=== PATIENT | female | born 1955 | race Caucasian/White ===

== ENCOUNTER → 2016-11-05 | Outpatient (CLI) | payer BC ==
[~2016-11-05] MED LIST: ADVIN50/60 INH; ALBINS/ INH; CHOL1TAB42 PO; DILT1TAB58 PO; FLVHFA44 INH; HYDR-5688 PO; HYDR12.56 PO; LEVO88TA PO; MAGNTAB PO; METO50TA16 PO; MULTTAB58 PO; PROAIR INH; REDCAP2 PO
--- NOTE | 2016-11-05 12:20 | DIAGNOSTIC IMAGING REPORT ---
RIGHT WRIST MRI HISTORY: Right wrist pain. Assess for scaphoid fracture. TECHNIQUE: Multiplanar multisequence MRI of the right wrist was performed without the use of intravenous contrast. COMPARISON STUDY: Right forearm 10/05/2016. FINDINGS: Mild subcutaneous edema dorsal to the distal ulna. The distal ulna demonstrates mild dorsal displacement in relation to the distal radius. This is consistent with a tear of the dorsal radioulnar ligament resulting in the subluxation at the distal radioulnar joint. However, there is no significant soft tissue edema to suggest an acute injury. Therefore, this is age indeterminate but likely old. There is mild patchy marrow edema at the distal radial shaft. This is only partially imaged on this study. However, is no fracture identified. The scapholunate, lunotriquetral ligaments are intact. Question a tiny partial tear at the triangular fibrocartilage best seen on coronal image 9. The flexor and extensor tendons are intact. The median nerve is normal in course, caliber, and signal intensity. IMPRESSION: 1. No acute fracture within the right wrist. 2. Mild patchy marrow edema at the distal radial shaft. This is only partially imaged on this study. This could represent a bone contusion. Recommend follow-up plain film of the forearm to exclude the less likely possibility of a fracture which is not included on this study. 3. The distal ulna demonstrates mild dorsal subluxation within relation to the radius. This consistent with tear of the dorsal radioulnar ligament. There is mild subcutaneous edema along the dorsal aspect of the ulna. However, this is less than expected for an acute injury. Therefore, the distal radioulnar joint subluxation is technically age indeterminate but likely old. 4. Small partial tear at the triangular fibrocartilage. Electronically signed by: Christopher Buckley M.D. 11/05/2016 12:19 PM Dictated Date/Time: 11/05/2016 12:06 PM
== END | disposition home or self-care (01) ==
LOC: C.MRI 10:20
PROVIDERS: ATTEND Orthopaedic Surgery Sports Medicine
DX: M25.531 Pain in right wrist (principal)

== ENCOUNTER → 2017-04-13 | Outpatient (CLI) | payer BC ==
--- NOTE | 2017-04-13 16:08 | MAMMOGRAPHY REPORT ---
BILATERAL DIGITAL SCREENING MAMMOGRAM TOMOSYNTHESIS WITH CAD: 04/13/2017 CLINICAL HISTORY: Asymptomatic screening exam. Personal history of left breast cancer status post tr eatment. TECHNIQUE: Bilateral breast tomosynthesis in addition to standard 2D mammography was performed. 2-D right MLO and left XCCL views were obtained. Current study was also evaluated with a Computer Aided Detection (CAD) system. COMPARISON: Comparison is made to exams dated: 04/09/2016 mammogram, 03/03/2015 mammogram, 02/28/2014 m ammogram, 02/26/2013 mammogram, 02/24/2012 mammogram, and 02/17/2011 mammogram - [facility] nter. BREAST COMPOSITION: There are scattered areas of fibroglandular density in both breasts. FINDINGS: There are stable posttreatment changes in the left breast. Surgical clips remain in place in the superior posterior breast. Asymmetry of the size of the breasts, right greater than left, lik gerson secondary to prior left breast treatment. There are benign-appearing rodlike microcalcifications in the medial right breast. Mild vascular calcification and a few benign rim calcifications. No ne w suspicious mass, architectural distortion or cluster of microcalcifications is seen. IMPRESSION: ACR BI-RADS CATEGORY 2: BENIGN There is no mammographic evidence of malignancy. A 1 year screening mammogram is recommended. The pa tient will receive written notification of the results. Approximately 10% of breast cancers are not detected with mammography. A negative mammographic report should not delay biopsy if a clinically suggestive mass is present. Emma Jarrell M.D. ay/:04/13/2017 13:38:03 Rehab/Pre Vocational Counselor: Janeth BROWN(R)(M)(BD), [facility] letter sent: Normal 1/2 BI-RADS Code: ACR BI-RADS Category 2: Benign
== END | disposition home or self-care (01) ==
LOC: C.MAMM 10:26
PROVIDERS: ATTEND Family Medicine
DX: Z12.31 Encounter for screening mammogram for malignant neoplasm of breast (principal); Z85.3 Personal history of malignant neoplasm of breast

== ENCOUNTER → 2017-09-06 | Outpatient (CLI) | payer BC ==
[~2017-09-06] MED LIST changes: -HYDR-5688 PO
--- NOTE | 2017-09-06 15:49 | DIAGNOSTIC IMAGING REPORT ---
CHEST 2 VIEWS ROUTINE CLINICAL HISTORY: ASTHMA EXACERBATION dyspnea COMPARISON STUDY: 01/09/2016 FINDINGS: Chronic pleural reactive change and fibrosis right base. Small stable calcified granuloma right apex. Lungs otherwise appear clear. Unchanging surgical clips overlying the right hilum. IMPRESSION: Chronic and postoperative change. No acute process. The above report was generated using voice recognition software. It may contain grammatical, syntax or spelling errors. Electronically signed by: Nando William M.D. 09/06/2017 3:47 PM Dictated Date/Time: 09/06/2017 3:46 PM
== END | disposition home or self-care (01) ==
LOC: C.RAD1850 15:36
PROVIDERS: ATTEND Student in an Organized Health Care Education/Training Program
DX: J45.901 Unspecified asthma with (acute) exacerbation (principal)

== ENCOUNTER 2017-09-12 16:10 | Inpatient (IN) | payer BC, OTHER ==
[~2017-09-12] VITALS: Ht 175.3 cm; Wt 103.3 kg
[2017-09-12 16:30] VITALS: BP 166/83; PULSE 78; TEMP 36.6; O2SAT 94; Ht 175.3 cm; Wt 103.3 kg
[2017-09-12] MEDS ORDERED: ACETAMINOPHEN 325 MG TAB PO PRN (17:30)
[2017-09-12] MEDS ORDERED: MAGNESIUM HYDROXIDE SUSP 30 ML UDC PO PRN (17:30)
[2017-09-12] MEDS ORDERED: ALUMINUM/MAGNESIUM/SIMETH (MAALOX MAX) 30 ML UDC PO PRN (17:30)
[2017-09-12] MEDS ORDERED: POLYETHYLENE (MIRALAX) 17 GM PACK PO PRN (17:30)
[2017-09-12] MEDS ORDERED: ZOLPIDEM TARTRATE 5 MG TAB PO PRN (17:30)
[2017-09-12] MEDS ORDERED: ONDANSETRON INJ 2 MG/ML 2 ML VIAL IV PRN (17:30)
--- NOTE | 2017-09-12 17:40 | History and Physical ---
History & Physical Date of Service Sep 12, 2017. History & Physical persistent asthma, direct admit from Dr. Silva office, [id number]
[2017-09-12] MEDS ORDERED: LEVO112T4 PO (17:43)
[2017-09-12] MEDS ORDERED: PANTOprazole SOD 40 MG TAB PO STA (17:43)
[2017-09-12] MEDS ORDERED: HYDR25TA5 (17:45)
[2017-09-12] MEDS ORDERED: BIOT1CAP8 (17:47)
[2017-09-12] MEDS ORDERED: CYCL10TA6 PO (17:48)
[2017-09-12] MEDS ORDERED: LEVO1TAB35 PO (17:48)
[2017-09-12] MEDS ORDERED: PRED20TA2 (17:48)
[2017-09-12] MEDS ORDERED: PRED10TA PO (17:48)
[2017-09-12] MEDS ORDERED: OPTIRAY 320 IV PRN (18:00)
[2017-09-12] MEDS ORDERED: METHYLPREDNISOLONE IV 125 MG in SYRINGE 0 ML IV ONE (18:00)
[2017-09-12 18:11] LABS: BASO % 0.2 %; BASO ABS # 0.02 K/uL (0-0.2); COMPLETE YES; EOS % 0.3 %; HEMATOCRIT 41.8 % (37-47); LYMPH % 20.3 %; LYMPH ABS # 2.23 K/uL (1.2-3.4); MEAN CELL VOLUME 93.3 fL (80-100); MEAN CORPUSCULAR HEMOGLOBIN 31.7 pg (25-34); MONO % 9.1 %; NEUT % 69.1 %; PLATELET COUNT 170 K/uL (130-400); RED BLOOD COUNT 4.48 M/uL (4.2-5.4); WHITE BLOOD COUNT 11.01 K/uL (4.8-10.8)
[2017-09-12 18:21] LABS: PROTHROMBIN TIME (PATIENT) 10.9 SECONDS (9.0-12.0)
[2017-09-12 18:33] LABS: BLOOD UREA NITROGEN 26 mg/dl (7-18); BUN/CREATININE RATIO 25.1 (10-20); C-REACTIVE PROTEIN < 0.29 mg/dl (0-0.29); CALCIUM 9.8 mg/dl (8.5-10.1); CARBON DIOXIDE 28 mmol/L (21-32); CHLORIDE 102 mmol/L (98-107); CREATININE 1.03 mg/dl (0.60-1.20); GLUCOSE 135 mg/dl (70-99); MAGNESIUM 2.1 mg/dl (1.8-2.4); PHOSPHORUS 1.6 mg/dl (2.5-4.9); POTASSIUM 3.3 mmol/L (3.5-5.1); SODIUM 137 mmol/L (136-145)
[2017-09-12] MEDS ORDERED: POTASSIUM PHOS 3 MMOL/1 ML INFUSION IV STA (18:43)
[2017-09-12] MEDS ORDERED: LEVAQUIN 750MG / 150ML D5W IV ONE (18:45)
[2017-09-12] MEDS ORDERED: POTASSIUM CHLORIDE 10 MEQ TABCR PO STA (18:50)
[2017-09-12] MEDS ORDERED: POTASSIUM PHOSPHATE INJ 30 MMOL in SODIUM CHLORIDE 0.9% 500ML 500 ML IV ONE (19:00)
--- NOTE | 2017-09-12 19:20 | DIAGNOSTIC IMAGING REPORT ---
(CHEST FOR PE) ANGIO WITH CLINICAL HISTORY: 62 years-old Female presenting with ^persistent asthma to rule out pe, cough, asthma, clinical concern for pulmonary embolus. TECHNIQUE: Multidetector CT angiography of the chest was performed after administration of intravenous contrast. 3-D volumetric and/or maximum intensity projection (MIP) images were subsequently reconstructed for review. IV contrast: 74 mL of Optiray 320. A dose lowering technique was used consistent with the principles of ALARA (as low as reasonably achievable). COMPARISON: 01/08/2012. CT DOSE (mGy.cm): The estimated cumulative dose is 471.56 mGy.cm. FINDINGS: [employer] Administrator topogram: Surgical clips noted in the left breast. Cholecystectomy clips. Pulmonary vasculature: The study is adequate for assessment of the pulmonary vascular tree. No filling defect within the pulmonary arteries to suggest embolus. Main pulmonary artery is not enlarged though there is slight aneurysmal dilatation of the left pulmonary artery. No flattening of the interventricular septum. No intracardiac intracardiac filling defect. No reflux of contrast into the hepatic veins. Remaining chest: On soft tissue windows, normal thyroid. Postsurgical changes of the left breast. No axillary, supraclavicular, hilar, or mediastinal lymphadenopathy. Atherosclerosis of the aorta. Coronary artery calcification. Normal heart size. No pericardial or pleural effusion. Subpleural lipoma noted in the right hemithorax. Borderline hepatic steatosis. Cholecystectomy clips. Mild biliary ductal dilatation likely reservoir effect in the post cholecystectomy state. On lung windows, minimal dependent changes likely atelectasis. Minimal subpleural nodularity more superiorly may relate to scarring. Anterior cystic change, reticulation, and consolidation in the subpleural distribution of the left apex is unchanged from prior exam. Postsurgical changes of right upper lobectomy. Airways patent though mild bronchial wall thickening suggested in the lower lobes. Debris noted in several subsegmental bronchi bilaterally at the lung bases. On bone windows, normal osseous structures. IMPRESSION: 1. No evidence of pulmonary embolus. 2. Postsurgical changes of right upper lobectomy. 3. Chronic cicatrizing atelectasis and bronchiectasis in the anterior left apex, which may represent postinfectious changes. 4. Mild bronchial wall thickening in the lower lobes with debris in several subsegmental lower lobe bronchi. This could suggest chronic aspiration or mucous plugging. Electronically signed by: Reginaldo Hartley M.D. 09/12/2017 7:18 PM Dictated Date/Time: 09/12/2017 7:09 PM
--- NOTE | 2017-09-12 19:35 | HISTORY & PHYSICAL EXAMINATION ---
DATE OF ADMISSION: 09/12/2017 This is a level 3 inpatient admission, 35 minutes. CHIEF COMPLAINT: Persistent asthma. 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 The patient's systems designer, Dr. Silva called me from the office and reported the patient has persistent cough and wheezing for 3 weeks, has been tried with oral prednisone, 3 courses of different antibiotics which include azithromycin and Levaquin and has not been getting any better. The patient was seen in the office today, she still has significant episodic cough and wheezing. The patient was getting breathing treatment at home 4 times a day, which has no help associated with persistent cough and cough spells. Has some chest pain because of the cough. There was some yellow, junk sputum yesterday. She denied palpitations. She denied lower extremity swelling. She denied nausea, vomiting, abdominal pain, diarrhea or constipation. She denied dysuria, urgency or frequencies. She denied facial droop, slurry speeches or local weakness; but possibly has oral candidiasis. ALLERGIES: TO IBUPROFEN, THEOPHYLLINE AND [place]. PAST MEDICAL HISTORY: Like I mentioned include: 1. Carcinoid tumor with possible right lobectomy of the lung, left breast cancer with lumpectomy radiation and chemo treatment. 2. Right total knee replacement. 3. Left back discectomy. 4. Bunion removal. 5. Cholecystectomy. 6. Partial hysterectomy. 7. Irritable bowel syndrome. 8. Restless leg syndrome. 9. CAD with LA in the past. 10. Hypertension. 11. Seasonal allergy. 12. GERD. 13. Graves' disease. 14. Asthma. SOCIAL HISTORY: She denied tobacco abuse disorder, denied alcohol abuse disorder and denied illicit drug abuse. FAMILY HISTORY: Noncontributory. REVIEW OF SYSTEMS: Please see HPI. Otherwise, 14 point organ system was negative. CURRENT MEDICATIONS: Include: 1. Pulmicort 0.5 mg inhaler. 2. Flovent 220 mcg inhaler b.i.d. 3. ProAir inhaler 90 mcg. 4. Metoprolol 50 mg b.i.d. 5. Red yeast rice 600 mg p.o. daily. 6. Advair 500/50 mg inhale b.i.d. 7. HCTZ 25 mg p.o. daily. 8. Cardizem 120 mg p.o. b.i.d. 9. Flexeril 10 mg p.o. p.r.n. 10. Other medicines include; Synthroid 112 mcg p.o. daily, the current dose of prednisone is 20 mg p.o. daily and Levaquin 750 mg p.o. daily. PHYSICAL EXAMINATION: VITAL SIGNS: Temperature is 36.7, pulse 75, respiratory rate 16, heart rate of 75 and pulse ox was 95% on two liters. GENERAL: The patient is a white female, awake, alert, orientated, conversational and in no acute distress, but has persistent cough on physical examination. HEAD: Normocephalic. EYES: Pupils are equal, round and responsive to light. Conjunctivae; no injection. Sclerae; no icterus. EARS: Normal. NOSE: Normal. NECK: Supple. Thyroid no enlargement. Trachea is midline. LUNGS: Decreased breathing sounds. There was significant diffused wheezing and rales. No crackles. ABDOMEN: Obese, bowel sounds positive, soft and nontender. Bilateral CVA was nontender. GENITOURINARY AND RECTAL: Deferred. EXTREMITIES: Bilateral lower extremity; no swelling. Calf was nontender. There was no clubbing. No cyanosis. NEUROLOGIC EVALUATION: Cranial nerve through II-XII was intact. There were no local deficits. SKIN: Has no rashes. LABORATORY STUDIES: Pending because of the direct admission. ASSESSMENT AND PLAN: 1. Persistent asthma. Need to rule out pulmonary embolism with a chest CT because of history of deep vein thrombosis and has significant history of carcinoid lung cancer and breast cancer history. 2. History of hypertension, gastroesophageal reflux disease, coronary artery disease and history of atrial fibrillation. Like I mentioned above, the patient has persistent asthma and failed outpatient treatment. We will give nebulizer treatment, DuoNeb q. 6 hours scheduled and q. 2 hours as needed, Solu-Medrol IV 125mg one dose now and then q. 8 hours 60 mg scheduled. The patient has 3 courses of antibiotics treatment; I believe possible have enough antibiotics, I would cont levaquin because pt has yellow sputum and elevated Lactase level, may need to stop abx soon if CT of chest dose not support infectious process. In addition, check a chest CT to rule out PE. I will check a Doppler ultrasound to rule out DVT as well. If needed, we may request a systems designer's consultation. The patient has oral candidiasis. We will give Nystatin swish and swallowing. I will check TSH levels, ESR and CRP, check echocardiogram because the patient has a history of A-Fib and has persistent asthma. continue the tele monitor. I will continue home medications for hypertension, history of LA and A-Fib. GI prophylaxis and DVT prophylaxis. full code. MTDD
--- NOTE | 2017-09-12 19:35 | DIAGNOSTIC IMAGING REPORT ---
VENOUS DOPPLER LWR EXT BILA CLINICAL HISTORY: 62 years-old Female presenting with persistent asthma, hx of dvt. TECHNIQUE: Real-time grayscale and color and spectral Doppler ultrasound imaging of the veins of the bilateral lower extremities was performed. Compression and augmentation were also utilized. COMPARISON: 02/11/2012. FINDINGS: Right: Common femoral vein: Patent. Femoral vein: Patent. Greater saphenous vein: Patent. Popliteal vein: Patent. Calf veins: Patent. Left: Common femoral vein: Patent. Femoral vein: Patent. Greater saphenous vein: Patent. Popliteal vein: Patent. Calf veins: Patent. Other: None. IMPRESSION: No evidence of deep venous thrombosis. Electronically signed by: Reginaldo Hartley M.D. 09/12/2017 7:33 PM Dictated Date/Time: 09/12/2017 7:32 PM
[2017-09-12] MEDS: DILTIAZEM HCL 120 MG CAPCR PO SCH (19:43)
[2017-09-12] MEDS: METOPROLOL TARTRATE 25 MG TAB PO SCH (19:44)
[2017-09-12] MEDS: MAGNESIUM CHLORIDE 64MG DELAYED REL TAB PO SCH (19:45)
[2017-09-12] MEDS: NYSTATIN SUSP 500,000 U/5 ML UDC PO SCH (19:46)
[2017-09-12] MEDS: ENOXAPARIN 40 MG/0.4 ML SYR SC SCH (19:47)
[2017-09-12] MEDS: LEVOFLOXACIN / D5W 750 MG in PREMIXED IN D5W 150 ML IV SCH (19:51)
[2017-09-12] MEDS: ALBUT/IPRATROP 3MG/0.5MG NEB 3 ML VIAL INH SCH (20:00)
[2017-09-12 20:05] VITALS: BP 175/79; PULSE 67; TEMP 36.6; O2SAT 100
--- NOTE | 2017-09-12 20:34 | DIAGNOSTIC IMAGING REPORT ---
CHEST 2 VIEWS ROUTINE CLINICAL HISTORY: 62 years-old Female presenting with persistent asthma. TECHNIQUE: PA and lateral views of the chest were obtained. COMPARISON: 09/06/2017. FINDINGS: Numerous external leads project over the mediastinum and upper abdomen degrading image quality. Allowing for this, mediastinal surgical clips and atherosclerosis of the aortic arch noted. Cardiac silhouette normal in size. Mildly low lung volumes with mild elevation of the right hemidiaphragm unchanged. Lungs otherwise clear. Persistent pleural thickening along the right lateral pleural space. No pneumothorax. Degenerative changes of the thoracic spine. Upper abdomen normal. IMPRESSION: 1. Chronic changes. No convincing evidence of acute cardiopulmonary disease. Electronically signed by: Reginaldo Hartley M.D. 09/12/2017 8:32 PM Dictated Date/Time: 09/12/2017 8:30 PM
[2017-09-12 20:48] VITALS: PULSE 71; O2SAT 95
[2017-09-12 23:31] VITALS: BP 146/76; PULSE 69; TEMP 36.8; O2SAT 95
[2017-09-13] VITALS (13 sets, daily range): BP systolic 131–166; BP diastolic 71–89; PULSE 66–89; TEMP 36.4–36.8; O2SAT 93–97
[2017-09-13] MEDS: METHYLPREDNISOLONE IV 60 MG in SYRINGE 0 ML IV SCH ×3 (01:46→18:05)
[2017-09-13] MEDS ORDERED: HYDROCODONE/HOMATROPINE SYRUP 5MG/1.5MG 5ML UDP PO STA (02:08)
[2017-09-13] MEDS: ALBUT/IPRATROP 3MG/0.5MG NEB 3 ML VIAL INH SCH ×5 (02:16→19:34)
[2017-09-13] MEDS: LEVOTHYROXINE 88 MCG TAB PO SCH (05:57)
[2017-09-13 08:07] LABS: BASO % 0.1 %; BASO ABS # 0.01 K/uL (0-0.2); COMPLETE YES; HEMATOCRIT 42.3 % (37-47); IG% 2.3 %; LYMPH ABS # 1.53 K/uL (1.2-3.4); MEAN CELL VOLUME 92.6 fL (80-100); MEAN CORPUSCULAR HEMOGLOBIN 31.3 pg (25-34); MEAN CORPUSCULAR HGB CONC 33.8 g/dl (32-36); MEAN PLATELET VOLUME 9.1 fL (7.4-10.4); MONO % 1.6 %; PLATELET COUNT 170 K/uL (130-400); RED BLOOD COUNT 4.57 M/uL (4.2-5.4); WHITE BLOOD COUNT 8.52 K/uL (4.8-10.8)
[2017-09-13 08:35] LABS: BUN/CREATININE RATIO 18.7 (10-20); CALCIUM 9.6 mg/dl (8.5-10.1); CREATININE 1.1 mg/dl (0.60-1.20); POTASSIUM 3.8 mmol/L (3.5-5.1)
--- NOTE | 2017-09-13 08:36 | Hospitalist Progress Note ---
Hospitalist Progress Note Date of Service Sep 13, 2017. Subjective Pt evaluation today including: conversation w/ patient, physical exam, chart review, lab review, review of studies Pain: None PO Intake: Good Voiding: no voiding problems The patient was seen and examined this morning. Pt reports her cough has been going on for about 2 months at this point. She has been through 3 courses of antibiotics and steriods, all which did not seem to help. She reports not sleeping well overnight, and her cough has been more productive since being here last night. Mucous is lawrence-yellow per her report, and she is trying to expectorate for a sputum culture. She denies fever, chills or sweats overnight. No chest pain. She is short of breath with ambulation after about 50 yards, but reports this has also been going on for a while. Pt is very active at home and hasn't had any issue completing ADLs, lives with her . ROS: 6 point ROS reviewed and otherwise negative. Objective Vital Signs Date Time Temp Pulse Resp B/P (MAP) Pulse Ox O2 Delivery O2 Flow Rate FiO2 09/13/17 07:52 36.7 70 16 145/89 (107) 95 09/13/17 04:00 Room Air 09/13/17 03:45 36.8 70 22 131/71 (91) 94 Room Air 09/13/17 02:16 72 16 93 Room Air 09/13/17 00:01 95 Room Air 09/12/17 23:31 36.8 69 22 146/76 (99) 95 Room Air 09/12/17 20:48 71 16 95 Room Air 09/12/17 20:05 36.6 67 21 175/79 (111) 100 Nebulizer 9.0 09/12/17 20:00 Room Air 09/12/17 16:30 36.6 78 20 166/83 94 Room Air 09/12/17 16:30 94 Room Air Physical Exam General Appearance: WD/WN, no apparent distress, + pertinent finding ( overweight) Eyes: PERRL, EOMI ENT: hearing grossly normal, + pertinent finding (white plaque in posterior pharynx) Neck: supple, no JVD Respiratory/Chest: + pertinent finding (on RA, + expiratory wheeze throughout, no rales or crackles) Cardiovascular: regular rate, rhythm, no murmur, + tachycardia Abdomen: normal bowel sounds, non tender, soft Extremities: non-tender, no pedal edema, no calf tenderness Neurologic/Psychiatric: alert, normal mood/affect, oriented x 3 Skin: normal color, warm/dry Laboratory Results Last 24 Hours Test 09/12/17 17:56 09/12/17 22:55 09/13/17 07:39 White Blood Count 11.01 K/uL 8.52 K/uL Red Blood Count 4.48 M/uL 4.57 M/uL Hemoglobin 14.2 g/dL 14.3 g/dL Hematocrit 41.8 % 42.3 % Mean Corpuscular Volume 93.3 fL 92.6 fL Mean Corpuscular Hemoglobin 31.7 pg 31.3 pg Mean Corpuscular Hemoglobin Concent 34.0 g/dl 33.8 g/dl Platelet Count 170 K/uL 170 K/uL Mean Platelet Volume 9.0 fL 9.1 fL Neutrophils (%) (Auto) 69.1 % 78.0 % Lymphocytes (%) (Auto) 20.3 % 18.0 % Monocytes (%) (Auto) 9.1 % 1.6 % Eosinophils (%) (Auto) 0.3 % 0.0 % Basophils (%) (Auto) 0.2 % 0.1 % Neutrophils # (Auto) 7.62 K/uL 6.64 K/uL Lymphocytes # (Auto) 2.23 K/uL 1.53 K/uL Monocytes # (Auto) 1.00 K/uL 0.14 K/uL Eosinophils # (Auto) 0.03 K/uL 0.00 K/uL Basophils # (Auto) 0.02 K/uL 0.01 K/uL RDW Standard Deviation 46.0 fL 44.9 fL RDW Coefficient of Variation 13.4 % 13.3 % Immature Granulocyte % (Auto) 1.0 % 2.3 % Immature Granulocyte # (Auto) 0.11 K/uL 0.20 K/uL Erythrocyte Sedimentation Rate 18 mm/hr Prothrombin Time 10.9 SECONDS Prothromb Time International Ratio 1.0 Sodium Level 137 mmol/L Potassium Level 3.3 mmol/L Chloride Level 102 mmol/L Carbon Dioxide Level 28 mmol/L Anion Gap 7.0 mmol/L Blood Urea Nitrogen 26 mg/dl Creatinine 1.03 mg/dl Est Creatinine Clear Calc Drug Dose 69.8 ml/min Estimated GFR () 67.0 Estimated GFR (Non- 57.8 BUN/Creatinine Ratio 25.1 Random Glucose 135 mg/dl Lactic Acid Level 2.6 mmol/L 5.6 mmol/L Calcium Level 9.8 mg/dl Phosphorus Level 1.6 mg/dl Magnesium Level 2.1 mg/dl C-Reactive Protein < 0.29 mg/dl Procalcitonin < 0.05 ng/ml Chemistry Specimen Hemolysis Assessment and Plan 62 yo F with PMHx of Persistent asthma. - chest CT neg for PE, possible post infectious changes with cicatrizing atelectasis and brochiectasis in ant L. apex, and mild bronchial wall thickening in lower lobes which could be aspiration or mucous plugging. - Will consult pulm for possible needs for bronch - DuoNeb q. 6 hours scheduled and q. 2 hours as needed - Solu-Medrol IV 125mgx 1 dose and then 60 mg q8h - S/p 3 courses of antibiotics treatment - Continue levaquin for now - Collect sputum culture Lactic acidosis - Elevated at time of admission, now trending downward - did not receive fluids overnight. - Follow blood cultures Hypertension - Cont hctz 12.5 mg daily, metoprolol tartrate 25 mg BID, diltiazem 120 mg BID CAD Atrial Fibrillation - Cont diltiazem 120 mg BID GERD - Cont PPI Hypothyroidism s/p graves disease - Continue synthroid 88mcg daily - TSH = 0.125, likely needs a dose increase on synthroid after acute infectious process resolved - will discuss with attending. Oral candidiasis - Continue nystatin swish and swallow as likely esophageal candidiasis as well. - Pt instructed to rinse after inhaler and nebulizer treatments Hx of breast cancer s/p lumpectomy and chemotherapy and XRT 2002 History of carcinoid tumor with partial right lobectomy of the lung 2001 - Venous doppler negative for DVT - CT chest negative for PE - Stable DVT ppx: lovenox subq daily CODE STATUS: FULL CODE Disposition: From home, lives with , no CM needs anticipated
[2017-09-13 08:47] LABS: PHOSPHORUS 2.8 mg/dl (2.5-4.9); THYROID STIMULATING HORMONE 0.135 uIu/ml (0.300-4.500)
[2017-09-13] MEDS: MAGNESIUM CHLORIDE 64MG DELAYED REL TAB PO SCH ×2 (09:23→20:51)
[2017-09-13] MEDS: METOPROLOL TARTRATE 25 MG TAB PO SCH ×2 (09:23→20:51)
[2017-09-13] MEDS: DILTIAZEM HCL 120 MG CAPCR PO SCH ×2 (09:23→20:52)
[2017-09-13] MEDS: PANTOprazole SOD 40 MG TAB PO SCH (09:23)
[2017-09-13] MEDS: MULTIVITAMIN TAB PO SCH (09:23)
[2017-09-13] MEDS: HYDROCHLOROTHIAZIDE 25 MG TAB PO SCH (09:23)
[2017-09-13] MEDS: NYSTATIN SUSP 500,000 U/5 ML UDC PO SCH ×4 (09:23→20:52)
[2017-09-13] MEDS: CHOLECALCIFEROL 1000 INTER.UNIT TAB PO SCH (09:24)
--- NOTE | 2017-09-13 12:22 | ECHOCARDIOGRAM REPORT ---
*NOTICE TO RECEIVING DEMOCRAT AGENCY This information is strictly Confidential and protected under [place] law. [place] law prohibits you from making any further disclosure of this information unless further disclosure is expressly permitted by the written consent of the person to whom it pertains or is authorized by law. A general authorization for the release of medical or other information is not sufficient for this purpose. Hospital accepts no responsibility if the information is made available to any other person, INCLUDING THE PATIENT. Interpretation Summary * Name: JOSR CHAPIN Study Date: 09/13/2017 06:31 AM BP: 131/71 mmHg * Patient Location: .2T\S\E217\S\1 HR: 70 * : 1955 (M/d/yyyy) Gender: Female Height: 69 in * Age: 62 yrs Ethnicity: CA Weight: 216 lb * Ordering Physician: Reji Warner * Referring Physician: No Doctor, Assigned * Performed By: Kalpana Noriega RDCS * * Reason For Study: Atrial Fibrillation * BSA: 2.1 m2 * Normal biventricular systolic function. * Mild left atrial dilatation. * Trace mitral regurgitation. * No significant valvular abnormalities. Procedure Details * A complete two-dimensional transthoracic echocardiogram was performed (2D, M-mode, Doppler and color flow Doppler). Left Ventricle * The left ventricle is normal in size. * There is normal left ventricular wall thickness. * Ejection Fraction = 55-60%. * Left ventricular systolic function is normal. * A full diastolic examination was done with clinical findings of Class I diastolic dysfunction. * The left ventricular wall motion is normal. Right Ventricle * The right ventricle is normal in size and function. * The right ventricular systolic function is normal as assessed by tricuspid annular plane systolic excursion (TAPSE) (normal >1.5 cm). Atria * The left atrium is mildly dilated. * Right atrial size is normal. * No ASD detected; PFO is not assessed. Mitral Valve * The mitral valve is normal. * There is no mitral valve stenosis. * There is trace mitral regurgitation. Tricuspid Valve * The tricuspid valve is normal. * There is no tricuspid stenosis. * No tricuspid regurgitation. Aortic Valve * The aortic valve opens well. * The aortic valve is trileaflet. * Aortic stenosis is absent. * No aortic regurgitation is present. Pulmonic Valve * The pulmonic valve is not well visualized. * The pulmonary valve is not well seen, but the Doppler examination is normal without significant regurgitation or stenosis. * There is no pulmonic valvular stenosis. * There is no pulmonic valvular regurgitation. Great Vessels * The aortic root is normal size. Pericardium/Pleural * There is no pericardial effusion. Great Vessels * The inferior vena cava is mildly dilated. MMode 2D Measurements and Calculations IVSd 0.99 cm IVSs 1.3 cm LVIDd 4.1 cm LVIDs 2.7 cm LVPWd 1.1 cm LVPWs 1.6 cm IVS/LVPW 0.94 FS 34.1 % EDV(Teich) 76.2 ml ESV(Teich) 27.8 ml EF(Teich) 63.5 % EDV(cubed) 71.3 ml ESV(cubed) 20.4 ml EF(cubed) 71.4 % % IVS thick 34.9 % % LVPW thick 54.1 % LV mass(C)d 139.6 grams LV mass(C)dI 65.4 grams/m\S\2 LV mass(C)s 138.2 grams LV mass(C)sI 64.7 grams/m\S\2 SV(Teich) 48.4 ml SI(Teich) 22.7 ml/m\S\2 SV(cubed) 50.9 ml SI(cubed) 23.8 ml/m\S\2 Ao root diam 3.3 cm Ao root area 8.5 cm\S\2 ACS 2.0 cm LA dimension 4.1 cm LA/Ao 1.2 LVAd ap4 27.8 cm\S\2 LVLd ap4 8.2 cm EDV(MOD-sp4) 84.5 ml EDV(sp4-el) 80.7 ml LVAs ap4 16.9 cm\S\2 LVLs ap4 7.0 cm ESV(MOD-sp4) 38.7 ml ESV(sp4-el) 34.6 ml EF(MOD-sp4) 54.2 % EF(sp4-el) 57.1 % LVAd ap2 33.4 cm\S\2 LVLd ap2 8.2 cm EDV(MOD-sp2) 118.7 ml EDV(sp2-el) 115.5 ml LVAs ap2 20.7 cm\S\2 LVLs ap2 7.0 cm ESV(MOD-sp2) 56.3 ml ESV(sp2-el) 52.2 ml EF(MOD-sp2) 52.5 % EF(sp2-el) 54.8 % LVLd %diff 0.15 % EDV(MOD-bp) 100.0 ml LVLs %diff -1.25 % ESV(MOD-bp) 46.8 ml EF(MOD-bp) 53.2 % SV(MOD-sp4) 45.8 ml SI(MOD-sp4) 21.5 ml/m\S\2 SV(MOD-sp2) 62.3 ml SI(MOD-sp2) 29.2 ml/m\S\2 SV(MOD-bp) 53.2 ml SI(MOD-bp) 24.9 ml/m\S\2 SV(sp4-el) 46.1 ml SI(sp4-el) 21.6 ml/m\S\2 SV(sp2-el) 63.3 ml SI(sp2-el) 29.7 ml/m\S\2 Doppler Measurements and Calculations MV E max ramona 91.8 cm/sec MV A max ramona 95.4 cm/sec MV E/A 0.96 MV dec time 0.20 sec Ao V2 max 131.4 cm/sec Ao max PG 6.9 mmHg Ao max PG (full) 3.3 mmHg LV V1 max PG 3.7 mmHg LV V1 max 95.6 cm/sec PA V2 max 116.2 cm/sec PA max PG 5.4 mmHg
--- NOTE | 2017-09-13 13:21 | PULMONARY CONSULTATION ---
DATE OF CONSULTATION: 09/13/2017 TIME: 12:10 p.m. HISTORY OF PRESENT ILLNESS: The patient was seen in room 217. She is a 62-year-old female with a history of bronchial asthma, dating back to her late 20s. It generally has gotten worse as she has gotten older. She follows up with Dr. Mahamed Silva on a regular basis in the pulmonary and allergy office. She has been having problems for between 1 and 2 months. She states that she had at least 2 courses of antibiotics with only partial benefit. She has had at least 2 courses of steroids. Usually, the prednisone really makes things better for her, but at this time, it did not seem to clear her out. She subsequently saw Dr. Silva, who felt that she should be admitted. She was admitted yesterday. The patient states she has been very tight. This would be most bothersome at night. She has been short of breath with exertion. Usually, she states when she gets over an episode, she is good for a while. She states she exercises and goes to the gym on a regular basis when she feels well. She is generally very active. This morning, she did expectorate a modest quantity of mucus that was yellowish ramna in color. She estimates that it was the size of a quarter. That was the most she had brought up. Last week, she had had some low grade fevers with temperatures as high as 100.6 at home. The fevers have resolved. She has not coughed up any blood. The patient has had allergy testing in the past. She states SHE IS ALLERGIC TO [place] AND [place]. She does get hay fever symptoms mainly in the springtime. This would often be in the form of watery eyes. She has 2 cats at home. She denies that she is allergic or sensitive to cat hair at all, however. PAST SURGICAL HISTORY: 1. 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 2. Left breast lumpectomy. 3. Right total knee replacement. 4. Low back surgery. 5. Bunion surgery. 6. Cholecystectomy. 7. Partial hysterectomy. PAST MEDICAL HISTORY: 1. DVT. 2. Atrial fibrillation. 3. Hemorrhoids. 4. Breast cancer as noted. 5. Irritable bowel syndrome. 6. Hypertension. 7. WI. 8. Coronary artery disease. 9. GERD by history, but with no symptoms recently. 10. Graves' disease. 11. Restless legs. ALLERGIES: IBUPROFEN AND THEOPHYLLINE. SOCIAL HISTORY: Tobacco none. ETOH -- None. FAMILY HISTORY: Noncontributory. RESPIRATORY MEDICATIONS: At home, according to the patient, she takes Advair 500/50 one puff b.i.d., Flovent 220 mcg 2 puffs b.i.d., nebulizer treatments, and a rescue inhaler. This apparently is ProAir. REVIEW OF SYSTEMS: Negative except for the above-mentioned complaints. Ten systems reviewed. PHYSICAL EXAMINATION: GENERAL: The patient is a 62-year-old female who was cooperative, alert and oriented. She was in no distress. VITAL SIGNS: Temperature is 36.4. The heart rate was 83 per minute. The rhythm is regular. Blood pressure 146/83. HEENT: Pupils were reactive. Nares were clear. Mouth exam revealed a small amount of oral candidiasis posteriorly. NECK: Palpation of the neck reveals no lymph nodes or masses. LUNGS: Lung palmer revealed wheezes bilaterally on expiration. These would be considered moderate. There is prolonged expiratory phase of respiration. Her respiratory rate was 18 and not labored. Pulse oximetry done on room air by myself was 94%. ABDOMEN: Soft. Bowel sounds were present. There was no tenderness to palpation, masses or organomegaly. EXTREMITIES: Showed no cyanosis, clubbing or edema. She has a scar on the right knee from prior surgery. DIAGNOSTIC STUDIES: Venous Doppler was negative. Chest x-ray showed no acute disease. CAT scan of the chest showed no evidence of pulmonary embolic disease. She appears to have had a prior right upper lobectomy. In the left apex, there are cystic changes with reticulation and they are unchanged from a prior CAT scan done in 2012. The lower airways showed mild bronchial wall thickening as well as some debris in the subsegments. LABORATORY DATA: White count is 11.01. Hemoglobin 14.2. Platelets 170,000. Her eosinophil count % was only 0.3. Sed rate was 18. Coags are normal. Lactic acid levels were elevated at 2.6, then 5.6, and then 4.0. Electrolytes show sodium 137, potassium 3.8, chloride 103, and bicarbonate 22. BUN is 21 with a creatinine of 1.1. Random glucose was 188. TSH was low at 0.135. ProBNP was 513. Blood cultures are pending. Sputum is also pending. IMPRESSIONS: 1. Asthma with exacerbation. 2. Gastroesophageal reflux disease by history. 3. Oral candidiasis. COMMENTS AND RECOMMENDATIONS: The patient feels better today. She has started to expectorate. I did review the patient's prior records. She has moderately severe airflow obstruction by pulmonary function from February of this year. Her FEV1/FVC ratio was 54%. I do not feel she needs bronchoscopy at the present time. I also spoke with the patient about the possibility of bronchoscopy and she feels that she is able to cough it up. She really does noth want to consider that. She is still moderately tight and I would be reluctant to scope her the way she is currently We are going to obtain peak flows, which hopefully will correlate with her status and we can follow them. I am ordering a vibration vest and flutter valve to assist with clearance of secretions. I do agree with the methylprednisolone and levofloxacin and the nebulizer treatments as ordered. Thank you for asking me to assist in her care. CHANTELL
[2017-09-13] MEDS: LEVOFLOXACIN / D5W 750 MG in PREMIXED IN D5W 150 ML IV SCH (18:05)
[2017-09-13] MEDS: ENOXAPARIN 40 MG/0.4 ML SYR SC SCH (18:05)
[2017-09-14] VITALS (8 sets, daily range): BP systolic 147–155; BP diastolic 70–80; PULSE 66–84; TEMP 36.7–36.8; O2SAT 94–96
[2017-09-14] MEDS: METHYLPREDNISOLONE IV 60 MG in SYRINGE 0 ML IV SCH (01:45)
[2017-09-14] MEDS: LEVOTHYROXINE 88 MCG TAB PO SCH (06:06)
[2017-09-14] MEDS: ALBUT/IPRATROP 3MG/0.5MG NEB 3 ML VIAL INH SCH ×2 (07:15→11:19)
[2017-09-14] MEDS: MULTIVITAMIN TAB PO SCH (08:08)
[2017-09-14] MEDS: CHOLECALCIFEROL 1000 INTER.UNIT TAB PO SCH (08:08)
[2017-09-14] MEDS: PANTOprazole SOD 40 MG TAB PO SCH (08:08)
[2017-09-14] MEDS: METOPROLOL TARTRATE 25 MG TAB PO SCH (08:08)
[2017-09-14] MEDS: HYDROCHLOROTHIAZIDE 25 MG TAB PO SCH (08:09)
[2017-09-14] MEDS: NYSTATIN SUSP 500,000 U/5 ML UDC PO SCH (08:09)
[2017-09-14] MEDS: MAGNESIUM CHLORIDE 64MG DELAYED REL TAB PO SCH (08:09)
[2017-09-14] MEDS: DILTIAZEM HCL 120 MG CAPCR PO SCH (08:09)
--- NOTE | 2017-09-14 09:01 | PULMONARY PROGRESS NOTE ---
DATE: 09/14/2017 TIME: 08:45 a.m. SUBJECTIVE: The patient is feeling much better. She slept better last night. She was not disturbed with dyspnea and cough nearly as much as she had been. This morning, she feels quite comfortable. Her peak flows are improving. Yesterday, she was doing 150 and this morning, she is doing 200. OBJECTIVE: GENERAL: The patient is comfortable at rest. VITAL SIGNS: Temperature is 36.8. Heart rate is 84 per minute. The rhythm is regular. Blood pressure 155/80. EARS, NOSE, AND THROAT: Unremarkable. LUNGS: Lung palmer revealed diminished breath sounds. No active wheezing was heard. Respiratory rate is 20 breaths per minute. Pulse oximetry on room air was 96%. Peak flow at the time of this done by myself was 200. ABDOMEN: Soft and nontender. EXTREMITIES: Showed no cyanosis, clubbing or edema. IMPRESSIONS: 1. Asthma with exacerbation. 2. Gastroesophageal reflux disease. 3. Oral candidiasis. COMMENTS AND RECOMMENDATIONS: The patient is clinically much improved even though her peak flows are still low. She does not know what her normal peak flow is when she is feeling the best she can be. The steroids can be significantly cut back. If she continues to do well despite that cutback, I suspect she will be ready for discharge by tomorrow morning and perhaps even later today if she is doing extremely well. She obviously will need to go home with a fpc prednisone taper. She should follow up with Dr. Silva in a week or so after discharge. When she goes home, she should continue with the Advair 500/50 one puff b.i.d. and the fluticasone 2 puffs b.i.d. as she had been doing previously along with prednisone. The antibiotic course can be finished out for at least 5 days.
[2017-09-14] MEDS ORDERED: SYN88 PO (10:17)
[2017-09-14] MEDS ORDERED: PRED10TA PO (10:17)
[2017-09-14] MEDS ORDERED: PRED20TA2 PO (10:17)
[2017-09-14] MEDS ORDERED: NYSS5 PO (10:17)
[2017-09-14] MEDS ORDERED: LEVO75TA5 PO (10:27)
--- NOTE | 2017-09-14 10:35 | Discharge Instructions ---
Discharge Instructions Date of Service Sep 14, 2017. Admission Reason for Admission: Persistant Asthma Discharge Discharge Diagnosis / Problem: Acute flare of persistent asthma Discharge Goals Goal(s): Decrease discomfort, Improve function, Increase independence, Improve disease control Activity Recommendations Activity Limitations: resume your previous activity Lifting Limitations: no more than 25 pounds, gradually increase as tolerated Exercise/Sports Limitations: rest today, gradually increase as tolerated May Resume Sexual Activity: when tolerated Shower/Bathe: no limitations Driving or Machine Use: no limitations . Instructions / Follow-Up Instructions / Follow-Up You were admitted to [facility] with worsening wheeze and cough and diagnosed with acute flare of persistent asthma. During your stay here you were treated with antibiotics (Levaquin) which you had taken as an outpatient prior to admission, therefore recieved a total of 9 days of this. You were treated with other supportive care including flutter, incentive spirometry and a vibration vest. You symptoms improved and you were stable for discharge. Regarding TSH: THS= 0.135. Your dosage of levothyroxine was reduced from 88 to 75 mcg daily during this admission. Your level should be rechecked in 4-6 weeks. Medications: Take prednisone taper as directed below Start with 20 mg tablets: 60 mg ( 3 tabs) daily x 3 days, then 40 mg (2 tabs ) daily x 3 days, then 20 mg (1 tab) daily x 3 days Then finish taper with 10 mg tablets: Take 1 tablet daily x 3 days. This will complete a 12 day course. Continue taking your medications as above. Use the incentive spirometer, and flutter valve along with mucinex to help alleviate symptoms Appointments: Follow up with your Primary Care Provider, Dr. Silva, within 1-2 week. Current Hospital Diet Patient's current hospital diet: Low Sodium Diet (2gm Na) Discharge Diet Recommended Diet: Low Sodium Diet (2gm Na) Pending Studies Studies pending at discharge: yes List of pending studies: Sputum Culture Medical Emergencies . Who to Call and When: Medical Emergencies: If at any time you feel your situation is an emergency, please call 911 immediately. . Non-Emergent Contact Non-Emergency issues call your: Primary Care Provider Call Non-Emergent contact if: you have a fever, temperature is above 100.5 other concerns with your health. Call 911 or go directly to the Emergency Department if you experience any of the following: Chest pain, chest tightness, shortness of breath, abdominal pain , lightheadedness, dizziness, gastrointestinal bleeding, or have any other concerns regarding your health. . Past History Medical & Surgical History: (1) Persistent asthma . "Provider Documentation" section prepared by Yolis Méndez. . VTE Core Measure Inpt VTE Proph given/why not?: Enoxaparin (Lovenox)SQ
--- NOTE | 2017-09-14 12:59 | Discharge Summary ---
Discharge Summary Date of Service Sep 14, 2017. 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 (CHEST FOR PE) ANGIO WITH 09/12/17 IMPRESSION: 1. No evidence of pulmonary embolus. 2. Postsurgical changes of right upper lobectomy. 3. Chronic cicatrizing atelectasis and bronchiectasis in the anterior left apex, which may represent postinfectious changes. 4. Mild bronchial wall thickening in the lower lobes with debris in several subsegmental lower lobe bronchi. This could suggest chronic aspiration or mucous plugging. CHEST 2 VIEWS ROUTINE 09/12/17 FINDINGS: Numerous external leads project over the mediastinum and upper abdomen degrading image quality. Allowing for this, mediastinal surgical clips and atherosclerosis of the aortic arch noted. Cardiac silhouette normal in size. Mildly low lung volumes with mild elevation of the right hemidiaphragm unchanged. Lungs otherwise clear. Persistent pleural thickening along the right lateral pleural space. No pneumothorax. Degenerative changes of the thoracic spine. Upper abdomen normal. IMPRESSION: 1. Chronic changes. No convincing evidence of acute cardiopulmonary disease. Consultations: Pulmonology Medication Reconciliation New Medications: Levothyroxine Sodium (Levothyroxine Sodium) 75 Mcg Tab 1 TAB PO DAILY for 30 Days, #30 TAB 1 Refill Nystatin (Nystatin) 5 Ml Susp 10 ML PO QID for 7 Days, #28 DOSE Changed Medications: Prednisone (Prednisone) 10 Mg Tab 10 MG PO UD for 3 Days, #3 TAB (Medication details modified) Take 1 tab daily x 3 days after finishing 20 mg tablets. Prednisone (Prednisone Tab) 20 Mg Tab 60 MG PO UD for 12 Days, #18 TAB (Medication details modified) Take 60 mg x 3 days, 40 mg x 2 days, 20 mg x 2 days, and then take 10 mg tablets x 3 days. Continued Medications: Albuterol Sulf (Proventil 0.083% 2.5MG/3ML) 2.5 Mg/3 Ml Nebu 2.5 MG INH QID PRN for SOB/Wheezing, EA Biotin (Biotin) 1 Mg Cap Cholecalciferol (Vitamin D) 5,000 Unit Tab 5000 UNITS PO DAILY Cyclobenzaprine Hcl (Flexeril) 10 Mg Tab 10 MG PO TID, #21 TAB Diltiazem Hcl Coated Beads (Cardizem La) 120 Mg Tab 120 MG PO BID Fluticasone Prop/Salmeterol (Advair Diskus 500/50 60 Dose) 1 Ea Aerp 1 PUFF INH BID, INHALER Fluticasone Propionate (Flovent Hfa) 120 Puffs/5280 Mcg Aero 2 PUFFS INH BID for 30 Days, #1 INHALER 2 Refills Hydrochlorothiazide (Hydrochlorothiazide) 25 Mg Tab Levothyroxine Sodium (Levothyroxine Sodium) 112 Mcg Tab 1 TAB PO DAILY for 30 Days, #30 TAB 5 Refills Magnesium Chloride (Slow-Mag) 64 Mg Tab 64 MG PO BID Metoprolol Tartrate (Lopressor) (Lopressor) 50 Mg Tab 25 MG PO BID, 0 Refills Multiple Vitamin (Multivitamin) 1 Tab Tab 1 TAB PO DAILY Red Yeast Rice Extract (Red Yeast Rice) 600 Mg Cap 1200 MG PO BID [Proair] () 2 PUFFS INH Q4 PRN for SOB/Wheezing Discontinued Medications: Levofloxacin (Levaquin) 750 Mg Tab 750 MG PO, TAB Discharge Exam The patient was seen and examined this morning. Pt reports doing extremely well , she reports her breathing is greatly improved and that she has a minimal cough. She reports minimal mucous production and notes that she has been able to ambulate without any difficulty since being here. She does not feel acutely HUFFMAN or while at rest. Pt slept well overnight and is tolerating an oral diet without difficulty. She denies any fever, chills or sweats, no chest pain or tightness. ROS: 6 point ROS reviewed and otherwise negative. Physical Exam: General Appearance: WD/WN, no apparent distress Eyes: PERRL, EOMI ENT: hearing grossly normal, pharynx normal, + pertinent finding (white plaques in posterior pharynx) Neck: supple, no JVD Respiratory/Chest: chest non-tender, lungs clear, no respiratory distress, no accessory muscle use, + pertinent finding (on RA) Cardiovascular: regular rate, rhythm, no murmur, normal peripheral pulses Abdomen / GI: normal bowel sounds, non tender, soft Extremities: no calf tenderness, no pedal edema Neurologic/Psychiatric: alert, normal mood/affect, oriented x 3 Skin: normal color, warm/dry Hospital Course HISTORY OF PRESENT ILLNESS: The patient is a 62-year-old white female, with a significant past medical history of lower extremity DVT, A-Fib, external hemorrhoids not on Coumadin, asthma, history of carcinoid tumor with partial right lobectomy of the lung, left breast cancer with lumpectomy after radiation and chemo treatment, irritable bowel syndrome, hypertension, GERD and Graves' disease who comes to the hospital from the first aid director's office. The patient's first aid director, Dr. Silva called me from the office and reported the patient has persistent cough and wheezing for 3 weeks, has been tried with oral prednisone, 3 courses of different antibiotics which include azithromycin and Levaquin and has not been getting any better. The patient was seen in the office today, she still has significant episodic cough and wheezing. The patient was getting breathing treatment at home 4 times a day, which has no help associated with persistent cough and cough spells. Has some chest pain because of the cough. There was some yellow, junk sputum yesterday. She denied palpitations. She denied lower extremity swelling. She denied nausea, vomiting, abdominal pain, diarrhea or constipation. She denied dysuria, urgency or frequencies. She denied facial droop, slurry speeches or local weakness; but possibly has oral candidiasis. PHYSICAL EXAMINATION: VITAL SIGNS: Temperature is 36.7, pulse 75, respiratory rate 16, heart rate of 75 and pulse ox was 95% on two liters. GENERAL: The patient is a white female, awake, alert, orientated, conversational and in no acute distress, but has persistent cough on physical examination. HEAD: Normocephalic. EYES: Pupils are equal, round and responsive to light. Conjunctivae; no injection. Sclerae; no icterus. EARS: Normal. NOSE: Normal. NECK: Supple. Thyroid no enlargement. Trachea is midline. LUNGS: Decreased breathing sounds. There was significant diffused wheezing and rales. No crackles. ABDOMEN: Obese, bowel sounds positive, soft and nontender. Bilateral CVA was nontender. GENITOURINARY AND RECTAL: Deferred. EXTREMITIES: Bilateral lower extremity; no swelling. Calf was nontender. There was no clubbing. No cyanosis. NEUROLOGIC EVALUATION: Cranial nerve through II-XII was intact. There were no local deficits. SKIN: Has no rashes. Hospital Course: 62 yo F with PMHx of Persistent asthma. - chest CT neg for PE, possible post infectious changes with cicatrizing atelectasis and brochiectasis in ant L. apex, and mild bronchial wall thickening in lower lobes which could be aspiration or mucous plugging. - Pulm on board - did not feel bronchoscopy was needed. Pt was placed on vibration vest while in the hospital, flutter and incentive spirometry. - DuoNeb q. 6 hours scheduled and q. 2 hours as needed - Solu-Medrol IV 125mgx 1 dose and then 60 mg q8h was reduced. Pt was placed on prednisone taper at time of discharge, 60 mg x 3 days and then reducing by 20 mg every 3 days. After 20 mg daily x 3 days switch to 10 mg daily until seen by pulmonology. - S/p 3 courses of antibiotics treatment - had 9 consecutive days of levaquin now. No need for further antibiotic treatment. - Collect sputum culture - in process - will have PCP follow up after discharge. Lactic acidosis - resolved - Elevated at time of admission and trended downward - did not receive fluids - only po intake. - Blood cultures were negative preliminary. Hypertension - Cont hctz 12.5 mg daily, metoprolol tartrate 25 mg BID, diltiazem 120 mg BID CAD Atrial Fibrillation - Cont diltiazem 120 mg BID GERD - Cont PPI Hypothyroidism s/p graves disease - TSH = 0.125. Synthroid reduced to 75 mcg from 88mcg daily at time of discharge. Called Lakisha Chicas [place]-C at [facility] [place] thyroid and monitors to let her know and left a message. - Will need TSH recheck in 4-6 weeks. 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 Total Time Spent: Greater than 30 minutes This includes examination of the patient, discharge planning, medication reconciliation, and communication with other providers. Discharge Instructions Please refer to the electronic Patient Visit Report (Discharge Instructions) for additional information. Follow-Up Follow up with your Primary Care Provider, Dr. Silva, within 1-2 week. Additional Copies To Mahamed Silva M.D.
[2017-09-14] MEDS ORDERED: METHYLPREDNISOLONE IV 40 MG in SYRINGE 0 ML IV SCH (21:00)
== END 2017-09-14 13:17 | disposition home or self-care (01) | DRG 202 ==
LOC: C.2T 16:22
PROVIDERS: ADMIT Hospitalist; ATTEND Internal Medicine
DX: J45.901 Unspecified asthma with (acute) exacerbation (principal); E87.2 Acidosis; B37.0 Candidal stomatitis; I48.91 Unspecified atrial fibrillation; I25.10 Atherosclerotic heart disease of native coronary artery without angina pectoris; I25.2 Old myocardial infarction; I11.9 Hypertensive heart disease without heart failure; E03.8 Other specified hypothyroidism; K21.9 Gastro-esophageal reflux disease without esophagitis; E66.3 Overweight; Z79.899 Other long term (current) drug therapy; Z79.52 Long term (current) use of systemic steroids; Z85.3 Personal history of malignant neoplasm of breast; Z85.110 Personal history of malignant carcinoid tumor of bronchus and lung; Z92.21 Personal history of antineoplastic chemotherapy; Z92.3 Personal history of irradiation; Z86.718 Personal history of other venous thrombosis and embolism; Z68.33 Body mass index [BMI] 33.0-33.9, adult

== ENCOUNTER 2018-01-09 11:14 | Inpatient (IN) | payer OTHER ==
[~2018-01-09] VITALS: Ht 175.3 cm; Wt 94.7 kg
[~2018-01-09 11:14] MED LIST changes: +BIOT1CAP8; +CYCL10TA6 PO; -HYDR12.56 PO; +HYDR25TA5; +LEVO112T4 PO; +LEVO75TA5 PO; -LEVO88TA PO; +NYSS5 PO; +PRED10TA PO; +PRED20TA2 PO
[2018-01-09 11:56] LABS: BASO % 0.3 %; BASO ABS # 0.03 K/uL (0-0.2); EOS % 2.3 %; EOS ABS # 0.26 K/uL (0-0.5); HEMATOCRIT 44.7 % (37-47); HEMOGLOBIN 15.5 g/dL (12.0-16.0); IG# 0.03 K/uL (0.00-0.02); LYMPH ABS # 2.41 K/uL (1.2-3.4); MEAN CELL VOLUME 90.1 fL (80-100); MEAN CORPUSCULAR HEMOGLOBIN 31.3 pg (25-34); MEAN CORPUSCULAR HGB CONC 34.7 g/dl (32-36); MONO % 7.9 %; MONO ABS # 0.91 K/uL (0.11-0.59); NEUT % 68.2 %; NEUT ABS # 7.84 K/uL (1.4-6.5); PLATELET COUNT 181 K/uL (130-400); RED CELL DISTRIBUTION WIDTH CV 13.1 % (11.5-14.5); RED CELL DISTRIBUTION WIDTH SD 42.6 fL (36.4-46.3); WHITE BLOOD COUNT 11.48 K/uL (4.8-10.8)
--- NOTE | 2018-01-09 12:01 | DIAGNOSTIC IMAGING REPORT ---
CHEST ONE VIEW PORTABLE CLINICAL HISTORY: Shortness of breath. COMPARISON STUDY: Chest radiograph and chest CT September 12, 2017. FINDINGS: There is no pneumothorax or pleural effusion. There is no evidence for pulmonary edema. There is mild asymmetric left lung interstitial thickening. No lobar consolidation is present. Cardiomediastinal silhouette is unremarkable. IMPRESSION: Mild asymmetric left lung interstitial thickening which is likely chronic. A mild infectious process could appear similar. No consolidation identified. Electronically signed by: Devyn Narayan M.D. 01/09/2018 12:00 PM Dictated Date/Time: 01/09/2018 11:59 AM
[2018-01-09 12:06] LABS: PTT PATIENT 24.5 SECONDS (21.0-31.0)
[2018-01-09 12:15] LABS: ALBUMIN 3.8 gm/dl (3.4-5.0); CALCIUM 10.3 mg/dl (8.5-10.1); CREATININE 0.92 mg/dl (0.60-1.20); POTASSIUM 3.8 mmol/L (3.5-5.1)
[2018-01-09] MEDS ORDERED: ALBUT/IPRATROP 3MG/0.5MG NEB 3 ML VIAL INH STA (12:19)
[2018-01-09] MEDS ORDERED: OPTIRAY 320 IV PRN (12:30)
[2018-01-09] MEDS ORDERED: SLWMEC PO (12:34)
[2018-01-09] MEDS ORDERED: SYN100 PO (12:34)
[2018-01-09] MEDS ORDERED: ALBU18002 INH (12:34)
[2018-01-09] MEDS ORDERED: MELA1TAB49 PO (12:34)
--- NOTE | 2018-01-09 13:40 | DIAGNOSTIC IMAGING REPORT ---
CT ANGIOGRAM OF THE CHEST CLINICAL HISTORY: Dyspnea. Tachycardia. COMPARISON STUDY: Chest CT dated 09/12/2017 and 01/08/2012. TECHNIQUE: Following the IV administration of 99 cc of Optiray 320, CT angiogram of the chest was performed from the upper abdomen to the thoracic inlet utilizing the pulmonary embolus protocol. Images are reviewed in the axial, sagittal, and coronal planes. 3-D MIPS images are created and assessed. IV contrast was administered without complication. A dose lowering technique was utilized adhering to the principles of ALARA. CT DOSE: 519.29 mGy.cm FINDINGS: Thyroid: Imaged portions of the thyroid gland are normal in size and attenuation. Thoracic aorta: There is mild atherosclerotic calcification of the thoracic aorta, which is normal in caliber and demonstrates standard 3-vessel arch anatomy. No dissection is seen. Pulmonary vasculature: The pulmonary trunk is normal in caliber. There are extensive pulmonary emboli. Thrombus is seen within the distal right main pulmonary artery extending into the right and lower branches. This extends into segmental and subsegmental branches in the right upper and right lung. Pulmonary emboli are also seen within segmental and subsegmental branches of the left upper and left lower lobe pulmonary arteries. Heart: The heart is mildly enlarged and without pericardial effusion. There are scattered coronary artery calcifications. Lungs and pleural spaces: Evaluation of lung parenchyma is degraded by motion artifact. There are postoperative changes and volume loss from right sided lobar resection. Left apical scarring is unchanged dating back to 2011 and may be related. Scattered calcified granulomas are observed. There is no airspace consolidation or pleural effusion. Foci of subpleural scarring in the right lower lobe unchanged. There are scattered noncalcified pulmonary nodules. A 6 mm left lower lobe nodule is seen on image #125, and a 4 mm left lower lobe nodule is seen on image #109. Defibrillator pleural-based nodule in the right upper lung is seen on image #225. These are unchanged from 09/12/2017 but have significantly increased in size trauma 2011. Mediastinum: There is no mediastinal lymphadenopathy. Rose: Clear. Axillae: There is no axillary lymphadenopathy. Upper abdomen: There is a small hiatal hernia. Cholecystectomy clips are noted. Partially visualized upper abdominal viscera is otherwise within normal limits. Skeletal structures: The skeletal structures are osteopenic. Degenerative change is noted in the thoracic spine. No lytic or blastic bony lesions are seen. Soft tissues: Postoperative change is suggested in the left breast. Surgical clips are noted. IMPRESSION: 1. Extensive bilateral pulmonary emboli as above. 2. There is no airspace consolidation or pleural effusion. 3. Mild cardiomegaly. 4. There are postoperative changes from right-sided pulmonary lobar resection. 5. There are noncalcified pulmonary nodules measuring up to 6 mm. These have not significantly changed from 09/12/2017 but have increased in size dating back to 2011. Follow-up is advised. See below. 6. Additional findings as above. Please refer to below summary of Fleischner criteria recommendations for follow-up of incidental CT nodules (Gordon Garcia, Guidelines for management of small pulmonary nodules detected on CT scans: A statement from the Fleischner Society, Radiology 237: [phone].) SOLID NODULES Solitary nodule size: <6 mm * low risk patients: no follow-up needed * high risk patients: optional CT at 12 months Solitary nodule size: 6-8 mm * low risk patients: follow-up at 6-12 months, then consider further follow-up at 18-24 months * high risk patients: initial follow-up CT at 6-12 months and then at 18-24 months if no change Solitary nodule size: >8 mm * either low or high risk patients - consider follow-up CT at 3 months, and/or CT-PET, and/or biopsy Multiple nodules size: <6 mm * low risk patients: no routine follow-up * high risk patients: optional CT at 12 months Multiple nodules size: 6-8 mm * low risk patients: follow-up at 3-6 months, then consider further follow-up at 18-24 months * high risk patients: follow-up at 3-6 months, then at 18-24 months if no change Multiple nodules size: >8 mm * low risk patients: follow-up at 3-6 months, then consider further follow-up at 18-24 months * high risk patients: follow-up at 3-6 months, then at 18-24 months if no change Note: newly detected indeterminate nodule in persons 35 years of age or older. * low risk patients: minimal or absent history of smoking and/or other known risk factors * high risk patients: history of smoking or of other known risk factors (e.g. first degree relative with lung cancer, or exposure to asbestos, radon, uranium) * if a nodule up to 8 mm is partly solid or is ground glass further follow-up is required after 24 months to exclude possible slow growing adenocarcinoma ([place]) SUBSOLID NODULES Solitary pure ground-glass nodule * nodule size <6 mm - no CT follow-up required * nodule size >=6 mm - follow-up CT at 6-12 months, then every 2 years until 5 years Solitary part-solid nodule * nodule size <6 mm - no CT follow-up required * nodule size >=6 mm - follow-up CT at 3-6 months. If unchanged, and solid component remains <6 mm, then annual follow-up for 5 years Multiple subsolid nodules * nodule size <6 mm - follow-up CT at 3-6 months, consider further follow-up at 2 and 4 years if stable * nodule size >=6 mm - follow-up CT at 3-6 months, subsequent management based on the most suspicious nodule(s) Electronically signed by: Luca Mathews M.D. 01/09/2018 1:39 PM Dictated Date/Time: 01/09/2018 1:27 PM
[2018-01-09] MEDS ORDERED: HEPARIN SOD 5000 UNIT/0.5 ML CARP ONE (14:41)
[2018-01-09] MEDS ORDERED: HEPARIN 25000 UNIT/500 ML D5W ONE (14:41)
[2018-01-09] MEDS ORDERED: ACETAMINOPHEN 325 MG TAB PO PRN (15:30)
[2018-01-09] MEDS ORDERED: ZOLPIDEM TARTRATE 5 MG TAB PO PRN (15:30)
[2018-01-09] MEDS ORDERED: ONDANSETRON INJ 2 MG/ML 2 ML VIAL IV PRN (15:30)
--- NOTE | 2018-01-09 16:43 | EMERGENCY ROOM VISIT NOTE ---
ED Visit Note First contact with patient: 12:08 I have personally evaluated this patient examined her and reviewed the pertinent labs and data. I have discussed the case with Mahamed Cameron, the physician registered sales assistant and agree with the plan. Please refer to the PA note. This patient comes in after having significant shortness of breath primarily dyspnea on exertion. She did recently have a car travel. She does have a history of PE in the past. She also history of breast cancer. Her CT shows extensive bilateral PEs. When I initially examined her, she had just came back from the bathroom and appeared very winded and was hypoxic in the 80s. After resting, she came up into the 90s and appears much more comfortable we did place her on oxygen. We have ordered an IV heparin bolus and protocol. She has no contraindication. she has had no recent surgery or GI bleed. she has a remote history of having hemorrhoids. She has had no trauma. I do think she needs to be admitted for further treatment and evaluation. At this point, she has nothing that would suggest she would benefit from thrombolytics. She will be admitted.
--- NOTE | 2018-01-09 16:49 | History and Physical ---
History & Physical Date & Time of Service: Jan 09, 2018 at 15:45 Chief Complaint: Labored Breathing, High Pulse Rate Primary Care Physician: Shakir Estevez M.D. History of Present Illness Source: patient, spouse Mrs. Jannie Dickey is a 62 year old woman who presents to [facility] with complaints of shortness of breath and dyspnea on exertion. 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 Patient was in her usual state of health until yesterday when she developed shortness of breath of sudden onset. Earlier that day, she drove to [place] and return home the same day ([address]; total duration 6 hours). Upon her return, she became short of breath with minimal ambulation. Symptoms resolved at rest and was able to sleep during the night. By morning, symptoms returned and were progressively worsening. Patient checked her oxygen saturation with her portable pulse oximetry and she states that she was tachycardic with a pulse of 130 and O2 sat of 89%. She then used 3 inhalers: albuterol Flovent and Advair but medication provided no relief of her symptoms. Patient called her PCP who instructed her to come to the Emergency Department. At rest, O2 saturation were between 85 - 91 % on room air and 79% with minimal ambulation. Presently, she is hemodynamically stable and requiring supplemental oxygen via nasal canula at 2 liters and is reaching oxygen saturation of 93-95%. Besides SOB and dyspnea, she does not endorse any other symptoms. Denies fever, chills, headaches, chest pain, nausea, vomiting, diaphoresis. Rest of ROS is negative. CT Angiography of the Chest was performed in the Emergency Department which confirms extensive bilateral pulmonary embolism and was subsequently started on therapeutic anticoagulation with heparin gtt. Of note, last colonoscopy was performed 5 years ago which revealed presence of internal hemorrhoids. Most recent mammogram was done last year and was normal, as per patient. Past Medical/Surgical History Medical Problems: (1) Hypoxia (2) Persistent asthma (3) Pulmonary embolism (4) Right radial head fracture Past Medical Hx: Asthma, Bronchitis, Pneumonia x1, paroxysmal Atrial fibrillation, Hypertension, Breast Cancer, Carcinoid tumor of the lung, Nephrolithiasis x1, Deep Vein Thrombosis (LLE; Dx 2011) Social History Smoking Status: Never Smoker Smokeless Tobacco Use: No Alcohol Use: none Drug Use: none Marital Status: Housing status: lives with significant other Immunizations History of Influenza Vaccine: Yes Influenza Vaccine Date: Aug 20, 2012 History of Tetanus Vaccine?: Unknown History of Pneumococcal: Yes Pneumococcal Date: Dec 19, 2011 History of Hepatitis B Vaccine: Unknown Allergies Coded Allergies: [place] (Verified Allergy, Severe, THROAT TIGHTNESS, 01/09/18) Codeine (Unverified Allergy, Unknown, gi upset, 01/09/18) Ibuprofen (Verified Adverse Reaction, Mild, ULCERS, 01/09/18) Nedocromil (Verified Adverse Reaction, Mild, COUGH, 01/09/18) Theophylline (Verified Adverse Reaction, Mild, NERVOUSNESS, 01/09/18) Home Medications Scheduled Cholecalciferol (Vitamin D), 5,000 UNITS PO DAILY Cyclobenzaprine Hcl (Flexeril), 10 MG PO TID Diltiazem Hcl Coated Beads (Cardizem La), 120 MG PO BID Fluticasone Prop/Salmeterol (Advair Diskus 500/50 60 Dose), 1 PUFF INH BID Fluticasone Propionate (Flovent Hfa), 2 PUFFS INH BID Levothyroxine Sodium (Synthroid), 100 MCG PO DAILY Magnesium Chloride (Slow-Mag Tab), 64 MG PO BID Melatonin (Melatonin), 3 MG PO HS Metoprolol Tartrate (Lopressor) (Lopressor), 25 MG PO BID Multiple Vitamin (Multivitamin), 1 TAB PO DAILY Red Yeast Rice Extract (Red Yeast Rice), 1,200 MG PO BID Scheduled PRN Albuterol Sulf (Proventil 0.083% 2.5MG/3ML), 2.5 MG INH QID PRN for SOB/Wheezing Albuterol Sulfate (Proair Respiclick), 2 PUFF INH Q4H PRN for SOB/Wheezing Miscellaneous Medications Biotin (Biotin) Hydrochlorothiazide (Hydrochlorothiazide) Review of Systems Constitutional: No fever, No chills, No sweats, No weight loss, No weakness, No fatigue, No problem reported Eyes: No worsening of vision, No eye pain, No redness, No discharge, No diplopia, No problem reported ENT: No hearing loss, No unusual epistaxis, No nasal symptoms, No sore throat, No tinnitus, No dental problems, No trouble swallowing, No problem reported Respiratory: + shortness of breath, + dyspnea on exertion, + dyspnea at rest Cardiovascular: + palpitations, No chest pain, No orthopnea, No PND, No edema, No claudication, No problem reported Abdomen: No pain, No nausea, No vomiting, No diarrhea, No constipation, No GI bleeding, No problem reported Musculoskeletal: No joint pain, No muscle pain, No swelling, No calf pain, No problem reported Genitourinary - Female: No dysuria, No urinary frequency, No urinary urgency, No urinary incontinence, No urinary retention, No hematuria, No dysmenorrhea, No menorrhagia, No metrorrhagia, No rash, No vaginal bleeding, No vaginal discharge, No vaginal itching, No vulvodynia, No , No problem reported Neurologic: No memory loss, No paralysis, No weakness, No numbness/tingling, No vertigo, No balance problems, No problem reported Psychiatric: No depression symptoms, No anhedonism, No anxiety, No insomnia, No substance abuse, No problem reported Endocrine: No fatigue, No excessive thirst, No excessive urination, No problem reported Hematologic / Lymphatic: No abnormal bleeding/bruising, No clotting problems, No swollen lymph nodes, No night sweats, No problem reported Integumentary: No rash, No itch, No new/changing skin lesions, No color change , No bleeding, No problem reported Allergic / Immunologic: No environmental allergies, No seasonal allergies, No pet sensitivities, No food allergies, No hives, No frequent infections, No poor healing, No prolonged convalescence, No problem reported Physical Exam Vital Signs Date Time Temp Pulse Resp B/P (MAP) Pulse Ox O2 Delivery O2 Flow Rate FiO2 01/09/18 14:29 98 20 143/85 95 Nasal Cannula 2.0 01/09/18 13:09 93 20 85 Room Air 01/09/18 12:16 93 01/09/18 11:22 36.7 95 18 166/104 91 Room Air General Appearance: + mild distress Head: normocephalic, atraumatic Eyes: PERRL, EOMI, sclerae normal ENT: normal ENT inspection Neck: supple, no adenopathy, no JVD, trachea midline Respiratory/Chest: chest non-tender, + wheezing (on supplemental oxygen: 2 L NC ) Cardiovascular: regular rate, rhythm, no edema, no gallop, no JVD, no murmur, normal peripheral pulses Abdomen/GI: normal bowel sounds, non tender, soft, no organomegaly, no pulsatile mass Back: normal inspection, no CVA tenderness Extremities/Musculoskelatal: normal inspection, no calf tenderness, no pedal edema, normal range of motion, non-tender Neurologic/Psych: property assistant II-XII nml as tested, no motor/sensory deficits, alert, normal mood/affect, oriented x 3 Skin: normal color, warm/dry Lymphatic: no adenopathy Diagnostics Laboratory Results Results Past 24 Hours Test 01/09/18 11:45 01/09/18 11:54 Range/Units White Blood Count 11.48 4.8-10.8 K/uL Red Blood Count 4.96 4.2-5.4 M/uL Hemoglobin 15.5 12.0-16.0 g/dL Hematocrit 44.7 37-47 % Mean Corpuscular Volume 90.1 80-100 fL Mean Corpuscular Hemoglobin 31.3 25-34 pg Mean Corpuscular Hemoglobin Concent 34.7 32-36 g/dl Platelet Count 181 130-400 K/uL Mean Platelet Volume 9.0 7.4-10.4 fL Neutrophils (%) (Auto) 68.2 % Lymphocytes (%) (Auto) 21.0 % Monocytes (%) (Auto) 7.9 % Eosinophils (%) (Auto) 2.3 % Basophils (%) (Auto) 0.3 % Neutrophils # (Auto) 7.84 1.4-6.5 K/uL Lymphocytes # (Auto) 2.41 1.2-3.4 K/uL Monocytes # (Auto) 0.91 0.11-0.59 K/uL Eosinophils # (Auto) 0.26 0-0.5 K/uL Basophils # (Auto) 0.03 0-0.2 K/uL RDW Standard Deviation 42.6 36.4-46.3 fL RDW Coefficient of Variation 13.1 11.5-14.5 % Immature Granulocyte % (Auto) 0.3 % Immature Granulocyte # (Auto) 0.03 0.00-0.02 K/uL Prothrombin Time 10.4 9.0-12.0 SECONDS Prothromb Time International Ratio 1.0 0.9-1.1 Activated Partial Thromboplast Time 24.5 21.0-31.0 SECONDS Partial Thromboplastin Ratio 0.9 Sodium Level 136 136-145 mmol/L Potassium Level 3.8 3.5-5.1 mmol/L Chloride Level 101 98-107 mmol/L Carbon Dioxide Level 31 21-32 mmol/L Anion Gap 5.0 3-11 mmol/L Blood Urea Nitrogen 17 7-18 mg/dl Creatinine 0.92 0.60-1.20 mg/dl Est Creatinine Clear Calc Drug Dose 77.4 ml/min Estimated GFR () 76.8 Estimated GFR (Non- 66.3 BUN/Creatinine Ratio 18.6 10-20 Random Glucose 115 70-99 mg/dl Calcium Level 10.3 8.5-10.1 mg/dl Total Bilirubin 0.4 0.2-1 mg/dl Aspartate Amino Transf (AST/SGOT) 19 15-37 U/L Alanine Aminotransferase (ALT/SGPT) 24 12-78 U/L Alkaline Phosphatase 84 45-117 U/L Total Protein 9.0 6.4-8.2 gm/dl Albumin 3.8 3.4-5.0 gm/dl Globulin 5.1 2.5-4.0 gm/dl Albumin/Globulin Ratio 0.7 0.9-2 Bedside Troponin I < 0.030 0-0.045 ng/ml Diagnostic Radiology Chest CT Angiogram : extensive pulmonary embolism EKG Normal sinus rhythm; rate 94 bpm; no SD prolongation, narrow QRS, no ST changes Normal EKG Impression Assessment and Plan R.A.B 62/F admitted for extensive bilateral pulmonary embolism confirmed by Chest CT Angiography. Currently, she is requiring supplemental oxygen at 2 liters via nasal canula. Pt has started therapeutic anticoagulation. Heparin gtt protocol has been initiated. 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 As per patient, she has not had any cancer recurrences and has been breast cancer free for 16 years. Admit: Telemetry VS q4H w/ continuous pulse ox Diet: Regular Activity: OOB with assistance 1) Bilateral Pulmonary Embolism - supplemental oxygen: 2 L NC - heparin gtt protocol - Consult Hem/Onc service; will appreciate recommendations 2) Asthma - DuoNebs q4H x24 hours - resume Advair Diskus 500/50 inhaled BID - resume Flovent 2 puffs inhaled BID 3) Hypothyroidism - stable; no active issues - resume levothyroxine 100 mcg PO qAM 4) Hypertension - normotensive - resume metoprolol tartrate 25 mg PO BID - resume diltiazem 120 mg PO BID Code Status: FULL Precautions: Fall Resuscitation Status Full Code VTE Prophylaxis Will order VTE Prophylaxis: Yes
[2018-01-09] MEDS ORDERED: ALBUTEROL 0.083% NEBU SOLN 3 ML VIAL INH SCH (17:00)
[2018-01-09 19:46] VITALS: BP 140/79; PULSE 85; TEMP 36.7; O2SAT 96
[2018-01-09] MEDS: ALBUT/IPRATROP 3MG/0.5MG NEB 3 ML VIAL INH SCH (20:00)
[2018-01-09 20:09] VITALS: O2SAT 96
[2018-01-09 20:36] VITALS: BP 140/79; PULSE 85; TEMP 36.7; O2SAT 96; Ht 175.3 cm; Wt 94.7 kg
[2018-01-09 20:44] LABS: PTT PATIENT 32.8 SECONDS (21.0-31.0)
[2018-01-09] MEDS ORDERED: CYCLOBENZAPRINE HCL 10 MG TAB PO SCH (21:00)
[2018-01-09] MEDS ORDERED: FLUTICASONE PROP HFA INH 44 MCG INHALER INH SCH (21:00)
--- NOTE | 2018-01-09 21:19 | EMERGENCY ROOM VISIT NOTE ---
ED Visit Note First contact with patient: 12:08 Chief Complaint: Shortness of breath. History of Present Illness: Ms. Dickey is a 62-year-old white female who is brought into the ED via wheelchair complaining of shortness of breath and tachycardia. Historically patient reports she has a history of asthma, bronchitis, pneumonia , left lower extremity DVT, atrial fibrillation and breast cancer. Patient reports she has been feeling well over the last few days. Yesterday she reports she returned to family member home and drove back and forth the [place]. She reports when she got out of the car she walked into her bedroom and felt extremely short of breath and felt like her heart was racing. She reports she checks her pulse oximetry at home and it was 82%. After a period of rest she was feeling much better but noted through the evening when she was walking around her house she would get mildly short of breath and feel like her heart was racing. She was able to sleep through the night without difficulty. When she awoke this morning his symptoms returned and she became concerned. Patient was in the bed a short while before I got to see her in the emergency department and she is currently reporting that she feels like she is having labored breathing and is having a mild tightness in the anterior sternal area of the chest. She rates this discomfort 3/10. Her pain is nonradiating. She did not identify any aggravating or alleviating factors related to her discomfort. She does report before she came into the hospital today she used all of her inhalers including albuterol and also did an albuterol belies her treatment without relief of her discomfort. She also reported that she noted after getting out of the car yesterday there was some mild swelling of the left lower extremity. She denies fevers, chills, sweats, skin eruptions, skin color changes, headache , dizziness, lightheadedness, upper respiratory tract symptoms, cough, wheezing , recent surgery, abdominal pain, nausea, vomiting, back/flank pain, extremity weakness/numbness/tingling. Review of Systems: As noted above in history of present illness. All body systems were reviewed and found to be negative as noted above. Past Medical History: As noted above, hypertension, kidney stones, status post vasectomy, cholecystectomy, hysterectomy and bunionectomy. Current Medications: Medications Dose Route/Sig Max Daily Dose Days Date Category Melatonin 3 Mg Tab 3 Mg PO HS 01/09/18 Reported Proair Respiclick (Albuterol Sulfate) 108 Mcg/Act Aer 2 Puff INH Q4H PRN 01/09/18 Reported Synthroid (Levothyroxine Sodium) 100 Mcg Tab 100 Mcg PO DAILY 01/09/18 Reported Slow-Mag Tab (Magnesium Chloride) 64 Mg Tabcr 64 Mg PO BID 01/09/18 Reported Flexeril (Cyclobenzaprine Hcl) 10 Mg Tab 10 Mg PO TID 09/12/17 Reported Biotin 1 Mg Cap 09/12/17 Reported Hydrochlorothiazide 25 Mg Tab 09/12/17 Reported Vitamin D (Cholecalciferol) 5,000 Unit Tab 5,000 Units PO DAILY 10/13/16 Reported Red Yeast Rice (Red Yeast Rice Extract) 600 Mg Cap 1,200 Mg PO BID 10/13/16 Reported Flovent Hfa (Fluticasone Propionate) 120 Puffs/5280 Mcg Aero 2 Puffs INH BID 30 10/13/16 Reported Proventil 0.083% 2.5MG/3ML (Albuterol Sulf) 2.5 Mg/3 Ml Nebu 2.5 Mg INH QID PRN 10/13/16 Reported Advair Diskus 500/50 60 Dose (Fluticasone Prop/Salmeterol) 1 Ea Aerp 1 Puff INH BID 10/13/16 Reported Cardizem La (Diltiazem Hcl Coated Beads) 120 Mg Tab 120 Mg PO BID 01/26/12 Reported Multivitamin (Multiple Vitamin) 1 Tab Tab 1 Tab PO DAILY 12/24/11 Reported Lopressor (Metoprolol Tartrate) 50 Mg Tab 25 Mg PO BID 04/01/10 Reported Allergies to Medications: Acetaminophen, codeine, ibuprofen, theophylline, nedocromil. Social History: Patient is not employed; she lives with her and feels safe in her home environment; she denies tobacco and alcohol use. Physical Examination: Vital Signs: Date Time Temp Pulse Resp B/P (MAP) Pulse Ox O2 Delivery O2 Flow Rate FiO2 01/09/18 15:31 93 18 149/92 97 Nasal Cannula 2.0 01/09/18 14:29 98 20 143/85 95 Nasal Cannula 2.0 01/09/18 13:09 93 20 85 Room Air 01/09/18 12:16 93 01/09/18 11:22 36.7 95 18 166/104 91 Room Air GENERAL: 62-year-old female in mild respiratory distress due to pain, mildly ill -appearing, afebrile and hemodynamically stable. NEUROLOGICAL: Awake, alert and oriented to person, place and time. Answering questions appropriately and following commands. Normal gait. Good hand eye coordination. SKIN: Warm, dry and pale. No soft tissue eruptions or trauma noted; 2 of 3 surgical lesions were observed on the patient's right upper and lower extremities from recent skin tissue biopsies. HEENT: Atraumatic and normocephalic. PERRLA. EOMI without nystagmus. Sclera white and conjunctiva pink. No drainage from naris. Oral cavity moist and pink. Airway is patent. Pharynx is nonerythematous or edematous. Speech normal and clear. No lymphadenopathy. Trachea midline. No jugular venous distention. No carotid bruits. BACK: No tenderness over the bony spine. No CVA tenderness. THORAX: Lungs sounds are clear but decreased in all palmer. Equal bilaterally with symmetrical chest wall. No wheezing, rales or rhonchi. No crepitus, tenderness, subcutaneous air or deformities noted. Mild increase in respiratory rate at times to 24-28 breaths per minute. HEART: Regular rate and rhythm. No gallops, rubs or murmurs are appreciated. ABDOMEN: Flat, soft and nontender. Positive bowel sounds in all quadrants. No guarding, rigidity or organomegaly. EXTREMITIES: Moves all extremities well on command and with purpose. All distal neurovascular statuses are intact and equal bilaterally. No calf tenderness or cords. No dependent edema. ED Course: Patient is assessed as noted above. Patient's medication list was reviewed. Laboratory Testing: Test 01/09/18 11:45 01/09/18 11:54 Range/Units White Blood Count 11.48 4.8-10.8 K/uL Red Blood Count 4.96 4.2-5.4 M/uL Hemoglobin 15.5 12.0-16.0 g/dL Hematocrit 44.7 37-47 % Mean Corpuscular Volume 90.1 80-100 fL Mean Corpuscular Hemoglobin 31.3 25-34 pg Mean Corpuscular Hemoglobin Concent 34.7 32-36 g/dl Platelet Count 181 130-400 K/uL Mean Platelet Volume 9.0 7.4-10.4 fL Neutrophils (%) (Auto) 68.2 % Lymphocytes (%) (Auto) 21.0 % Monocytes (%) (Auto) 7.9 % Eosinophils (%) (Auto) 2.3 % Basophils (%) (Auto) 0.3 % Neutrophils # (Auto) 7.84 1.4-6.5 K/uL Lymphocytes # (Auto) 2.41 1.2-3.4 K/uL Monocytes # (Auto) 0.91 0.11-0.59 K/uL Eosinophils # (Auto) 0.26 0-0.5 K/uL Basophils # (Auto) 0.03 0-0.2 K/uL RDW Standard Deviation 42.6 36.4-46.3 fL RDW Coefficient of Variation 13.1 11.5-14.5 % Immature Granulocyte % (Auto) 0.3 % Immature Granulocyte # (Auto) 0.03 0.00-0.02 K/uL Prothrombin Time 10.4 9.0-12.0 SECONDS Prothromb Time International Ratio 1.0 0.9-1.1 Activated Partial Thromboplast Time 24.5 21.0-31.0 SECONDS Partial Thromboplastin Ratio 0.9 Sodium Level 136 136-145 mmol/L Potassium Level 3.8 3.5-5.1 mmol/L Chloride Level 101 98-107 mmol/L Carbon Dioxide Level 31 21-32 mmol/L Anion Gap 5.0 3-11 mmol/L Blood Urea Nitrogen 17 7-18 mg/dl Creatinine 0.92 0.60-1.20 mg/dl Est Creatinine Clear Calc Drug Dose 77.4 ml/min Estimated GFR () 76.8 Estimated GFR (Non- 66.3 BUN/Creatinine Ratio 18.6 10-20 Random Glucose 115 70-99 mg/dl Calcium Level 10.3 8.5-10.1 mg/dl Total Bilirubin 0.4 0.2-1 mg/dl Aspartate Amino Transf (AST/SGOT) 19 15-37 U/L Alanine Aminotransferase (ALT/SGPT) 24 12-78 U/L Alkaline Phosphatase 84 45-117 U/L Total Protein 9.0 6.4-8.2 gm/dl Albumin 3.8 3.4-5.0 gm/dl Globulin 5.1 2.5-4.0 gm/dl Albumin/Globulin Ratio 0.7 0.9-2 Bedside Troponin I < 0.030 0-0.045 ng/ml EKG: Was read by myself and shows normal sinus rhythm with a ventricular rate of 94 bpm. Normal axis, intervals and complexes. No acute ST changes indicating ischemia, injury or infarction. This was compared to a previous from August 2017 and no acute changes were noted. Chest X-Rays: Were read by myself and the radiologist showing mild asymmetric left lung interstitial thickening. No pneumothorax or consolidation. Normal heart silhouette and bony anatomy. Chest CTA: Was reviewed by myself and read by the radiologist and shows extensive bilateral pulmonary emboli, mild cardiomegaly, postoperative changes from a right sided pulmonary lobar resection and calcified pulmonary nodules. Patient was placed on nasal cannula oxygen. Patient received an albuterol/Atrovent nebulizer breathing treatment; after the treatment was completed her lungs were re-evaluated and she had a mild improvement in her respiratory rate and she had improved air movement in all lung palmer. Because of her pulmonary emboli she was received a heparin bolus and was started on a heparin drip. Patient's case was reviewed with Dr. Rowland; he independently assessed the patient we agreed on diagnostic approach, treatment, disposition and plan. Patient's case was consulted with case management and Ms. Esequiel PA-C, hospitalist; for medical observation/admission. Patient was educated about today's findings. Clinical Impression: Multiple bilateral pulmonary emboli. Hypoxemia. Decision-Making: Initially my differential diagnosis I considered pulmonary edema, pulmonary emboli, acute coronary syndrome, pneumonia, asthma exacerbation and other causes. Disposition and Plan: Patient be brought into the hospitalist for medical observation/admission; please see their notes and orders for final disposition and plan. I have personally spent greater than 30 minutes of critical care time in the direct management of this patient. This includes bedside care, interpretation of diagnostic studies, and testing, discussion with consultants, patient, and family members, and other required patient management activities. This 30 minutes is in excess of all separately billable procedures.
[2018-01-09] MEDS ORDERED: HEPARIN IV BOLUS 6,000 UNIT in SYRINGE 0 ML IV ONE (21:30)
[2018-01-09] MEDS: MAGNESIUM CHLORIDE 64MG DELAYED REL TAB PO SCH (22:24)
[2018-01-09] MEDS: METOPROLOL TARTRATE 25 MG TAB PO SCH (22:24)
[2018-01-09] MEDS: DILTIAZEM SR 60 MG CAP PO SCH (22:25)
[2018-01-09] MEDS: HEPARIN 25,000 UNIT/500ML D5W 500 ML IV SCH (22:28)
[2018-01-09] MEDS ORDERED: CYCLOBENZAPRINE HCL 10 MG TAB PO PRN (23:45)
[2018-01-10] VITALS (17 sets, daily range): BP systolic 133–149; BP diastolic 73–82; PULSE 67–96; TEMP 36.4–37.1; O2SAT 95–99
[2018-01-10] MEDS: ALBUT/IPRATROP 3MG/0.5MG NEB 3 ML VIAL INH SCH ×6 (03:29→23:36)
[2018-01-10 04:45] LABS: BASO % 0.3 %; BASO ABS # 0.03 K/uL (0-0.2); EOS % 3.6 %; EOS ABS # 0.34 K/uL (0-0.5); HEMATOCRIT 41.3 % (37-47); HEMOGLOBIN 13.9 g/dL (12.0-16.0); IG# 0.02 K/uL (0.00-0.02); LYMPH % 38.2 %; LYMPH ABS # 3.64 K/uL (1.2-3.4); MEAN CORPUSCULAR HEMOGLOBIN 30.3 pg (25-34); MEAN CORPUSCULAR HGB CONC 33.7 g/dl (32-36); MEAN PLATELET VOLUME 9.1 fL (7.4-10.4); MONO % 10.2 %; MONO ABS # 0.97 K/uL (0.11-0.59); NEUT % 47.5 %; NEUT ABS # 4.54 K/uL (1.4-6.5); PLATELET COUNT 186 K/uL (130-400); RED CELL DISTRIBUTION WIDTH CV 13.2 % (11.5-14.5); RED CELL DISTRIBUTION WIDTH SD 43.1 fL (36.4-46.3); WHITE BLOOD COUNT 9.54 K/uL (4.8-10.8)
[2018-01-10 05:03] LABS: PTT PATIENT 51.3 SECONDS (21.0-31.0)
[2018-01-10 05:06] LABS: CALCIUM 9.7 mg/dl (8.5-10.1); CREATININE 0.85 mg/dl (0.60-1.20); POTASSIUM 3.5 mmol/L (3.5-5.1)
[2018-01-10] MEDS: LEVOTHYROXINE 88 MCG TAB PO SCH (06:11)
[2018-01-10] MEDS ORDERED: LEVOTHYROXINE 100 MCG TAB PO SCH (06:30)
--- NOTE | 2018-01-10 07:01 | DIAGNOSTIC IMAGING REPORT ---
BILATERAL LOWER EXTREMITY VENOUS DOPPLER CLINICAL HISTORY: acute PEs, assess for DVTs COMPARISON STUDY: Bilateral lower extremity venous Doppler September 12, 2017. TECHNIQUE: Sonography of the deep venous system of the bilateral lower extremities was performed. Compression and augmentation were evaluated. FINDINGS: No deep venous thrombus is noted within the right lower extremity. There is deep venous thrombus within the left popliteal vein. No additional sites of deep venous thrombus are noted. IMPRESSION: Deep venous thrombus within the left popliteal vein. Electronically signed by: Devyn Narayan M.D. 01/10/2018 6:59 AM Dictated Date/Time: 01/10/2018 6:58 AM
[2018-01-10] MEDS: CHOLECALCIFEROL 1000 INTER.UNIT TAB PO SCH (08:47)
[2018-01-10] MEDS: DILTIAZEM SR 60 MG CAP PO SCH ×2 (08:48→20:59)
[2018-01-10] MEDS: MAGNESIUM CHLORIDE 64MG DELAYED REL TAB PO SCH ×2 (08:48→20:59)
[2018-01-10] MEDS: MULTIVITAMIN TAB PO SCH (08:48)
[2018-01-10] MEDS: METOPROLOL TARTRATE 25 MG TAB PO SCH ×2 (08:49→20:57)
[2018-01-10] MEDS: HYDROCHLOROTHIAZIDE 25 MG TAB PO SCH (08:49)
[2018-01-10] MEDS: FLUTICASONE/SALMETEROL (ADVAIR) 500/50 INH 14 PUFF INH SCH ×2 (09:00→20:56)
--- NOTE | 2018-01-10 10:47 | Oncology Consultation ---
Oncology/Heme Consultation Date of Consultation: Jan 10, 2018. Attending Physician: Nic Butcher M.D. Reason for Consultation: pulmonary embolus History of breast carcinoma History of lung carcinoid History of Present Illness Ms. Dickey is a 62-year-old female that was admitted after becoming acutely short of breath. She was found to have fairly extensive pulmonary emboli. We are asked to see her because of this. Also she has a history of breast carcinoma. She reviews with me that the breast left breast was involved. Status post lumpectomy. The diagnosis dates back approximately 16 years. She states that 5 lymph nodes were involved. She received after the lumpectomy chemotherapy as well as radiation. She also began anti-hormonal therapy but was unable to tolerate that. She also reviews with me that she has a history of a resected lung lesion that actually predates the diagnosis of breast cancer. That lung lesion resection occurred at and was a carcinoid. As reviewed in the history and physical she has been making frequent trips to [place]. It was shortly after that car ride back and forth that she became short of breath. She has a history of a DVT in 2011 or about that time treated with Coumadin. She also has a history of atrial fibrillation controlled with Cardizem. An hereditary thrombophilic workup at that time was unremarkable however I am not able to find a factor V mutation. She denies significant weight loss or bone pain or change in bowel habits. She states that her atrial fibrillation is been under well control. I was able to get the pathology results of the left breast lumpectomy that was done in August 2002. 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 The tumor was positive for estrogen and progesterone receptors and negative for HER-2/ james. 5 out of 15 lymph nodes in the left axilla were involved with some of them showing extracapsular extension. With the CT scan of her chest done with this admission. Pulmonary nodules are noted in both lungs. These were present on a prior CT done parenthetically in 2011. The overall number seems unchanged. The nodules that are present perhaps are a little more prominent now. There is no significant mediastinal adenopathy. Past Medical/Surgical History Pulmonary embolism History of breast carcinoma History of resected lung carcinoid Distant history of DVT Family History Primarily positive for cardiac issues. Cancer and blood clots do not seem to be prominent in the first-degree relatives Social History Negative for significant smoking or alcohol usage. Smoking Status: Never Smoker Smokeless Tobacco Use: No Alcohol Use: none Drug Use: none Marital Status: Allergies Coded Allergies: [place] (Verified Allergy, Severe, THROAT TIGHTNESS, 01/09/18) Codeine (Unverified Allergy, Unknown, gi upset, 01/09/18) Ibuprofen (Verified Adverse Reaction, Mild, ULCERS, 01/09/18) Nedocromil (Verified Adverse Reaction, Mild, COUGH, 01/09/18) Theophylline (Verified Adverse Reaction, Mild, NERVOUSNESS, 01/09/18) Home Medications Scheduled Cholecalciferol (Vitamin D), 5,000 UNITS PO DAILY Cyclobenzaprine Hcl (Flexeril), 10 MG PO TID Diltiazem Hcl Coated Beads (Cardizem La), 120 MG PO BID Fluticasone Prop/Salmeterol (Advair Diskus 500/50 60 Dose), 1 PUFF INH BID Fluticasone Propionate (Flovent Hfa), 2 PUFFS INH BID Levothyroxine Sodium (Synthroid), 100 MCG PO DAILY Magnesium Chloride (Slow-Mag Tab), 64 MG PO BID Melatonin (Melatonin), 3 MG PO HS Metoprolol Tartrate (Lopressor) (Lopressor), 25 MG PO BID Multiple Vitamin (Multivitamin), 1 TAB PO DAILY Red Yeast Rice Extract (Red Yeast Rice), 1,200 MG PO BID Scheduled PRN Albuterol Sulf (Proventil 0.083% 2.5MG/3ML), 2.5 MG INH QID PRN for SOB/Wheezing Albuterol Sulfate (Proair Respiclick), 2 PUFF INH Q4H PRN for SOB/Wheezing Miscellaneous Medications Biotin (Biotin) Hydrochlorothiazide (Hydrochlorothiazide) Current Inpatient Medications Current Inpatient Medications Medications (Trade) Dose Ordered Sig/Tres Route Start Time Stop Time Status Last Admin Dose Admin Ioversol (Optiray 320) 125 ml UD PRN IV 01/09/18 12:30 01/13/18 12:29 Acetaminophen (Tylenol Tab) 650 mg Q4H PRN PO 01/09/18 15:30 02/08/18 15:29 Zolpidem Tartrate (Ambien Tab) 5 mg HSZ PRN PO 01/09/18 15:30 02/08/18 15:29 Ondansetron HCl (Zofran Inj) 4 mg Q6H PRN IV 01/09/18 15:30 02/08/18 15:29 Salmeterol Xinafoate/ Fluticasone (Advair Diskus 500/50 Inh) 1 puff BID INH 01/10/18 09:00 02/09/18 08:59 Hydrochlorothiazide (Hydrochlorothiazide Tab) 25 mg DAILY PO 01/10/18 09:00 02/09/18 08:59 01/10/18 08:49 25 MG Magnesium Chloride (Slow-Mag Tab) 64 mg BID PO 01/09/18 21:00 02/08/18 20:59 01/10/18 08:48 64 MG Metoprolol Tartrate (Lopressor Tab) 25 mg BID PO 01/09/18 21:00 02/08/18 20:59 01/10/18 08:49 25 MG Multivitamins (Multivitamin Tab) 1 tab DAILY PO 01/10/18 09:00 02/09/18 08:59 01/10/18 08:48 1 TAB Albuterol/ Ipratropium (Duoneb) 3 ml Q4R INH 01/09/18 20:00 02/08/18 19:59 01/10/18 07:04 3 ML Cholecalciferol (Vitamin D Tab) 5,000 inter.unit QAM PO 01/10/18 09:00 02/09/18 08:59 01/10/18 08:47 5,000 INTER.UNIT Diltiazem HCl (Cardizem Sr) 120 mg BID PO 01/09/18 21:00 02/08/18 20:59 01/10/18 08:48 120 MG Heparin Sodium/ Dextrose 500 ml @ 25 mls/hr Q20H IV 01/09/18 21:30 02/08/18 21:29 01/09/18 22:28 25 MLS/HR Cyclobenzaprine HCl (Flexeril Tab) 10 mg TID PRN PO 01/09/18 23:45 02/08/18 20:59 Levothyroxine Sodium (Synthroid Tab) 88 mcg DAILYBB PO 01/10/18 06:30 02/09/18 06:59 01/10/18 06:11 88 MCG Review of Systems Constitutional: Negative for weight loss, night sweats, or fever Eyes: Negative for event change of vision ENT: Negative for epistaxis, nasal discharge, sore throat, or deafness Cardiovascular: Negative for chest pain, palpitations, dizziness, diaphoresis Respiratory: Negative for hemoptysis, or purulent cough Gastrointestinal: Negative for diarrhea, hematemesis, melena, nausea, vomiting , or dyspepsia Integumentary (skin): Negative for rash or jaundice discoloration Genitourinary: Negative for urinary frequency, hematuria, or dysuria Neurological: Negative for weakness, seizure activity, headache, or dizziness Lymphatic/Hematologic: Negative for petechiae, bleeding or new adenopathy Musculoskeletal: Negative for new joint or back pain Allergic/Immunologic: Negative for unusual rash or pruritis. Physical Exam Date Time Temp Pulse Resp B/P (MAP) Pulse Ox O2 Delivery O2 Flow Rate FiO2 01/10/18 07:25 36.5 71 16 149/75 (99) 95 Room Air 01/10/18 07:07 74 16 96 Nasal Cannula 2.0 01/10/18 04:00 36.4 67 14 143/77 (99) 97 Nasal Cannula 2.0 01/10/18 04:00 96 Nasal Cannula 2.0 01/10/18 04:00 95 Nasal Cannula 2.0 01/10/18 03:31 68 14 99 Nasal Cannula 3.0 01/10/18 00:00 96 Nasal Cannula 2.0 01/10/18 00:00 36.7 74 16 133/76 (95) 95 Nasal Cannula 2.0 01/09/18 20:36 36.7 85 20 140/79 96 Nasal Cannula 2.0 01/09/18 20:09 96 Nasal Cannula 2.0 01/09/18 19:46 36.7 85 20 140/79 (99) 96 Nasal Cannula 2.0 01/09/18 16:52 89 18 120/82 96 Nasal Cannula 2.0 01/09/18 16:19 89 01/09/18 15:31 93 18 149/92 97 Nasal Cannula 2.0 01/09/18 14:29 98 20 143/85 95 Nasal Cannula 2.0 01/09/18 13:09 93 20 85 Room Air 01/09/18 12:16 93 01/09/18 11:22 36.7 95 18 166/104 91 Room Air Constitutional: vitals are stable. Eyes: Eyes are CESAR EOMI without conjuctival erythema or icterus. ENT: External examination was negative for masses. Neck: Negative for masses or palpable thyromegaly Respiratory: Lung sounds were generally clear bilaterally Cardiovascular: Heart was RRR without significant murmur, gallops aoe rubs Gastrointestinal: No palpable hepatic or splenomegaly. The abdomen was soft with normal bowel sounds. Lymphatic system: there was no palpable peripheral lymphadenopathy Musculoskeletal System: The musculoskeletal system seemed concordant with age. Skin: The skin was negative for jaundice. Neurologic exam: The exam was negative for any focal findings. Deep tendon reflexes were equal and symmetrical. Psychiatric exam: Was essentially negative with normal mood and effect. Breast exam: Done with patient permission was negative for palpable masses or corollary supraclavicular or axillary palpable adenopathy. Extremities: Negative for edema or significant tenderness. Laboratory Results Last 24 Hours Test 01/09/18 11:45 01/09/18 11:54 01/09/18 20:26 01/10/18 04:30 White Blood Count 11.48 K/uL 9.54 K/uL Red Blood Count 4.96 M/uL 4.59 M/uL Hemoglobin 15.5 g/dL 13.9 g/dL Hematocrit 44.7 % 41.3 % Mean Corpuscular Volume 90.1 fL 90.0 fL Mean Corpuscular Hemoglobin 31.3 pg 30.3 pg Mean Corpuscular Hemoglobin Concent 34.7 g/dl 33.7 g/dl Platelet Count 181 K/uL 186 K/uL Mean Platelet Volume 9.0 fL 9.1 fL Neutrophils (%) (Auto) 68.2 % 47.5 % Lymphocytes (%) (Auto) 21.0 % 38.2 % Monocytes (%) (Auto) 7.9 % 10.2 % Eosinophils (%) (Auto) 2.3 % 3.6 % Basophils (%) (Auto) 0.3 % 0.3 % Neutrophils # (Auto) 7.84 K/uL 4.54 K/uL Lymphocytes # (Auto) 2.41 K/uL 3.64 K/uL Monocytes # (Auto) 0.91 K/uL 0.97 K/uL Eosinophils # (Auto) 0.26 K/uL 0.34 K/uL Basophils # (Auto) 0.03 K/uL 0.03 K/uL RDW Standard Deviation 42.6 fL 43.1 fL RDW Coefficient of Variation 13.1 % 13.2 % Immature Granulocyte % (Auto) 0.3 % 0.2 % Immature Granulocyte # (Auto) 0.03 K/uL 0.02 K/uL Prothrombin Time 10.4 SECONDS Prothromb Time International Ratio 1.0 Activated Partial Thromboplast Time 24.5 SECONDS 32.8 SECONDS 51.3 SECONDS Partial Thromboplastin Ratio 0.9 1.3 2.0 Sodium Level 136 mmol/L 137 mmol/L Potassium Level 3.8 mmol/L 3.5 mmol/L Chloride Level 101 mmol/L 100 mmol/L Carbon Dioxide Level 31 mmol/L 27 mmol/L Anion Gap 5.0 mmol/L 10.0 mmol/L Blood Urea Nitrogen 17 mg/dl 16 mg/dl Creatinine 0.92 mg/dl 0.85 mg/dl Est Creatinine Clear Calc Drug Dose 77.4 ml/min 83.5 ml/min Estimated GFR () 76.8 84.5 Estimated GFR (Non- 66.3 72.9 BUN/Creatinine Ratio 18.6 18.7 Random Glucose 115 mg/dl 113 mg/dl Calcium Level 10.3 mg/dl 9.7 mg/dl Total Bilirubin 0.4 mg/dl Aspartate Amino Transf (AST/SGOT) 19 U/L Alanine Aminotransferase (ALT/SGPT) 24 U/L Alkaline Phosphatase 84 U/L Total Protein 9.0 gm/dl Albumin 3.8 gm/dl Globulin 5.1 gm/dl Albumin/Globulin Ratio 0.7 Bedside Troponin I < 0.030 ng/ml Assessment & Plan Ms. Dickey is a delightful 62-year-old female that has a history of DVT that dates back I believe the 2011. She now presents with shortness of breath and a pulmonary embolus that is quite diffuse and somewhat large. A DVT has been found in the left popliteal vein. The most likely characterization of this thromboembolic episode would be a provoked situation due to the car rides. I am concerned about the size of the clot. She currently is on heparin with the thought of transitioning eventually to Coumadin. The anticoagulation clinic should be consulted for follow-up as an outpatient. I suspect it would be warranted to have this patient's problem reviewed by vascular surgery for the consideration of placing a IVC filter because of the clot burden seen on the CTA of the chest. She does have a few pulmonary nodules that have ever so slightly changed in size over the past 5 or 6 years. There are bilateral. She does have a history of several lymph node positive breast cancer. If in fact these pulmonary nodules represent neoplasm that I suspect it is probably more likely carcinoid rather than breast cancer simply just due to the pace of the nodule growth. These would need to be followed. Certainly there is no need to plan a biopsies at this juncture. She has been informed that these nodules do exist and will need to be watched. With that then I have reviewed the possible need to place an IVC filter with the hospitalist (Dr. Butcher). We will asked Ms. Dickey to visit us in follow- up in the cancer clinic to occur in a couple of months. Again the coagulation clinic should also follow Ms. Dickey longitudinally. I will be orderig a factor five [id number] that I don't see recorded in the EHR. Thank you for this consultation
--- NOTE | 2018-01-10 11:33 | Surgery Consultation ---
Consultation Date of Service Jan 10, 2018. (Julisa Hansen, KANNAN) Chief Complaint dvt, pe (Julisa Hansen PA-C) History of Present Illness The patient is a 62 year old female with hx of breast ca in remission for 15 yrs , R upper lobectomy for carcinoid tumor, COPD, DVT in 2011, a fib in 2011 as well not on anticoagulation, admitted for large extensive PE and DVT after arriving at [facility] ED d/t SOB and HUFFMAN. Pt states her SOB at rest is improved while on 2 L oxygen, but states that ambulation to BR caused severe hypoxia with sat of 80% and tachycardia to 160 BPM. Pt denies chest pain, but admits fatigue, malaise. Denies QUINN, fever, chills, abd pain, N/V, rest pain, claudication, other complaints. States her AC was stopped d/t bleeding hemorrhoids. (Julisa Hansen, KANNAN) Vitals Vital Signs Past 12 Hours Date Time Temp Pulse Resp B/P (MAP) Pulse Ox O2 Delivery O2 Flow Rate FiO2 01/10/18 07:25 36.5 71 16 149/75 (99) 95 Room Air 01/10/18 07:07 74 16 96 Nasal Cannula 2.0 01/10/18 04:00 36.4 67 14 143/77 (99) 97 Nasal Cannula 2.0 01/10/18 04:00 96 Nasal Cannula 2.0 01/10/18 04:00 95 Nasal Cannula 2.0 01/10/18 03:31 68 14 99 Nasal Cannula 3.0 01/10/18 00:00 96 Nasal Cannula 2.0 01/10/18 00:00 36.7 74 16 133/76 (95) 95 Nasal Cannula 2.0 (Julisa Hansen, KANNAN) Allergies Coded Allergies: [place] (Verified Allergy, Severe, THROAT TIGHTNESS, 01/09/18) Codeine (Unverified Allergy, Unknown, gi upset, 01/09/18) Ibuprofen (Verified Adverse Reaction, Mild, ULCERS, 01/09/18) Nedocromil (Verified Adverse Reaction, Mild, COUGH, 01/09/18) Theophylline (Verified Adverse Reaction, Mild, NERVOUSNESS, 01/09/18) Home Medications Scheduled Cholecalciferol (Vitamin D), 5,000 UNITS PO DAILY Cyclobenzaprine Hcl (Flexeril), 10 MG PO TID Diltiazem Hcl Coated Beads (Cardizem La), 120 MG PO BID Fluticasone Prop/Salmeterol (Advair Diskus 500/50 60 Dose), 1 PUFF INH BID Fluticasone Propionate (Flovent Hfa), 2 PUFFS INH BID Levothyroxine Sodium (Synthroid), 100 MCG PO DAILY Magnesium Chloride (Slow-Mag Tab), 64 MG PO BID Melatonin (Melatonin), 3 MG PO HS Metoprolol Tartrate (Lopressor) (Lopressor), 25 MG PO BID Multiple Vitamin (Multivitamin), 1 TAB PO DAILY Red Yeast Rice Extract (Red Yeast Rice), 1,200 MG PO BID Scheduled PRN Albuterol Sulf (Proventil 0.083% 2.5MG/3ML), 2.5 MG INH QID PRN for SOB/Wheezing Albuterol Sulfate (Proair Respiclick), 2 PUFF INH Q4H PRN for SOB/Wheezing Miscellaneous Medications Biotin (Biotin) Hydrochlorothiazide (Hydrochlorothiazide) Problem List Medical Problems: (1) Hypoxia (2) Persistent asthma (3) Pulmonary embolism (Julisa Hansen, MILI-C) Surgical / Medical History Hx Cardiac Surgery: No Hx Abdominal Surgery: Yes (GALLBLADDER) Hx Cancer Surgery: Yes (Right upper lobectomy ) Hx Thoracic Surgery: Yes (LEFT LUMPECTOMY) Hx Orthopedic: Yes (RIGHT KNEE REPLACEMENT, B/L BUNION, BULGING DISC) Hx Urinary Tract Surgery: No Past Medical/Surgical History: Cancer, COPD, Hypertension, Thyroid Disease (Julisa Hansen, PA-C) Family History + CAD, neg for DVT (Julisa Hansen, PASmithC) Social History Smoking Status: Never Smoker Hx Tobacco Use In Past Year?: No Hx Alcohol Use - Type & Amnt: No Hx Substance Use -Type & Amnt: No (Julisa Hansen, MILI-C) Review of Systems Constitutional: + malaise, No chills, No fever Skin: No change in color Eyes: No visual changes ENMT: No sore throat Respiratory: + HUFFMAN, + short of breath, No cough, No hemoptysis, No orthopnea Cardiovascular: No chest pain, No palpitations, No syncope Gastrointestinal: No abdominal pain, No nausea, No vomiting Genitourinary - Female: No dysuria, No hematuria Neurologic: No dizziness, No headache, No lethargy, No numbness, No tingling ( Julisa Hansen, FRANKLINC) Physical Exam Constitutional: General Apperance: well-nourished, well-developed Level of Distress: NAD, chronically ill (mildly) Ambulation: ambulating normally Psychiatric: Mental Status: active & alert, normal mood, normal affect Orientation: oriented except where noted, to time, to place, to person Memory: recent memory normal, remote memory normal Head: normocephalic, atraumatic Eyes: EOM: EOMI ENMT: normal ENT inspection, hearing grossly normal Neck: supple, trachea midline Lungs: Respiratory effort: no dyspnea Auscultation: no rales/crackles, no rhonchi Cardiovascular: Apical Impulse: not displaced Heart Auscultation: RRR, no rubs, no gallops Peripheral Pulses: Pulses: full and equal, in all extremities except if noted Bruits: none appreciated Carotid Pulse: normal on the left, normal on the right Brachial Pulses: normal on the left, normal on the right Radial Pulse: normal on the left, normal on the right Femoral Pulse: normal on the left, normal on the right Posterior Tibialis Pulse: decreased on the left, decreased on the right Dorsalis Pedis Pulse: decreased on the left, decreased on the right Abdomen: Bowel Sounds: normal Inspection & Palpation: soft, non-distended, no tenderness, guarding & rebound Musculoskeletal: normal strength (5/5 throughout), normal tone Extremities: Upper Right: no cyanosis, no edema, no varicosities Upper Left: no cyanosis, no edema, no varicosities Lower Right: no cyanosis, no varicosities, no palpable cord, edema Lower Left: no cyanosis, no varicosities, no palpable cord, edema Neurologic: Cranial Nerves: grossly intact Sensation: grossly intact (Julisa Hansen, FRANKLINC) Assessment and Plan ASSESSMENT and PLAN: DVT, extensive PE Pt discussed with Dr Solorio, recommends IVC filter insertion to protect from further PE. Pt agreeable. Will see in office in 3 months to discuss possible removal. (Julisa Hansen, PA-C) Patient was seen, examined, and chart reviewed. Agree with exam and treatment plan of the Vascular PA. Patient for filter insertion today. I have discussed the risks options and benefits of the procedure with the patient. The patient understands the risks options and benefits and agrees to the procedure. (Mariano Solorio M.D.)
[2018-01-10] MEDS ORDERED: CEFAZOLIN 2000MG IV PUSH 15 ML IV SCH (12:00)
[2018-01-10] MEDS ORDERED: CEFAZOLIN IV 1,000 MG in DEXTROSE 5% 50ML 50 ML IV ONE (12:00)
[2018-01-10] MEDS ORDERED: FENTANYL CITRATE INJ 50 MCG/1 ML 2 ML VIAL ONE (12:24)
[2018-01-10] MEDS ORDERED: MIDAZOLAM HCL 1 MG/ML 2ML VIAL ONE (12:24)
[2018-01-10] MEDS: HEPARIN 25,000 UNIT/500ML D5W 500 ML IV SCH (12:45)
--- NOTE | 2018-01-10 13:01 | Pre Sedation Assessment ---
Pre Sedation Assessment General Date of Sedation: Jan 10, 2018. Vital Signs Past 12 Hours Date Time Temp Pulse Resp B/P (MAP) Pulse Ox O2 Delivery O2 Flow Rate FiO2 01/10/18 12:30 36.6 77 18 142/82 (102) 98 Nasal Cannula 2.0 01/10/18 08:00 95 Room Air 2.0 01/10/18 07:25 36.5 71 16 149/75 (99) 95 Room Air 01/10/18 07:07 74 16 96 Nasal Cannula 2.0 01/10/18 04:00 36.4 67 14 143/77 (99) 97 Nasal Cannula 2.0 01/10/18 04:00 96 Nasal Cannula 2.0 01/10/18 04:00 95 Nasal Cannula 2.0 01/10/18 03:31 68 14 99 Nasal Cannula 3.0 Review Cardiovascular: regular rate, rhythm Lungs: lungs clear Pre-Sedation Airway Assessment Smoking Status: Never Smoker Hx of Sleep Apnea: Yes Short Thick Neck: No Thyro-mental Distance: < or =3 Finger Breadths Oral Cavity: WNL Mallampati Classification: Class II ASA Classification: Class III NPO Status Date of Last Intake of Fluids: Jan 10, 2018 Time of Last Intake of Fluids: 0800 Date of Last Intake of Solids: Jan 10, 2018 Time of Last Intake of Solids: 0800 Procedure Planning Contraindications for Sedation: None Current Medications Reviewed: Yes Notes The planned sedation has been discussed with the patient. Informed Consent was obtained. I have identified the patient, determined the appropriateness of sedation and have assessed the patient immediately prior to the procedure. All medicine(s) and interventions are by my order.
[2018-01-10] MEDS ORDERED: LIDOCAINE HCL 1% 20 ML VIAL INJ ONE (13:34)
[2018-01-10] MEDS ORDERED: HydrALAZINE HCL 20 MG/ML VIAL ONE (13:48)
--- NOTE | 2018-01-10 13:48 | [facility] Post Operative Brief Note ---
Immediate Operative Summary Operative Date Jan 10, 2018. Pre-Operative Diagnosis DVT, massive PE, COPD Post-Operative Diagnosis DVT, massive PE, COPD Procedure(s) Performed Insertion of inferior vena cava filter, femoral approach Surgeon Solorio Hand Sewer Shoes Surgeon(s) Jevon Pfeiffer MD Estimated Blood Loss 2cc Findings Consistent with Post-Op Diagnosis Specimens None Drains None Anesthesia Type Local Complication(s) none Disposition Accompanied Pt To Recover: no Disposition:
[2018-01-10] MEDS ORDERED: HydrALAZINE HCL 20 MG/ML VIAL IV. ONE ×2 (13:49→13:56)
--- NOTE | 2018-01-10 13:51 | [facility] Operative Report ---
Operative Report Operative Date Jan 10, 2018. Pre-Operative Diagnosis chronic obstructive pulmonary disease, deep vein thrombosis, extensive pulmonary emboli Post-Operative Diagnosis chronic obstructive pulmonary disease, deep vein thrombosis, extensive pulmonary emboli Procedure(s) Performed Insertion Of Vena Cava Filter, Right Femoral Approach, Ultrasound Localization Of Right Femoral Vein, Fluoroscopy For Positioning Surgeon Dr. Solorio Healthcare Corporate Account Director Surgeon(s) Kisha Pfeiffer MD Estimated Blood Loss 2 ml Findings patent IVC, IVC filter placed in infrarenal IVC Specimens none Drains None Anesthesia Type Local Complication(s) none Disposition Indications 62 y/o female with extensive PE, Popliteal DVT, cancer, s/p previous lobectomy, currently requiring oxygen for hypoxemia, who would not tolerate further clot burden to lungs. She was recommended to have IVC filter placed. The risks and benefits were explained and she agreed to above procedure. Description of Procedure The patient was brought to the angio suite and placed in the supine position. The right groin was prepped and draped in the usual fashion. The right femoral vein was located with ultrasound. It was patent, compressed easily, and had no filling defects. The vein was then punctured under ultrasound visualization. A guidewire was then passed centrally into the inferior vena cava under fluoroscopic guidance. The puncture site was then dilated and the filter sheath inserted. It was passed to the infra renal vena cava. A venacavagram was done which showed no cava clot and an acceptable size. The renal veins were identified. The filter was then passed through the sheath and deployed in the infra renal vena cava in an upright position. Satisfied with the positioning of the filter, the sheath was removed. Pressure was applied to the puncture site. Adequate hemostasis was obtained and a sterile dressing was applied. The patient left the angio suite in good condition and tolerated the procedure well. I, Dr. Solorio was present and scrubbed for the entire procedure. I attest to the content of the Intraoperative Record and any orders documented therein. Any exceptions are noted below.
--- NOTE | 2018-01-10 21:56 | Progress Note ---
Subjective Date of Service: Jan 10, 2018. Medications Current Inpatient Medications Medications (Trade) Dose Ordered Sig/Tres Route Start Time Stop Time Status Last Admin Dose Admin Ioversol (Optiray 320) 125 ml UD PRN IV 01/09/18 12:30 01/13/18 12:29 Acetaminophen (Tylenol Tab) 650 mg Q4H PRN PO 01/09/18 15:30 02/08/18 15:29 01/10/18 15:35 650 MG Zolpidem Tartrate (Ambien Tab) 5 mg HSZ PRN PO 01/09/18 15:30 02/08/18 15:29 Ondansetron HCl (Zofran Inj) 4 mg Q6H PRN IV 01/09/18 15:30 02/08/18 15:29 Salmeterol Xinafoate/ Fluticasone (Advair Diskus 500/50 Inh) 1 puff BID INH 01/10/18 09:00 02/09/18 08:59 01/10/18 20:56 1 PUFF Hydrochlorothiazide (Hydrochlorothiazide Tab) 25 mg DAILY PO 01/10/18 09:00 02/09/18 08:59 01/10/18 08:49 25 MG Magnesium Chloride (Slow-Mag Tab) 64 mg BID PO 01/09/18 21:00 02/08/18 20:59 01/10/18 20:59 64 MG Metoprolol Tartrate (Lopressor Tab) 25 mg BID PO 01/09/18 21:00 02/08/18 20:59 01/10/18 20:57 25 MG Multivitamins (Multivitamin Tab) 1 tab DAILY PO 01/10/18 09:00 02/09/18 08:59 01/10/18 08:48 1 TAB Albuterol/ Ipratropium (Duoneb) 3 ml Q4R INH 01/09/18 20:00 02/08/18 19:59 01/10/18 19:29 3 ML Cholecalciferol (Vitamin D Tab) 5,000 inter.unit QAM PO 01/10/18 09:00 02/09/18 08:59 01/10/18 08:47 5,000 INTER.UNIT Diltiazem HCl (Cardizem Sr) 120 mg BID PO 01/09/18 21:00 02/08/18 20:59 01/10/18 20:59 120 MG Heparin Sodium/ Dextrose 500 ml @ 25 mls/hr Q20H IV 01/09/18 21:30 02/08/18 21:29 01/10/18 12:45 25 MLS/HR Cyclobenzaprine HCl (Flexeril Tab) 10 mg TID PRN PO 01/09/18 23:45 02/08/18 20:59 Levothyroxine Sodium (Synthroid Tab) 88 mcg DAILYBB PO 01/10/18 06:30 02/09/18 06:59 01/10/18 06:11 88 MCG Objective Vital Signs Date Time Temp Pulse Resp B/P (MAP) Pulse Ox O2 Delivery O2 Flow Rate FiO2 01/10/18 20:30 36.9 92 18 144/81 (102) 96 Nasal Cannula 2.0 01/10/18 20:09 96 Nasal Cannula 2.0 01/10/18 19:29 83 16 98 Nasal Cannula 2.0 01/10/18 16:29 36.8 88 20 136/75 (95) 99 Nasal Cannula 2.0 01/10/18 16:03 96 Nasal Cannula 2.0 01/10/18 16:03 95 Nasal Cannula 2.0 01/10/18 15:22 95 16 98 Nasal Cannula 2.0 01/10/18 14:20 37.1 89 20 146/73 (97) 97 Nasal Cannula 2.0 01/10/18 14:15 95 Room Air 2.0 01/10/18 14:00 88 17 169/72 99 Nasal Cannula 4 01/10/18 13:55 79 18 99 Mask 6 01/10/18 13:50 79 18 99 Mask 6 01/10/18 13:45 79 18 233/88 99 Mask 6 01/10/18 13:44 84 18 99 Mask 6 01/10/18 13:40 84 18 99 Mask 6 01/10/18 13:35 84 18 99 Mask 6 01/10/18 13:30 84 18 99 Mask 6 01/10/18 13:25 84 18 237/99 99 Mask 6 01/10/18 12:30 36.6 77 18 142/82 (102) 98 Nasal Cannula 2.0 01/10/18 08:00 95 Room Air 2.0 01/10/18 07:25 36.5 71 16 149/75 (99) 95 Room Air 3/27/18 07:07 74 16 96 Nasal Cannula 2.0 01/10/18 04:00 36.4 67 14 143/77 (99) 97 Nasal Cannula 2.0 01/10/18 04:00 96 Nasal Cannula 2.0 01/10/18 04:00 95 Nasal Cannula 2.0 01/10/18 03:31 68 14 99 Nasal Cannula 3.0 01/10/18 00:00 96 Nasal Cannula 2.0 01/10/18 00:00 36.7 74 16 133/76 (95) 95 Nasal Cannula 2.0 Laboratory Results Last 24 Hours Test 01/10/18 04:30 01/10/18 11:22 White Blood Count 9.54 K/uL Red Blood Count 4.59 M/uL Hemoglobin 13.9 g/dL Hematocrit 41.3 % Mean Corpuscular Volume 90.0 fL Mean Corpuscular Hemoglobin 30.3 pg Mean Corpuscular Hemoglobin Concent 33.7 g/dl Platelet Count 186 K/uL Mean Platelet Volume 9.1 fL Neutrophils (%) (Auto) 47.5 % Lymphocytes (%) (Auto) 38.2 % Monocytes (%) (Auto) 10.2 % Eosinophils (%) (Auto) 3.6 % Basophils (%) (Auto) 0.3 % Neutrophils # (Auto) 4.54 K/uL Lymphocytes # (Auto) 3.64 K/uL Monocytes # (Auto) 0.97 K/uL Eosinophils # (Auto) 0.34 K/uL Basophils # (Auto) 0.03 K/uL RDW Standard Deviation 43.1 fL RDW Coefficient of Variation 13.2 % Immature Granulocyte % (Auto) 0.2 % Immature Granulocyte # (Auto) 0.02 K/uL Activated Partial Thromboplast Time 51.3 SECONDS Partial Thromboplastin Ratio 2.0 Sodium Level 137 mmol/L Potassium Level 3.5 mmol/L Chloride Level 100 mmol/L Carbon Dioxide Level 27 mmol/L Anion Gap 10.0 mmol/L Blood Urea Nitrogen 16 mg/dl Creatinine 0.85 mg/dl Est Creatinine Clear Calc Drug Dose 83.5 ml/min Estimated GFR () 84.5 Estimated GFR (Non- 72.9 BUN/Creatinine Ratio 18.7 Random Glucose 113 mg/dl Calcium Level 9.7 mg/dl Assessment and Plan R.A.B 62/F admitted for extensive bilateral pulmonary embolism confirmed by Chest CT Angiography. Currently, she is requiring supplemental oxygen at 2 liters via nasal canula. Pt has started therapeutic anticoagulation. Heparin gtt protocol has been initiated. 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 As per patient, she has not had any cancer recurrences and has been breast cancer free for 16 years. Admit: Telemetry VS q4H w/ continuous pulse ox Diet: Regular Activity: OOB with assistance 1) Bilateral Pulmonary Embolism - supplemental oxygen: 2 L NC - heparin gtt protocol - Consult Hem/Onc service; will appreciate recommendations 2) Asthma - DuoNebs q4H x24 hours - resume Advair Diskus 500/50 inhaled BID - resume Flovent 2 puffs inhaled BID 3) Hypothyroidism - stable; no active issues - resume levothyroxine 100 mcg PO qAM 4) Hypertension - normotensive - resume metoprolol tartrate 25 mg PO BID - resume diltiazem 120 mg PO BID Code Status: FULL Precautions: Fall
[2018-01-11] VITALS (9 sets, daily range): BP systolic 129–136; BP diastolic 72–77; PULSE 73–98; TEMP 36.5–37.2; O2SAT 94–98
[2018-01-11] MEDS: ALBUT/IPRATROP 3MG/0.5MG NEB 3 ML VIAL INH SCH ×4 (03:22→15:12)
[2018-01-11] MEDS: LEVOTHYROXINE 88 MCG TAB PO SCH (06:22)
[2018-01-11] MEDS: FLUTICASONE/SALMETEROL (ADVAIR) 500/50 INH 14 PUFF INH SCH (07:54)
[2018-01-11] MEDS: HYDROCHLOROTHIAZIDE 25 MG TAB PO SCH (07:55)
[2018-01-11] MEDS: CHOLECALCIFEROL 1000 INTER.UNIT TAB PO SCH (07:55)
[2018-01-11] MEDS: MULTIVITAMIN TAB PO SCH (07:55)
[2018-01-11] MEDS: METOPROLOL TARTRATE 25 MG TAB PO SCH (07:55)
[2018-01-11] MEDS: MAGNESIUM CHLORIDE 64MG DELAYED REL TAB PO SCH (07:55)
[2018-01-11] MEDS: DILTIAZEM SR 60 MG CAP PO SCH (07:55)
[2018-01-11 08:04] LABS: PTT PATIENT 35.3 SECONDS (21.0-31.0)
[2018-01-11] MEDS ORDERED: ~HEPARIN DRIP~STOP ORDER ONE (09:15)
[2018-01-11 09:46] LABS: CALCIUM 9.5 mg/dl (8.5-10.1); CREATININE 0.93 mg/dl (0.60-1.20); POTASSIUM 3.5 mmol/L (3.5-5.1)
[2018-01-11] MEDS ORDERED: ENOXAPARIN 150 MG/1ML SYR SQ SCH (10:00)
[2018-01-11] MEDS ORDERED: LOVENOX TEACHING KIT ONE (10:00)
--- NOTE | 2018-01-11 11:54 | Hematology/Oncology Prog Note ---
Hematology/Onc Progress Note Date of Service Jan 11, 2018. Diagnoses Pulmonary embolus and DVT History of breast carcinoma status post lumpectomy radiation adjuvant chemotherapy and a trial of anti-hormonal therapy Pulmonary nodules History resected lung carcinoid Medications Medications Administered Medications (Trade) Dose Ordered Sig/Tres Route Start Time Stop Time Status Last Admin Dose Admin Albuterol/ Ipratropium (Duoneb) 3 ml NOW STAT INH 01/09/18 12:19 01/09/18 12:21 DC 01/09/18 12:49 3 ML Heparin Sodium/ Dextrose (Heparin 25,000 Unit/500ml D5W) 25,000 unit STK-MED ONCE .ROUTE 01/09/18 14:41 01/09/18 14:42 DC 01/09/18 14:49 25,000 UNIT Heparin Sodium (Porcine) (Heparin Sq 5000 Unit/0.5ml) 5,000 unit STK-MED ONCE .ROUTE 01/09/18 14:41 01/09/18 14:42 DC 01/09/18 14:47 4,000 UNIT Acetaminophen (Tylenol Tab) 650 mg Q4H PRN PO 01/09/18 15:30 02/08/18 15:29 01/10/18 15:35 650 MG Salmeterol Xinafoate/ Fluticasone (Advair Diskus 500/50 Inh) 1 puff BID INH 01/10/18 09:00 02/09/18 08:59 01/11/18 07:54 1 PUFF Hydrochlorothiazide (Hydrochlorothiazide Tab) 25 mg DAILY PO 01/10/18 09:00 02/09/18 08:59 01/11/18 07:55 25 MG Magnesium Chloride (Slow-Mag Tab) 64 mg BID PO 01/09/18 21:00 02/08/18 20:59 01/11/18 07:55 64 MG Metoprolol Tartrate (Lopressor Tab) 25 mg BID PO 01/09/18 21:00 02/08/18 20:59 01/11/18 07:55 25 MG Multivitamins (Multivitamin Tab) 1 tab DAILY PO 01/10/18 09:00 02/09/18 08:59 01/11/18 07:55 1 TAB Albuterol/ Ipratropium (Duoneb) 3 ml Q4R INH 01/09/18 20:00 02/08/18 19:59 3/28/18 11:08 3 ML Cholecalciferol (Vitamin D Tab) 5,000 inter.unit QAM PO 01/10/18 09:00 02/09/18 08:59 01/11/18 07:55 5,000 INTER.UNIT Diltiazem HCl (Cardizem Sr) 120 mg BID PO 01/09/18 21:00 02/08/18 20:59 01/11/18 07:55 120 MG Heparin Sodium (Porcine) 6000 unit/Syringe 6 ml @ 10 mls/min NOW ONCE IV 01/09/18 21:30 01/09/18 21:31 DC 01/09/18 22:29 10 MLS/MIN Heparin Sodium/ Dextrose 500 ml @ 25 mls/hr Q20H IV 01/09/18 21:30 01/11/18 08:49 DC 01/10/18 12:45 25 MLS/HR Levothyroxine Sodium (Synthroid Tab) 88 mcg DAILYBB PO 01/10/18 06:30 02/09/18 06:59 01/11/18 06:22 88 MCG Cefazolin Sodium 15 ml @ 3.75 mls/ min PREOP@1200 IV 01/10/18 12:00 01/10/18 16:00 DC 01/10/18 13:18 3.75 MLS/MIN Lidocaine HCl (Xylocaine 1% Inj (Local)) 10 ml ONE ONCE INJ 01/10/18 13:34 01/10/18 13:42 DC 01/10/18 13:34 10 ML Hydralazine HCl (HydrALAZINE INJ) 5 mg ONE ONCE IV. 01/10/18 13:49 01/10/18 13:50 DC 01/10/18 13:49 5 MG Hydralazine HCl (HydrALAZINE INJ) 5 mg ONE ONCE IV. 01/10/18 13:56 01/10/18 14:00 DC 01/10/18 13:56 5 MG Enoxaparin Sodium (Lovenox Inj) 150 mg DAILY SQ 01/11/18 10:00 02/10/18 09:59 01/11/18 10:49 150 MG Miscellaneous (Lovenox Teaching Kit) 1 ea TODAY@1000 ONCE N/A 01/11/18 10:00 01/11/18 10:01 DC 01/11/18 10:48 1 EA Miscellaneous (Stop Order) 1 ea TODAY@0915 ONCE N/A 01/11/18 09:15 01/11/18 09:16 DC 01/11/18 10:10 1 EA Subjective She seems to be doing well. An IVC filter was placed yesterday. She really offers no new complaints. Currently undergoing anticoagulation. Review of Systems: Constitutional: Negative for night sweats, or fever Eyes: Negative for event change of vision ENT: Negative for epistaxis, nasal discharge, sore throat, or deafness Cardiovascular: Negative for chest pain, palpitations, dizziness, diaphoresis Respiratory: Negative for new shortness of breath,hemoptysis, or purulent cough Gastrointestinal: Negative for diarrhea, hematemesis, melena, nausea, vomiting , or dyspepsia Integumentary (skin): Negative for rash or jaundice discoloration Genitourinary: Negative for urinary frequency, hematuria, or dysuria Neurological: Negative for weakness, seizure activity, headache, or dizziness Lymphatic/Hematologic: Negative for petechiae, bleeding or new adenopathy Musculoskeletal: Negative for new joint or back pain Allergic/Immunologic: Negative for unusual rash or pruritis. Vital Signs Vital Signs Past 12 Hours Date Time Temp Pulse Resp B/P (MAP) Pulse Ox O2 Delivery O2 Flow Rate FiO2 01/11/18 11:28 37.2 75 18 131/77 (95) 94 Room Air 01/11/18 11:08 73 16 98 Nasal Cannula 2.0 01/11/18 08:20 Nasal Cannula 1.0 01/11/18 07:07 36.5 73 18 129/72 (91) 95 Nasal Cannula 1.0 01/11/18 06:50 79 16 96 Nasal Cannula 2.0 01/11/18 04:16 36.7 79 16 136/77 (96) 95 Room Air 01/11/18 03:22 82 16 97 Nasal Cannula 2.0 01/11/18 00:05 96 Nasal Cannula 2.0 01/11/18 00:05 96 Nasal Cannula 2.0 Physical Exam Constitutional: vitals are stable. Eyes: Eyes are CESAR EOMI without conjuctival erythema or icterus. ENT: External examination was negative for masses. Neck: Negative for masses or palpable thyromegaly Respiratory: Lung sounds were generally clear bilaterally Cardiovascular: Heart was RRR without significant murmur, gallops aoe rubs Gastrointestinal: No palpable hepatic or splenomegaly. The abdomen was soft with normal bowel sounds. Lymphatic system: there was no palpable peripheral lymphadenopathy Musculoskeletal System: The musculoskeletal system seemed concordant with age. Skin: The skin was negative for jaundice. Neurologic exam: The exam was negative for any focal findings. Deep tendon reflexes were equal and symmetrical. Psychiatric exam: Was essentially negative with normal mood and effect. Breast exam: Not done today Extremities: negative for edema Laboratory Last 24 Hours Test 01/11/18 07:20 Activated Partial Thromboplast Time 35.3 SECONDS Partial Thromboplastin Ratio 1.4 Sodium Level 135 mmol/L Potassium Level 3.5 mmol/L Chloride Level 100 mmol/L Carbon Dioxide Level 26 mmol/L Anion Gap 8.0 mmol/L Blood Urea Nitrogen 15 mg/dl Creatinine 0.93 mg/dl Est Creatinine Clear Calc Drug Dose 75.9 ml/min Estimated GFR () 75.8 Estimated GFR (Non- 65.4 BUN/Creatinine Ratio 15.7 Random Glucose 117 mg/dl Calcium Level 9.5 mg/dl Assessment & Plan She seems to be doing well. Currently on anticoagulation with lovenox (but can be on coumadin with INR 2.0-3.0 instead of lovenox). The umbrella or IVC filter will be a temporary placement. We will sign off for now. She will have a follow-up in our clinic in the next 1-2 months. Would recommend that the coagulation clinic be contacted to follow-up her anticoagulation with Coumadin (or lovenox) going forward. Please do not hesitate to reconsult if necessary.
[2018-01-11] MEDS ORDERED: LVNIS150 SQ (14:35)
--- NOTE | 2018-01-11 14:37 | Discharge Instructions ---
Discharge Instructions Date of Service Jan 11, 2018. Admission Reason for Admission: Hypoxia, Pulmonary Embolism Discharge Discharge Diagnosis / Problem: Pulmonary embolism Discharge Goals Goal(s): Decrease discomfort, Improve function Activity Recommendations Activity Limitations: resume your previous activity . Instructions / Follow-Up Instructions / Follow-Up F/U with Hem/onc in 1-2 months F/U with PCP in 1-2 weeks continue taking lovenox once day for at least 3 months Current Hospital Diet Patient's current hospital diet: Regular Diet Discharge Diet Recommended Diet: Regular Diet Procedures Procedures Performed: Insertion of inferior vena cava filter, femoral approach Pending Studies Studies pending at discharge: no Medical Emergencies . Who to Call and When: Medical Emergencies: If at any time you feel your situation is an emergency, please call 911 immediately. . Non-Emergent Contact Non-Emergency issues call your: Primary Care Provider Call Non-Emergent contact if: you have any medication questions . . "Provider Documentation" section prepared by Nic Butcher. .
--- NOTE | 2018-01-12 10:50 | Discharge Summary ---
Discharge Summary Date of Service Jan 12, 2018. Discharge Summary Admission Date: Jan 09, 2018 at 15:45 Discharge Date: Jan 11, 2018 Immunizations: Have You Had Influenza Vaccine: Yes Influenza Vaccine Date: Aug 20, 2012 History of Tetanus Vaccine?: Unknown History of Pneumococcal: Yes Pneumococcal Date: Dec 19, 2011 History of Hepatitis B Vaccine: Unknown Hospital Course [place] 62/F admitted for extensive bilateral pulmonary embolism confirmed by Chest CT Angiography. Currently, she is requiring supplemental oxygen at 2 liters via nasal canula. Pt has started therapeutic anticoagulation. Heparin gtt protocol has been initiated. 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 As per patient, she has not had any cancer recurrences and has been breast cancer free for 16 years. Admit: Telemetry VS q4H w/ continuous pulse ox Diet: Regular Activity: OOB with assistance 1) Bilateral Pulmonary Embolism - supplemental oxygen: 2 L NC - heparin gtt protocol - Consult Hem/Onc service; will appreciate recommendations 2) Asthma - DuoNebs q4H x24 hours - resume Advair Diskus 500/50 inhaled BID - resume Flovent 2 puffs inhaled BID 3) Hypothyroidism - stable; no active issues - resume levothyroxine 100 mcg PO qAM 4) Hypertension - normotensive - resume metoprolol tartrate 25 mg PO BID - resume diltiazem 120 mg PO BID Code Status: FULL Precautions: Fall This includes examination of the patient, discharge planning, medication reconciliation, and communication with other providers. Discharge Instructions Please refer to the electronic Patient Visit Report (Discharge Instructions) for additional information.
== END 2018-01-11 18:00 | disposition home or self-care (01) | DRG 252 ==
LOC: C.EDB 11:16 → C.MED 15:45 → ENRESERV 17:01
PROVIDERS: ADMIT Internal Medicine; ATTEND Internal Medicine Sports Medicine
PROC: 06H03DZ Insertion of Intraluminal Device into Inferior Vena Cava, Percutaneous Approach (ICD-10-PCS; principal; 2018-01-10 09:30)
DX: I82.432 Acute embolism and thrombosis of left popliteal vein (principal); I26.99 Other pulmonary embolism without acute cor pulmonale; J45.909 Unspecified asthma, uncomplicated; E03.9 Hypothyroidism, unspecified; I10 Essential (primary) hypertension; I48.0 Paroxysmal atrial fibrillation; R91.8 Other nonspecific abnormal finding of lung field; Z86.718 Personal history of other venous thrombosis and embolism; Z85.3 Personal history of malignant neoplasm of breast; Z92.21 Personal history of antineoplastic chemotherapy; Z92.3 Personal history of irradiation; Z85.110 Personal history of malignant carcinoid tumor of bronchus and lung; Z90.2 Acquired absence of lung [part of]; Z79.51 Long term (current) use of inhaled steroids; Z79.899 Other long term (current) drug therapy; Z88.5 Allergy status to narcotic agent; Z88.6 Allergy status to analgesic agent; Z88.8 Allergy status to other drugs, medicaments and biological substances; Z82.49 Family history of ischemic heart disease and other diseases of the circulatory system

== ENCOUNTER → 2018-02-03 | Outpatient (CLI) | payer OTHER ==
[~2018-02-03] MED LIST changes: +ALBU18002 INH; -LEVO112T4 PO; -LEVO75TA5 PO; +LVNIS150 SQ; -MAGNTAB PO; +MELA1TAB49 PO; -NYSS5 PO; -PRED10TA PO; -PRED20TA2 PO; -PROAIR INH; +SLWMEC PO; +SYN100 PO
--- NOTE | 2018-02-03 11:00 | DIAGNOSTIC IMAGING REPORT ---
CHEST 2 VIEWS ROUTINE CLINICAL HISTORY: R05 Cough history of [id number] COMPARISON STUDY: 01/09/2018 FINDINGS: The chest has an emphysematous configuration. Surgical clips are visualized within the right mediastinal region. There are surgical clips project over the left breast. There is no lobar consolidation. There is mild pleural thickening at the right lung base, findings similar to the prior CT scan dated 01/09/2018. IMPRESSION: Emphysema. No acute findings. Electronically signed by: Abiodun Zeng M.D. 02/03/2018 10:59 AM Dictated Date/Time: 02/03/2018 10:57 AM
== END | disposition home or self-care (01) ==
LOC: C.LAB1850 10:46
PROVIDERS: ATTEND Physician Assistant Medical
DX: R05 Cough (principal); J86.9 Pyothorax without fistula

== ENCOUNTER → 2018-02-21 | Outpatient (CLI) | payer OTHER ==
[~2018-02-21] MED LIST changes: +OXGN
--- NOTE | 2018-02-21 12:23 | DIAGNOSTIC IMAGING REPORT ---
RIGHT LOWER EXTREMITY VENOUS DOPPLER HISTORY: RLE PAIN AND SWELLING, HX OF DVT COMPARISON STUDY: None. FINDINGS: There is normal compressibility, flow, and augmentation within the right lower extremity deep venous system. IMPRESSION: No DVT within the right lower extremity Electronically signed by: Christopher Buckley M.D. 02/21/2018 12:22 PM Dictated Date/Time: 02/21/2018 12:21 PM
== END | disposition home or self-care (01) ==
LOC: C.ULTR 11:43
PROVIDERS: ATTEND Physician Assistant Medical
DX: M79.89 Other specified soft tissue disorders (principal)

== ENCOUNTER 2018-03-04 15:49 | Emergency (ER) | payer OTHER ==
[~2018-03-04] VITALS: Ht 172.7 cm; Wt 102.7 kg
[~2018-03-04 15:49] MED LIST changes: -BIOT1CAP8; +BIOT1CAP8 PO; -HYDR25TA5; +HYDR25TA5 PO
[2018-03-04 15:51] VITALS: TEMP 36.8
[2018-03-04] MEDS ORDERED: METHYLPREDNISOLONE 125 MG VIAL IV STA (16:04)
[2018-03-04] MEDS ORDERED: ALBUTEROL 0.083% NEBU SOLN 3 ML VIAL INH STA (16:04)
--- NOTE | 2018-03-04 16:20 | DIAGNOSTIC IMAGING REPORT ---
CHEST ONE VIEW PORTABLE CLINICAL HISTORY: Respiratory distress COMPARISON STUDY: 02/03/2018 FINDINGS: The cardiac images so contours remain stable. Underlying pulmonary emphysema is suspected. There is stable left apical fibronodular scarring. There is minor right basilar scarring. There is a subcentimeter left lung pulmonary nodules. These were described in the prior December 2017 CT scan. Surgical clips project over the left breast and right hilar region.[ IMPRESSION: 1. Postsurgical changes of a right lobectomy 2. Noncalcified subcentimeter pulmonary nodules 3. Left apical and right basilar scarring 4. No evidence of acute parenchymal consolidation Electronically signed by: Abiodun Zeng M.D. 03/04/2018 4:19 PM Dictated Date/Time: 03/04/2018 4:16 PM
[2018-03-04 16:29] VITALS: O2SAT 98; Ht 172.7 cm; Wt 102.7 kg
[2018-03-04 16:37] LABS: BASO % 0.4 %; BASO ABS # 0.03 K/uL (0-0.2); EOS % 4.1 %; EOS ABS # 0.31 K/uL (0-0.5); HEMATOCRIT 40.7 % (37-47); IG# 0.03 K/uL (0.00-0.02); LYMPH % 31.4 %; LYMPH ABS # 2.35 K/uL (1.2-3.4); MEAN CELL VOLUME 90.2 fL (80-100); MEAN CORPUSCULAR HGB CONC 34.4 g/dl (32-36); MEAN PLATELET VOLUME 8.8 fL (7.4-10.4); MONO % 8.3 %; MONO ABS # 0.62 K/uL (0.11-0.59); NEUT % 55.4 %; NEUT ABS # 4.14 K/uL (1.4-6.5); PLATELET COUNT 260 K/uL (130-400); RED CELL DISTRIBUTION WIDTH CV 13.6 % (11.5-14.5); RED CELL DISTRIBUTION WIDTH SD 45.1 fL (36.4-46.3); WHITE BLOOD COUNT 7.48 K/uL (4.8-10.8)
[2018-03-04] MEDS ORDERED: CMD75 PO (16:53)
[2018-03-04] MEDS ORDERED: CMD5 PO (16:55)
[2018-03-04 16:59] LABS: ALBUMIN 3.6 gm/dl (3.4-5.0); ALKALINE PHOSPHATASE 72 U/L (45-117); ALT/SGPT 37 U/L (12-78); AST/SGOT 33 U/L (15-37); BLOOD UREA NITROGEN 13 mg/dl (7-18); CALCIUM 9.2 mg/dl (8.5-10.1); CARBON DIOXIDE 31 mmol/L (21-32); CREATININE 1.05 mg/dl (0.60-1.20); GLUCOSE 139 mg/dl (70-99); POTASSIUM 3.7 mmol/L (3.5-5.1); SODIUM 141 mmol/L (136-145); TOTAL PROTEIN 7.7 gm/dl (6.4-8.2)
[2018-03-04 17:03] LABS: INR 2.7 (0.9-1.1); PTT PATIENT 37.7 SECONDS (21.0-31.0)
[2018-03-04] MEDS ORDERED: OPTIRAY 320 IV PRN (17:30)
--- NOTE | 2018-03-04 18:06 | DIAGNOSTIC IMAGING REPORT ---
CT ANGIOGRAM OF THE CHEST CLINICAL HISTORY: Shortness of breath. Back pain. History of pulmonary embolism. History of breast carcinoma. COMPARISON STUDY: 01/09/2018 TECHNIQUE: Following the IV administration of 116 mL of Optiray-320, CT angiogram of the thorax was performed from the thoracic inlet to the lung bases utilizing the pulmonary embolus protocol. Images are reviewed in the axial, sagittal, and coronal planes. IV contrast was administered without complication. MIP imaging was performed. A dose lowering technique was utilized adhering to the principles of ALARA. CT DOSE: 502.30 mGycm FINDINGS: No pathologically enlarged axillary mediastinal or hilar lymph nodes were visualized. There was no evidence of thoracic aortic dilatation. There is been near complete resolution of the previously identified pulmonary artery filling defects. There are no findings to indicate acute pulmonary embolism. No pleural effusions are visualized. There is respiratory motion artifact. There is chronic left apical consolidation with bronchiectasis. There is prominent right-sided extrapleural fat. There is a stable 6 mm left lower lobe pulmonary nodule. There is a stable 3 mm left lower lobe pulmonary nodule. Additional smaller nodules remain stable. There are postsurgical changes of a right upper lobectomy. IMPRESSION: 1. No evidence of acute pulmonary embolism 2. Postsurgical changes of a right upper lobectomy 3. Stable subcentimeter pulmonary nodules 4. Stable left apical consolidation with air bronchograms 5. No evidence of acute parenchymal consolidation Electronically signed by: Abiodun Zeng M.D. 03/04/2018 6:05 PM Dictated Date/Time: 03/04/2018 6:00 PM
[2018-03-04] MEDS ORDERED: PRED50TA PO (18:42)
[2018-03-04 18:50] VITALS: BP 145/76; PULSE 89; O2SAT 98
--- NOTE | 2018-03-04 21:46 | EMERGENCY ROOM VISIT NOTE ---
History Report prepared by Amanda: Earlene Fischer Under the Supervision of: Dr. Fabian Ornelas D.O. First contact with patient: 15:56 Chief Complaint: REFERRED BY DOCTOR Stated Complaint: SOB;PAIN IN RIGHT SIDE BACK;DOC REFERRED History of Present Illness The patient is a 62 year old female who presents to the Emergency Room with complaints of persistent shortness of breath that started this morning. She wears 2L NC for a history of PE's and DVT. She has tried using 4 nebulizer treatments at home with no relief. She follows with Dr. Silva for a history of asthma. The patient denies any increased swelling in her legs. She has experienced some pain in the right side of her back. She is on daily blood thinners. She notes the shortness of breath has been present since 7 AM. No real exacerbating or remitting factors. She believes that this is consistent with her asthma but does feel worse and her nebulizers were not helping. She was seen by outside physician who referred her into the ER. Pt denies headache , change in vision, fevers, chest pain, nausea, vomiting, diarrhea, pain with urination, and melena. She has an extensive history of PEs and is currently on blood thinners at this time. She recently to stop Lovenox as her INR is now therapeutic after a month. Source of History: patient Onset: earlier this morning Position: chest Timing: other (persistent) Modifying Factors (Relieving): oxygen, other (nebulizer treatments) Associated Symptoms: + back pain (right sided back pain), No fevers, No headache, No chest pain, No nausea, No vomiting, No melena, No diarrhea, No urinary symptoms Review of Systems See HPI for pertinent positives & negatives. A total of 10 systems reviewed and were otherwise negative. Past Medical & Surgical Medical Problems: (1) Hypoxia (2) Persistent asthma (3) Pulmonary embolism Social History Smoking Status: Never Smoker Alcohol Use: none Drug Use: none Marital Status: Housing Status: lives with family Occupation Status: retired Current/Historical Medications Scheduled Biotin (Biotin), 1 CAP PO DAILY Cholecalciferol (Vitamin D), 5,000 UNITS PO DAILY Cyclobenzaprine Hcl (Flexeril), 10 MG PO TID Diltiazem Hcl Coated Beads (Cardizem La), 120 MG PO BID Fluticasone Prop/Salmeterol (Advair Diskus 500/50 60 Dose), 1 PUFF INH BID Fluticasone Propionate (Flovent Hfa), 2 PUFFS INH BID Home O2 Therapy (Oxygen), 2 LITERS NA PRN Hydrochlorothiazide (Hydrochlorothiazide), 25 MG PO DAILY Levothyroxine Sodium (Synthroid), 100 MCG PO DAILY Magnesium Chloride (Slow-Mag Tab), 64 MG PO BID Melatonin (Melatonin), 3 MG PO HS Metoprolol Tartrate (Lopressor) (Lopressor), 25 MG PO BID Multiple Vitamin (Multivitamin), 1 TAB PO DAILY Prednisone (Prednisone), 50 MG PO DAILY Red Yeast Rice Extract (Red Yeast Rice), 1,200 MG PO BID Warfarin Sod (Coumadin), 7.5 MG PO 5XWK Warfarin Sod (Coumadin), 5 MG PO 2XWK Scheduled PRN Albuterol Sulf (Proventil 0.083% 2.5MG/3ML), 2.5 MG INH QID PRN for SOB/Wheezing Albuterol Sulfate (Proair Respiclick), 2 PUFF INH Q4H PRN for SOB/Wheezing Allergies Coded Allergies: [place] (Verified Allergy, Severe, THROAT TIGHTNESS, 01/09/18) Codeine (Unverified Allergy, Unknown, gi upset, 01/09/18) Ibuprofen (Verified Adverse Reaction, Mild, ULCERS, 01/09/18) Nedocromil (Verified Adverse Reaction, Mild, COUGH, 01/09/18) Theophylline (Verified Adverse Reaction, Mild, NERVOUSNESS, 01/09/18) Physical Exam Vital Signs Date Time Temp Pulse Resp B/P (MAP) Pulse Ox O2 Delivery O2 Flow Rate FiO2 03/04/18 18:50 89 16 145/76 98 03/04/18 18:15 86 17 142/67 99 Nasal Cannula 2.0 03/04/18 17:16 83 03/04/18 16:29 98 Nasal Cannula 2.0 03/04/18 16:29 98 Nasal Cannula 2.0 03/04/18 15:51 36.8 95 26 179/75 96 Nasal Cannula 2.0 Physical Exam GENERAL: Sitting up in bed, alert, disheveled and chronically ill-appearing, well nourished, on 2 L NC, no distress, non-toxic EYE EXAM: normal conjunctiva. OROPHARYNX: no exudate, no erythema, lips, buccal mucosa, and tongue normal and mucous membranes are moist NECK: supple, no nuchal rigidity, no adenopathy, non-tender LUNGS: Wheezing bilaterally. Normal chest wall mechanics HEART: no murmurs, S1 normal and S2 normal ABDOMEN: abdomen soft, non-tender, normo-active bowel sounds, no masses, no rebound or guarding. BACK: Back is symmetrical on inspection and there is no deformity, no midline tenderness, no CVA tenderness. SKIN: no rashes and no bruising UPPER EXTREMITIES: upper extremities are grossly normal. Calves are equal bilaterally. LOWER EXTREMITIES: No pitting edema. NEURO EXAM: Normal sensorium, cranial nerves II-XII grossly intact, normal speech, no gross weakness of arms, no gross weakness of legs. Gross sensation intact. Medical Decision & Procedures ER Provider Diagnostic Interpretation: Radiology results as stated below per my review and the radiologist's interpretation: CHEST ONE VIEW PORTABLE CLINICAL HISTORY: Respiratory distress COMPARISON STUDY: 02/03/2018 FINDINGS: The cardiac images so contours remain stable. Underlying pulmonary emphysema is suspected. There is stable left apical fibronodular scarring. There is minor right basilar scarring. There is a subcentimeter left lung pulmonary nodules. These were described in the prior December 2017 CT scan. Surgical clips project over the left breast and right hilar region. IMPRESSION: 1. Postsurgical changes of a right lobectomy 2. Noncalcified subcentimeter pulmonary nodules 3. Left apical and right basilar scarring 4. No evidence of acute parenchymal consolidation Electronically signed by: Abiodun Zeng M.D. 03/04/2018 4:[address] ANGIOGRAM OF THE CHEST CLINICAL HISTORY: Shortness of breath. Back pain. History of pulmonary embolism. History of breast carcinoma. COMPARISON STUDY: 01/09/2018 TECHNIQUE: Following the IV administration of 116 mL of Optiray-320, CT angiogram of the thorax was performed from the thoracic inlet to the lung bases utilizing the pulmonary embolus protocol. Images are reviewed in the axial, sagittal, and coronal planes. IV contrast was administered without complication. MIP imaging was performed. A dose lowering technique was utilized adhering to the principles of ALARA. CT DOSE: 502.30 mGycm FINDINGS: No pathologically enlarged axillary mediastinal or hilar lymph nodes were visualized. There was no evidence of thoracic aortic dilatation. There is been near complete resolution of the previously identified pulmonary artery filling defects. There are no findings to indicate acute pulmonary embolism. No pleural effusions are visualized. There is respiratory motion artifact. There is chronic left apical consolidation with bronchiectasis. There is prominent right-sided extrapleural fat. There is a stable 6 mm left lower lobe pulmonary nodule. There is a stable 3 mm left lower lobe pulmonary nodule. Additional smaller nodules remain stable. There are postsurgical changes of a right upper lobectomy. IMPRESSION: 1. No evidence of acute pulmonary embolism 2. Postsurgical changes of a right upper lobectomy 3. Stable subcentimeter pulmonary nodules 4. Stable left apical consolidation with air bronchograms 5. No evidence of acute parenchymal consolidation Electronically signed by: Abiodun Zeng M.D. 03/04/2018 6:05 PM Laboratory Results 03/04/18 16:15 Red Blood Count 4.51, Mean Corpuscular Volume 90.2, Mean Corpuscular Hemoglobin 31.0, Mean Corpuscular Hemoglobin Concent 34.4, Mean Platelet Volume 8.8, Neutrophils (%) (Auto) 55.4, Lymphocytes (%) (Auto) 31.4, Monocytes (%) (Auto) 8.3, Eosinophils (%) (Auto) 4.1, Basophils (%) (Auto) 0.4, Neutrophils # (Auto) 4.14, Lymphocytes # (Auto) 2.35, Monocytes # (Auto) 0.62, Eosinophils # (Auto) 0.31, Basophils # (Auto) 0.03 03/04/18 16:15 Test 03/04/18 16:15 03/04/18 17:10 White Blood Count 7.48 K/uL (4.8-10.8) Red Blood Count 4.51 M/uL (4.2-5.4) Hemoglobin 14.0 g/dL (12.0-16.0) Hematocrit 40.7 % (37-47) Mean Corpuscular Volume 90.2 fL (80-100) Mean Corpuscular Hemoglobin 31.0 pg (25-34) Mean Corpuscular Hemoglobin Concent 34.4 g/dl (32-36) Platelet Count 260 K/uL (130-400) Mean Platelet Volume 8.8 fL (7.4-10.4) Neutrophils (%) (Auto) 55.4 % Lymphocytes (%) (Auto) 31.4 % Monocytes (%) (Auto) 8.3 % Eosinophils (%) (Auto) 4.1 % Basophils (%) (Auto) 0.4 % Neutrophils # (Auto) 4.14 K/uL (1.4-6.5) Lymphocytes # (Auto) 2.35 K/uL (1.2-3.4) Monocytes # (Auto) 0.62 K/uL (0.11-0.59) Eosinophils # (Auto) 0.31 K/uL (0-0.5) Basophils # (Auto) 0.03 K/uL (0-0.2) RDW Standard Deviation 45.1 fL (36.4-46.3) RDW Coefficient of Variation 13.6 % (11.5-14.5) Immature Granulocyte % (Auto) 0.4 % Immature Granulocyte # (Auto) 0.03 K/uL (0.00-0.02) Prothrombin Time 28.0 SECONDS (9.0-12.0) Prothromb Time International Ratio 2.7 (0.9-1.1) Activated Partial Thromboplast Time 37.7 SECONDS (21.0-31.0) Partial Thromboplastin Ratio 1.5 Anion Gap 6.0 mmol/L (3-11) Est Creatinine Clear Calc Drug Dose 68.7 ml/min Estimated GFR () 65.5 Estimated GFR (Non- 56.5 BUN/Creatinine Ratio 12.2 (10-20) Calcium Level 9.2 mg/dl (8.5-10.1) Total Bilirubin 0.4 mg/dl (0.2-1) Aspartate Amino Transf (AST/SGOT) 33 U/L (15-37) Alanine Aminotransferase (ALT/SGPT) 37 U/L (12-78) Alkaline Phosphatase 72 U/L (45-117) Troponin I < 0.015 ng/ml (0-0.045) Pro-B-Type Natriuretic Peptide 69 pg/ml (0-900) Total Protein 7.7 gm/dl (6.4-8.2) Albumin 3.6 gm/dl (3.4-5.0) Globulin 4.1 gm/dl (2.5-4.0) Albumin/Globulin Ratio 0.9 (0.9-2) Urine Color YELLOW Urine Appearance CLOUDY (CLEAR) Urine pH 7.5 (4.5-7.5) Urine Specific [place] 1.024 (1.000-1.030) Urine Protein NEG (NEG) Urine Glucose (UA) NEG (NEG) Urine Ketones NEG (NEG) Urine Occult Blood TRACE (NEG) Urine Nitrite NEG (NEG) Urine Bilirubin NEG (NEG) Urine Urobilinogen NEG (NEG) Urine Leukocyte Esterase LARGE (NEG) Urine WBC (Auto) >30 /hpf (0-5) Urine RBC (Auto) 0-4 /hpf (0-4) Urine Hyaline Casts (Auto) 5-10 /lpf (0-5) Urine Epithelial Cells (Auto) >30 /lpf (0-5) Urine Bacteria (Auto) 2+ (NEG) Laboratory results per my review. Medications Administered Medications (Trade) Dose Ordered Sig/Tres Route Start Time Stop Time Status Last Admin Dose Admin Albuterol Sulfate (Ventolin 0.083% 2.5MG/3ML Neb) 5 mg NOW STAT INH 03/04/18 16:04 03/04/18 16:06 DC 03/04/18 16:23 5 MG Methylprednisolone Sodium Succinate (Solu-Medrol IV) 125 mg NOW STAT IV 03/04/18 16:04 03/04/18 16:06 DC 03/04/18 16:21 125 MG ECG Per My Interpretation Indication: SOB/dyspnea Rate (beats per minute): 82 Rhythm: sinus rhythm Findings: Q waves (Inferior), other (LAD, no PVC) Comparison ECG Date: When compared to EKG from December 2017, septal Q waves are new in AVF ED Course ED COURSE: Vital signs were reviewed and showed the patient is hypertensive The patients medical record was reviewed The above diagnostic studies were performed and reviewed. ED treatments and interventions as stated above. 1558: The patient was evaluated in room C10. A complete history and physical examination was performed. 1604: Solu-Medrol 125 mg IV, Albuterol Sulfate 5 mg INH. 1704: I reevaluated the patient. She is feeling slightly better. 1840: Upon reevaluation, the patient is resting comfortably. I offered her a stay in the hospital, but she declined stating she would like to go home. I discussed my findings with the patient and she understands and agrees with the treatment plan. Based on the patients age, coexisting illnesses, exam and lab findings the decision to treat as an outpatient was made. The patient remained stable while under my care. The patient appeared well at the time of discharge. Medical Decision Differential diagnoses includes but is not limited to pneumonia, bronchitis, COPD/Asthma exacerbation, pneumothorax, pulmonary embolism, congestive heart failure, acute coronary syndrome. Patient is a 62-year-old female with a past medical history of asthma who was recently admitted and discharged for PEs within the month. She was placed on Coumadin and Lovenox. Coumadin has been therapeutic. She is prescribed 2 L nasal cannula persistently since discharge. She intermittently wears this. She does have some mild pain at the base of her right scapula. CBC along with BMP, LFTs, bilirubin and troponin were unremarkable. INR was therapeutic at 2.7. UA was contaminated with multiple epithelial cells. No urinary complaints. Will not treat at this time. Patient was given IV steroids, and nebulizers. She had near complete resolution of her wheezing and felt significantly better. CT PE shows no infection and no new clots. She does have an IVC filter. She was updated at bedside. Offered observation but she declined. She was discharged follow-up with PCP as an outpatient. Discussed with Pt concerning signs and symptoms to watch out for. Pt was instructed to follow up with their PCP and discussed with the patient their option to return to the ED at anytime for persistent or worsening symptoms. The appropriate anticipatory guidance and out-patient management, including indications for return to the emergency department, were explained at length to the patient and understood. Medication Reconcilliation Current Medication List: was personally reviewed by me Blood Pressure Screening Patient's blood pressure: Elevated blood pressure Blood pressure disposition: Referred to PCP Impression Primary Impression: Shortness of breath Additional Impression: Asthma exacerbation Scribe Attestation The scribe's documentation has been prepared under my direction and personally reviewed by me in its entirety. I confirm that the note above accurately reflects all work, treatment, procedures, and medical decision making performed by me. Departure Information Dispostion Home / Self-Care Prescriptions Prednisone (PREDNISONE) 50 Mg Tab 50 MG PO DAILY for 4 Days, TAB Prov: Fabian Ornelas DO 03/04/18 Referrals Shakir Estevez M.D. (PCP) Patient Instructions Asthma - [facility], [facility] Additional Instructions Please follow up with your primary care doctor with in the next 24 hours. Any worsening of your symptoms, please return to the ED immediately. This includes any fevers greater than 100.4, worsening pain, chest pain, shortness breath, persistent nausea, vomiting, unable to eat or drink, or any other concerning signs or symptoms from your standpoint. Please take the steroids as prescribed. Please take your inhalers as prescribed. Problem Qualifiers Additional Impression: Asthma exacerbation Asthma severity: mild Asthma persistence: intermittent Qualified Codes: J45.21 - Mild intermittent asthma with (acute) exacerbation
== END 2018-03-04 18:59 | disposition home or self-care (01) ==
LOC: C.EDB 15:50 → C.EDC 18:59
DX: R06.02 Shortness of breath (principal); J45.21 Mild intermittent asthma with (acute) exacerbation; Z86.711 Personal history of pulmonary embolism; Z79.01 Long term (current) use of anticoagulants; Z79.899 Other long term (current) drug therapy; Z91.048 Other nonmedicinal substance allergy status; Z88.5 Allergy status to narcotic agent; Z88.8 Allergy status to other drugs, medicaments and biological substances

== ENCOUNTER 2018-05-11 12:18 | Day surgery (SDC) | payer OTHER ==
[~2018-05-11] VITALS: Ht 175.3 cm; Wt 96.2 kg
--- NOTE | 2018-05-11 10:07 | History and Physical ---
History & Physical Date of Service May 11, 2018. History & Physical Chief Complaint dvt, pe, post filter insertion History of Present Illness The patient is a 62 year old female with hx of breast ca in remission for 15 yrs , R upper lobectomy for carcinoid tumor, COPD, DVT in 2011, a fib in 2011 as well not on anticoagulation, admitted for large extensive PE and DVT after arriving at [facility] ED d/t SOB and HUFFMAN 2 months prior to this. She had a filter placed at that time. Denies QUINN, fever, chills, abd pain, N/V, rest pain, claudication, other complaints. States her AC was stopped d/t bleeding hemorrhoids. Allergies Coded Allergies: [place] (Verified Allergy, Severe, THROAT TIGHTNESS, 01/09/18) Codeine (Unverified Allergy, Unknown, gi upset, 01/09/18) Ibuprofen (Verified Adverse Reaction, Mild, ULCERS, 01/09/18) Nedocromil (Verified Adverse Reaction, Mild, COUGH, 01/09/18) Theophylline (Verified Adverse Reaction, Mild, NERVOUSNESS, 01/09/18) Home Medications Scheduled Cholecalciferol (Vitamin D), 5,000 UNITS PO DAILY Cyclobenzaprine Hcl (Flexeril), 10 MG PO TID Diltiazem Hcl Coated Beads (Cardizem La), 120 MG PO BID Fluticasone Prop/Salmeterol (Advair Diskus 500/50 60 Dose), 1 PUFF INH BID Fluticasone Propionate (Flovent Hfa), 2 PUFFS INH BID Levothyroxine Sodium (Synthroid), 100 MCG PO DAILY Magnesium Chloride (Slow-Mag Tab), 64 MG PO BID Melatonin (Melatonin), 3 MG PO HS Metoprolol Tartrate (Lopressor) (Lopressor), 25 MG PO BID Multiple Vitamin (Multivitamin), 1 TAB PO DAILY Red Yeast Rice Extract (Red Yeast Rice), 1,200 MG PO BID Scheduled PRN Albuterol Sulf (Proventil 0.083% 2.5MG/3ML), 2.5 MG INH QID PRN for SOB/Wheezing Albuterol Sulfate (Proair Respiclick), 2 PUFF INH Q4H PRN for SOB/Wheezing Miscellaneous Medications Biotin (Biotin) Hydrochlorothiazide (Hydrochlorothiazide) Problem List Medical Problems: (1) Hypoxia (2) Persistent asthma (3) Pulmonary embolism Surgical / Medical History Hx Cardiac Surgery: No Hx Abdominal Surgery: Yes (GALLBLADDER) Hx Cancer Surgery: Yes (Right upper lobectomy ) Hx Thoracic Surgery: Yes (LEFT LUMPECTOMY) Hx Orthopedic: Yes (RIGHT KNEE REPLACEMENT, B/L BUNION, BULGING DISC) Hx Urinary Tract Surgery: No Past Medical/Surgical History: Cancer, COPD, Hypertension, Thyroid Disease Family History + CAD, neg for DVT Social History Smoking Status: Never Smoker Hx Tobacco Use In Past Year?: No Hx Alcohol Use - Type & Amnt: No Hx Substance Use -Type & Amnt: No Review of Systems Constitutional: + malaise, No chills, No fever Skin: No change in color Eyes: No visual changes ENMT: No sore throat Respiratory: + HUFFMAN, + short of breath, No cough, No hemoptysis, No orthopnea Cardiovascular: No chest pain, No palpitations, No syncope Gastrointestinal: No abdominal pain, No nausea, No vomiting Genitourinary - Female: No dysuria, No hematuria Neurologic: No dizziness, No headache, No lethargy, No numbness, No tingling Physical Exam Constitutional: General Apperance: well-nourished, well-developed Level of Distress: NAD, chronically ill (mildly) Ambulation: ambulating normally Psychiatric: Mental Status: active & alert, normal mood, normal affect Orientation: oriented except where noted, to time, to place, to person Memory: recent memory normal, remote memory normal Head: normocephalic, atraumatic Eyes: EOM: EOMI ENMT: normal ENT inspection, hearing grossly normal Neck: supple, trachea midline Lungs: Respiratory effort: no dyspnea Auscultation: no rales/crackles, no rhonchi Cardiovascular: Apical Impulse: not displaced Heart Auscultation: RRR, no rubs, no gallops Peripheral Pulses: Pulses: full and equal, in all extremities except if noted Bruits: none appreciated Carotid Pulse: normal on the left, normal on the right Brachial Pulses: normal on the left, normal on the right Radial Pulse: normal on the left, normal on the right Femoral Pulse: normal on the left, normal on the right Posterior Tibialis Pulse: decreased on the left, decreased on the right Dorsalis Pedis Pulse: decreased on the left, decreased on the right Abdomen: Bowel Sounds: normal Inspection & Palpation: soft, non-distended, no tenderness, guarding & rebound Musculoskeletal: normal strength (5/5 throughout), normal tone Extremities: Upper Right: no cyanosis, no edema, no varicosities Upper Left: no cyanosis, no edema, no varicosities Lower Right: no cyanosis, no varicosities, no palpable cord, edema Lower Left: no cyanosis, no varicosities, no palpable cord, edema Neurologic: Cranial Nerves: grossly intact Sensation: grossly intact Assessment and Plan DVT, extensive PE Post filter insertion Plan: Patient is admitted for filter removal. I have discussed the risks options and benefits of the procedure with the patient. The patient understands the risks options and benefits and agrees to the procedure.
[~2018-05-11 12:18] MED LIST changes: +CEFAZOLIN 1000MG IV PUSH 7.5 ML IV SCH; +CMD5 PO; -LVNIS150 SQ; +PATIENT'S HEIGHT AND/OR WEIGHT NEEDED SCH; +PRED20TA2 PO; +SODIUM CHLORIDE 0.9% 1000ML 1,000 ML IV SCH
[2018-05-11 12:45] VITALS: BP 168/70; PULSE 68; TEMP 37; O2SAT 95; Ht 175.3 cm; Wt 96.2 kg
--- NOTE | 2018-05-11 13:13 | Pre Sedation Assessment ---
Pre Sedation Assessment General Date of Sedation: May 11, 2018. Vital Signs Past 12 Hours Date Time Temp Pulse Resp B/P (MAP) Pulse Ox O2 Delivery O2 Flow Rate FiO2 05/11/18 12:45 37 68 18 168/70 (102) 95 Room Air Pre-Sedation Airway Assessment Smoking Status: Never Smoker Hx of Sleep Apnea: No Oral Cavity: WNL NPO Status Date of Last Intake of Fluids: May 10, 2018 Time of Last Intake of Fluids: 1999 Date of Last Intake of Solids: May 10, 2018 Time of Last Intake of Solids: 1999 Procedure Planning Contraindications for Sedation: None Current Medications Reviewed: Yes Notes The planned sedation has been discussed with the patient. Informed Consent was obtained. I have identified the patient, determined the appropriateness of sedation and have assessed the patient immediately prior to the procedure. All medicine(s) and interventions are by my order.
--- NOTE | 2018-05-11 13:13 | History & Physical Bridge Note ---
H&P Re-Evaluation Bridge Note: I have examined the patient, reviewed the History & Physical and in the interval since the performance of the History & Physical I have noted the following changes of clinical significance: No changes noted
[2018-05-11] MEDS ORDERED: NURSING VERBAL MED ORDER ONE (13:15)
[2018-05-11] MEDS ORDERED: SODIUM CHLORIDE 0.9% 1000ML 1,000 ML IV SCH (13:30)
[2018-05-11 13:40] LABS: INR 2.1 (0.9-1.1)
[2018-05-11] MEDS ORDERED: CEFAZOLIN SOD 2000MG/15 ML IV PUSH ONE (15:34)
[2018-05-11] MEDS ORDERED: FENTANYL CITRATE INJ 50 MCG/1 ML 2 ML VIAL ONE ×2 (15:37→18:00)
[2018-05-11] MEDS ORDERED: MIDAZOLAM HCL 1 MG/ML 2ML VIAL ONE ×3 (15:38→18:00)
[2018-05-11] MEDS ORDERED: IODIXANOL (VISIPAQUE) 270 MG/ML 50ML IV ONE (18:28)
[2018-05-11] MEDS ORDERED: LIDOCAINE HCL 1% 20 ML VIAL INJ ONE (18:28)
[2018-05-11] MEDS ORDERED: FENTANYL CITRATE INJ 50 MCG/1 ML 2 ML VIAL IV ONE (18:28)
[2018-05-11] MEDS ORDERED: MIDAZOLAM HCL 1 MG/ML 2ML VIAL IV ONE (18:28)
--- NOTE | 2018-05-11 18:33 | [facility] Post Operative Brief Note ---
Immediate Operative Summary Operative Date May 11, 2018. Pre-Operative Diagnosis Post Inferior Vena Cava Filter Post-Operative Diagnosis Post Inferior Vena Cava Filter Procedure(s) Performed Attempted Inferior Vena Cava Filter Removal, Right Jugular Vein Approach Ultrasound Localizaiton of Right Jugular Vein Fluoroscopy for Positioning Moderate Sedation 6938-0490 Surgeon Lyndsey Mold Preparer Surgeon(s) Judith Verdugo Estimated Blood Loss 20 Findings Consistent with Post-Op Diagnosis Specimens a; Vena Cava Filter Drains None Anesthesia Type IV Sedat Cons RN Only Complication(s) none Disposition Accompanied Pt To Recover: no Disposition:
--- NOTE | 2018-05-11 18:41 | Post Sedation Assessment ---
Post Sedation Assessment General Date of Sedation May 11, 2018. Vital Signs: Vital Signs Past 12 Hours Date Time Temp Pulse Resp B/P (MAP) Pulse Ox O2 Delivery O2 Flow Rate FiO2 05/11/18 18:20 81 18 97 Mask 4 05/11/18 18:15 87 18 97 Mask 4 05/11/18 18:10 85 18 97 Mask 4 05/11/18 18:05 88 20 96 Mask 4 05/11/18 18:00 97 20 98 Mask 4 05/11/18 17:55 85 16 98 Mask 4 05/11/18 17:50 70 18 98 Mask 4 05/11/18 17:45 58 16 99 Mask 4 05/11/18 17:40 89 18 98 Mask 4 05/11/18 17:35 88 18 98 Mask 4 05/11/18 17:30 82 16 98 Mask 4 05/11/18 17:25 87 16 98 Mask 4 05/11/18 17:20 88 16 98 Mask 4 05/11/18 17:15 86 18 99 Mask 4 05/11/18 17:10 94 18 98 Mask 4 05/11/18 17:05 91 18 98 Mask 4 05/11/18 17:00 96 18 98 Mask 4 05/11/18 16:55 87 18 98 Mask 4 05/11/18 16:50 103 20 98 Mask 4 05/11/18 16:45 92 18 199/94 95 Mask 4 05/11/18 16:45 05/11/18 12:45 37 68 18 168/70 (102) 95 Room Air Post Procedure Recovery Score Activity: (2) Moves 4 extremities * Respiration: (2) Deep breath/cough Circulation: (2) +/-20% PreAnes Value Consciousness: (2) Fully Awake Oxygen Saturation: (2) > 92% On Room Air Post Anesthesia Score: 10 Discharge Sedation Level of Care: Fast Track Phase II Post Sedation Plan On clinical assessment, the patient appears to have tolerated the sedation without complications. Patient is recovering as anticipated. Patient will continue to be monitored by nursing and may be discharged when sedation discharge criteria are met per below protocol. Upon Completions of procedure and additional 5 minutes continue every 5 minute vital signs and the P.A.R. score; then discharge to a Phase I or Fast Track to Phase II per the following guidelines: * Discharge Patient to appropriate Phase II area if PAR is 8 or greater or return to pre- procedure baseline. The post - procedure orders will be as directed. * If PAR score is less than 8 or not return to pre-procedure baseline then patient will follow Phase I monitoring till PAR is reached for Phase II. The Phase I may be done in procedure room or may call to secure a Phase I area. * If naloxone or flumazenil are used for reversal, hold in Phase I for an additional 60 -120 minutes before discharge to Phase II. Please call the Sedation Physician to re-evaluate and complete post-note for discharge to Phase II area. Do NOT discharge from procedure sedation or Phase 1 until post- sedation evaluation note is complete by procedure /sedation MD Sedation Discharge Instructions to be given to the patient at discharge to home.
--- NOTE | 2018-05-11 18:42 | Discharge Instructions ---
Discharge Instructions Date of Service May 11, 2018. Visit Reason for Visit: Post Ivc Filter Placement Discharge Discharge Diagnosis / Problem: Post IVC filter Discharge Goals Goal(s): Therapeutic intervention Activity Recommendations Activity Limitations: per Instructions/Follow-up section Anesthesia . Post Anesthesia Instructions: If you have had General Anesthesia or IV Sedation: * Do not drive today. * Resume driving when surgeon permits. * Do not make important decisions or sign legal documents today. * Call surgeon for: 1. Temperature elevations greater than 101 degrees F. 2. Uncontrollable pain. 3. Excessive bleeding. 4. Persistent nausea and vomiting. 5. Medication intolerance (nausea, vomiting or rash). * For nausea and vomiting use only clear liquids such as: tea, soda, bouillon until nausea subsides, then gradually increase diet as tolerated. * If you have any concerns or questions, call your surgeon's office. If physician is unavailable and it is an emergency, call 911 or go to the nearest emergency room. . Instructions / Follow-Up Instructions / Follow-Up Call [phone] to schedule a follow up appointment if one not already scheduled. SPECIAL CARE INSTRUCTIONS: Medications: * Continue to take your medications as directed. If you have been given a prescription for Plavix, please fill it immediately and take as directed. Incision Care: * Your puncture site may have some bruising and minor swelling for about one week. * You will have a small dressing covering your puncture site. You may remove the dressing after 24 hours and shower. You may let the warm soapy water run over it, but be sure to dry the puncture site well and keep it dry. * DO NOT IMMERSE THE INCISION IN A TUB/POOL/etc. UNTIL HEALED. * Puncture sites should be kept covered with a band-aid until it begins to heal. Restrictions: * Depending on whether you leg or arm was punctured to access the arteries, you will be required to lay flat, hold your arm still, or both, for about 4 hours after the procedure to prevent bleeding. * Limit your activity for the first 48 hours. You may walk and go up and down steps. Avoid excessive bending or movement at the puncture site. Possible Complications: * Excessive Swelling - after blood flow is improved you may notice increased swelling in the lower legs. This is a normal response. This usually depends on the amount of blockages in the leg, how long they have been there prior to your procedure and how much blood flow was restored. Elevating your legs will help to improve this. Please notify our office ([phone] ) if the swelling does not go away after lying in bed overnight. * Infection/Drainage/Bleeding - Drainage or bleeding from the puncture site should be minimal. If you have excessive bleeding or drainage, call our office ([phone]) right away. * Pain - You may experience some mild pain or soreness at your puncture site. If your pain does not improve, please contact our office ([phone]). Call your doctor and seek emergent treatment if you develop: * Temperature above 101 degrees * Any fever or chills * Any redness or purulent drainage from the puncture site * Any new dusky/blue colored toes or feet with coolness or sharp or aching pain. SKIN IRRITATION: * You may experience some redness and/or swelling in the area where radiation was administered. If any skin irritation occurs, please contact your family physician. FOLLOW UP VISIT: Keep any scheduled doctor appointments. Diet Recommendations Recommended Home Diet: resume previous diet Procedures Procedures Performed: Inferior Vena Cava Filter Removal, Right Jugular Vein Approach Ultrasound Localizaiton of Right Jugular Vein Fluoroscopy for Positioning Moderate Sedation [id number] Pending Studies Studies pending at discharge: no Medical Emergencies . Who to Call and When: Medical Emergencies: If at any time you feel your situation is an emergency, please call 911 immediately. . Non-Emergent Contact Non-Emergency issues call your: Surgeon . . "Provider Documentation" section prepared by Mariano Solorio. .
[2018-05-11] MEDS ORDERED: OXYCODONE/ACETAMINOPHEN 5-325 TAB PO PRN (18:45)
[2018-05-11] MEDS ORDERED: ONDANSETRON INJ 2 MG/ML 2 ML VIAL IV PRN (18:45)
[2018-05-11 18:50] VITALS: BP 196/79; PULSE 93; TEMP 36.9; O2SAT 93
[2018-05-11 19:05] VITALS: BP 155/67; PULSE 112; O2SAT 92
[2018-05-11 19:36] VITALS: BP 148/64; PULSE 112; TEMP 36.9; O2SAT 95
[2018-05-11 19:45] VITALS: BP 152/69; PULSE 89; TEMP 36.8; O2SAT 93
[2018-05-17] MEDS ORDERED: LEVO88TA3 PO (09:54)
[2018-05-17] MEDS ORDERED: SIME1CAP28 PO (09:54)
--- NOTE | 2018-06-13 14:36 | [facility] Operative Report ---
Operative Report Operative Date May 11, 2018. Pre-Operative Diagnosis Post Inferior Vena Cava Filter Post-Operative Diagnosis Post Inferior Vena Cava Filter Procedure(s) Performed Attempted Inferior Vena Cava Filter Removal, Right Jugular Vein Approach Ultrasound Localizaiton of Right Jugular Vein Fluoroscopy for Positioning Moderate Sedation [id number] Surgeon Lyndsey Aluminum Boat Inspector Surgeon(s) Veronica Fagan, Fellow Estimated Blood Loss 20 Findings filter not removable. Adherent to wall. Specimens none Drains None Anesthesia Type IV Sedat Cons RN Only Complication(s) none Disposition no Indications Patient with filter placement in the past. Now here for removal of her filter. I have discussed the risks options and benefits of the procedure with the patient. The patient understands the risks options and benefits and agrees to the procedure. Description of Procedure The patient was brought to the angio suite and placed in the supine position. The right side of the neck was prepped and draped in the usual fashion. The right internal jugular vein was located with ultrasound. It was patent, compressed easily, and had no filling defects. The vein was then punctured under ultrasound visualization. A guidewire was then passed centrally into the inferior vena cava under fluoroscopic guidance. The puncture site was then dilated and the filter removal sheath inserted. It was passed to the infra renal vena cava above the filter. A venacavagram was done which showed no cava clot in the cava or filter. The filter removal snare was then passed through the sheath and an attempt was made to snare the hook of the filter. We could not snare the filter. It apparently was adherent to the wall. We then tried multiple catheters to try to push the snare away from the wall. This was also unsuccessful. We than used a wire to make a cradle beneath the upper part of the snare. We still could not get the filter into the retrieval sheath. We therefore abandoned the procedure. We did do a venogram before removing the sheath which showed no extravasation of contrast. The sheath was the removed. Pressure was applied to the puncture site. Adequate hemostasis was obtained and a sterile dressing was applied. The patient left the angio suite in good condition and tolerated the procedure well. I attest to the content of the Intraoperative Record and any orders documented therein. Any exceptions are noted below.
== END 2018-05-11 19:47 | disposition home or self-care (01) ==
LOC: C.ACU 12:18
PROVIDERS: ATTEND Surgery Vascular Surgery
DX: Z86.718 Personal history of other venous thrombosis and embolism (principal); Z86.711 Personal history of pulmonary embolism; I10 Essential (primary) hypertension; E07.9 Disorder of thyroid, unspecified; J44.9 Chronic obstructive pulmonary disease, unspecified; Z79.01 Long term (current) use of anticoagulants; Z85.3 Personal history of malignant neoplasm of breast; Z88.5 Allergy status to narcotic agent; Z88.6 Allergy status to analgesic agent; Z96.651 Presence of right artificial knee joint; Z90.49 Acquired absence of other specified parts of digestive tract

== ENCOUNTER 2019-05-09 07:56 | Inpatient (IN) ==
--- NOTE | 2019-04-20 12:26 | Anesthesiology Consultation ---
Date of Service April 20, 2019 Assessment & Plan (1) Encounter for pre-operative examination: - No previous anesthesia records re: intubations. Chart Review Chart Review: Acceptable Risk for Surgery and Patient seen in Pre Admission Testing Consults Requested medical (Dr. Estevez (05/03)) Patient was seen by PCPs office on 05/03 for preoperative medical evaluation. Per note from that visit, "Jannie has been medical optimized for proposed surgery of left TKA that is scheduled on 05/09/[address] Singletary with [facility], which will be performed at [facility]. Walker revised cardiac risk index is estimated to be ~0.4-0.5% of cardiac complications." Teaching & Discussion Pre-Anesthesia Teaching/Discussion Notes: Instructed NPO after midnight before surgery, except medications with 15 cc of water. Medication instructions provided according to the PAT guidelines. History Surgery Operation Date: 05/09/19 10:50 Proposed Procedures p Left Total Knee Arthroplasty - Alfred Singletary MD Height/Weight Height: 5 ft 9 in Weight: 88.1 kg Allergies Allergy/AdvReac Type Severity Reaction Status Date / Time fenofibrate Allergy HEART Verified 04/16/19 10:52 RACING [id number]-Uwg-Psn Reductase Allergy FACE NUMB Verified 04/16/19 10:52 Inhibitor codeine AdvReac Mild gi upset Verified 04/16/19 10:45 ibuprofen AdvReac Mild ULCERS Verified 04/16/19 10:45 nedocromil AdvReac Mild COUGH Verified 04/16/19 10:45 theophylline AdvReac Mild NERVOUSNESS Verified 04/16/19 10:45 [place] Allergy Severe THROAT Uncoded 04/16/19 10:45 TIGHTNESS Medications Home Medications Medication Instructions Recorded Confirmed Last Taken Cardizem LA 120 mg PO Q12 06/27/18 04/18/19 02/02/19 08:00 Flovent HFA 2 puff INHALATION Q12H 06/27/18 04/18/19 02/02/19 08:00 ProAir RespiClick 2 puff INHALATION Q4H PRN 06/27/18 04/18/19 02/02/19 08:00 albuterol sulfate 2.5 mg INHALATION QID PRN 06/27/18 04/18/19 Unknown cholecalciferol (vitamin D3) 5,000 unit PO QAM 06/27/18 04/18/1902/01/19 08:00 [Vitamin D3] cyclobenzaprine 10 mg PO TID PRN 06/27/18 04/18/19 Unknown fluticasone propion-salmeterol 1 inh INHALATION Q12H 06/27/18 04/18/19 02/02/19 08:00 [Advair Diskus] hydrochlorothiazide 12.5 mg PO QAM 06/27/18 04/18/19 02/02/19 08:00 magnesium chloride 64 mg PO Q12 06/27/18 04/18/19 02/01/19 08:00 metoprolol tartrate 25 mg PO Q12H 06/27/18 04/18/19 02/02/19 08:00 multivitamin 1 tab PO QAM 06/27/18 04/18/19 02/01/19 08:00 diphenhydramine 25 mg tablet 25 mg PO HS PRN tab 06/28/18 04/18/19 Unknown levothyroxine 100 mcg capsule 100 mcg PO QAM 11/27/18 04/18/19 02/02/19 07:00 acetaminophen ER 650 mg 1,300 mg PO HS PRN tab 02/15/19 04/18/19 Unknown tablet,extended release biotin 5,000 mcg PO BID 04/16/19 04/18/19 Unknown omeprazole magnesium [Prilosec OTC] 20 mg PO DAILY PRN 04/16/19 04/18/19 Unknown warfarin 5 mg tablet See Rx Instructions PO DAILY 90 04/18/19 04/18/19 Unknown Days #75 tab Past Medical History Medical History Asthma Atrial fibrillation Chronic obstructive pulmonary disease inhalers daily/prn Degenerative disc disease GERD (gastroesophageal reflux disease) Hearing deficit History of colon polyps History of kidney stones Hx of breast cancer 2001 LEFT BREAST - HAD RADIATION AND CHEMO Hx of cancer of lung RUL Lobectomy Hx of deep venous thrombosis Left leg Hx pulmonary embolism Extensive Hyperlipidemia Hypertension Hypothyroidism IBS (irritable bowel syndrome) Limb alert care status LEFT ARM RESTRICTION On anticoagulant therapy warfarin daily Osteoarthritis Exercise / Class Metabolic Activity II 4-5 Yardwork/Stairs/Walk up hill (Currently limited due to knee pain. Able to climb stairs. Denies CP or SOB. ) Past Surgical History Surgical History History of arthroscopy of right knee History of bunionectomy of left great toe History of bunionectomy of right great toe History of cardiac cath ?--no stents History of cholecystectomy History of colonoscopy History of dilatation and curettage History of esophagogastroduodenoscopy (EGD) History of hysterectomy History of inferior vena caval filter placement History of left breast biopsy malignant History of lobectomy of lung RIGHT UPPER History of lumpectomy of left breast REMOVAL 15 LYMPH NODES History of total right knee replacement (TKR) History of vascular access device removed History of wisdom tooth extraction Hx of lumbar discectomy Nausea and vomiting after administration of anesthetic agent Past Anesthesia History No Hx of Anesthesia Complications and No Family Hx of Anesthesia Complications History of PONV No Hx of Motion Sickness and History of PONV Social History Smoking Status: Never smoker Do You Dip or Chew Tobacco: No Hx Alcohol Use: No Hx Substance Use: No substance use type: does not use Review of Systems Patient denies chest pain, shortness of breath, dyspnea on exertion, cough, palpitations. +Joint Pain (left knee, back) +Acid Reflux (intermittent - controlled with taking prilosec when it does happen) +Wheezing (COPD/Asthma - more with cold/humidity) +palpitations (only when in a. fib) Physical Exam Vital Signs BP: 146/79 P: 76 R: 18 T: 98.1 SPO2: 97% on RA ENMT Thyromental Distance: > or= 3.5 Finger Breadths (3.5) Mallampati Class: II Neck normal visual inspection and trachea midline; neck extension not limited Respiratory normal respiratory effort Auscultation: lungs clear to auscultation bilaterally Cardiovascular Rate/Rhythm: regular rate and regular rhythm Heart Sounds: no murmur Neurologic moves all extremities Psychiatric Orientation: alert and oriented x 3 Testing Laboratory Results 04/20/19 13:23 04/20/19 13:23 PT 18.4 Seconds (9.0-12.0) H 04/20/19 13:23 INR 1.9 (0.9-1.1) H 04/20/19 13:23 APTT 30.4 Seconds (21.0-31.0) 04/20/19 13:23 Hemoglobin A1c 5.9 % (4.5-5.6) H 04/20/19 13:23 Urine Color Dark Yellow 04/20/19 13:23 Urine Appearance Cloudy (Clear) A 04/20/19 13:23 Urine pH 6.5 (4.5-7.5) 04/20/19 13:23 Ur Specific [place] 1.019 (1.000-1.030) 04/20/19 13:23 Urine Protein Negative (Negative) 04/20/19 13:23 Urine Glucose (UA) Negative (Negative) 04/20/19 13:23 Urine Ketones Negative (Negative) 04/20/19 13:23 Urine Nitrite Negative (Negative) 04/20/19 13:23 Ur Leukocyte Esterase 3+ (Negative) H 04/20/19 13:23 Urine WBC (Auto) >30 /hpf (0-5) H 04/20/19 13:23 Urine RBC (Auto) 5-10 /hpf (0-4) H 04/20/19 13:23 U Hyaline Cast (Auto) 1-5 /lpf (0-5) 04/20/19 13:23 U Epithel Cells (Auto) >30 /lpf (0-5) H 04/20/19 13:23 Urine Bacteria (Auto) 1+ (Negative) H 04/20/19 13:23 Blood Type A Positive 04/20/19 13:23 Antibody Screen NEGATIVE 04/20/19 13:23 04/20/19 13:23 Urine Culture - Final Urine,Clean Catch More than three types of organisms present, all high counts mixed probable skin jerome - No further identifications or sensitivities to follow. Electrocardiogram Date: 04/20/19 Findings: + NSR @ (75) When compared with ECG of 03/04/18, criteria for inferior infarct are no longer present Chest X-Ray Date: 11/20/18 Findings: + NAD FINDINGS: PA and lateral chest radiographs are compared to study dated 03/04/2018 and correlated with chest CT dated 07/28/2018. The cardiomediastinal silhouette is unremarkable, noting atherosclerotic calcification of the thoracic aorta. Surgical clips project over the right hilum. There is volume loss in the right lung consistent with a history of right-sided pulmonary resection. Chronic interstitial thickening and nodularity are similar to previous. Pulmonary nodules were much better characterized on the 07/28/[address] There is no airspace consolidation typical for pneumonia or pleural effusion. There is no pneumothorax. The skeletal structures are osteopenic. Degenerative change is noted throughout the thoracic spine. The bony thorax appears intact. Surgical clips and the tip of an IVC filter are partially imaged in the upper abdomen. IMPRESSION: 1. No acute cardiopulmonary abnormality. 2. Postoperative changes from right-sided pulmonary resection and chronic parenchymal change are similar to previous. Echocardiogram Date: 09/13/17 EF: 55-60% Normal biventricular systolic function Mild left atrial dilatation Trace mitral regurgitation No significant valvular abnormalities
--- NOTE | 2019-04-20 12:38 | PAT Medication Instructions ---
Medication Instructions Date of Service April 20, 2019 Home Medications Medication Instructions Recorded warfarin 5 mg tablet See Rx Instructions PO DAILY 90 04/18/19 Days #75 tab Cardizem LA 120 mg PO Q12 Flovent HFA 2 puff INHALATION Q12H ProAir RespiClick 2 puff INHALATION Q4H NEEDED albuterol sulfate 2.5 mg INHALATION QID NEEDED cholecalciferol (vitamin D3) [Vitamin D3] 5,000 unit PO QAM cyclobenzaprine 10 mg PO TID NEEDED fluticasone propion-salmeterol [Advair Diskus] 1 inh INHALATION Q12H hydrochlorothiazide 12.5 mg PO QAM magnesium chloride 64 mg PO Q12 metoprolol tartrate 25 mg PO Q12H multivitamin 1 tab PO QAM diphenhydramine 25 mg tablet 25 mg PO HS NEEDED levothyroxine 100 mcg capsule 100 mcg PO QAM acetaminophen ER 650 mg tablet,extended release 1,300 mg PO HS NEEDED warfarin 5 mg tablet See Rx Instructions PO UD biotin 5,000 mcg PO BID omeprazole magnesium [Prilosec OTC] 20 mg PO DAILY NEEDED ASK your prescriber and surgeon warfarin 5 mg tablet See Rx Instructions PO UD DO NOT take the morning of surgery cholecalciferol (vitamin D3) [Vitamin D3] 5,000 unit PO QAM cyclobenzaprine 10 mg PO TID NEEDED hydrochlorothiazide 12.5 mg PO QAM magnesium chloride 64 mg PO Q12 multivitamin 1 tab PO QAM biotin 5,000 mcg PO BID Take morning of surgery With a small sip of water, OTHERWISE NOTHING TO EAT OR DRINK AFTER MIDNIGHT: Cardizem LA 120 mg PO Q12 metoprolol tartrate 25 mg PO Q12H Flovent HFA 2 puff INHALATION Q12H fluticasone propion-salmeterol [Advair Diskus] 1 inh INHALATION Q12H levothyroxine 100 mcg capsule 100 mcg PO QAM omeprazole magnesium [Prilosec OTC] 20 mg PO DAILY NEEDED (if needed) ProAir RespiClick 2 puff INHALATION Q4H NEEDED (if needed; bring to hospital) albuterol sulfate 2.5 mg INHALATION QID NEEDED (if needed) Take evening before surgery Cardizem LA 120 mg PO Q12 metoprolol tartrate 25 mg PO Q12H Flovent HFA 2 puff INHALATION Q12H fluticasone propion-salmeterol [Advair Diskus] 1 inh INHALATION Q12H magnesium chloride 64 mg PO Q12 biotin 5,000 mcg PO BID ProAir RespiClick 2 puff INHALATION Q4H NEEDED (if needed) albuterol sulfate 2.5 mg INHALATION QID NEEDED (if needed) diphenhydramine 25 mg tablet 25 mg PO HS NEEDED (if needed) acetaminophen ER 650 mg tablet,extended release 1,300 mg PO HS NEEDED (if needed) Other Notes If you have any questions please call us at [phone] or [phone] or [phone] or [phone]
[2019-04-20 16:08] LABS: Basophils # (auto) 0.02 K/uL (0-0.2); Basophils % (auto) 0.2 %; Eosinophils # (auto) 0.19 K/uL (0-0.5); Eosinophils % (auto) 2.1 %; Hematocrit (blood only) 42.2 % (37-47); Hemoglobin 14.2 g/dL (12.0-16.0); Immature Granulocytes # (auto) 0.02 K/uL (0.00-0.02); Immature Granulocytes % (auto) 0.2 %; Lymphocytes # (auto) 2.28 K/uL (1.2-3.4); Lymphocytes % (auto) 25.3 %; Mean Corpuscular Hgb Conc 33.6 g/dL (32-36); Mean Corpuscular Volume 92.3 fL (80-100); Mean Platelet Volume 9.8 fL (7.4-10.4); Monocytes # (auto) 0.79 K/uL (0.11-0.59); Monocytes % (auto) 8.8 %; Neutrophils % (auto) 63.4 %; Platelet Count 222 K/uL (130-400); RDW Coefficient of Variation 12.5 % (11.5-14.5); Red Blood Count 4.57 M/uL (4.2-5.4)
[2019-04-20 16:15] LABS: Albumin Level 3.8 gm/dl (3.4-5.0); BUN Creatinine Ratio 14.4 (10-20); Calcium 9.9 mg/dl (8.5-10.1); Creatinine Clr Calc Pharmacy 68.6 ml/min; Est GFR (African American) 70.7; Potassium 3.7 mmol/L (3.5-5.1)
[2019-04-20 16:20] LABS: INR 1.9 (0.9-1.1); Partial Thromboplastin Ratio 1.1; Partial Thromboplastin Time 30.4 Seconds (21.0-31.0); Prothrombin Time 18.4 Seconds (9.0-12.0)
[2019-04-20 16:23] LABS: Appearance Urine Cloudy (Clear); Bacteria Urine Automated 1+ (Negative); Bilirubin Urine Negative (Negative); Blood Urine Trace (Negative); Color Urine Dark Yellow; Epithelial Cell Urine Auto >30 /lpf (0-5); Glucose Urine UA Negative (Negative); Ketones Urine Negative (Negative); Leukocyte Esterase Urine 3+ (Negative); Nitrite Urine Negative (Negative); Protein Urine Negative (Negative); Specific Gravity Urine 1.019 (1.000-1.030); Urobilinogen Urine Negative (Negative); WBC Urine Automated >30 /hpf (0-5); pH Urine 6.5 (4.5-7.5)
[2019-04-21 06:27] LABS: Estimated Average Glucose 123 mg/dl; Hemoglobin A1C 5.9 % (4.5-5.6)
--- NOTE | 2019-05-08 19:03 | History and Physical Report ---
DATE OF ADMISSION: 05/09/2019 CHIEF COMPLAINT: Chronic left knee pain. HISTORY OF PRESENT ILLNESS: This is a 63-year-old female patient of Dr. Singletary'jesus complaining of chronic left knee pain, longstanding, now progressively getting worse. The patient has failed conservative treatment including intra-articular injections, use of a brace and the use of a cane. The patient has increased pain with weightbearing activities and her pain does interfere with her activities of daily living. The patient has been diagnosed with end-stage osteoarthritis per clinical and radiographic exams and wishes to proceed with a left total knee arthroplasty. PAST MEDICAL HISTORY: Hypertension, hypercholesterolemia, asthma, history of blood clots, hypothyroidism, osteoarthritis, sciatica, acid reflux, obesity, breast cancer, right lung tumor. SOCIAL HISTORY: Nonsmoker, nondrinker. PAST SURGICAL HISTORY: Will be provided on admission. FAMILY HISTORY: Noncontributory. REVIEW OF SYSTEMS: Chronic left knee pain and instability. Otherwise, denies any shortness of breath, chest pain, nausea, vomiting or any other joint complaints. MEDICATIONS: 1. ProAir 90 mcg actuation 2 puffs every 4-6 hours as needed. 2. Advair Diskus 500 mcg 1 puff 2 times daily in the morning. 3. Hydrochlorothiazide 25 0.5 tablets daily. 4. Levothyroxine 100 mcg daily. 5. Cyclobenzaprine 10 mg daily. 6. Diltiazem 120 mg twice daily. 7. Flovent HFA 110 grams actuation 2 puffs daily as needed. 8. Metoprolol 25 mg twice daily. 9. Tylenol as needed. 10. Biotin 1 mg daily. 11. Vitamin D3 5000 units daily. 12. Diclofenac 1% topical gel as needed. 13. Benadryl as needed. 14. Magnesium 64 mg daily. 15. Warfarin 5 mg every day except for Tuesday, which is 2.5 mg. 16. Phazyme 250 mg twice daily. ALLERGIES: ARIMIDEX, VYTORIN, TILADE, THEOPHYLLINE, IBUPROFEN, SIMVASTATIN. PHYSICAL EXAMINATION: GENERAL: Well-developed, well-nourished 63-year-old female in no acute distress. She is alert and oriented x3 and pleasant. HEENT: Normocephalic, atraumatic. Extraocular motions are intact. Pupils are equal and reactive to light. HEART: Regular rate and rhythm, no murmurs appreciated. LUNGS: Clear. ABDOMEN: Soft, nontender, bowel sounds present. EXTREMITIES: Left knee shows a range of motion of negative 10 to 95 degrees. She has a varus deformity with medial joint line tenderness. She has crepitation with passive range of motion. Positive effusion. NEUROLOGIC: Neurovascularly, she is intact in her left lower extremity. DIAGNOSES: Left knee end-stage osteoarthritis, hypertension, hypercholesterolemia, asthma, history of blood clot, hypothyroidism, osteoarthritis, acid reflux, obesity, history of breast cancer, history of a tumor in her right lung. PLAN: The patient was advised of her diagnosis. Indications, risks, benefits, postop course have all been reviewed. The patient wished to proceed with a left total knee arthroplasty. Necessary consent forms, preoperative testing and clearances will be obtained.
[~2019-05-09 07:56] MED LIST changes: +ACETAMINOPHEN 500 MG TAB PO SCH; -ADVIN50/60 INH; -ALBINS/ INH; -ALBU18002 INH; -BIOT1CAP8 PO; +BUPIVACAINE 0.25% 30 ML VIAL ONE; +BUPIVACAINE 0.5 % 5 MG/1 ML PF 10ML VIAL ONE; -CEFAZOLIN 1000MG IV PUSH 7.5 ML IV SCH; +CEFAZOLIN 2000MG 2,000 MG/15 ML SYR IV SCH; -CHOL1TAB42 PO; -CMD5 PO; -CYCL10TA6 PO; -DILT1TAB58 PO; +FAMOTIDINE 20 MG TAB PO SCH; -FLVHFA44 INH; +GABAPENTIN 600 MG DOSE PO SCH; -HYDR25TA5 PO; +LR 500ML BOLUS, THEN 15ML/HR IV SCH; -MELA1TAB49 PO; -METO50TA16 PO; +METOCLOPRAMIDE HCL 10 MG TABLET PO SCH; -MULTTAB58 PO; -OXGN; -PATIENT'S HEIGHT AND/OR WEIGHT NEEDED SCH; -PRED20TA2 PO; -REDCAP2 PO; +ROPIVACAINE 0.5% HCL/PF 150 MG, BUPIVACAINE 0.5% MPF 30 ML, EPINEPHrine 30MG/30ML (OR U... INSTIL SCH; +SCOPOLAMINE 1.5 MG TDSY TD SCH; -SLWMEC PO; -SODIUM CHLORIDE 0.9% 1000ML 1,000 ML IV SCH; -SYN100 PO; +dexAMETHasone 4 MG TAB PO SCH
[2019-05-09] MEDS ORDERED: MIDAZOLAM HCL 1 MG/ML 2ML VIAL ONE (08:28)
[2019-05-09] MEDS ORDERED: fentaNYL citrate 100 MCG/2 ML VIAL ONE (08:29)
[2019-05-09 08:40] LABS: Partial Thromboplastin Ratio 0.8; Partial Thromboplastin Time 21.9 Seconds (21.0-31.0); Prothrombin Time 10.7 Seconds (9.0-12.0)
--- NOTE | 2019-05-09 08:44 | History & Physical Bridge Note ---
Date of Service May 09, 2019 History & Physical Bridge Note I have examined the patient, reviewed the History & Physical and in the interval since the performance of the History & Physical I have noted the following changes of clinical significance: no changes noted
[2019-05-09] MEDS ORDERED: BACITRACIN INJ 50,000 UNIT VIAL ONE (09:15)
[2019-05-09] MEDS ORDERED: ORTHO JOINT ANESTHETIC ONE (09:15)
[2019-05-09] MEDS ORDERED: ATROPINE SULFATE 0.1 MG/ML 10ML SYR IV PRN (09:38)
[2019-05-09] MEDS ORDERED: ePHEDrine sulfate 50 MG/ML AMP IV PRN (09:38)
[2019-05-09] MEDS ORDERED: fentaNYL citrate 100 MCG/2 ML VIAL IV PRN (09:38)
[2019-05-09] MEDS ORDERED: ONDANSETRON INJ 2 MG/ML 2 ML VIAL IV PRN ×2 (09:38→13:22)
[2019-05-09] MEDS ORDERED: PROPOFOL IV EMULSION 10 MG/ML 20 ML VIAL IV ONE ×2 (10:55→11:49)
[2019-05-09] MEDS ORDERED: ONDANSETRON INJ 2 MG/ML 2 ML VIAL ONE (10:55)
[2019-05-09] MEDS ORDERED: LIDOCAINE HCL 2% 2 ML VIAL/AMP(20MG/ML) INFIL ONE (10:55)
--- NOTE | 2019-05-09 12:02 | Post Operative Brief Note ---
Immediate Post Op Note v1 Date of Surgery May 09, 2019 Pre & Post Diagnosis Operation Date: 05/09/19 10:20 Pre-Op Diagnosis: Left knee end-stage osteoarthritis Post-Op Diagnosis: Left knee end-stage osteoarthritis, osteoporosis Procedure Operation Date: 05/09/19 10:20 Actual Procedures p Left Total Knee Arthroplasty(Left) - Alfred Singletary MD Surgeon Alfred Singletary MD Striping Machine Operator Nando GARCES Estimated Blood Loss 10 Findings Consistent with Post-Op Diagnosis Specimens Bone cuts Drains Hemovac Drain (dual) Anesthesia Type MAC Spinal Regional Complications none Disposition Accompanied Patient To Recovery: No Disposition: Recovery Room Overlapping Procedure I was present for: the critical portions of procedure.
--- NOTE | 2019-05-09 12:48 | XRay Report ---
TWO VIEWS LEFT KNEE CLINICAL HISTORY: Postoperative examination. FINDINGS: AP and crosstable lateral portable views of the left knee are obtained. A left knee arthrop lasty is in near anatomic alignment. There has been undersurface remodeling of the patella. No acute fracture is seen. There are expected postoperative changes around the knee including skin clips, a hayes rgical drain, soft tissue edema, and subcutaneous gas. IMPRESSION: Expected postoperative changes status post left knee arthroplasty. No acute fracture is s een. Electronically signed by: Luca Mathews M.D. 05/09/2019 12:47 PM
--- NOTE | 2019-05-09 12:53 | Anesthesiology Progress Note ---
Date of Service May 09, 2019 Anesthesia Post Procedure Vital Signs Vital Signs: Temp Pulse Pulse Pulse Resp BP BP 05/09/19 12:45 69 15 137/61 05/09/19 12:40 68 17 154/61 H 05/09/19 12:35 75 17 145/61 H 05/09/19 12:30 70 12 142/62 H 05/09/19 12:29 75 14 132/70 05/09/19 12:28 37.5 C 73 12 132/70 05/09/19 08:43 37.1 C 66 20 165/71 H Pulse Ox 05/09/19 12:45 97 05/09/19 12:40 97 05/09/19 12:35 98 05/09/19 12:30 99 05/09/19 12:29 99 05/09/19 12:28 99 05/09/19 08:43 98 Pain Intensity Left Knee: Pain Intensity: 0 Transfer of Care Handoff Completed per policy Notes Mental Status: alert / awake / arousable and participated in evaluation Nausea / Vomiting: adequately controlled Pain: adequately controlled Airway Patency, RR, SpO2: stable & adequate BP & HR: stable & adequate Hydration State: stable & adequate Neuraxial Anesthesia: was administered and sensory block is resolving Anesthetic Complications: no major complications apparent and Pt Satisfied with anesthetic care
[2019-05-09] MEDS ORDERED: NALOXONE HCL 0.4 MG/1 ML VIAL/CARP IV PRN (13:22)
[2019-05-09] MEDS ORDERED: BISACODYL 10 MG SUPP PR PRN (13:22)
[2019-05-09] MEDS ORDERED: ALBUTEROL 0.083% NEBU SOLN 3 ML VIAL INH PRN (13:22)
[2019-05-09] MEDS ORDERED: PANTOprazole 40 MG TAB PO PRN (13:22)
[2019-05-09] MEDS ORDERED: NON-FORMULARY MEDICATION (Diphenhydramine Hcl [Benadryl Allergy] 25 MG) PO PRN (13:22)
[2019-05-09] MEDS ORDERED: ALBUTEROL HFA 8 GM INHALER INH PRN (13:22)
[2019-05-09] MEDS ORDERED: HYDROmorphone INJ 0.5 MG/0.5 ML SYR IV PRN (13:22)
[2019-05-09] MEDS ORDERED: CYCLOBENZAPRINE HCL 10 MG TAB PO PRN (13:22)
[2019-05-09] MEDS ORDERED: MAGNESIUM HYDROXIDE SUSP 30 ML UDC PO PRN (13:22)
[2019-05-09] MEDS: SODIUM CHLORIDE 0.9% 1000ML 1,000 ML IV SCH ×2 (13:57→23:46)
--- NOTE | 2019-05-09 15:50 | Hospitalist Consultation ---
Date of Consultation May 09, 2019 Assessment & Plan (1) Osteoarthritis of left knee: S/p left TKA with Dr. Singletary on 05/09. - Post-operative care per primary team (2) Pulmonary embolism: Multiple DVTs/PEs most recently in 12/2017. Needs life-long anticoagulation. [facility]s with [facility]. Has a bridge plan worked out with Dr. Fontana. - Will give warfarin 7.5 mg PO today and tomorrow. Return to 5 mg on Tuesday. - Lovenox 40mg SC tomorrow (3) Chronic obstructive pulmonary disease: No current exacerbation or shortness of breath. - Continue home inhalers. (4) Atrial fibrillation: Paroxysmal. EKG on 04/20 was in normal sinus. Presently in regular rhythm. - Continue anticoagulation as above - Continue diltiazem for rate control (5) Hypertension: BP presently normal. - Continue home meds (6) Hypothyroidism: Last TSH was 0.135 in 2016. No signs/symptoms of hypo-/hyperthyroidism. - Continue home Synthroid History of Present Illness Attending Physician: Alfred Singletary MD History of Present Illness Ms. Dickey is a 63-year-old female with a possible history of COPD, hypothyroidism, and repeated blood clots who presents for left knee TKA with Dr. Jacques on 05/09/2019. Patient was her normal state of health with intractable left knee pain prior to her surgery. She denies any shortness of breath. She has been on a bridge for her anticoagulation, and has not been taking her warfarin. Overall she has been in good state of health. She has minimal pain at present in the left knee. She does have a drain in place which the nurse emptied recently. Allergies Allergy/AdvReac Type Severity Reaction Status Date / Time fenofibrate Allergy HEART Verified 05/09/19 08:34 RACING Ttsbaqm-Dzj-Lou Reductase Allergy FACE NUMB Verified 05/09/19 08:34 Inhibitor codeine AdvReac Mild gi upset Verified 05/09/19 08:34 ibuprofen AdvReac Mild ULCERS Verified 05/09/19 08:34 nedocromil AdvReac Mild COUGH Verified 05/09/19 08:34 theophylline AdvReac Mild NERVOUSNESS Verified 05/09/19 08:34 [place] Allergy Severe THROAT Uncoded 05/09/19 08:34 TIGHTNESS Home Medications Home Medications Medication Instructions Recorded Confirmed Type Cardizem LA 120 mg PO Q12 06/27/18 05/09/19 History Flovent HFA 2 puff INHALATION Q12H 06/27/18 05/09/19 History ProAir RespiClick 2 puff INHALATION Q4H PRN 06/27/18 05/09/19 History albuterol sulfate 2.5 mg INHALATION QID PRN 06/27/18 05/09/19 History cholecalciferol (vitamin D3) 5,000 unit PO QAM 06/27/18 05/09/19 History [Vitamin D3] cyclobenzaprine 10 mg PO TID PRN 06/27/18 05/09/19 History fluticasone propion-salmeterol 1 inh INHALATION Q12H 06/27/18 05/09/19 History [Advair Diskus] hydrochlorothiazide 12.5 mg PO QAM 06/27/18 05/09/19 History magnesium chloride 64 mg PO Q12 06/27/18 05/09/19 History metoprolol tartrate 25 mg PO Q12H 06/27/18 05/09/19 History multivitamin 1 tab PO QAM 06/27/18 05/09/19 History diphenhydramine 25 mg tablet 25 mg PO HS PRN tab 06/28/18 05/09/19 History levothyroxine 100 mcg capsule 100 mcg PO QAM 11/27/18 05/09/19 History acetaminophen ER 650 mg 1,300 mg PO HS PRN tab 02/15/19 05/09/19 History tablet,extended release biotin 5,000 mcg PO BID 04/16/19 05/09/19 History omeprazole magnesium [Prilosec OTC] 20 mg PO DAILY PRN 04/16/19 05/09/19 History warfarin 5 mg tablet See Rx Instructions PO DAILY 90 04/18/19 05/09/19 Rx Days #75 tab Patient History Medical History GERD (gastroesophageal reflux disease) History of kidney stones Hx of breast cancer 2001 LEFT BREAST - HAD RADIATION AND CHEMO Hx of cancer of lung RUL Lobectomy Hx of deep venous thrombosis Left leg Hx pulmonary embolism Extensive Limb alert care status LEFT ARM RESTRICTION Asthma Atrial fibrillation Chronic obstructive pulmonary disease inhalers daily/prn Degenerative disc disease Hearing deficit History of colon polyps Hypertension Hypothyroidism IBS (irritable bowel syndrome) On anticoagulant therapy warfarin daily Osteoarthritis Surgical History History of inferior vena caval filter placement History of lobectomy of lung RIGHT UPPER History of lumpectomy of left breast REMOVAL 15 LYMPH NODES Nausea and vomiting after administration of anesthetic agent History of arthroscopy of right knee History of bunionectomy of left great toe History of bunionectomy of right great toe History of cardiac cath ?--no stents History of cholecystectomy History of colonoscopy History of dilatation and curettage History of esophagogastroduodenoscopy (EGD) History of hysterectomy History of left breast biopsy malignant History of total right knee replacement (TKR) History of vascular access device removed History of wisdom tooth extraction Hx of lumbar discectomy Family History Sister Family history of diabetes mellitus Mother Family history of diabetes mellitus Other No family history of adverse response to anesthesia Social History Preferred Language: Russian Communication Ability: Effective Beliefs That Will Affect Care: None Current Living Situation: Family Current Living Situation Comment: Lives with and daughter Feels Safe at Home: Yes Safety Concerns: Feels Safe At This Time Smoking Status: Never smoker Do You Dip or Chew Tobacco: No Second Hand Exposure: No Hx Alcohol Use: No Hx Substance Use: No Review of Systems Review of Systems: All systems reviewed & are unremarkable except as noted in HPI & below Physical Exam Constitutional: WD/WN, vitals as above Eyes: EOM intact bilaterally; no conjunctival abnormality ENMT: external ear and nose normal, oropharynx normal Neck: trachea midline, no thyromegaly normal visual inspection Respiratory: normal respiratory effort, lungs clear to auscultation no respiratory distress Cardiovascular: RRR, no murmur, no edema Gastrointestinal (Abdomen): Inspection/Auscultation: abdomen normal to inspection; abdomen not distended Musculoskeletal: no cyanosis or clubbing, extremities motor strength 5/5 Left knee with surgical drain in place and a bandage. Skin: no rashes, warm and dry Neurologic: moves all extremities and awake Psychiatric: Orientation: alert, oriented to person and cooperative Results & Data Vital Signs (Past 12 Hours) Vital Signs Temp Pulse Pulse Pulse Resp BP BP 05/09/19 15:25 36.4 C L 68 18 139/81 05/09/19 14:01 36.5 C 72 18 154/82 H 05/09/19 13:42 36.5 C 68 20 145/77 H 05/09/19 13:10 36.5 C 75 14 146/75 H 05/09/19 13:00 36.4 C L 63 14 05/09/19 12:55 64 16 136/56 L 05/09/19 12:50 63 15 138/59 L 05/09/19 12:45 69 15 137/61 05/09/19 12:40 68 17 154/61 H 05/09/19 12:35 75 17 145/61 H 05/09/19 12:30 70 12 142/62 H 05/09/19 12:29 75 14 132/70 05/09/19 12:28 37.5 C 73 12 132/70 05/09/19 08:43 37.1 C 66 20 165/71 H Pulse Ox 05/09/19 15:25 98 05/09/19 14:01 96 05/09/19 13:42 96 05/09/19 13:10 97 05/09/19 13:00 97 05/09/19 12:55 97 05/09/19 12:50 97 05/09/19 12:45 97 05/09/19 12:40 97 05/09/19 12:35 98 05/09/19 12:30 99 05/09/19 12:29 99 05/09/19 12:28 99 05/09/19 08:43 98 PG Care Time/CCT Total # of Minutes Spent Total Time Spent with Patient: Total time spent is greater than 50% in coordination of care (as documented) at patient's floor/unit and/or counseling patient:
[2019-05-09] MEDS ORDERED: CHECK SCOPOLAMINE PATCH PLACEMENT SCH (16:00)
[2019-05-09] MEDS: ACETAMINOPHEN 500 MG TAB PO SCH (17:01)
[2019-05-09] MEDS: CEFAZOLIN 2000MG 2,000 MG/15 ML SYR IV SCH (17:04)
[2019-05-09] MEDS: WARFARIN SOD 7.5 MG TAB PO SCH (18:08)
--- NOTE | 2019-05-09 20:14 | Operative Report ---
Post Operative Report Pre & Post Diagnosis Operation Date: 05/09/19 10:20 Pre-Op Diagnosis: Left knee end-stage osteoarthritis Post-Op Diagnosis: Left knee end-stage osteoarthritis Procedure Operation Date: 05/09/19 10:20 Actual Procedures p Left Total Knee Arthroplasty(Left) - Alfred Singletary MD Surgeon Alfred Singletary MD [employer]ek [employer] Manager Nando GARCES Estimated Blood Loss 10 Findings Consistent with Post-Op Diagnosis Specimens Bone cuts Drains 2 Hemovac Anesthesia Type MAC Spinal Regional Complications none Disposition Accompanied Patient To Recovery: No Disposition: Recovery Room Indications 63 female with chronic left knee pain failed conservative management. Radiographs demonstrate tricompartmental DJD [id number] medial compartment varus knee arthritis worse in patellofemoral medial compartment. Description of Procedure Patient taken to the operating room the size under spinal regional block MAC anesthesia. Patient was placed supine on the operating table. A pneumatic tourniquet was placed about the left upper thigh. The left lower extremity was prepped and draped in sterile fashion. Knee exam demonstrated 0 through 125 degrees range of motion varus knee patellofemoral crepitation no instability. The leg was elevated exsanguinated with an Esmarch bandage and pneumatic tourniquet was raised to 350 millimeters of mercury. Skin incised sharply in longitudinal fashion. Subcutaneous flaps elevated. Incision was made through the medial retinaculum extending up in the mid third of the quadriceps tendon and down to the medial tibial tubercle. Intra-articular findings demonstrated tricompartmental osteoarthritis [id number] medial compartment [id number] patellofemoral joint tricompartmental osteophytes. The Escapia triathlon total knee arthroplasty system was used. To expose the knee the infrapatellar fat pad was resected. The meniscal remnants and cruciate ligaments were resected. The anterior fat pad over the femur in the area of the anterior flange of the femoral component was resected. Lateral synovial bands release. The femur was exposed. An intramedullary drill hole was made into the canal. A guide loni was placed. Distal femoral cutting guide was adjusted to resect a 5 degree valgus cut with 8 millimeters distal femur resected. The knee was extended and a subperiosteal peel lateral release was performed around the patella. Patella width was measured and width was reproduced using a freehand cut technique and a 36 symmetrical patella component. The 3 drill holes were made and the excess lateral facet was beveled off to prevent any impingement. Attention was taken back to the femur which was exposed with retractors and the femoral sizing guide was pinned in position. The drill holes were placed in 3 of external rotation to match epicondylar axis. Femur sized for a 4 component. The 4-in-1 cutting block was placed and then the anterior posterior and chamfer cuts are made. The tibia was then subluxed. The external tibial cutting guide was just to make a perpendicular cut to the long axis of the tibia below the most deficient bone loss side. A lamina travel consultant was used and the flexion extension gaps were balanced. All posterior osteophytes removed. All meniscal remnants were resected. The tibia exposed and the trial tibial component size 4 was externally rotated in line with the tibial tubercle and pinned in position. The punch for stem was used. The notch cutting device was centered appropriately and the femoral notch cut was made. The femoral trial was inserted. Trial tibial inserts were placed and size 11 gave balanced ligaments through flexion and extension. Patella tracking was assessed. The patella tracked centrally. The trial components were then removed and the orthomix anesthetic cocktail was injected per protocol. The knee was then copiously irrigated with pulsatile lavage antibiotic solution. Final components were then cemented with Simplex cement. Final components were triathlon [place] posterior stabilized left size 4 femur, 4 x 11 mm X3 polyethylene tibial bearing insert and a size 4 universal tibial baseplate. It was noted that the patient had very significant osteoporosis with marked softening of the bone both tibia and femur. While the cement cured the Betadine soak was used per protocol. After cement cured further pulsatile lavage irrigation performed and 2 Hemovac drains were brought out laterally. The quadriceps tendon and medial retinaculum were closed with figure of 8 #1 Vicryl sutures. The knee was taken through full range of motion and the repair was secure. The subcutaneous tissues were closed with 2-0 Vicryl sutures. Skin was closed with kofi. Sterile dressings were applied. Patient procedure well. Nando GARCES was my physician veterinary assistant technician who assisted in patient positioning prepping and draping,leg positioning ,soft tissue retraction and instrument management and participated in the closing and will participate in postoperative care of the patient. The patient tolerated the procedure well. I attest to the content of the Intraoperative Record and any orders documented therein. Any exceptions are noted below.
[2019-05-09] MEDS: FLUTICASONE/SALMETEROL (ADVAIR) 500/50 INH 14 PUFF INH SCH (20:42)
[2019-05-09] MEDS: METOPROLOL TARTRATE 25 MG TAB PO SCH (20:43)
[2019-05-09] MEDS: FLUTICASONE HFA 110MCG INHALER INH SCH (20:43)
[2019-05-09] MEDS: MAGNESIUM CHLORIDE 64MG DELAYED REL TAB PO SCH (20:43)
[2019-05-09] MEDS: SENNA 8.6 MG TAB PO SCH (20:43)
[2019-05-09] MEDS: DOCUSATE SODIUM 100 MG CAP PO SCH (20:43)
[2019-05-09] MEDS ORDERED: NON-FORMULARY MEDICATION (Biotin 5,000 MCG) PO SCH (21:00)
[2019-05-09] MEDS: OXYCODONE HCL IR 5 MG TAB (IMMEDIATE RELEASE) PO PRN (23:58)
[2019-05-10] MEDS: CEFAZOLIN 2000MG 2,000 MG/15 ML SYR IV SCH (01:56)
[2019-05-10] MEDS: OXYCODONE HCL IR 5 MG TAB (IMMEDIATE RELEASE) PO PRN ×3 (04:01→19:42)
[2019-05-10 05:43] LABS: Hematocrit (blood only) 33.5 % (37-47); Hemoglobin 11.1 g/dL (12.0-16.0); Mean Corpuscular Hgb Conc 33.1 g/dL (32-36); Mean Corpuscular Volume 93.8 fL (80-100); Mean Platelet Volume 9.4 fL (7.4-10.4); Platelet Count 150 K/uL (130-400); RDW Coefficient of Variation 12.6 % (11.5-14.5); RDW Standard Deviation 42.6 fL (36.4-46.3); Red Blood Count 3.57 M/uL (4.2-5.4); White Blood Count 12.55 K/uL (4.8-10.8)
[2019-05-10] MEDS: LEVOTHYROXINE SODIUM 100 MCG TABLET PO SCH (05:56)
[2019-05-10 05:57] LABS: INR 1.1 (0.9-1.1); Prothrombin Time 11.1 Seconds (9.0-12.0)
[2019-05-10] MEDS: ACETAMINOPHEN 500 MG TAB PO SCH ×3 (05:57→21:49)
[2019-05-10 06:13] LABS: BUN Creatinine Ratio 17.2 (10-20); Calcium 8.3 mg/dl (8.5-10.1); Creatinine Clr Calc Pharmacy 70.8 ml/min; Est GFR (African American) 73.4; Est GFR (Non-African American) 63.3; Potassium 4.1 mmol/L (3.5-5.1)
[2019-05-10] MEDS: MAGNESIUM CHLORIDE 64MG DELAYED REL TAB PO SCH ×2 (08:00→20:23)
[2019-05-10] MEDS: CHOLECALCIFEROL 1,000 UNITS TAB PO SCH (08:00)
[2019-05-10] MEDS: METOPROLOL TARTRATE 25 MG TAB PO SCH ×2 (08:00→20:23)
[2019-05-10] MEDS: DOCUSATE SODIUM 100 MG CAP PO SCH ×2 (08:00→20:23)
[2019-05-10] MEDS: hydroCHLOROthiazide 25 MG TAB PO SCH (08:00)
[2019-05-10] MEDS: FLUTICASONE HFA 110MCG INHALER INH SCH ×2 (08:00→20:23)
[2019-05-10] MEDS: MULTIVITAMIN TAB PO SCH (08:00)
[2019-05-10] MEDS: FLUTICASONE/SALMETEROL (ADVAIR) 500/50 INH 14 PUFF INH SCH ×2 (08:01→20:22)
[2019-05-10] MEDS: ENOXAPARIN INJ 40 MG/0.4 ML SYR SQ SCH (08:01)
--- NOTE | 2019-05-10 08:14 | Orthopedic Progress Note ---
Date of Service May 10, 2019 Assessment & Plan (1) Osteoarthritis of left knee: Postop day 1 status post left total knee arthroplasty. PT/OT protocols. Weightbearing as tolerated. DVT prophylaxis with enoxaparin, SCDs, and MALOU hose. Pain management as written. DC planning-patient is planning for outpatient PT upon discharge. Subjective Patient is postop day 1 status post left total knee arthroplasty. She is currently sitting up at the bedside and has just returned from the bathroom. She has no complaints at this time. Pain is controlled. She denies any shortness of breath chest, pain, or lightheadedness. She does state that s he does use her inhaler because she was having some slight wheezing but nothing greater than usual. Physical Exam Physical Exam: Dressings are clean, dry, and intact. Calves are soft nontender. Toes are mobile. Neurovascular is intact. Hemovac drainage is 125 mL's from the previous shift. Results & Data Vital Signs (Past 12 Hours) Vital Signs Temp Pulse Resp BP Pulse Ox 05/10/19 06:47 36.5 C 65 18 120/71 95 05/10/19 03:30 36.5 C 71 16 122/67 97 05/09/19 22:40 36.5 C 77 16 127/66 95 05/09/19 20:38 76 124/73 Laboratory Results Laboratory Results WBC 12.55 K/uL (4.8-10.8) H 05/10/19 05:19 RBC 3.57 M/uL (4.2-5.4) L 05/10/19 05:19 Hgb 11.1 g/dL (12.0-16.0) L 05/10/19 05:19 Hct 33.5 % (37-47) L 05/10/19 05:19 MCV 93.8 fL (80-100) 05/10/19 05:19 MCH 31.1 pg (25-34) 05/10/19 05:19 MCHC 33.1 g/dL (32-36) 05/10/19 05:19 RDW Std Deviation 42.6 fL (36.4-46.3) 05/10/19 05:19 RDW Coeff of Ken 12.6 % (11.5-14.5) 05/10/19 05:19 Plt Count 150 K/uL (130-400) 05/10/19 05:19 MPV 9.4 fL (7.4-10.4) 05/10/19 05:19 Immature Gran % (Auto) 0.2 % 04/20/19 13:23 Neut % (Auto) 63.4 % 04/20/19 13:23 Lymph % (Auto) 25.3 % 04/20/19 13:23 [place] % (Auto) 8.8 % 04/20/19 13:23 Eos % (Auto) 2.1 % 04/20/19 13:23 Baso % (Auto) 0.2 % 04/20/19 13:23 Immature Gran # (Auto) 0.02 K/uL (0.00-0.02) 04/20/19 13:23 Neut # (Auto) 5.70 K/uL (1.4-6.5) 04/20/19 13:23 Lymph # (Auto) 2.28 K/uL (1.2-3.4) 04/20/19 13:23 [place] # (Auto) 0.79 K/uL (0.11-0.59) H 04/20/19 13:23 Eos # (Auto) 0.19 K/uL (0-0.5) 04/20/19 13:23 Baso # (Auto) 0.02 K/uL (0-0.2) 04/20/19 13:23 PT 11.1 Seconds (9.0-12.0) 05/10/19 05:19 INR 1.1 (0.9-1.1) 05/10/19 05:19 APTT 21.9 Seconds (21.0-31.0) 05/09/19 08:14 PTT Ratio 0.8 05/09/19 08:14 Sodium 139 mmol/L (136-145) 05/10/19 05:19 Potassium 4.1 mmol/L (3.5-5.1) 05/10/19 05:19 Chloride 106 mmol/L (98-107) 05/10/19 05:19 Carbon Dioxide 26 mmol/L (21-32) 05/10/19 05:19 Anion Gap 7.0 (3-11) 05/10/19 05:19 BUN 16 mg/dl (7-18) 05/10/19 05:19 Creatinine 0.95 mg/dl (0.6-1.2) 05/10/19 05:19 Est Cr Clr Drug Dosing 70.8 ml/min 05/10/19 05:19 Est GFR ( Amer) 73.4 05/10/19 05:19 Est GFR (Non-Af Amer) 63.3 05/10/19 05:19 BUN/Creatinine Ratio 17.2 (10-20) 05/10/19 05:19 Glucose 167 mg/dl (70-99) H 05/10/19 05:19 Estimat Average Glucose 123 mg/dl 04/20/19 13:23 Hemoglobin A1c 5.9 % (4.5-5.6) H 04/20/19 13:23 Calcium 8.3 mg/dl (8.5-10.1) L 05/10/19 05:19 Albumin 3.8 gm/dl (3.4-5.0) 04/20/19 13:23 Urine Color Dark Yellow 04/20/19 13:23 Urine Appearance Cloudy (Clear) A 04/20/19 13:23 Urine pH 6.5 (4.5-7.5) 04/20/19 13:23 Ur Specific [place] 1.019 (1.000-1.030) 04/20/19 13:23 Urine Protein Negative (Negative) 04/20/19 13:23 Urine Glucose (UA) Negative (Negative) 04/20/19 13:23 Urine Ketones Negative (Negative) 04/20/19 13:23 Urine Blood Trace (Negative) H 04/20/19 13:23 Urine Nitrite Negative (Negative) 04/20/19 13:23 Urine Bilirubin Negative (Negative) 04/20/19 13:23 Urine Urobilinogen Negative (Negative) 04/20/19 13:23 Ur Leukocyte Esterase 3+ (Negative) H 04/20/19 13:23 Urine WBC (Auto) >30 /hpf (0-5) H 04/20/19 13:23 Urine RBC (Auto) 5-10 /hpf (0-4) H 04/20/19 13:23 U Hyaline Cast (Auto) 1-5 /lpf (0-5) 04/20/19 13:23 U Epithel Cells (Auto) >30 /lpf (0-5) H 07/05/19 13:23 Urine Bacteria (Auto) 1+ (Negative) H 04/20/19 13:23 Urine Yeast Not Reportable 04/20/19 13:23 Blood Type A Positive 04/20/19 13:23 Antibody Screen NEGATIVE 04/20/19 13:23
[2019-05-10] MEDS ORDERED: MULTIVITAMIN TAB PO SCH (09:00)
--- NOTE | 2019-05-10 14:48 | Hospitalist Progress Note ---
Date of Service May 10, 2019 Assessment & Plan (1) Osteoarthritis of left knee: S/p left TKA with Dr. Singletary on 05/09. - Post-operative care per primary team - Doing well. Will likely discharge tomorrow. (2) Pulmonary embolism: Multiple DVTs/PEs most recently in 12/2017. Needs life-long anticoagulation. Follows with the [facility]. Has a bridge plan worked out with Dr. Fontana. - Got warfarin 7.5 mg PO yesterday and again today. Return to 5 mg on Tuesday. - Lovenox 40mg SC tomorrow & Tuesday - She is aware of the plan. (3) Chronic obstructive pulmonary disease: No current exacerbation or shortness of breath. - Continue home inhalers. (4) Atrial fibrillation: Paroxysmal. EKG on 04/20 was in normal sinus. Presently in regular rhythm. - Continue anticoagulation as above - Continue diltiazem for rate control (5) Hypertension: BP presently normal. - Continue home meds (6) Hypothyroidism: Last TSH was 0.135 in 2016. No signs/symptoms of hypo-/hyperthyroidism. - Continue home Synthroid Given medical stability, Hospital Medicine team will sign off. Please re-consult with any questions or concerns. Thank you for letting us assist in the care of this patient! Subjective No concerns today. She has been up and walking. Did >1700 steps today with PT. Minimal pain which is controlled by meds. Review of Systems Review of Systems: All systems reviewed & are unremarkable except as noted in HPI & below Physical Exam Constitutional: WD/WN, vitals as above Eyes: EOM intact bilaterally; no conjunctival abnormality ENMT: external ear and nose normal, oropharynx normal Neck: trachea midline, no thyromegaly normal visual inspection Respiratory: normal respiratory effort, lungs clear to auscultation no respiratory distress Cardiovascular: RRR, no murmur, no edema Gastrointestinal (Abdomen): Inspection/Auscultation: abdomen normal to inspection; abdomen not distended Musculoskeletal: no cyanosis or clubbing, extremities motor strength 5/5 Surgical drain in left knee Skin: no rashes, warm and dry Neurologic: moves all extremities and awake Psychiatric: Orientation: alert, oriented to person and cooperative Results & Data Vital Signs (Past 12 Hours) Vital Signs Temp Pulse Resp BP Pulse Ox 05/10/19 11:06 36.6 C 66 18 107/68 98 05/10/19 06:47 36.5 C 65 18 120/71 95 05/10/19 03:30 36.5 C 71 16 122/67 97 PG Care Time/CCT Total # of Minutes Spent Total Time Spent with Patient: Total time spent is greater than 50% in coordination of care (as documented) at patient's floor/unit and/or counseling patient:
[2019-05-10] MEDS: WARFARIN SOD 7.5 MG TAB PO SCH (15:15)
[2019-05-10] MEDS: SENNA 8.6 MG TAB PO SCH (20:23)
[2019-05-11] MEDS: OXYCODONE HCL IR 5 MG TAB (IMMEDIATE RELEASE) PO PRN ×2 (01:13→08:11)
[2019-05-11] MEDS: ACETAMINOPHEN 500 MG TAB PO SCH (06:07)
[2019-05-11] MEDS: LEVOTHYROXINE SODIUM 100 MCG TABLET PO SCH (06:07)
[2019-05-11 06:08] LABS: Hematocrit (blood only) 30.7 % (37-47); Hemoglobin 10.1 g/dL (12.0-16.0); Mean Corpuscular Hgb Conc 32.9 g/dL (32-36); Mean Platelet Volume 9.4 fL (7.4-10.4); Platelet Count 163 K/uL (130-400); RDW Coefficient of Variation 13.1 % (11.5-14.5); RDW Standard Deviation 44.2 fL (36.4-46.3); White Blood Count 13.94 K/uL (4.8-10.8)
[2019-05-11 06:16] LABS: INR 1.7 (0.9-1.1); Prothrombin Time 16.5 Seconds (9.0-12.0)
[2019-05-11 06:50] LABS: BUN Creatinine Ratio 19.7 (10-20); Calcium 8.6 mg/dl (8.5-10.1); Creatinine Clr Calc Pharmacy 67.9 ml/min; Est GFR (African American) 69.8; Est GFR (Non-African American) 60.2
--- NOTE | 2019-05-11 07:35 | Orthopedic Progress Note ---
Date of Service May 11, 2019 Assessment & Plan (1) Osteoarthritis of left knee: Postop day 2 status post left total knee arthroplasty. PT/OT protocols. Weightbearing as tolerated. DVT prophylaxis with enoxaparin, coumadin, SCDs, and MALOU hose. Pain management as written. DC planning-patient is planning for outpatient PT and discharge today. Patient is aware of her lovenox and coumadin schedule per her doctor and has adequate supply at home. Subjective Patient is postop day 2 status post left total knee arthroplasty. She is currently sitting up at the bedside eating breakfast. She has no complaints at this time. Pain is controlled. She denies any shortness of breath chest, pain, or lightheadedness. She does state that she does use her inhaler because she was having some slight wheezing but nothing greater than usual. Physical Exam Physical Exam: Left knee silverlon dressing c/d/i, no erythema, no drainage, toes and ankle mobile, no calf tenderness, A&Ox3. Results & Data Vital Signs (Past 12 Hours) Vital Signs Temp Pulse Resp BP Pulse Ox 05/11/19 06:36 36.7 C 60 16 128/77 96 05/10/19 23:06 36.5 C 69 15 125/66 96 05/10/19 20:21 70 117/67
[2019-05-11] MEDS: FLUTICASONE HFA 110MCG INHALER INH SCH (08:09)
[2019-05-11] MEDS: FLUTICASONE/SALMETEROL (ADVAIR) 500/50 INH 14 PUFF INH SCH (08:09)
[2019-05-11] MEDS: CHOLECALCIFEROL 1,000 UNITS TAB PO SCH (08:10)
[2019-05-11] MEDS: hydroCHLOROthiazide 25 MG TAB PO SCH (08:10)
[2019-05-11] MEDS: MULTIVITAMIN TAB PO SCH (08:10)
[2019-05-11] MEDS: MAGNESIUM CHLORIDE 64MG DELAYED REL TAB PO SCH (08:10)
[2019-05-11] MEDS: DOCUSATE SODIUM 100 MG CAP PO SCH (08:10)
[2019-05-11] MEDS: ENOXAPARIN INJ 40 MG/0.4 ML SYR SQ SCH (08:11)
[2019-05-11] MEDS: METOPROLOL TARTRATE 25 MG TAB PO SCH (08:11)
[2019-05-11] MEDS ORDERED: WARFARIN SOD 5 MG TAB PO SCH (16:00)
[2019-05-14] MEDS ORDERED: WARFARIN SOD 2.5 MG TAB PO SCH (16:00)
--- NOTE | 2019-05-23 20:08 | Discharge Summary ---
HISTORY OF PRESENT ILLNESS: This is a 63-year-old female patient of Dr. Singletary's complaining of chronic left knee pain, longstanding now progressively getting worse. The patient failed conservative treatment and elected to proceed with a left total knee arthroplasty. PAST MEDICAL HISTORY: Hypertension, hypercholesterolemia, asthma, history of blood clots, hypothyroidism, osteoarthritis, sciatica, acid reflux, obesity, breast cancer and right lung tumor. POSTOPERATIVE COURSE: The patient underwent a left total knee arthroplasty on 05/09/2019. She was followed closely with medical consultation, DVT prophylaxis in the form of Coumadin and Lovenox, physical therapy and pain control. The patient did very well postoperatively and was discharged on postoperative day #2. PHYSICAL EXAMINATION: On discharge, the patient's left knee Silverlon dressing was clean, dry and intact. There was no redness or drainage. She had no calf tenderness. Negative Homans sign. Her toes and ankle were mobile. Neurologically and neurovascularly she is intact in her left lower extremity. DIAGNOSES: Status post left total knee arthroplasty, hypertension, hypercholesterolemia, asthma, history of blood clots, hypothyroidism, osteoarthritis, sciatica, acid reflux, obesity, breast cancer and right lung tumor. PLAN: The patient was discharged home with outpatient physical therapy. She will continue her Coumadin and Lovenox per her [facility] Clinic or primary care physician. We have also added a MALOU stocking and SCDs. We have ordered those for DVT prophylaxis. She will continue her preadmission medications with the addition of pain medications. She will follow up with Dr. Singletary as an outpatient.
== END 2019-05-11 10:10 | disposition home or self-care (01) | DRG 470 ==
LOC: ASU 07:56 → 3E 12:35

== ENCOUNTER 2019-10-01 23:59 | Inpatient (IN) ==
[2019-10-02] MEDS ORDERED: ALBUT/IPRATROP 3MG/0.5MG NEB 3 ML VIAL NEB ONE (00:15)
[2019-10-02] MEDS ORDERED: methylPREDNISolone 125 MG/2 ML VIAL IV STA (00:15)
[2019-10-02] MEDS ORDERED: SODIUM CHLORIDE 0.9% 1000ML 1,000 ML IV SCH (00:15)
[2019-10-02 01:17] LABS: Basophils # (auto) 0.01 K/uL (0-0.2); Basophils % (auto) 0.1 %; Eosinophils # (auto) 0.25 K/uL (0-0.5); Eosinophils % (auto) 2.4 %; Hematocrit (blood only) 38.6 % (37-47); Hemoglobin 12.2 g/dL (12.0-16.0); Immature Granulocytes # (auto) 0.05 K/uL (0.00-0.02); Immature Granulocytes % (auto) 0.5 %; Lymphocytes # (auto) 1.74 K/uL (1.2-3.4); Lymphocytes % (auto) 16.4 %; Mean Corpuscular Hgb Conc 31.6 g/dL (32-36); Mean Corpuscular Volume 88.7 fL (80-100); Monocytes # (auto) 1.52 K/uL (0.11-0.59); Monocytes % (auto) 14.4 %; Neutrophils # (auto) 7.01 K/uL (1.4-6.5); Neutrophils % (auto) 66.2 %; Platelet Count 186 K/uL (130-400); RDW Coefficient of Variation 15.2 % (11.5-14.5); RDW Standard Deviation 49.4 fL (36.4-46.3); Red Blood Count 4.35 M/uL (4.2-5.4); White Blood Count 10.58 K/uL (4.8-10.8)
[2019-10-02 01:19] LABS: Base Excess ABG 5.1 mEq/L (-9-1.8); HCO3 ABG 28 mmol/L (19-24); PCO2 ABG 37 mmHg (35-46); PO2 ABG 70 mm/Hg (80-95)
[2019-10-02 01:25] LABS: INR 1.6 (0.9-1.1); Partial Thromboplastin Time 27.8 Seconds (21.0-31.0)
[2019-10-02 01:28] LABS: Allen Test POS (Pos)
[2019-10-02 01:28] LABS: Alanine Aminotransferase 22 U/L (12-78); Albumin Level 2.8 gm/dl (3.4-5.0); Aspartate Aminotransferase 16 U/L (15-37); BUN Creatinine Ratio 17.5 (10-20); Blood Urea Nitrogen 15 mg/dl (7-18); Calcium 8.9 mg/dl (8.5-10.1); Carbon Dioxide 33 mmol/L (21-32); Chloride 103 mmol/L (98-107); Creatinine Clr Calc Pharmacy 82.3 ml/min; Est GFR (African American) 83.3; Est GFR (Non-African American) 71.9; Glucose 107 mg/dl (70-99); Lipase 240 U/L (73-393); Magnesium 1.6 mg/dl (1.8-2.4); Potassium 3.8 mmol/L (3.5-5.1); Sodium 140 mmol/L (136-145)
[2019-10-02 01:39] LABS: Albumin Globulin Ratio 0.7 (0.9-2); Alkaline Phosphatase 70 U/L (45-117); Bilirubin,Total 0.4 mg/dl (0.2-1); Globulin 3.8 gm/dl (2.5-4.0); Thyroid Stimulating Hormone 0.015 uIu/ml (0.300-4.500); Total Protein 6.6 gm/dl (6.4-8.2); Troponin I < 0.015 ng/ml (0-0.045)
[2019-10-02 01:51] LABS: T4 Free Thyroxine 1.38 ng/dl (0.8-1.6)
[2019-10-02] MEDS ORDERED: OPTIRAY 320 125ml IV PRN (02:09)
--- NOTE | 2019-10-02 02:26 | Emergency Department Note ---
History of Present Illness General Chief complaint: Respiratory Problems Stated complaint: HAVING TROUBLE BREATHING-SICK History of Present Illness This is a 64-year-old female presenting to the emergency department for evaluation of shortness of breath worsening over the past day. The patient has an extensive past medical history including asthma, pulmonary emboli, atrial fibrillation, and lobectomy. 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 She has been on Levaquin and prednisone, and has been fairly steady while on treatment. She states that over the past several hours her symptoms have worsened. She is having some dyspnea with walking but no distinct chest pain. She does not report fevers or chills. No recent travel history. She rates her overall discomfort a 7/10. Home Medications Home Medications Medication Instructions Recorded Confirmed Type ProAir RespiClick 2 puff INHALATION Q4H PRN 06/27/18 10/02/19 History albuterol sulfate 2.5 mg INHALATION QID PRN 06/27/18 10/02/19 History cholecalciferol (vitamin D3) 5,000 unit PO QAM 06/27/18 10/02/19 History [Vitamin D3] hydrochlorothiazide 12.5 mg PO QAM 06/27/18 10/02/19 History magnesium chloride 64 mg PO Q12 06/27/18 10/02/19 History metoprolol tartrate 25 mg PO Q12H 06/27/18 10/02/19 History multivitamin 1 tab PO QAM 06/27/18 10/02/19 History diphenhydramine HCl 25 mg tablet 25 mg PO HS PRN tab 06/28/18 10/02/19 History levothyroxine 100 mcg capsule 100 mcg PO QAM 11/27/18 10/02/19 History Prilosec OTC 20 mg PO DAILY PRN 04/16/19 10/02/19 History biotin 5,000 mcg PO BID 04/16/19 10/02/19 History calcium carbonate-vitamin D3 600 1 tab PO BID tab 07/19/19 10/02/19 History mg (1,500 mg)-800 unit tablet fluticasone 500 mcg-salmeterol 50 1 inh INHALATION Q12H #3 inhaler 08/06/19 10/02/19 Rx mcg/dose blistr powdr for inhalation fluticasone propionate 110 2 puff INHALATION Q12H #36 gm 08/08/19 10/02/19 Rx mcg/actuation HFA aerosol inhaler amoxicillin 500 mg capsule 2,000 mg PO UD PRN cap 08/30/19 10/02/19 History prednisone 10 mg tablet 10 mg PO .COMPLEX #50 tab 09/17/19 10/02/19 Rx diltiazem HCl 180 mg capsule,24 180 mg PO BID #180 cap 09/27/19 10/02/19 Rx hr,extended release levofloxacin 500 mg tablet 500 mg PO DAILY #10 tab 09/28/19 10/02/19 Rx tramadol 50 mg tablet 50 mg PO Q8H PRN #30 tab 09/28/19 10/02/19 Rx warfarin 5 mg tablet See Rx Instructions PO UD tab 09/28/19 10/02/19 History Allergies Allergy/AdvReac Type Severity Reaction Status Date / Time fenofibrate Allergy HEART Verified 10/02/19 01:41 RACING Pyxlvsm-Wgw-Tle Reductase Allergy FACE NUMB Verified 10/02/19 01:41 Inhibitor codeine AdvReac Mild gi upset Verified 10/02/19 01:41 ibuprofen AdvReac Mild ULCERS Verified 10/02/19 01:41 nedocromil AdvReac Mild COUGH Verified 10/02/19 01:41 theophylline AdvReac Mild NERVOUSNESS Verified 10/02/19 01:41 [place] Allergy Severe THROAT Uncoded 10/02/19 01:41 TIGHTNESS Past Med/Surg History Medical History Degenerative disc disease (Resolved) Dyslipidemia Graves disease (Resolved) History of colon polyps (Resolved) History of DVT of lower extremity (Resolved) History of kidney stones (Resolved) Hx of breast cancer (Resolved) 2001 LEFT BREAST - HAD RADIATION AND CHEMO Hx of cancer of lung (Resolved) RUL Lobectomy Hx of deep venous thrombosis (Resolved) Left leg Hx pulmonary embolism (Resolved) Extensive Nausea and vomiting after administration of anesthetic agent (Resolved) Paroxysmal atrial fibrillation Right radial head fracture (Resolved) Surgical History History of arthroscopy of right knee (Resolved) History of bunionectomy of left great toe (Resolved) History of bunionectomy of right great toe (Resolved) History of cardiac cath (Resolved) ?--no stents History of cholecystectomy (Resolved) History of colonoscopy (Resolved) History of dilatation and curettage (Resolved) History of esophagogastroduodenoscopy (EGD) (Resolved) History of hysterectomy (Resolved) History of inferior vena caval filter placement (Resolved) History of left breast biopsy (Resolved) malignant History of lobectomy of lung (Resolved) RIGHT UPPER History of lumpectomy of left breast (Resolved) REMOVAL 15 LYMPH NODES History of total right knee replacement (TKR) (Resolved) History of vascular access device (Resolved) removed History of wisdom tooth extraction (Resolved) Hx of lumbar discectomy (Resolved) Social History Preferred Language: Lithuanian Communication Ability: Effective Power System Operator Required: No Beliefs That Will Affect Care: None marital status: Current Living Situation: Family Current Living Situation Comment: Lives with and daughter Feels Safe at Home: Yes Smoking Status: Never smoker Second Hand Exposure: No ; Hx Alcohol Use: No Hx Substance Use: No Review of Systems A total of 10 systems reviewed and were otherwise negative Physical Exam Vital Signs Vital Signs - 24 hr 10/02/19 00:04 10/02/19 00:27 10/02/19 00:30 Temperature 36.7 C Temperature Source Oral Pulse Rate 103 H Pulse Rate [Right Finger] Pulse Rhythm Regular Pulse Strength Normal Respiratory Rate 32 H Respiratory Effort / Characteristics Spontaneous Labored Respiratory Depth Respiratory Pattern Tachypnea Blood Pressure 159/75 H Blood Pressure [Right Arm] Blood Pressure Mean 103 Blood Pressure Mean [Right Arm] Blood Pressure Position Sitting Blood Pressure Position [Right Arm] Pulse Oximetry 99 99 Pulse Oximetry [Recovery] 91 Oxygen Delivery Method Room Air Room Air Nebulizer Oxygen Flow Rate Sepsis Recent Fever Within 48 Hours No Sepsis Action Taken by Nursing No Action Required 10/02/19 00:44 10/02/19 00:48 10/02/19 01:28 Temperature Temperature Source Pulse Rate Pulse Rate [Right Finger] 87 126 H Pulse Rhythm Pulse Strength Respiratory Rate 95 H 24 Respiratory Effort / Characteristics Spontaneous Labored Short of Breath Spontaneous Labored Non-Labored Spontaneous Respiratory Depth Shallow Normal Respiratory Pattern Regular Regular Blood Pressure Blood Pressure [Right Arm] 142/82 H Blood Pressure Mean Blood Pressure Mean [Right Arm] 102 Blood Pressure Position Blood Pressure Position [Right Arm] Lying Pulse Oximetry 97 Pulse Oximetry [Recovery] Oxygen Delivery Method Room Air Room Air Oxygen Flow Rate Sepsis Recent Fever Within 48 Hours Sepsis Action Taken by Nursing 10/02/19 02:15 10/02/19 02:30 10/02/19 03:00 Temperature Temperature Source Pulse Rate Pulse Rate [Right Finger] 133 H Pulse Rhythm Pulse Strength Respiratory Rate 22 Respiratory Effort / Characteristics Non-Labored Spontaneous Respiratory Depth Normal Respiratory Pattern Regular Blood Pressure Blood Pressure [Right Arm] 122/71 Blood Pressure Mean Blood Pressure Mean [Right Arm] 88 Blood Pressure Position Blood Pressure Position [Right Arm] Lying Pulse Oximetry 96 96 Pulse Oximetry [Recovery] 88 L Oxygen Delivery Method Nasal Cannula Room Air Nasal Cannula Oxygen Flow Rate 2 2 Sepsis Recent Fever Within 48 Hours Sepsis Action Taken by Nursing VITALS: Vitals are noted on the nurse's note and reviewed by myself. Vital signs with tachycardia and tachypnea. GENERAL: Well-developed, well-nourished, white female who appears ill on examination. She is speaking in short sentences. HEAD: Normocephalic atraumatic. EYES: Pupils equal round and reactive to light and accommodation. Conjunctivae without injection, sclerae without icterus. Extraocular movements intact. NECK: Supple without nuchal rigidity. No lymphadenopathy. No thyromegaly. Cervical spine is nontender. HEART: Regular rate and rhythm without murmurs gallops or rubs. LUNGS: Diffuse wheezing throughout ABDOMEN: Positive normal bowel sounds x 4. Soft, nontender, without masses or organomegaly. MUSCULOSKELETAL: No muscle atrophy, erythema, or edema noted. Full range of motion in all extremities. NEURO: Patient was alert and oriented to person place and time. CN II through XII grossly intact. SKIN: The skin was without rashes, erythema, edema, or bruising. Capillary refill less than 2 seconds. Course Administered Medications Vancomycin HCl 2,000 mg/ (Sodium Chloride) 540 mls @ 200 mls/hr IV NOW ONE Stop: 10/02/19 05:26 Last Admin: 10/02/19 03:42 Dose: 200 mls/hr Documented by: [id number] Ioversol (Optiray 320 125ml) 125 ml IV ONCE PRN PRN Reason: Interaction Checking Stop: 10/06/19 02:08 Last Admin: 10/02/19 02:10 Dose: 104 ml Documented by: [id number] Discontinued Medications Albuterol (Duoneb) 12 ml NEB ONE ONE Stop: 10/02/19 00:16 Last Admin: 10/02/19 00:32 Dose: 12 ml Documented by: [id number] Sodium Chloride (Nss 1000ml) 1,000 mls @ 125 mls/hr IV .Q8H MARY Stop: 11/01/19 00:14 Last Infusion: 10/02/19 04:42 Dose: 0 mls/hr Documented by: [id number] Admin: 10/02/19 00:53 Dose: 125 mls/hr Documented by: [id number] Piperacillin Sod/Tazobactam Sod (Zosyn) 4.5 gm in 120 mls @ 240 mls/hr IV NOW ONE Stop: 10/02/19 03:14 Last Infusion: 10/02/19 03:24 Dose: 0 mls/hr Documented by: [id number] Admin: 10/02/19 02:50 Dose: 240 mls/hr Documented by: [id number] Methylprednisolone (Solumedrol) 125 mg IV NOW STA Stop: 10/02/19 00:16 Last Admin: 10/02/19 00:53 Dose: 125 mg Documented by: [id number] Miscellaneous Information (Consult) 1 ea N/A UD PRN PRN Reason: Consult Stop: 11/01/19 02:44 Last Admin: 10/02/19 02:51 Dose: 1 ea Documented by: [id number] Miscellaneous Information (Consult) 1 ea N/A UD PRN PRN Reason: Consult Stop: 11/01/19 02:44 Last Admin: 10/02/19 02:50 Dose: 1 ea Documented by: [id number] Medical Decision Making Differential Diagnosis Differential diagnosis includes, but is not limited to: Myocardial infarction, dysrhythmia, pericarditis, pneumothorax, aortic aneurysm/dissection, DVT/PE, anxiety, GERD, PUD, electrolyte imbalance, thyroid disorder, pneumonia, bronchitis, pancreatitis, and others Laboratory Data Result diagrams: 10/02/19 00:29 10/02/19 00:29 Lab Results 10/02/19 10/02/19 10/02/19 Range/Units 00:29 00:29 00:29 WBC 10.58 (4.8-10.8) K/uL RBC 4.35 (4.2-5.4) M/uL Hgb 12.2 (12.0-16.0) g/dL Hct 38.6 (37-47) % MCV 88.7 (80-100) fL MCH 28.0 (25-34) pg MCHC 31.6 L (32-36) g/dL RDW Std Deviation 49.4 H (36.4-46.3) fL RDW Coeff of Ken 15.2 H (11.5-14.5) % Plt Count 186 (130-400) K/uL MPV 9.0 (7.4-10.4) fL Immature Gran % (Auto) 0.5 % Neut % (Auto) 66.2 % Lymph % (Auto) 16.4 % [place] % (Auto) 14.4 % Eos % (Auto) 2.4 % Baso % (Auto) 0.1 % Immature Gran # (Auto) 0.05 H (0.00-0.02) K/uL Neut # (Auto) 7.01 H (1.4-6.5) K/uL Lymph # (Auto) 1.74 (1.2-3.4) K/uL [place] # (Auto) 1.52 H (0.11-0.59) K/uL Eos # (Auto) 0.25 (0-0.5) K/uL Baso # (Auto) 0.01 (0-0.2) K/uL PT 16.0 H (9.0-12.0) Seconds INR 1.6 H (0.9-1.1) APTT 27.8 (21.0-31.0) Seconds PTT Ratio 1.0 ABG pH (7.35-7.45) ABG pCO2 (35-46) mmHg ABG pO2 (80-95) mm/Hg ABG HCO3 (19-24) mmol/L ABG O2 Saturation (90-95) % ABG Base Excess (-9-1.8) mEq/L Obed Test (Pos) Barometric Pressure mm/Hg Oxygen Given Sodium 140 (136-145) mmol/L Potassium 3.8 (3.5-5.1) mmol/L Chloride 103 (98-107) mmol/L Carbon Dioxide 33 H (21-32) mmol/L Anion Gap 5.0 (3-11) BUN 15 (7-18) mg/dl Creatinine 0.85 (0.6-1.2) mg/dl Est Cr Clr Drug Dosing 82.3 ml/min Est GFR ( Amer) 83.3 Est GFR (Non-Af Amer) 71.9 BUN/Creatinine Ratio 17.5 (10-20) Glucose 107 H (70-99) mg/dl Lactate (0.4-2.0) mmol/L Calcium 8.9 (8.5-10.1) mg/dl Magnesium 1.6 L (1.8-2.4) mg/dl Total Bilirubin 0.4 (0.2-1) mg/dl AST 16 (15-37) U/L ALT 22 (12-78) U/L Alkaline Phosphatase 70 (45-117) U/L Troponin I < 0.015 (0-0.045) ng/ml Total Protein 6.6 (6.4-8.2) gm/dl Albumin 2.8 L (3.4-5.0) gm/dl Globulin 3.8 (2.5-4.0) gm/dl Albumin/Globulin Ratio 0.7 L (0.9-2) Lipase 240 (73-393) U/L TSH 0.015 L (0.300-4.500) uIu/ml Free T4 1.38 (0.8-1.6) ng/dl Urine Color Urine Appearance (Clear) Urine pH (4.5-7.5) Ur Specific [place] (1.000-1.030) Urine Protein (Negative) Urine Glucose (UA) (Negative) Urine Ketones (Negative) Urine Blood (Negative) Urine Nitrite (Negative) Urine Bilirubin (Negative) Urine Urobilinogen (Negative) Ur Leukocyte Esterase (Negative) Urine WBC (Auto) (0-5) /hpf Urine RBC (Auto) (0-4) /hpf U Hyaline Cast (Auto) (0-5) /lpf U Epithel Cells (Auto) (0-5) /lpf Urine Bacteria (Auto) (Negative) Influenza Type A Ag (Neg) Influenza Type B Ag (Neg) 10/02/19 10/02/19 10/02/19 Range/Units 00:46 00:53 00:56 WBC (4.8-10.8) K/uL RBC (4.2-5.4) M/uL Hgb (12.0-16.0) g/dL Hct (37-47) % MCV (80-100) fL MCH (25-34) pg MCHC (32-36) g/dL RDW Std Deviation (36.4-46.3) fL RDW Coeff of Ken (11.5-14.5) % Plt Count (130-400) K/uL MPV (7.4-10.4) fL Immature Gran % (Auto) % Neut % (Auto) % Lymph % (Auto) % [place] % (Auto) % Eos % (Auto) % Baso % (Auto) % Immature Gran # (Auto) (0.00-0.02) K/uL Neut # (Auto) (1.4-6.5) K/uL Lymph # (Auto) (1.2-3.4) K/uL [place] # (Auto) (0.11-0.59) K/uL Eos # (Auto) (0-0.5) K/uL Baso # (Auto) (0-0.2) K/uL PT (9.0-12.0) Seconds INR (0.9-1.1) APTT (21.0-31.0) Seconds PTT Ratio ABG pH 7.50 H (7.35-7.45) ABG pCO2 37 (35-46) mmHg ABG pO2 70 L (80-95) mm/Hg ABG HCO3 28 H (19-24) mmol/L ABG O2 Saturation 95.0 (90-95) % ABG Base Excess 5.1 H (-9-1.8) mEq/L Obed Test POS (Pos) Barometric Pressure 731.9 mm/Hg Oxygen Given 2 L Sodium (136-145) mmol/L Potassium (3.5-5.1) mmol/L Chloride (98-107) mmol/L Carbon Dioxide (21-32) mmol/L Anion Gap (3-11) BUN (7-18) mg/dl Creatinine (0.6-1.2) mg/dl Est Cr Clr Drug Dosing ml/min Est GFR ( Amer) Est GFR (Non-Af Amer) BUN/Creatinine Ratio (10-20) Glucose (70-99) mg/dl Lactate 1.8 (0.4-2.0) mmol/L Calcium (8.5-10.1) mg/dl Magnesium (1.8-2.4) mg/dl Total Bilirubin (0.2-1) mg/dl AST (15-37) U/L ALT (12-78) U/L Alkaline Phosphatase (45-117) U/L Troponin I (0-0.045) ng/ml Total Protein (6.4-8.2) gm/dl Albumin (3.4-5.0) gm/dl Globulin (2.5-4.0) gm/dl Albumin/Globulin Ratio (0.9-2) Lipase (73-393) U/L TSH (0.300-4.500) uIu/ml Free T4 (0.8-1.6) ng/dl Urine Color Urine Appearance (Clear) Urine pH (4.5-7.5) Ur Specific [place] (1.000-1.030) Urine Protein (Negative) Urine Glucose (UA) (Negative) Urine Ketones (Negative) Urine Blood (Negative) Urine Nitrite (Negative) Urine Bilirubin (Negative) Urine Urobilinogen (Negative) Ur Leukocyte Esterase (Negative) Urine WBC (Auto) (0-5) /hpf Urine RBC (Auto) (0-4) /hpf U Hyaline Cast (Auto) (0-5) /lpf U Epithel Cells (Auto) (0-5) /lpf Urine Bacteria (Auto) (Negative) Influenza Type A Ag Neg for Influ A (Neg) Influenza Type B Ag Neg for Influ B (Neg) 10/02/19 Range/Units 02:25 WBC (4.8-10.8) K/uL RBC (4.2-5.4) M/uL Hgb (12.0-16.0) g/dL Hct (37-47) % MCV (80-100) fL MCH (25-34) pg MCHC (32-36) g/dL RDW Std Deviation (36.4-46.3) fL RDW Coeff of Ken (11.5-14.5) % Plt Count (130-400) K/uL MPV (7.4-10.4) fL Immature Gran % (Auto) % Neut % (Auto) % Lymph % (Auto) % [place] % (Auto) % Eos % (Auto) % Baso % (Auto) % Immature Gran # (Auto) (0.00-0.02) K/uL Neut # (Auto) (1.4-6.5) K/uL Lymph # (Auto) (1.2-3.4) K/uL [place] # (Auto) (0.11-0.59) K/uL Eos # (Auto) (0-0.5) K/uL Baso # (Auto) (0-0.2) K/uL PT (9.0-12.0) Seconds INR (0.9-1.1) APTT (21.0-31.0) Seconds PTT Ratio ABG pH (7.35-7.45) ABG pCO2 (35-46) mmHg ABG pO2 (80-95) mm/Hg ABG HCO3 (19-24) mmol/L ABG O2 Saturation (90-95) % ABG Base Excess (-9-1.8) mEq/L Obed Test (Pos) Barometric Pressure mm/Hg Oxygen Given Sodium (136-145) mmol/L Potassium (3.5-5.1) mmol/L Chloride (98-107) mmol/L Carbon Dioxide (21-32) mmol/L Anion Gap (3-11) BUN (7-18) mg/dl Creatinine (0.6-1.2) mg/dl Est Cr Clr Drug Dosing ml/min Est GFR ( Amer) Est GFR (Non-Af Amer) BUN/Creatinine Ratio (10-20) Glucose (70-99) mg/dl Lactate (0.4-2.0) mmol/L Calcium (8.5-10.1) mg/dl Magnesium (1.8-2.4) mg/dl Total Bilirubin (0.2-1) mg/dl AST (15-37) U/L ALT (12-78) U/L Alkaline Phosphatase (45-117) U/L Troponin I (0-0.045) ng/ml Total Protein (6.4-8.2) gm/dl Albumin (3.4-5.0) gm/dl Globulin (2.5-4.0) gm/dl Albumin/Globulin Ratio (0.9-2) Lipase (73-393) U/L TSH (0.300-4.500) uIu/ml Free T4 (0.8-1.6) ng/dl Urine Color Yellow Urine Appearance Clear (Clear) Urine pH 6.5 (4.5-7.5) Ur Specific [place] 1.041 H (1.000-1.030) Urine Protein Negative (Negative) Urine Glucose (UA) Negative (Negative) Urine Ketones Negative (Negative) Urine Blood Negative (Negative) Urine Nitrite Negative (Negative) Urine Bilirubin Negative (Negative) Urine Urobilinogen Negative (Negative) Ur Leukocyte Esterase 1+ H (Negative) Urine WBC (Auto) 1-5 (0-5) /hpf Urine RBC (Auto) 0-4 (0-4) /hpf U Hyaline Cast (Auto) 1-5 (0-5) /lpf U Epithel Cells (Auto) >30 H (0-5) /lpf Urine Bacteria (Auto) Negative (Negative) Influenza Type A Ag (Neg) Influenza Type B Ag (Neg) Imaging Data Radiologist's Impression: Preliminary Findings Only See Final Report For Complete Findings CTA CHEST: Comparison: July 28, 2018. Normal caliber thoracic aorta with atherosclerotic disease in pulsation artifact. Coronary artery calcifications. No pericardial effusion. Partial right-sided pneumonectomy. Bilateral patchy nodular infiltrates, for example in the superior segment of the left lower lobe on image 82 of series 6, new since prior exam, may represent small airways infectious or inflammatory process. Mediastinal and hilar adenopathy, new since prior exam. Recommend s hort-term followup. Additional scattered nodules are little changed since prior exam, for example in the left lower lobe on image 50 of series 6. No central PE. More peripheral branches are not adequately evaluated due to significant respiratory motion. Asymmetrical skin thickening in the left breast, correlate with physical exam. Small hiatal hernia. ECG Data Additional Comments: EKG#1 @ 02-OCT-2019 00:25:53 Normal sinus rhythm @86bpm No acute ST elevation Normal ECG When compared with ECG of 20-APR-2019 13:20, No significant change was found EKG#2 @ 02-OCT-2019 01:32:50 Atrial fibrillation with rapid ventricular response @114bpm Nonspecific ST and T wave abnormality Abnormal ECG When compared with ECG of 02-OCT-2019 00:25, (unconfirmed) Atrial fibrillation has replaced Sinus rhythm Nonspecific T wave abnormality, worse in Inferior leads Nonspecific T wave abnormality now evident in Lateral leads MDM Narrative Physical exam and history were performed. Nursing notes, EMR, and Medication List were personally reviewed. Patient appears to have shortness of breath symptoms worsening over the past day. The patient does appear ill and exhausted from her illness. She is speaking in short sentences and is audibly wheezing. The patient is currently on prednisone and Levaquin, and seems to be worsening despite this treatment. IV access was established and labs were obtained. ABG was gathered. The patient was given a 1 hour DuoNeb as well as IV Solu-Medrol. Chest x-ray was performed. Initial EKG is as above and was normal sinus rhythm. She was placed on the awake overnight monitor. She was gently hydrated with normal saline. Blood cultures were gathered. The patient's blood work is as above and was reviewed. He does not have a significantly elevated white blood cell count or gross anemia. INR is low at 1.6. Her ABG shows a pH of 7.5 with an HCO3 of 28. Electrolytes are nondiagnostic. Glucose is 107. Lactic acid is negative with cultures pending. Transaminases are normal. Troponin x1 is negative. TSH does show as low at 0.015 with a normal T4. Urine is without obvious infection. Flu swab is negative. Chest x-ray performed today does seem slightly worse than chest x-ray performed at this facility 4 days ago. I discussed the case with my attending physician, Dr. Goyal, who remained involved in care and decision-making. We did elect to perform a CT scan of the chest. CT scan of the chest appears to show bilateral patchy nodular infiltrates, which may represent an infectious or inflammatory process. Based on her presentation my concern is for an infectious process. The patient was given vancomycin and Zosyn. Of note, the patient had intermittent episodes of atrial fibrillation and atrial fibrillation with rapid ventricular response. We did capture the A. fib with RVR on EKG. She does have a history of A. fib, but does not recall having the rapid ventricular response component. At times the patient would desaturate on room air to 88%. Overall the patient does not appear well for discharge home. The case was discussed with the on-call hospitalist who agreed to evaluate the patient here in the department. Please see their dictation for further patient course, plan, and disposition. The chart was completed utilizing [employer] Voice Recognition Software. Grammatical errors, random word insertions, pronoun errors, and incomplete sentences are an occasional consequence of this system due to software limitations, ambient noise, and hardware issues. Any formal questions or concerns about the content, text, or information contained within the body of this dictation should be directly addressed to the provider for clarification. . Impression & Plan Shortness of breath, Hypoxia, Atrial fibrillation with rapid ventricular response, Abnormal CT of the chest Discharge Plan Visit Data Chief Complaint: Respiratory Problems Stated Complaint: HAVING TROUBLE BREATHING-SICK ED Provider: Cheryle Goyal ED Midlevel Provider: Etienne Lozano Discharge Problem: Shortness of breath, Hypoxia, Atrial fibrillation with rapid ventricular response, Abnormal CT of the chest Discharge Instructions Interventions: ED Discharge Assessment Last Done: 10/02/19 04:18
[2019-10-02 02:38] LABS: Appearance Urine Clear (Clear); Bacteria Urine Automated Negative (Negative); Bilirubin Urine Negative (Negative); Blood Urine Negative (Negative); Color Urine Yellow; Epithelial Cell Urine Auto >30 /lpf (0-5); Glucose Urine UA Negative (Negative); Ketones Urine Negative (Negative); Leukocyte Esterase Urine 1+ (Negative); Nitrite Urine Negative (Negative); Protein Urine Negative (Negative); RBC Urine Automated 0-4 /hpf (0-4); Specific Gravity Urine 1.041 (1.000-1.030); Urobilinogen Urine Negative (Negative); pH Urine 6.5 (4.5-7.5)
[2019-10-02] MEDS ORDERED: PIPERACILLIN/TAZOBACTAM 4.5 GM/120 ML BAG IV ONE (02:45)
[2019-10-02] MEDS ORDERED: VANCOMYCIN HCL 2,000 MG in SODIUM CHLORIDE 0.9% 500 ML IV ONE (02:45)
[2019-10-02] MEDS ORDERED: VANCOMYCIN CONSULT ACTIVE PRN (02:45)
[2019-10-02] MEDS ORDERED: PIPERACILL/TAZOBAC CONSULT ACTIVE PRN (02:45)
--- NOTE | 2019-10-02 04:17 | History & Physical Report ---
Date of Service October 02, 2019 Assessment & Plan (1) Asthma: Patient with severe persistent asthma presenting in what appears to be acute exacerbation. Presently with no acute respiratory distress. She is resting comfortably and speaking in complete sentences. She becomes visibly dyspneic with movement however. Findings on CT are slightly suspicious for infectious etiology. Admit to medical floor telemetry monitoring -Check procalcitonin and BNP x1 DuoNebs every 4 hours scheduled Albuterol every 2 hours as needed Solu-Medrol 40 mg IV twice daily -Continue Advair 500/50 twice daily Mucinex 1200 mg p.o. twice daily Tessalon 100 mg p.o. 3 times daily Antibiotic coverage for presumed community-acquired pneumonia with azithromycin and ceftriaxone Follow cultures Follow-up imaging to ensure resolution of findings on CTespecially with patient's history of prior malignancy Present on Admission?: Yes (2) Hypertension: Blood pressure stable at present. 122/71 Continue hydrochlorothiazide 12.5 mg p.o. every morning Continue to monitor blood pressure Present on Admission?: Yes (3) Chronic gastroesophageal reflux disease: Chronic. Stable. Continue Prilosec OTC 20 mg p.o. daily Present on Admission?: Yes (4) History of DVT of lower extremity: Patient with prior history of DVT and PE. Presently on Coumadin anticoagulation. INR subtherapeutic at 1.6. Administer additional dose of Coumadin 5 mg x 1 now Continue home dose Monitor INR every morning Present on Admission?: Yes (5) Paroxysmal atrial fibrillation: Patient tachycardic at present, regular. Monitor in place. She follows with Dr. Perry -Continue metoprolol 25 mg p.o. twice daily Continue diltiazem 180 mg p.o. twice daily (dose recently increased from 120 mg p.o. twice daily) Metoprolol 5 mg IV every 4 hours as needed for heart rate greater than 120 Continue Coumadin for anticoagulation with additional dosing as above Telemetry monitoring Present on Admission?: Yes (6) Hypothyroidism: Patient with history of Graves'. TSH is low at 0.015, free T4 within normal range at 1.38 Continue Synthroid 100 mcg p.o. every morning F/E/Npatient given IV fluids in the ER. Hep-Lock. Monitor electrolytes and replete as needed. Will administer magnesium sulfate x2 g, heart healthy diet as tolerated Prophylaxispatient on Coumadin anticoagulation for history of paroxysmal A. fib, PE, DVT. We will continue. 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 Patient complaining of over 1 month of persistent shortness of breath, fatigue, cough, wheeze. She was seen by ROSY Salguero on on 08/31/2019 and was diagnosed with acute bronchitis. She was given a prescription for Augmentin x10-day course and a prednisone taper which she completed as directed. She states that her symptoms slightly improved while taking that regimen however, after she completed the regimen her symptoms rapidly returned. She was seen again by Dr. Silva on 09/17/2019 with similar complaints. She was diagnosed with acute bronchitis with bronchospasm at that time and was prescribed doxycycline 100 mg p.o. twice daily x10 days as well as a second prednisone taper. She completed those medications as prescribed with minimal improvement in symptoms. She was seen again by Dr. Silva on 09/28/2019. She had a chest x-ray improved at that time and was started on Levaquin 500 mg daily for 10 days. She reports persistent symptoms to include cough, mostly dry, however slightly productive for yellow sputum over the last few days, shortness of breath, wheeze, occasional tightness in her chest as well as chills and increased palpitations. She has been taking her albuterol inhaler, Flovent, Advair as prescribed. She has been also using her nebulizer machine 2-3 times daily. Yesterday and today she took double neb treatments with no improvement in symptoms. She reports severe respiratory distress today therefore came to the ER with her . Additional complaints include poor sleep, sweats, itching ER course: Albuterol x12 mL neb, Solu-Medrol x125 mg, Zosyn x4.5 g, vancomycin x2 g, normal saline x1 L Allergies Allergy/AdvReac Type Severity Reaction Status Date / Time fenofibrate Allergy HEART Verified 10/02/19 01:41 RACING Lsmkrrp-Rai-Uiv Reductase Allergy FACE NUMB Verified 10/02/19 01:41 Inhibitor codeine AdvReac Mild gi upset Verified 10/02/19 01:41 ibuprofen AdvReac Mild ULCERS Verified 10/02/19 01:41 nedocromil AdvReac Mild COUGH Verified 10/02/19 01:41 theophylline AdvReac Mild NERVOUSNESS Verified 10/02/19 01:41 [place] Allergy Severe THROAT Uncoded 10/02/19 01:41 TIGHTNESS Home Medications Home Medications Medication Instructions Recorded Confirmed Type ProAir RespiClick 2 puff INHALATION Q4H PRN 06/27/18 10/02/19 History albuterol sulfate 2.5 mg INHALATION QID PRN 06/27/18 10/02/19 History cholecalciferol (vitamin D3) 5,000 unit PO QAM 06/27/18 10/02/19 History [Vitamin D3] hydrochlorothiazide 12.5 mg PO QAM 06/27/18 10/02/19 History magnesium chloride 64 mg PO Q12 06/27/18 10/02/19 History metoprolol tartrate 25 mg PO Q12H 06/27/18 10/02/19 History multivitamin 1 tab PO QAM 06/27/18 10/02/19 History diphenhydramine HCl 25 mg tablet 25 mg PO HS PRN tab 06/28/18 10/02/19 History levothyroxine 100 mcg capsule 100 mcg PO QAM 11/27/18 10/02/19 History Prilosec OTC 20 mg PO DAILY PRN 04/16/19 10/02/19 History biotin 5,000 mcg PO BID 04/16/19 10/02/19 History calcium carbonate-vitamin D3 600 1 tab PO BID tab 07/19/19 10/02/19 History mg (1,500 mg)-800 unit tablet fluticasone 500 mcg-salmeterol 50 1 inh INHALATION Q12H #3 inhaler 08/06/19 10/02/19 Rx mcg/dose blistr powdr for inhalation fluticasone propionate 110 2 puff INHALATION Q12H #36 gm 08/08/19 10/02/19 Rx mcg/actuation HFA aerosol inhaler amoxicillin 500 mg capsule 2,000 mg PO UD PRN cap 08/30/19 10/02/19 History prednisone 10 mg tablet 10 mg PO .COMPLEX #50 tab 09/17/19 10/02/19 Rx diltiazem HCl 180 mg capsule,24 180 mg PO BID #180 cap 09/27/19 10/02/19 Rx hr,extended release levofloxacin 500 mg tablet 500 mg PO DAILY #10 tab 09/28/19 10/02/19 Rx tramadol 50 mg tablet 50 mg PO Q8H PRN #30 tab 09/28/19 10/02/19 Rx warfarin 5 mg tablet See Rx Instructions PO UD tab 09/28/19 10/02/19 History Past Med/Surg History Medical History Degenerative disc disease (Resolved) Dyslipidemia Graves disease (Resolved) History of colon polyps (Resolved) History of DVT of lower extremity (Resolved) History of kidney stones (Resolved) Hx of breast cancer (Resolved) 2001 LEFT BREAST - HAD RADIATION AND CHEMO Hx of cancer of lung (Resolved) RUL Lobectomy Hx of deep venous thrombosis (Resolved) Left leg Hx pulmonary embolism (Resolved) Extensive Nausea and vomiting after administration of anesthetic agent (Resolved) Paroxysmal atrial fibrillation Right radial head fracture (Resolved) Surgical History History of arthroscopy of right knee (Resolved) History of bunionectomy of left great toe (Resolved) History of bunionectomy of right great toe (Resolved) History of cardiac cath (Resolved) ?--no stents History of cholecystectomy (Resolved) History of colonoscopy (Resolved) History of dilatation and curettage (Resolved) History of esophagogastroduodenoscopy (EGD) (Resolved) History of hysterectomy (Resolved) History of inferior vena caval filter placement (Resolved) History of left breast biopsy (Resolved) malignant History of lobectomy of lung (Resolved) RIGHT UPPER History of lumpectomy of left breast (Resolved) REMOVAL 15 LYMPH NODES History of total right knee replacement (TKR) (Resolved) History of vascular access device (Resolved) removed History of wisdom tooth extraction (Resolved) Hx of lumbar discectomy (Resolved) Social History Preferred Language: Kiswahili Communication Ability: Effective Autism Tutor Required: No Beliefs That Will Affect Care: None marital status: Current Living Situation: Family Current Living Situation Comment: Lives with and daughter Feels Safe at Home: Yes Smoking Status: Never smoker Second Hand Exposure: No ; Hx Alcohol Use: No Hx Substance Use: No Review of Systems Review of Systems: All systems reviewed & are unremarkable except as noted in HPI & below Physical Exam Physical Exam: General: patient sitting comfortably in bed, NAD, non-toxic in appearance, AA&O x 4 Skin: warm, dry, intact, no rashes or lesions HEENT: NC/AT, PERRL, EOMI, anicteric sclera, conjunctiva without injection, external ear normal to inspection and nontender, nares patent, moist mucus memb ranes, dentition intact, no oropharyngeal lesions, neck supple, trachea midline, no LAD, no thyromegaly, no JVD Heart: +S1/S2, regular, tachycardic, no m/r/g, monitor in place on left chest wall Lungs: Diminished breath sounds in bilateral lung palmer, crackles most notably in the right base, prolonged expiratory phase with diffuse end expiratory wheezing wheezing in bilateral lung palmer, no rhonchi Abd: +BS, soft, NT/ND, no masses/organomegaly/ascites Ext: warm, 2+ pulses in UE/LE bilaterally, no clubbing/cyanosis, 1+ pedal edema Neuro: nonfocal, patient AA&O x 4, speech intact, no facial droop, moving all extremities on command with equal strength 5/5 Results & Data Vital Signs (Past 12 Hours) Vital Signs Temp Pulse Pulse Resp BP BP Pulse Ox 10/02/19 03:00 133 H 22 122/71 96 10/02/19 02:30 10/02/19 02:15 96 10/02/19 01:28 126 H 24 142/82 H 97 10/02/19 00:44 87 95 H 10/02/19 00:30 99 10/02/19 00:27 10/02/19 00:04 36.7 C 103 H 32 H 159/75 H 99 Pulse Ox 10/02/19 03:00 10/02/19 02:30 88 L 10/02/19 02:15 10/02/19 01:28 10/02/19 00:44 10/02/19 00:30 10/02/19 00:27 91 10/02/19 00:04 Laboratory Results Lab Results 10/02/19 10/02/19 10/02/19 Range/Units 00:29 00:29 00:29 WBC 10.58 (4.8-10.8) K/uL RBC 4.35 (4.2-5.4) M/uL Hgb 12.2 (12.0-16.0) g/dL Hct 38.6 (37-47) % MCV 88.7 (80-100) fL MCH 28.0 (25-34) pg MCHC 31.6 L (32-36) g/dL RDW Std Deviation 49.4 H (36.4-46.3) fL RDW Coeff of Ken 15.2 H (11.5-14.5) % Plt Count 186 (130-400) K/uL MPV 9.0 (7.4-10.4) fL Immature Gran % (Auto) 0.5 % Neut % (Auto) 66.2 % Lymph % (Auto) 16.4 % Casey % (Auto) 14.4 % Eos % (Auto) 2.4 % Baso % (Auto) 0.1 % Immature Gran # (Auto) 0.05 H (0.00-0.02) K/uL Neut # (Auto) 7.01 H (1.4-6.5) K/uL Lymph # (Auto) 1.74 (1.2-3.4) K/uL Casey # (Auto) 1.52 H (0.11-0.59) K/uL Eos # (Auto) 0.25 (0-0.5) K/uL Baso # (Auto) 0.01 (0-0.2) K/uL PT 16.0 H (9.0-12.0) Seconds INR 1.6 H (0.9-1.1) APTT 27.8 (21.0-31.0) Seconds PTT Ratio 1.0 ABG pH (7.35-7.45) ABG pCO2 (35-46) mmHg ABG pO2 (80-95) mm/Hg ABG HCO3 (19-24) mmol/L ABG O2 Saturation (90-95) % ABG Base Excess (-9-1.8) mEq/L Obed Test (Pos) Barometric Pressure mm/Hg Oxygen Given Sodium 140 (136-145) mmol/L Potassium 3.8 (3.5-5.1) mmol/L Chloride 103 (98-107) mmol/L Carbon Dioxide 33 H (21-32) mmol/L Anion Gap 5.0 (3-11) BUN 15 (7-18) mg/dl Creatinine 0.85 (0.6-1.2) mg/dl Est Cr Clr Drug Dosing 82.3 ml/min Est GFR ( Amer) 83.3 Est GFR (Non-Af Amer) 71.9 BUN/Creatinine Ratio 17.5 (10-20) Glucose 107 H (70-99) mg/dl Lactate (0.4-2.0) mmol/L Calcium 8.9 (8.5-10.1) mg/dl Magnesium 1.6 L (1.8-2.4) mg/dl Total Bilirubin 0.4 (0.2-1) mg/dl AST 16 (15-37) U/L ALT 22 (12-78) U/L Alkaline Phosphatase 70 (45-117) U/L Troponin I < 0.015 (0-0.045) ng/ml Total Protein 6.6 (6.4-8.2) gm/dl Albumin 2.8 L (3.4-5.0) gm/dl Globulin 3.8 (2.5-4.0) gm/dl Albumin/Globulin Ratio 0.7 L (0.9-2) Lipase 240 (73-393) U/L TSH 0.015 L (0.300-4.500) uIu/ml Free T4 1.38 (0.8-1.6) ng/dl Urine Color Urine Appearance (Clear) Urine pH (4.5-7.5) Ur Specific Colton (1.000-1.030) Urine Protein (Negative) Urine Glucose (UA) (Negative) Urine Ketones (Negative) Urine Blood (Negative) Urine Nitrite (Negative) Urine Bilirubin (Negative) Urine Urobilinogen (Negative) Ur Leukocyte Esterase (Negative) Urine WBC (Auto) (0-5) /hpf Urine RBC (Auto) (0-4) /hpf U Hyaline Cast (Auto) (0-5) /lpf U Epithel Cells (Auto) (0-5) /lpf Urine Bacteria (Auto) (Negative) Influenza Type A Ag (Neg) Influenza Type B Ag (Neg) 10/02/19 10/02/19 10/02/19 Range/Units 00:46 00:53 00:56 WBC (4.8-10.8) K/uL RBC (4.2-5.4) M/uL Hgb (12.0-16.0) g/dL Hct (37-47) % MCV (80-100) fL MCH (25-34) pg MCHC (32-36) g/dL RDW Std Deviation (36.4-46.3) fL RDW Coeff of Ken (11.5-14.5) % Plt Count (130-400) K/uL MPV (7.4-10.4) fL Immature Gran % (Auto) % Neut % (Auto) % Lymph % (Auto) % Casey % (Auto) % Eos % (Auto) % Baso % (Auto) % Immature Gran # (Auto) (0.00-0.02) K/uL Neut # (Auto) (1.4-6.5) K/uL Lymph # (Auto) (1.2-3.4) K/uL Casey # (Auto) (0.11-0.59) K/uL Eos # (Auto) (0-0.5) K/uL Baso # (Auto) (0-0.2) K/uL PT (9.0-12.0) Seconds INR (0.9-1.1) APTT (21.0-31.0) Seconds PTT Ratio ABG pH 7.50 H (7.35-7.45) ABG pCO2 37 (35-46) mmHg ABG pO2 70 L (80-95) mm/Hg ABG HCO3 28 H (19-24) mmol/L ABG O2 Saturation 95.0 (90-95) % ABG Base Excess 5.1 H (-9-1.8) mEq/L Obed Test POS (Pos) Barometric Pressure 731.9 mm/Hg Oxygen Given 2 L Sodium (136-145) mmol/L Potassium (3.5-5.1) mmol/L Chloride (98-107) mmol/L Carbon Dioxide (21-32) mmol/L Anion Gap (3-11) BUN (7-18) mg/dl Creatinine (0.6-1.2) mg/dl Est Cr Clr Drug Dosing ml/min Est GFR ( Amer) Est GFR (Non-Af Amer) BUN/Creatinine Ratio (10-20) Glucose (70-99) mg/dl Lactate 1.8 (0.4-2.0) mmol/L Calcium (8.5-10.1) mg/dl Magnesium (1.8-2.4) mg/dl Total Bilirubin (0.2-1) mg/dl AST (15-37) U/L ALT (12-78) U/L Alkaline Phosphatase (45-117) U/L Troponin I (0-0.045) ng/ml Total Protein (6.4-8.2) gm/dl Albumin (3.4-5.0) gm/dl Globulin (2.5-4.0) gm/dl Albumin/Globulin Ratio (0.9-2) Lipase (73-393) U/L TSH (0.300-4.500) uIu/ml Free T4 (0.8-1.6) ng/dl Urine Color Urine Appearance (Clear) Urine pH (4.5-7.5) Ur Specific Colton (1.000-1.030) Urine Protein (Negative) Urine Glucose (UA) (Negative) Urine Ketones (Negative) Urine Blood (Negative) Urine Nitrite (Negative) Urine Bilirubin (Negative) Urine Urobilinogen (Negative) Ur Leukocyte Esterase (Negative) Urine WBC (Auto) (0-5) /hpf Urine RBC (Auto) (0-4) /hpf U Hyaline Cast (Auto) (0-5) /lpf U Epithel Cells (Auto) (0-5) /lpf Urine Bacteria (Auto) (Negative) Influenza Type A Ag Neg for Influ A (Neg) Influenza Type B Ag Neg for Influ B (Neg) 10/02/19 Range/Units 02:25 WBC (4.8-10.8) K/uL RBC (4.2-5.4) M/uL Hgb (12.0-16.0) g/dL Hct (37-47) % MCV (80-100) fL MCH (25-34) pg MCHC (32-36) g/dL RDW Std Deviation (36.4-46.3) fL RDW Coeff of Ken (11.5-14.5) % Plt Count (130-400) K/uL MPV (7.4-10.4) fL Immature Gran % (Auto) % Neut % (Auto) % Lymph % (Auto) % Casey % (Auto) % Eos % (Auto) % Baso % (Auto) % Immature Gran # (Auto) (0.00-0.02) K/uL Neut # (Auto) (1.4-6.5) K/uL Lymph # (Auto) (1.2-3.4) K/uL Casey # (Auto) (0.11-0.59) K/uL Eos # (Auto) (0-0.5) K/uL Baso # (Auto) (0-0.2) K/uL PT (9.0-12.0) Seconds INR (0.9-1.1) APTT (21.0-31.0) Seconds PTT Ratio ABG pH (7.35-7.45) ABG pCO2 (35-46) mmHg ABG pO2 (80-95) mm/Hg ABG HCO3 (19-24) mmol/L ABG O2 Saturation (90-95) % ABG Base Excess (-9-1.8) mEq/L Obed Test (Pos) Barometric Pressure mm/Hg Oxygen Given Sodium (136-145) mmol/L Potassium (3.5-5.1) mmol/L Chloride (98-107) mmol/L Carbon Dioxide (21-32) mmol/L Anion Gap (3-11) BUN (7-18) mg/dl Creatinine (0.6-1.2) mg/dl Est Cr Clr Drug Dosing ml/min Est GFR ( Amer) Est GFR (Non-Af Amer) BUN/Creatinine Ratio (10-20) Glucose (70-99) mg/dl Lactate (0.4-2.0) mmol/L Calcium (8.5-10.1) mg/dl Magnesium (1.8-2.4) mg/dl Total Bilirubin (0.2-1) mg/dl AST (15-37) U/L ALT (12-78) U/L Alkaline Phosphatase (45-117) U/L Troponin I (0-0.045) ng/ml Total Protein (6.4-8.2) gm/dl Albumin (3.4-5.0) gm/dl Globulin (2.5-4.0) gm/dl Albumin/Globulin Ratio (0.9-2) Lipase (73-393) U/L TSH (0.300-4.500) uIu/ml Free T4 (0.8-1.6) ng/dl Urine Color Yellow Urine Appearance Clear (Clear) Urine pH 6.5 (4.5-7.5) Ur Specific Colton 1.041 H (1.000-1.030) Urine Protein Negative (Negative) Urine Glucose (UA) Negative (Negative) Urine Ketones Negative (Negative) Urine Blood Negative (Negative) Urine Nitrite Negative (Negative) Urine Bilirubin Negative (Negative) Urine Urobilinogen Negative (Negative) Ur Leukocyte Esterase 1+ H (Negative) Urine WBC (Auto) 1-5 (0-5) /hpf Urine RBC (Auto) 0-4 (0-4) /hpf U Hyaline Cast (Auto) 1-5 (0-5) /lpf U Epithel Cells (Auto) >30 H (0-5) /lpf Urine Bacteria (Auto) Negative (Negative) Influenza Type A Ag (Neg) Influenza Type B Ag (Neg) Diagnostic Findings CTA chest: Per stat readcomparison study 07/28/2018normal caliber thoracic aorta with atherosclerotic disease and pulsation artifact. Coronary artery calcifications. No pericardial effusion. Partial right-sided pneumonectomy. Bilateral patchy nodular infiltrates, for example in the superior segment of the left lobe on image 82 of series 6, new since prior exam, may represent small airways infectious or inflammatory process. Mediastinal and hilar adenopathy, new since prior exam. Recommend short-term follow-up. Additional scattered nodules are little changed since prior exam, for example in the left lower lobe on image 50 of series 6. No central PE. More peripheral branches are not adequately evaluated due to significant respiratory motion. Asymmetrical skin thickening in the left breast correlate with physical exam. Small hiatal hernia Code Status & VTE Plan Code Status Full code per discussion with patient VTE Prophylaxis Plan VTE Prophylaxis will be ordered: Yes PG Care Time/CCT Total # of Minutes Spent Total Time Spent with Patient: Total time spent is greater than 50% in coordination of care (as documented) at patient's floor/unit and/or counseling patient: (1) Asthma Asthma severity: severe Asthma persistence: persistent Asthma complication type: with acute exacerbation Qualified Code(s): J45.51 - Severe persistent asthma with (acute) exacerbation (2) Hypertension Hypertension type: essential hypertension Qualified Code(s): I10 - Essential (primary) hypertension (3) Hypothyroidism Hypothyroidism type: acquired Qualified Code(s): E03.9 - Hypothyroidism, unspecified
[2019-10-02] MEDS ORDERED: DOCUSATE SODIUM 100 MG CAP PO PRN (04:38)
[2019-10-02] MEDS ORDERED: ACETAMINOPHEN 325 MG TAB PO PRN (04:38)
[2019-10-02] MEDS ORDERED: ALBUTEROL 0.5% NEB SOLN 2.5 MG/0.5 ML VIAL NEB PRN (04:38)
[2019-10-02] MEDS ORDERED: ONDANSETRON INJ 2 MG/ML 2 ML VIAL IV PRN (04:38)
[2019-10-02] MEDS ORDERED: AZITHROMYCIN 500 MG in DEXTROSE 5% 250 ML IV ONE (05:00)
[2019-10-02] MEDS ORDERED: WARFARIN SOD 5 MG TAB PO ONE (05:15)
[2019-10-02] MEDS: MAGNESIUM SULFATE / D5W 1 GM/100 ML BAG IV SCH ×2 (05:29→06:23)
--- NOTE | 2019-10-02 06:55 | CT Scan Report ---
CT angio chest PE protocol CT DOSE: 1248.98 mGy.cm HISTORY: 64 years-old Female with SOB. Past hx PE. Hx lobectomy+Cancer. Acute shortness of breath. Postoperative changes of prior right upper lobectomy TECHNIQUE: Multiple CTA images of the chest were obtained after the intravenous administration of 104 ml Optiray 320. Coronal and sagittal MIPS were obtained from the axial data set and were submitted for review. All measurements were obtained according to NASCET criteria. A dose lowering technique w as utilized adhering to the principles of ALARA. COMPARISON: CT chest 07/28/2018, CTA chest 03/04/2018 FINDINGS: CTA: Mild cardiomegaly. No pericardial effusion. Coronary arterial calcifications are noted. No thoracic a ortic aneurysm or dissection. Moderate mixed plaque of the thoracic aortic arch and proximal great ve ssels. 5.6 cm segment of the left subclavian artery distal to the origin of the left vertebral artery is nonopacified and suggests high-grade stenosis with flow seen distally to this segment thickening distal aspect of the left subclavian artery. This appears unchanged dating back to 03/04/2018 exam. Th e pulmonary artery is opacified to the level of the lobar segments. The segmental and subsegmental br anches are not well opacified secondary to contrast bolus timing and therefore not well evaluated. No central filling defects identified to suggest pulmonary thromboembolic disease. Respiratory motion a rtifact also limits evaluation of the segmental and subsegmental branches. CT CHEST: Unremarkable thyroid. 8 mm right tracheoesophageal recess lymph node on image 240 series 7 previously measured 7 mm. Enlarged right hilar lymph nodes measuring up to 1.2 cm appear new from prior study. Prominent subcarinal and left hilar lymph nodes are also present. No pneumothorax or pleural effusion . Postoperative changes from prior right upper lobectomy. Subpleural reticulation is redemonstrated s uggestive of fibrotic scarring. Mild bibasilar bronchial wall thickening with mucous plugging. Consol idation with air bronchograms and mild traction bronchiectasis is again noted involving the anterior left lung apex which is unchanged and suggestive of scarring. There are patchy consolidative and grou ndglass opacities noted within all lobes bilaterally, most pronounced in the lung bases and superior segment of the left lower lobe. 6 mm solid nodule of the basal left lower lobe, image 124 series 7 is unchanged. 4 mm solid nodule of the right lower lobe on image 180 series 7 is new from prior. Central airways are patent. Decreased AP dimension of the trachea may reflect tracheomalacia or phase of respiration. Tiny hiatal hernia. C holecystectomy. No acute process of the imaged upper abdomen. Skin thickening of the left breast. George gical clips of the left axilla with stranding of the superior left breast suggests post therapeutic c hanges. Degenerative changes of the shoulders and spine. No suspicious lytic or blastic foci. IMPRESSION: 1. Limited evaluation of the pulmonary arterial tree secondary to contrast bolus timing. No central p ulmonary emboli identified. 2. Mild cardiomegaly without evidence of acute aortic pathology. 3. Long segment high-grade stenosis of the left subclavian artery as above is unchanged. 4. Patchy multilobar groundglass and consolidative opacities are suggestive of a multifocal infectiou s or inflammatory pneumonitis. Follow-up imaging to document resolution recommended. 5. Mild associated bronchial wall thickening of the lung bases with mucous plugging. 6. Unchanged 6 mm solid nodule of the basal left lower lobe. 7. Mild likely reactive mediastinal and hilar adenopathy is new from comparison. 8. Postoperative changes from prior right upper lobectomy. 9. Additional findings as above. Please refer to below summary of Fleischner criteria recommendations for follow-up of incidental CT n odules (Gordon Garcia, Guidelines for management of small pulmonary nodules detected on CT scans: A sta tement from the Fleischner Society, Radiology 237: [phone].) SOLID NODULES Solitary nodule size: <6 mm * Low risk patients: no follow-up needed * high risk patients: optional CT at 12 months Solitary nodule size: 6-8 mm * Low risk patients: follow-up at 6-12 months, then consider further follow-up at 18-24 months * high risk patients: initial follow-up CT at 6-12 months and then at 18-24 months if no change Solitary nodule size: >8 mm * either low or high risk patients - consider follow-up CT at 3 months, and/or CT-PET, and/or biopsy Multiple nodules size: <6 mm * Low risk patients: no routine follow-up * high risk patients: optional CT at 12 months Multiple nodules size: 6-8 mm * Low risk patients: follow-up at 3-6 months, then consider further follow-up at 18-24 months * high risk patients: follow-up at 3-6 months, then at 18-24 months if no change Multiple nodules size: >8 mm * Low risk patients: follow-up at 3-6 months, then consider further follow-up at 18-24 months * high risk patients: follow-up at 3-6 months, then at 18-24 months if no change Note: newly detected indeterminate nodule in persons 35 years of age or older. * Low risk patients: minimal or absent history of smoking and/or other known risk factors * high risk patients: history of smoking or of other known risk factors (e.g. first degree relative with lung cancer, or exposure to asbestos, radon, uranium) * if a nodule up to 8 mm is partly solid or is ground glass further follow-up is required after 24 m onths to exclude possible slow growing adenocarcinoma ([place]T) SUBSOLID NODULES Solitary pure ground-glass nodule * nodule size <6 mm - no CT follow-up required * nodule size >=6 mm - follow-up CT at 6-12 months, then every 2 years until 5 years Solitary part-solid nodule * nodule size <6 mm - no CT follow-up required * nodule size >=6 mm - follow-up CT at 3-6 months. If unchanged, and solid component remains <6 mm, then annual follow-up for 5 years Multiple subsolid nodules * nodule size <6 mm - follow-up CT at 3-6 months, consider further follow-up at 2 and 4 years if sta ble * nodule size >=6 mm - follow-up CT at 3-6 months, subsequent management based on the most suspiciou s nodule(s) The above report was generated using voice recognition software. It may contain grammatical, syntax o r spelling errors. Electronically signed by: Octaviano Valiente M.D. 10/02/2019 6:54 AM
--- NOTE | 2019-10-02 07:11 | XRay Report ---
TWO VIEW CHEST CLINICAL HISTORY: Dyspnea. FINDINGS: PA and lateral chest radiographs are compared to study dated 09/28/2019 and correlated with chest CT dated 07/28/2018. Electronic device projects over the mediastinum. The cardiomediastinal si lhouette is unremarkable. There is chronic elevation of the right hemidiaphragm. Scarring/atelectasis is seen at both lung bases. Chronic interstitial thickening is similar to previous. No lobar consoli dation or pleural effusion is identified. There is no pneumothorax. The skeletal structures are osteo penic. The bony thorax appears intact. Surgical clips are noted in the left chest wall and upper abdo men. IMPRESSION: Chronic parenchymal changes as above with no acute cardiopulmonary abnormality. Electronically signed by: Luca Mathews M.D. 10/02/2019 7:10 AM
[2019-10-02 07:21] LABS: INR 1.5 (0.9-1.1); Prothrombin Time 15.1 Seconds (9.0-12.0)
[2019-10-02] MEDS: ALBUT/IPRATROP 3MG/0.5MG NEB 3 ML VIAL NEB SCH ×5 (07:30→23:06)
[2019-10-02] MEDS: FLUTICASONE/SALMETEROL (ADVAIR) 500/50 INH 14 PUFF INH SCH ×2 (08:24→20:24)
[2019-10-02] MEDS: guaiFENesin 600 MG TABCR PO SCH ×2 (08:25→20:23)
[2019-10-02] MEDS: hydroCHLOROthiazide 25 MG TAB PO SCH (08:25)
[2019-10-02] MEDS: methylPREDNISolone 40 MG in SYRINGE 0 ML IV SCH ×2 (08:25→20:25)
[2019-10-02] MEDS: MULTIVITAMIN TAB PO SCH (08:25)
[2019-10-02] MEDS: METOPROLOL TARTRATE 25 MG TAB PO SCH ×2 (08:25→20:24)
[2019-10-02] MEDS: BENZONATATE 100 MG CAPSULE PO SCH ×3 (08:25→20:22)
[2019-10-02] MEDS: dilTIAZem ER 180 MG CAPCR PO SCH ×2 (08:25→20:23)
[2019-10-02] MEDS: MAGNESIUM CHLORIDE 64MG DELAYED REL TAB PO SCH ×2 (08:25→20:24)
[2019-10-02] MEDS: LEVOTHYROXINE SODIUM 100 MCG TABLET PO SCH (08:26)
[2019-10-02] MEDS: cefTRIAXone SODIUM 2,000 MG in DEXTROSE 5% 50 ML IV SCH (08:26)
[2019-10-02] MEDS: CALCIUM 600MG + VIT D 400 IU TAB PO SCH ×2 (08:26→20:23)
[2019-10-02] MEDS ORDERED: NON-FORMULARY MEDICATION (Biotin 5,000 MCG) PO SCH (09:00)
--- NOTE | 2019-10-02 14:13 | Fluoroscopy Report ---
FL video swallow HISTORY: r/o aspiration TECHNIQUE: Video fluoroscopic evaluation of swallowing was performed in the AP and lateral projection s by the speech pathology staff. The patient is fed nectar-thick and thin liquid barium, a barium coa félix wafer, and barium pudding. FLUOROSCOPY TIME: 1.6 minutes.. COMPARISON STUDY: None. FINDINGS: There is normal hyoid excursion and epiglottic deflection. No significant penetration or as piration identified. Swallowing function is within normal limits. IMPRESSION: 1. No aspiration identified. 2. Please see the speech pathologist report for detailed findings and recommendations. ACT 112: Negative or not required by law. Electronically signed by: Christopher Buckley M.D. 10/02/2019 2:12 PM
[2019-10-02] MEDS: WARFARIN SOD 2.5 MG TAB PO SCH (15:31)
[2019-10-02] MEDS: METOPROLOL TARTRATE 1 MG/ML VIAL IV PRN ×2 (15:47→20:05)
--- NOTE | 2019-10-02 18:35 | Hospitalist Progress Note ---
Date of Service October 02, 2019 Assessment & Plan (1) Shortness of breath: Jannie is a 64-year-old female with a past medical history of asthma, hyperlipidemia, A. fib, osteoarthritis, hypertension, hypothyroidism, and right upper lobectomy for carcinoid who presents to the hospital with 1 month of shortness of breath which has failed 3 courses of outpatient treatment and which is acutely worse for 1 day prior to admission. Acute hypoxic respiratory failure 2/2 multifocal pneumonia w/ asthma exacerbation Had initial improvement approximately 1 month ago with 10 days of Augmentin treatment, and again worsened. Did not improve with doxycycline 10-day course with prednisone taper followed by Levaquin 10-day course. CT chest shows multifocal consolidations and groundglass opacities concerning for bilateral multifocal pneumonia. Pulmonary nodules appreciated, will require outpatient follow-up. Patient denies a history of aspiration pneumonia, alcohol use, and passing out. Her CT is concerning for recurrent aspiration pneumonia [employer] consulted for videofluoroscopy Clinically improving on Rocephin plus azithromycin. CT chest does not appear consistent with anaerobic pneumonia, will defer conversion to Unasyn for additional anaerobic coverage at this time Increased oxygen requirement currently on 2 L nasal cannula Asthma exacerbation management as below -Continue Mucinex for symptomatic treatment Asthma exacerbation in the setting of pneumonia Continue duo nebs every 4 hours Continue albuterol every 4 hours as needed Methylprednisolone 40 mg twice daily Advair 500/50 daily Paroxysmal A. fib Continue metoprolol 25 mg twice daily Continue diltiazem 180 mg twice daily Continue Coumadin. Patient likely to have labile INRs given antibiotic use. Received 5 mg additional dose in ED. Continue Coumadin 2.5 mg daily, adjust per INR. INR daily Hypertension Continue hydrochlorothiazide 12.5 mg every morning GERD Continue omeprazole 20 mg daily Hypothyroidism Continue Synthroid 100 mcg daily Free T4 normal on admission FEN: Regular diet DVT prophylaxis: Coumadin as above CODE STATUS: Full code (2) Atrial fibrillation with rapid ventricular response: (3) Abnormal CT of the chest: (4) Cough: (5) Dyslipidemia: (6) Paroxysmal atrial fibrillation: (7) History of DVT of lower extremity: (8) Paroxysmal SVT (supraventricular tachycardia): (9) Osteoarthritis: (10) Irritable bowel: (11) Hearing disorder: (12) Hypertension: (13) Hypothyroidism: (14) Osteoarthritis of left knee: (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 Orellana and agree with the findings and care plan. Annalee Dickey is seen at the bedside today. She is laying in bed, reports some shortness of breath improved from prior. She feels her shortness of breath peaked in intensity early last night, and has been improving and is currently better than it was prior to admission. She is not currently back at her normal breathing baseline. She endorses wheezing with deep inspiration and expiration. She endorses chills and nausea without fever last night, none this morning. S he denies nausea, vomiting, diarrhea, constipation. She endorses a brief episode of palpitations this morning, and had an A. fib burst on telemetry. She had one episode of yellow sputum production, about a half dollar in size. She denies any difficulty swallowing, choking, passing out, alcohol use, or aspiration events in the past. Review of Systems Review of Systems: Constitutional: Denies fever, endorses chills/nausea last night with some sweats but none this morning. Eyes: Denies change ENT: Denies ear pain, sore throat, sinus pain Cardiovascular: Denies chest pain, chest pressure. Endorses palpitations. Respiratory: Endorses shortness of breath, improved from prior. Endorses wheezing. Gastrointestinal: Denies abdominal pain, vomiting, constipation, diarrhea Genitourinary: Denies dysuria Musculoskeletal: Denies weakness, muscle aches/pain, joint aches/pain Integumentary:Denies rash, lesions, bruising Neurological: Denies headache, numbness, tingling, focal weakness Physical Exam Physical Exam: General: A&Ox3. NAD. Cooperative. HEENT: Atraumatic, normocephalic. Pupils equal and reactive to light and accommodation. Pulm: Moderate air movement, inspiratory and expiratory wheezes present. Symmetrical chest rise. No respiratory distress. Cardiac: RRR, -mrg,, burst of A. fib with irregularly irregular rhythm on telemetry earlier this morning. Abdominal: Nontender, nondistended, soft. BS present. Extremities: Moving all extremities equally. PT and radial pulses intact and symmetrical bilaterally. Results & Data Vital Signs (Past 12 Hours) Vital Signs Temp Pulse Pulse Resp BP BP Pulse Ox 10/02/19 17:38 94 H 10/02/19 15:47 130 H 147/71 H 10/02/19 15:10 36.7 C 108 H 18 148/67 H 92 10/02/19 14:46 93 H 22 95 10/02/19 11:28 36.7 C 92 H 18 145/75 H 92 10/02/19 11:11 87 18 93 10/02/19 07:42 36.4 C L 94 H 20 149/78 H 95 10/02/19 07:33 94 H 18 94 Resident Activity Tracking Resident Involvement: Resident Care Provided Care Provided: Adult Hospital Medicine (1) Hypothyroidism Hypothyroidism type: acquired Qualified Code(s): E03.9 - Hypothyroidism, unspecified (2) Hypertension Hypertension type: essential hypertension Qualified Code(s): I10 - Essential (primary) hypertension
[2019-10-02] MEDS ORDERED: DEXTROMETHORPHAN POLYMR COMPLX 30 MG/5 ML UDP PO PRN (20:21)
[2019-10-03] MEDS: METOPROLOL TARTRATE 1 MG/ML VIAL IV PRN ×2 (01:10→23:36)
[2019-10-03] MEDS: ALBUT/IPRATROP 3MG/0.5MG NEB 3 ML VIAL NEB SCH ×6 (03:01→23:00)
[2019-10-03] MEDS: cefTRIAXone SODIUM 2,000 MG in DEXTROSE 5% 50 ML IV SCH (05:20)
[2019-10-03] MEDS: LEVOTHYROXINE SODIUM 100 MCG TABLET PO SCH (05:59)
[2019-10-03] MEDS: AZITHROMYCIN 250 MG in DEXTROSE 5% 250 ML IV SCH (05:59)
[2019-10-03 06:00] LABS: Basophils # (auto) 0.01 K/uL (0-0.2); Basophils % (auto) 0.1 %; Hematocrit (blood only) 35.8 % (37-47); Hemoglobin 11.4 g/dL (12.0-16.0); Immature Granulocytes # (auto) 0.06 K/uL (0.00-0.02); Immature Granulocytes % (auto) 0.7 %; Lymphocytes # (auto) 0.59 K/uL (1.2-3.4); Lymphocytes % (auto) 6.8 %; Mean Corpuscular Hemoglobin 28.2 pg (25-34); Mean Corpuscular Hgb Conc 31.8 g/dL (32-36); Mean Corpuscular Volume 88.6 fL (80-100); Monocytes # (auto) 0.51 K/uL (0.11-0.59); Monocytes % (auto) 5.9 %; Neutrophils # (auto) 7.54 K/uL (1.4-6.5); Neutrophils % (auto) 86.5 %; Platelet Count 178 K/uL (130-400); RDW Coefficient of Variation 15.6 % (11.5-14.5); RDW Standard Deviation 50.1 fL (36.4-46.3); Red Blood Count 4.04 M/uL (4.2-5.4); White Blood Count 8.71 K/uL (4.8-10.8)
[2019-10-03 06:26] LABS: Prothrombin Time 19.7 Seconds (9.0-12.0)
[2019-10-03] MEDS: PANTOprazole 40 MG TAB PO PRN (06:26)
[2019-10-03 06:36] LABS: BUN Creatinine Ratio 19.5 (10-20); Calcium 9.7 mg/dl (8.5-10.1); Creatinine Clr Calc Pharmacy 68.2 ml/min; Est GFR (African American) 68.5; Est GFR (Non-African American) 59.1; Potassium 3.4 mmol/L (3.5-5.1)
[2019-10-03] MEDS: FLUTICASONE/SALMETEROL (ADVAIR) 500/50 INH 14 PUFF INH SCH ×2 (07:31→20:53)
[2019-10-03] MEDS: guaiFENesin 600 MG TABCR PO SCH ×2 (07:32→20:55)
[2019-10-03] MEDS: METOPROLOL TARTRATE 25 MG TAB PO SCH ×2 (07:32→20:55)
[2019-10-03] MEDS: BENZONATATE 100 MG CAPSULE PO SCH ×3 (07:32→20:54)
[2019-10-03] MEDS: MAGNESIUM CHLORIDE 64MG DELAYED REL TAB PO SCH ×2 (07:32→20:56)
[2019-10-03] MEDS: dilTIAZem ER 180 MG CAPCR PO SCH ×2 (07:32→20:55)
[2019-10-03] MEDS: MULTIVITAMIN TAB PO SCH (07:32)
[2019-10-03] MEDS: TRAMADOL HCL 50 MG TABLET PO PRN (07:32)
[2019-10-03] MEDS: CALCIUM 600MG + VIT D 400 IU TAB PO SCH ×2 (07:33→20:55)
[2019-10-03] MEDS: hydroCHLOROthiazide 25 MG TAB PO SCH (07:33)
[2019-10-03] MEDS: methylPREDNISolone 40 MG in SYRINGE 0 ML IV SCH ×2 (08:28→20:54)
[2019-10-03] MEDS: POTASSIUM CHLORIDE 20 MEQ TABCR PO SCH ×3 (08:28→20:56)
--- NOTE | 2019-10-03 14:16 | Hospitalist Progress Note ---
Date of Service October 03, 2019 Assessment & Plan (1) Shortness of breath: Jannie is a 64-year-old female with a past medical history of asthma, hyperlipidemia, A. fib, osteoarthritis, hypertension, hypothyroidism, and right upper lobectomy for carcinoid who presents to the hospital with 1 month of shortness of breath which has failed 3 courses of outpatient treatment and which is acutely worse for 1 day prior to admission. Acute hypoxic respiratory failure 2/2 multifocal pneumonia w/ asthma exacerbation Had initial improvement approximately 1 month ago with 10 days of Augmentin treatment, and again worsened. Did not improve with doxycycline 10-day course with prednisone taper followed by Levaquin 10-day course. CT chest shows multifocal consolidations and groundglass opacities concerning for bilateral multifocal pneumonia. Pulmonary nodules appreciated, will require outpatient follow-up. Patient denies a history of aspiration pneumonia, alcohol use, and passing out. Her CT is concerning for recurrent aspiration pneumonia Videofluoroscopy normal, no signs of poor swallow mechanics or aspiration Her groundglass opacities and consolidations may be residual from prior pneumonia, current episode may be asthma exacerbation with poor baseline. We will continue asthma treatment as below and complete 7-day course of antibiotics empirically. Increased oxygen requirement currently on 2 L nasal cannula. Wean to SPO2 greater than 88-90% Continues to require hospitalization for new oxygen requirement -Continue Mucinex for symptomatic treatment Asthma exacerbation in the setting of pneumonia Continue duo nebs every 4 hours Continue albuterol every 4 hours as needed Methylprednisolone 40 mg twice daily. Anticipate conversion to a prednisone 5- day burst at slow taper tomorrow. Advair 500/50 daily Paroxysmal A. fib Continue metoprolol 25 mg twice daily Continue diltiazem 180 mg twice daily Continue Coumadin. Patient likely to have labile INRs given antibiotic use. Received 5 mg additional dose in ED. Continue Coumadin 2.5 mg daily, adjust per INR. INR daily, therapeutic today Hypertension Continue hydrochlorothiazide 12.5 mg every morning GERD Continue omeprazole 20 mg daily Hypothyroidism Continue Synthroid 100 mcg daily Free T4 normal on admission FEN: Regular diet DVT prophylaxis: Coumadin as above CODE STATUS: Full code Supervising Physician Co-Signing Physician Notes Resident Physician Supervision Note: I independently interviewed and examined the patient and verified the tjeada history and physical, reviewed labs and image studies, discussed the case with the resident Dr. Orellana and agree with the findings and care plan. Subjective Jannie is seen at the bedside this morning. She reports she still feels slightly short of breath, but greatly improved from yesterday. She says she is able ambulate to and from the bathroom, had some increased shortness of breath afterwards which lasted for about 10 minutes but has been without chest pain, chest pressure, or palpitations. No sweats. She had mild upper back/lower neck pain which resolved with tramadol this morning. Overall she feels better than yesterday, but continues to endorse wheezing at rest increased fatigue, and a new oxygen requirement. She had a brief run of A. fib overnight which resolved. Review of Systems Review of Systems: Constitutional: Denies fever, chills, sweats Eyes: Denies change ENT: Denies ear pain, sore throat, sinus pain Cardiovascular: Denies chest pain, chest pressure. Denies palpitations Respiratory: Endorses shortness of breath, improved from prior. Endorses wheezing. Gastrointestinal: Denies abdominal pain, vomiting, constipation, diarrhea Genitourinary: Denies dysuria Musculoskeletal: Denies weakness. Neck pain as noted in HPI. Integumentary:Denies rash, lesions, bruising Neurological: Denies headache, numbness, tingling, focal weakness Physical Exam Physical Exam: General: A&Ox3. NAD. Cooperative. HEENT: Atraumatic, normocephalic. Pupils equal and reactive to light and accommodation. Pulm: Moderate air movement, inspiratory and expiratory wheezes present. Symmetrical chest rise. No respiratory distress. On 2 L nasal cannula oxygen. Cardiac: RRR, -mrg Abdominal: Nontender, nondistended, soft. BS present. Extremities: Moving all extremities equally. PT and radial pulses intact and symmetrical bilaterally. Results & Data Vital Signs (Past 12 Hours) Vital Signs Temp Pulse Resp BP Pulse Ox 10/03/19 11:39 36.4 C L 91 H 18 145/69 H 95 10/03/19 11:25 18 95 10/03/19 07:07 36.8 C 88 18 158/78 H 95 10/03/19 07:05 87 18 95 10/03/19 04:00 36.7 C 98 H 20 128/61 94 10/03/19 03:45 36.9 C 112 H 20 149/67 H 96 10/03/19 03:01 92 H 16 98 Resident Activity Tracking Resident Involvement: Resident Care Provided Care Provided: Adult Hospital Medicine
[2019-10-03 14:22] LABS: Estimated Average Glucose 148 mg/dl; Hemoglobin A1C 6.8 % (4.5-5.6)
[2019-10-03] MEDS: WARFARIN SOD 2.5 MG TAB PO SCH (15:59)
[2019-10-04] MEDS ORDERED: METOPROLOL TARTRATE 1 MG/ML VIAL IV PRN (00:09)
[2019-10-04] MEDS ORDERED: METOPROLOL TARTRATE 1 MG/ML VIAL IV STA (00:12)
[2019-10-04] MEDS: LEVALBUTEROL HCL 0.63 MG/3 ML NEB NEB SCH ×4 (01:19→19:23)
[2019-10-04] MEDS: AZITHROMYCIN 250 MG in DEXTROSE 5% 250 ML IV SCH (05:23)
[2019-10-04] MEDS: LEVOTHYROXINE SODIUM 100 MCG TABLET PO SCH (05:29)
[2019-10-04] MEDS: cefTRIAXone SODIUM 2,000 MG in DEXTROSE 5% 50 ML IV SCH (05:54)
[2019-10-04] MEDS: TRAMADOL HCL 50 MG TABLET PO PRN ×2 (06:50→15:19)
[2019-10-04 07:23] LABS: Basophils # (auto) 0.01 K/uL (0-0.2); Basophils % (auto) 0.1 %; Hematocrit (blood only) 35.6 % (37-47); Hemoglobin 11.3 g/dL (12.0-16.0); Immature Granulocytes # (auto) 0.13 K/uL (0.00-0.02); Lymphocytes # (auto) 0.82 K/uL (1.2-3.4); Lymphocytes % (auto) 6.5 %; Mean Corpuscular Hemoglobin 28.5 pg (25-34); Mean Corpuscular Hgb Conc 31.7 g/dL (32-36); Mean Corpuscular Volume 89.9 fL (80-100); Mean Platelet Volume 8.9 fL (7.4-10.4); Monocytes # (auto) 0.65 K/uL (0.11-0.59); Monocytes % (auto) 5.1 %; Neutrophils # (auto) 11.02 K/uL (1.4-6.5); Neutrophils % (auto) 87.3 %; Platelet Count 177 K/uL (130-400); RDW Coefficient of Variation 15.8 % (11.5-14.5); RDW Standard Deviation 52.4 fL (36.4-46.3); Red Blood Count 3.96 M/uL (4.2-5.4); White Blood Count 12.63 K/uL (4.8-10.8)
[2019-10-04] MEDS: dilTIAZem ER 180 MG CAPCR PO SCH ×2 (07:34→20:37)
[2019-10-04] MEDS: hydroCHLOROthiazide 25 MG TAB PO SCH (07:34)
[2019-10-04] MEDS: methylPREDNISolone 40 MG in SYRINGE 0 ML IV SCH ×2 (07:34→20:36)
[2019-10-04] MEDS: MAGNESIUM CHLORIDE 64MG DELAYED REL TAB PO SCH ×2 (07:34→20:37)
[2019-10-04] MEDS: FLUTICASONE/SALMETEROL (ADVAIR) 500/50 INH 14 PUFF INH SCH ×2 (07:34→20:37)
[2019-10-04] MEDS: guaiFENesin 600 MG TABCR PO SCH ×2 (07:34→20:37)
[2019-10-04 07:35] LABS: INR 2.9 (0.9-1.1); Prothrombin Time 27.8 Seconds (9.0-12.0)
[2019-10-04] MEDS: BENZONATATE 100 MG CAPSULE PO SCH ×3 (07:35→20:37)
[2019-10-04] MEDS: CALCIUM 600MG + VIT D 400 IU TAB PO SCH ×2 (07:36→20:37)
[2019-10-04] MEDS: METOPROLOL TARTRATE 25 MG TAB PO SCH ×2 (07:36→20:37)
[2019-10-04] MEDS: MULTIVITAMIN TAB PO SCH (07:36)
[2019-10-04 08:10] LABS: Calcium 9.8 mg/dl (8.5-10.1); Creatinine Clr Calc Pharmacy 61.7 ml/min; Est GFR (African American) 60.4; Est GFR (Non-African American) 52.1
[2019-10-04 08:25] LABS: Beta-Hydroxybutyrate 1.31 mg/dl (0.2-2.81)
[2019-10-04] MEDS ORDERED: CARBOHYDRATES FOR HYPOGLYCEMIA PO PRN (08:37)
[2019-10-04] MEDS ORDERED: GLUCOSE 40% GEL 15 GM TUBE PO PRN (08:37)
[2019-10-04] MEDS ORDERED: GLUCAGON FOR INJ 1 MG VIAL SQ PRN (08:37)
[2019-10-04] MEDS ORDERED: GLUCOSE 10 TABS/TUBE PO PRN (08:37)
[2019-10-04] MEDS ORDERED: DEXTROSE 50% 50 ML SYRINGE IV PRN (08:37)
[2019-10-04] MEDS: INSULIN HUMAN NPH SC SCH ×2 (09:27→21:35)
--- NOTE | 2019-10-04 11:08 | Hospitalist Progress Note ---
Date of Service October 04, 2019 Assessment & Plan (1) Shortness of breath: Jannie is a 64-year-old female with a past medical history of asthma, hyperlipidemia, A. fib, osteoarthritis, hypertension, hypothyroidism, and right upper lobectomy for carcinoid who presents to the hospital with 1 month of shortness of breath which has failed 3 courses of outpatient treatment and which is acutely worse for 1 day prior to admission. Acute hypoxic respiratory failure 2/2 asthma exacerbation, improving Had initial improvement approximately 1 month ago with 10 days of Augmentin treatment, and again worsened. Did not improve with doxycycline 10-day course with prednisone taper followed by Levaquin 10-day course. CT chest shows multifocal consolidations and groundglass opacities concerning for bilateral multifocal pneumonia. Pulmonary nodules appreciated, will require outpatient follow-up. Patient denies a history of aspiration pneumonia, alcohol use, and passing out. Her CT is concerning for recurrent aspiration pneumonia Videofluoroscopy normal, no signs of poor swallow mechanics or aspiration Her groundglass opacities and consolidations may be residual from prior pneumonia, current episode may be asthma exacerbation with poor baseline. We will continue asthma treatment as below and complete 7-day course of antibiotics empirically. Continue rocephin 2g daily. Increased oxygen requirement currently on 1-2 L nasal cannula. Wean to SPO2 greater than 88-90% Continues to require hospitalization for new oxygen requirement -Continue Mucinex for symptomatic treatment Asthma exacerbation in the setting of pneumonia Continue duo nebs every 4 hours Continue albuterol every 4 hours as needed - D/C methylprednisolone after afternoon dose Prednisone 40mg daily x5 days, 30mg x5 days, 20mg x5 days, 10mg x5 days, 5mg x5 days Advair 500/50 daily Paroxysmal A. fib Continue metoprolol 25 mg twice daily. Defer increase to 50mg at this time 2/2 asthma - IV Lopressor 5mg PRN Q2H for HR>130 Continue diltiazem 180 mg twice daily Patient likely to have labile INRs given antibiotic use. Received 5 mg additional dose in ED. Continue Coumadin 2.5 mg daily, adjust per INR. INR daily, therapeutic today Hypertension Continue hydrochlorothiazide 12.5 mg every morning GERD Continue omeprazole 20 mg daily Hypothyroidism Continue Synthroid 100 mcg daily Free T4 normal on admission FEN: Regular diet DVT prophylaxis: Coumadin as above CODE STATUS: Full code Dispo: Anticipate home once oxygen requirement is weaned. Progressing towards discharge, defer 2 step at this time. Supervising Physician Co-Signing Physician Notes Resident Physician Supervision Note: I independently interviewed and examined the patient and verified the tej[place] history and physical, reviewed labs and image studies, discussed the case with the resident Dr. Orellana and agree with the findings and care plan. Annalee Valderrama is seen at the bedside this morning. She reports she is still short of breath and wheezy, but she feels improved compared to yesterday. She was able to walk 2 laps in the [place] before desating to mid-low 80s. Denies fevers/chills/sweats overnight. She reports she did not feel her tachycardia last night, notes she had been on Metoprolol 50mg BID several years ago. No palpitations/lightheadedness/dizziness last night or this morning. Review of Systems Review of Systems: Constitutional: Denies fever, chills, sweats Eyes: Denies change ENT: Denies ear pain, sore throat, sinus pain Cardiovascular: Denies chest pain, chest pressure. Denies palpitations Respiratory: Endorses shortness of breath, improved from prior. Able to walk almost 2 laps before desaturating. Endorses wheezing. Gastrointestinal: Denies abdominal pain, vomiting, constipation, diarrhea Genitourinary: Denies dysuria Musculoskeletal: Denies weakness. Integumentary:Denies rash, lesions, bruising Neurological: Denies headache, numbness, tingling, focal weakness Physical Exam Physical Exam: General: A&Ox3. NAD. Cooperative. HEENT: Atraumatic, normocephalic. Pupils equal and reactive to light and accommodation. Pulm: Improved air movement, inspiratory and expiratory wheezes present. Symmetrical chest rise. No respiratory distress. On 2 L nasal cannula oxygen. Cardiac: RRR, -mrg. Afib overnight per tele. Abdominal: Nontender, nondistended, soft. BS present. Extremities: Moving all extremities equally. PT and radial pulses intact and symmetrical bilaterally. Results & Data Vital Signs (Past 12 Hours) Vital Signs Temp Pulse Pulse Resp BP Pulse Ox 10/04/19 07:20 84 10/04/19 07:17 37 C 85 18 146/73 H 92 10/04/19 06:57 72 16 96 10/04/19 03:25 36.9 C 105 H 18 154/77 H 91 10/04/19 01:20 106 H 18 98 10/04/19 00:15 136 H 10/03/19 23:36 124 H Resident Activity Tracking Resident Involvement: Resident Care Provided Care Provided: Adult Hospital Medicine
[2019-10-04] MEDS ORDERED: INSULIN ASPART 100 UNITS/ML 3 ML PEN SC SCH (11:30)
[2019-10-04] MEDS: PANTOprazole 40 MG TAB PO PRN (13:01)
[2019-10-04] MEDS: WARFARIN SOD 2.5 MG TAB PO SCH (16:53)
[2019-10-04] MEDS: INSULIN ASPART 100 UNITS/ML 3 ML PEN SC SCH (21:33)
[2019-10-05] MEDS: LEVALBUTEROL HCL 0.63 MG/3 ML NEB NEB SCH ×4 (01:04→13:02)
[2019-10-05] MEDS: LEVOTHYROXINE SODIUM 100 MCG TABLET PO SCH (05:09)
[2019-10-05] MEDS: cefTRIAXone SODIUM 2,000 MG in DEXTROSE 5% 50 ML IV SCH (05:10)
[2019-10-05 08:20] LABS: Basophils # (auto) 0.03 K/uL (0-0.2); Basophils % (auto) 0.2 %; Hematocrit (blood only) 38.7 % (37-47); Hemoglobin 12.5 g/dL (12.0-16.0); Immature Granulocytes # (auto) 0.29 K/uL (0.00-0.02); Immature Granulocytes % (auto) 2.1 %; Lymphocytes # (auto) 1.24 K/uL (1.2-3.4); Mean Corpuscular Hemoglobin 28.2 pg (25-34); Mean Corpuscular Hgb Conc 32.3 g/dL (32-36); Mean Corpuscular Volume 87.4 fL (80-100); Mean Platelet Volume 9.2 fL (7.4-10.4); Monocytes # (auto) 0.79 K/uL (0.11-0.59); Monocytes % (auto) 5.7 %; Neutrophils # (auto) 11.49 K/uL (1.4-6.5); Platelet Count 195 K/uL (130-400); RDW Coefficient of Variation 15.4 % (11.5-14.5); RDW Standard Deviation 49.5 fL (36.4-46.3); Red Blood Count 4.43 M/uL (4.2-5.4); White Blood Count 13.84 K/uL (4.8-10.8)
[2019-10-05 08:29] LABS: Prothrombin Time 28.2 Seconds (9.0-12.0)
[2019-10-05 08:50] LABS: BUN Creatinine Ratio 23.5 (10-20); Calcium 10.5 mg/dl (8.5-10.1); Creatinine Clr Calc Pharmacy 63.3 ml/min; Est GFR (African American) 62.4; Est GFR (Non-African American) 53.8; Potassium 3.8 mmol/L (3.5-5.1)
[2019-10-05] MEDS ORDERED: PANTOprazole 40 MG TAB PO SCH (09:00)
[2019-10-05] MEDS ORDERED: AZITHROMYCIN 250 MG TAB PO SCH (09:00)
[2019-10-05] MEDS ORDERED: predniSONE 20 MG TAB PO SCH (09:00)
[2019-10-05] MEDS ORDERED: METOPROLOL TARTRATE 50 MG TAB PO SCH (09:00)
[2019-10-05] MEDS: FLUTICASONE/SALMETEROL (ADVAIR) 500/50 INH 14 PUFF INH SCH (09:13)
[2019-10-05] MEDS: MAGNESIUM CHLORIDE 64MG DELAYED REL TAB PO SCH (09:14)
[2019-10-05] MEDS: CALCIUM 600MG + VIT D 400 IU TAB PO SCH (09:14)
[2019-10-05] MEDS: BENZONATATE 100 MG CAPSULE PO SCH ×2 (09:14→13:04)
[2019-10-05] MEDS: dilTIAZem ER 180 MG CAPCR PO SCH (09:15)
[2019-10-05] MEDS: hydroCHLOROthiazide 25 MG TAB PO SCH (09:16)
[2019-10-05] MEDS: guaiFENesin 600 MG TABCR PO SCH (09:17)
[2019-10-05] MEDS: MULTIVITAMIN TAB PO SCH (09:18)
[2019-10-05] MEDS: INSULIN HUMAN NPH SC SCH (09:23)
[2019-10-05] MEDS: INSULIN ASPART 100 UNITS/ML 3 ML PEN SC SCH ×2 (09:27→13:04)
--- NOTE | 2019-10-05 15:19 | Discharge Summary ---
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 Patient complaining of over 1 month of persistent shortness of breath, fatigue, cough, wheeze. She was seen by ROSY Carney on 08/31/2019 and was diagnosed with acute bronchitis. She was given a prescription for Augmentin x10-day course and a prednisone taper which she completed as directed. She states that her symptoms slightly improved while taking that regimen however, after she completed the regimen her symptoms rapidly returned. She was seen again by Dr. Silva on 09/17/2019 with similar complaints. She was diagnosed with acute bronchitis with bronchospasm at that time and was prescribed doxycycline 100 mg p.o. twice daily x10 days as well as a second prednisone taper. She completed those medications as prescribed with minimal improvement in symptoms. She was seen again by Dr. Silva on 09/28/2019. She had a chest x-ray improved at that time and was started on Levaquin 500 mg daily for 10 days. She reports persistent symptoms to include cough, mostly dry, however slightly productive for yellow sputum over the last few days, shortness of breath, wheeze, occasional tightness in her chest as well as chills and increased palpitations. She has been taking her albuterol inhaler, Flovent, Advair as prescribed. She has been also using her nebulizer machine 2-3 times daily. Yesterday and today she took double neb treatments with no improvement in symptoms. She reports severe respiratory distress today therefore came to the ER with her . Additional complaints include poor sleep, sweats, itching ER course: Albuterol x12 mL neb, Solu-Medrol x125 mg, Zosyn x4.5 g, vancomycin x2 g, normal saline x1 L Admission Exam Per Admitting Provider General: patient sitting comfortably in bed, NAD, non-toxic in appearance, AA&O x 4 Skin: warm, dry, intact, no rashes or lesions HEENT: NC/AT, PERRL, EOMI, anicteric sclera, conjunctiva without injection, external ear normal to inspection and nontender, nares patent, moist mucus membranes, dentition intact, no oropharyngeal lesions, neck supple, trachea midline, no LAD, no thyromegaly, no JVD Heart: +S1/S2, regular, tachycardic, no m/r/g, monitor in place on left chest wall Lungs: Diminished breath sounds in bilateral lung palmer, crackles most notably in the right base, prolonged expiratory phase with diffuse end expiratory wheezing wheezing in bilateral lung palmer, no rhonchi Abd: +BS, soft, NT/ND, no masses/organomegaly/ascites Ext: warm, 2+ pulses in UE/LE bilaterally, no clubbing/cyanosis, 1+ pedal edema Neuro: nonfocal, patient AA&O x 4, speech intact, no facial droop, moving all extremities on command with equal strength 5/5 Principal Diagnosis Pneumonia, asthma exacerbation Discharge Exam Constitutional WD/WN, vitals as above Eyes PERRL, conjunctivae normal, anicteric sclerae ENMT external ear and nose normal, oropharynx normal Neck trachea midline, no thyromegaly Respiratory normal respiratory effort; no respiratory distress, no labored breathing, does not use accessory muscles and no nasal flaring Auscultation: + wheezes (bl with forced expiration ) Cardiovascular RRR, no murmur, no edema Gastrointestinal (Abdomen) normal bowel sounds, soft, nontender, no hepatosplenomegaly Musculoskeletal no cyanosis or clubbing, extremities motor strength 5/5 Skin no rashes, warm and dry Neurologic PERRL, EOMI, accommodation nl, no face palsy, no dysarthria Discharge Data Allergies Allergy/AdvReac Type Severity Reaction Status Date / Time fenofibrate Allergy HEART Verified 10/02/19 01:41 RACING Pholwwq-Lus-Bbr Reductase Allergy FACE NUMB Verified 10/02/19 01:41 Inhibitor codeine AdvReac Mild gi upset Verified 10/02/19 01:41 ibuprofen AdvReac Mild ULCERS Verified 10/02/19 01:41 nedocromil AdvReac Mild COUGH Verified 10/02/19 01:41 theophylline AdvReac Mild NERVOUSNESS Verified 10/02/19 01:41 [place] Allergy Severe THROAT Uncoded 10/02/19 01:41 TIGHTNESS Consultations 10/02/19 03:09 ED Decision to Admit Stat Ordered Studies 10/02/19 01:27 CT angio chest PE protocol Urgent 10/02/19 13:30 FL video swallow Routine [facility] [place], [place] [phone] Fluoroscopy Report Patient: JOSR CHAPIN AAdmit Date: 10/02/19 MR#: [id number]: Kiara CONTEH Acct ID:[id number]: Date: [address] [place] [address] Zip: [place] [address] Age: 64Location: 2W Sex: F Room/Bed: [facility] Att Phy: Anjali Davila MDDiagnosis: SOB Becca Phy: Shakir Estevez M.D.Service Date: 10/02/19 Fam Phy:Interpreting Phy: Christopher Buckley MD Admit Phy: Jillian Lott D.O. Ordering Phy: Anjali Davila MD cc: ~ FL video swallow HISTORY: r/o aspiration TECHNIQUE: Video fluoroscopic evaluation of swallowing was performed in the AP and lateral projections by the speech pathology staff. The patient is fed nectar-thick and thin liquid barium, a barium coated wafer, and barium pudding. FLUOROSCOPY TIME: 1.6 minutes.. COMPARISON STUDY: None. FINDINGS: There is normal hyoid excursion and epiglottic deflection. No significant penetration or aspiration identified. Swallowing function is within normal limits. IMPRESSION: 1. No aspiration identified. 2. Please see the speech pathologist report for detailed findings and recommendations. ACT 112: Negative or not required by law. Electronically signed by: Christopher Buckley M.D. 10/02/2019 2:12 PM [facility] [place], [place] [phone] CT Scan Report Patient: JOSR CHAPIN AAdmit Date: 10/02/19 MR#: [id number]: Kiara CONTEH Acct ID:[id number]: Date: [address] [place] [address] Zip: [place] [id number] Age: 64Location: 2W Sex: F Room/Bed: [facility] Att Phy: Anjali Davila MDDiagnosis: SOB Becca Phy: Shakir Estevez M.D.Service Date: 10/02/19 Fam Phy:Interpreting Phy: Randall Valiente Admit Phy: Jillian Lott D.O. Ordering Phy: Etienne Lozano PA-C cc: ~ CT angio chest PE protocol CT DOSE: 1248.98 mGy.cm HISTORY: 64 years-old Female with SOB. Past hx PE. Hx lobectomy+Cancer. Acute shortness of breath. Postoperative changes of prior right upper lobectomy TECHNIQUE: Multiple CTA images of the chest were obtained after the intravenous administration of 104 ml Optiray 320. Coronal and sagittal MIPS were obtained from the axial data set and were submitted for review. All measurements were obtained according to NASCET criteria. A dose lowering technique was utilized adhering to the principles of ALARA. COMPARISON: CT chest 07/28/2018, CTA chest 03/04/2018 FINDINGS: CTA: Mild cardiomegaly. No pericardial effusion. Coronary arterial calcifications are noted. No thoracic aortic aneurysm or dissection. Moderate mixed plaque of the thoracic aortic arch and proximal great vessels. 5.6 cm segment of the left subclavian artery distal to the origin of the left vertebral artery is nonopacified and suggests high-grade stenosis with flow seen distally to this segment thickening distal aspect of the left subclavian artery. This appears unchanged dating back to 03/04/2018 exam. The pulmonary artery is opacified to the level of the lobar segments. The segmental and subsegmental branches are not well opacified secondary to contrast bolus timing and therefore not well evaluated. No central filling defects identified to suggest pulmonary thromboembolic disease. Respiratory motion artifact also limits evaluation of the segmental and subsegmental branches. CT CHEST: Unremarkable thyroid. 8 mm right tracheoesophageal recess lymph node on image 240 series 7 previously measured 7 mm. Enlarged right hilar lymph nodes measuring up to 1.2 cm appear new from prior study. Prominent subcarinal and left hilar lymph nodes are also present. No pneumothorax or pleural effusion. P ostoperative changes from prior right upper lobectomy. Subpleural reticulation is redemonstrated suggestive of fibrotic scarring. Mild bibasilar bronchial wall thickening with mucous plugging. Consolidation with air bronchograms and mild traction bronchiectasis is again noted involving the anterior left lung apex which is unchanged and suggestive of scarring. There are patchy consolidative and groundglass opacities noted within all lobes bilaterally, most pronounced in the lung bases and superior segment of the left lower lobe. 6 mm solid nodule of the basal left lower lobe, image 124 series 7 is unchanged. 4 mm solid nodule of the right lower lobe on image 180 series 7 is new from prior. Central airways are patent. Decreased AP dimension of the trachea may reflect tracheomalacia or phase of respiration. Tiny hiatal hernia. Cholecystectomy. No acute process of the imaged upper abdomen. Skin thickening of the left breast. Surgical clips of the left axilla with stranding of the superior left breast suggests post therapeutic changes. Degenerative changes of the shoulders and spine. No suspicious lytic or blastic foci. IMPRESSION: 1. Limited evaluation of the pulmonary arterial tree secondary to contrast bolus timing. No central pulmonary emboli identified. 2. Mild cardiomegaly without evidence of acute aortic pathology. 3. Long segment high-grade stenosis of the left subclavian artery as above is unchanged. 4. Patchy multilobar groundglass and consolidative opacities are suggestive of a multifocal infectious or inflammatory pneumonitis. Follow-up imaging to document resolution recommended. 5. Mild associated bronchial wall thickening of the lung bases with mucous plugging. 6. Unchanged 6 mm solid nodule of the basal left lower lobe. 7. Mild likely reactive mediastinal and hilar adenopathy is new from comparison. 8. Postoperative changes from prior right upper lobectomy. 9. Additional findings as above. Please refer to below summary of Fleischner criteria recommendations for follow- up of incidental CT nodules (Gordon Garcia, Guidelines for management of small pulmonary nodules detected on CT scans: A statement from the Fleischner Society, Radiology 237: [phone].) SOLID NODULES Solitary nodule size: <6 mm * Low risk patients: no follow-up needed * high risk patients: optional CT at 12 months Solitary nodule size: 6-8 mm * Low risk patients: follow-up at 6-12 months, then consider further follow-up at 18-24 months * high risk patients: initial follow-up CT at 6-12 months and then at 18-24 months if no change Solitary nodule size: >8 mm * either low or high risk patients - consider follow-up CT at 3 months, and/or CT-PET, and/or biopsy Multiple nodules size: <6 mm * Low risk patients: no routine follow-up * high risk patients: optional CT at 12 months Multiple nodules size: 6-8 mm * Low risk patients: follow-up at 3-6 months, then consider further follow-up at 18-24 months * high risk patients: follow-up at 3-6 months, then at 18-24 months if no change Multiple nodules size: >8 mm * Low risk patients: follow-up at 3-6 months, then consider further follow-up at 18-24 months * high risk patients: follow-up at 3-6 months, then at 18-24 months if no change Note: newly detected indeterminate nodule in persons 35 years of age or older. * Low risk patients: minimal or absent history of smoking and/or other known risk factors * high risk patients: history of smoking or of other known risk factors (e.g. first degree relative with lung cancer, or exposure to asbestos, radon, uranium) * if a nodule up to 8 mm is partly solid or is ground glass further follow-up is required after 24 months to exclude possible slow growing adenocarcinoma (LISSETT) SUBSOLID NODULES Solitary pure ground-glass nodule * nodule size <6 mm - no CT follow-up required * nodule size >=6 mm - follow-up CT at 6-12 months, then every 2 years until 5 years Solitary part-solid nodule * nodule size <6 mm - no CT follow-up required * nodule size >=6 mm - follow-up CT at 3-6 months. If unchanged, and solid component remains <6 mm, then annual follow-up for 5 years Multiple subsolid nodules * nodule size <6 mm - follow-up CT at 3-6 months, consider further follow-up at 2 and 4 years if stable * nodule size >=6 mm - follow-up CT at 3-6 months, subsequent management based on the most suspicious nodule(s) The above report was generated using voice recognition software. It may contain grammatical, syntax or spelling errors. Electronically signed by: Octaviano Valiente M.D. 10/02/2019 6:54 AM Dictated: 10/02/19635 Transcribed: 10/02/19635 Hospital Course (1) Shortness of breath: Hospital course; Josr is a 64-year-old female with a past medical history of asthma, hyperlipidemia, A. fib, osteoarthritis, hypertension, hypothyroidism, and right upper lobectomy for carcinoid who presents to the hospital with 1 month of shortness of breath which has failed 3 courses of outpatient treatment and which is acutely worse for 1 day prior to admission. Treated for pneumonia and asthma exacerbation during this hospitalization. Acute hypoxic respiratory failure 2/2 asthma exacerbation Failed outpatient course of Augmentin, doxycycline, Levaquin. Each were 10-day courses. Symptoms return following treatment with each antibiotic. CT chest shows multifocal consolidations and groundglass opacities concerning for bilateral multifocal pneumoniacontinue 6 more days of cefdinir and 1 more day of azithromycin upon discharge. Videofluoroscopy normal, no signs of poor swallow mechanics or aspiration Patient did require oxygen initially, satting well at discharge Asthma exacerbation in the setting of pneumonia - Treated with Methylprednisolone initially and Q4 albuterol and duonebs Transitioned to oral steroids. Continue outpatient taper, Prednisone 40mg daily x5 days, 30mg x5 days, 20mg x5 days, 10mg x5 days Continue Advair 500/50 daily Paroxysmal A. fib Periods of RVR during hospitalization, increased metoprolol to 50 mg twice daily Patient likely to have labile INRs given antibiotic use. Received 5 mg additional dose in ED. Continue Coumadin 2.5 mg daily, adjust per INR. Pulmonary nodules noted on CT - Pulmonary nodules appreciated, will require outpatient follow-up. Diabetes per A1c and elevated blood glucose [facility]ently [facility] was 6.8 on admission, no previously diagnosis of diabetes Considerable steroid use recently as likely contributing Diabetic education provided, pharmacy recommends NPH, once daily with prednisone, units of insulin to the milligrams of prednisone (40 units of NPH for 40 mg of Prednisone for example) Needs close outpatient follow-up regarding new findings and long-term glycemic control Summary of discharge plan; 1. Pneumoniacefdinir 300 mg BID for 6 more days, azithromycin 250 mg for 1 more day 2. Asthma exacerbationcontinue outpatient taperprednisone 40mg daily x5 days, 30mg x5 days, 20mg x5 days, 10mg x5 days 3. Periods of A. fib with RVRincreased metoprolol to 50 mg twice daily, continue anticoagulation 4. Glycemic control--requiring insulin while on steroids. 4. Follow up with Pulmonology, consider COPD clinic with Boris Busby Total Time Total Time Spent Total Time Spent (In Minutes): Greater than 30 minutes Total Time Includes: Examination of the Patient, Discharge Planning, Medication Reconciliation and Communication With Other Providers Discharge Plan Discharge Items Patient Disposition: Home - Self-Care Reason For Visit: SOB Discharge Diagnosis: Pneumonia, Asthma exacerbation Activity: Resume your previous activity Non-emergency contact: Primary Care Provider and Wardrobe Specialist Call non-emergency contact if: you have any medication questions Follow-up/Referrals: Mina Broussard PA-C [Physician Physician Ophthalmologist] - 10/11/19 11:00 am (Please, follow up at [facility] Pulmonology Office with Richar Broussard PA-C on October 11 at 11:00 am. *The office is located in [address] of [facility], next to the hospital. If you need to change this appointment, call the office at [phone].) Shakir Estevez MD [Primary Care Provider] - 10/15/19 3:10 pm Diet: Carb Consistent or DM2 Addtl Attending Provider Instructions: You came to the hospital and were treated for pneumonia and an asthma exacerbation. While we are treating your asthma exacerbation with prednisone, your blood sugar was extremely elevated and you required insulin. In addition, a blood test to check for diabetes was positive. While you have been on high doses of steroids recently which could explain the positive test, you may also have diabetes. In the meantime, while we treat your asthma exacerbation with prednisone, we would like to continue insulin injections. In addition, your heart rates were elevated during your hospitalization. Because of this, we had to increase your metoprolol. Your new dose is 50 mg twice daily. This needs to be followed up with your primary care doctor. You have appointments with Dr. Orellana at [facility] on 10/15/2019. You have appointments with your high risk ob on 10/11/2019 Asthma exacerbation/pneumonia Continue the following antibiotics Cefdinir for 6 more days, 300 mg twice daily Continue the antibiotic azithromycin for 1 more day Continue 20-day taper of [id number] mg for 5 days, 30 mg for 5 days, 20 mg for 5 days, 10 mg for 5 days Diabetes/elevated blood glucose We want you to continue the NPH insulin while on the prednisone taper. The amount of units of NPH will correspond with the amount of milligrams you take of the prednisone. For example when you take 40 mg of prednisone, you will take 40 units of NPH insulin. You will need to follow-up with your primary care doctor regarding your abnormal blood sugar and plan to treat diabetes Atrial fibrillation with elevated rates Increased your metoprolol to 50 mg twice daily Pending Studies at Discharge: No Stand-Alone Forms: My [facility], Smoking Cessation Medications and DC Order Prescriptions: New prednisone 10 mg tablet 10 mg PO DAILY 20 Days Qty: 50 RF: 0 insulin NPH and regular human 100 unit/mL (70-30) suspension 1 sliding scale dose SQ USEASDIRECTD Qty: 3 RF: 0 cefdinir 300 mg capsule 300 mg PO BID 6 Days Qty: 12 RF: 0 metoprolol tartrate 50 mg tablet 50 mg PO BID 30 Days Qty: 60 RF: 0 hydrocodone-homatropine 5-1.5 mg/5 mL syrup 5 ml PO TID PRN (Reason: cough) Qty: 200 RF: 0 Continued multivitamin Tablet 1 tab PO QAM RF: 0 albuterol sulfate 2.5 mg /3 mL (0.083 %) Solution For Nebulization 2.5 mg INHALATION QID PRN (Reason: Shortness Of Breath) RF: 0 hydrochlorothiazide 25 mg Tablet 12.5 mg PO QAM RF: 0 magnesium chloride 64 mg Tablet,Delayed Release (Dr/Ec) 64 mg PO Q12 RF: 0 cholecalciferol (vitamin D3) [Vitamin D3] 5,000 unit Tablet 5,000 unit PO QAM RF: 0 ProAir RespiClick 90 mcg/actuation Aerosol Powdr Breath Activated 2 puff INHALATION Q4H PRN (Reason: Shortness Of Breath) RF: 0 diphenhydramine HCl [Benadryl Allergy] 25 mg tablet 25 mg PO HS PRN (Reason: sleep) RF: 0 calcium carbonate-vitamin D3 [Caltrate with Vitamin D3] 600 mg(1,500mg) -800 unit tablet 1 tab PO BID RF: 0 levothyroxine 100 mcg capsule 100 mcg PO QAM RF: 0 warfarin 5 mg tablet See Rx Instructions PO UD RF: 0 fluticasone propion-salmeterol [Advair Diskus] 500-50 mcg/dose blister with d evice 1 inh INHALATION Q12H Qty: 3 RF: 3 Flovent HFA 110 mcg/actuation HFA aerosol inhaler 2 puff INHALATION Q12H Qty: 36 RF: 3 diltiazem HCl 180 mg capsule,extended release 24 hr 180 mg PO BID Qty: 180 RF: 3 tramadol 50 mg tablet 50 mg PO Q8H PRN (Reason: pain) Qty: 30 RF: 0 biotin 5,000 mcg Tablet,Disintegrating 5,000 mcg PO BID RF: 0 Prilosec OTC 20 mg Tablet,Delayed Release (Dr/Ec) 20 mg PO DAILY PRN (Reason: GERD) RF: 0 Discontinued metoprolol tartrate 50 mg Tablet 25 mg PO Q12H RF: 0 amoxicillin 500 mg capsule 2,000 mg PO UD PRN (Reason: Prophylaxis) RF: 0 levofloxacin [Levaquin] 500 mg tablet 500 mg PO DAILY Qty: 10 RF: 1 prednisone 10 mg tablet 10 mg PO .COMPLEX Qty: 50 RF: 0 Discharge Orders: Discharge Order (Routine); Ordered 10/05/19 Ordered By: Rishi Horn Admission Data Admit Date/Time: 10/02/19 03:48 Attending Provider: Anjali Davila Admit Provider: Jillian Lott Primary Care Provider: Shakir Estevez Other Providers: Jillian Lott Other Interventions: Discharge Summary Assessment (RN) Last Done: 10/05/19 16:45 DC Date/Time DO NOT enter until pt leaves facility: 10/05/19 17:36 Supervising Physician Co-Signing Physician Notes Resident Physician Supervision Note: I independently interviewed and examined the patient and verified the tejada history and physical, reviewed labs and image studies, discussed the case with the resident Dr. Austin Horn and agree with the findings and care plan. Time spent in discharge 35 min Resident Activity Tracking Resident Involvement: Resident Care Provided Care Provided: Adult Hospital Medicine
[2019-10-05] MEDS: WARFARIN SOD 2.5 MG TAB PO SCH (16:13)
== END 2019-10-05 17:36 | disposition home or self-care (01) | DRG 193 ==
LOC: ED 23:59 → 2W 10-02 03:48 → SUATTDRO 10-02 03:48 → 2W 10-02 04:18

== ENCOUNTER 2024-03-14 15:53 | Inpatient (IN) ==
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
[2024-03-14] MEDS: ONDANSETRON INJ 2 MG/ML 2 ML VIAL IV STA (16:24)
[2024-03-14] MEDS: SODIUM CHLORIDE 0.9% 500 ML IV STA (16:24)
--- NOTE | 2024-03-14 16:44 | XRay Report ---
XR chest 1V portable CLINICAL HISTORY: Chest pain, nonspecific TECHNIQUE: Single frontal radiograph of the chest was obtained. Comparison: Comparison is made to chest radiograph 12/21/2023 FINDINGS: No lines and tubes are seen. Calcified aortic knob is seen. Lungs are underinflated but clear. No celio dence of pleural effusion or pneumothorax. IMPRESSION: No acute chest disease. ACT 112: Negative or not required by law. Electronically signed by: Chapin Villalobos M.D. 03/14/2024 4:42 PM
--- NOTE | 2024-03-14 17:00 | CT Scan Report ---
CT SCAN OF THE BRAIN WITHOUT IV CONTRAST CLINICAL HISTORY: Fall. COMPARISON STUDY: CT of the brain dated 01/25/2023. MRI of the brain dated 02/18/2023. TECHNIQUE: Unenhanced axial CT scan of the brain is performed from the vertex to the skull base. A do se lowering technique was utilized adhering to the principles of ALARA. CT DOSE: 1827.79 mGy.cm FINDINGS: Brain parenchyma: There is age-related involutional change noting moderate subcortical and periventri cular microangiopathic disease. There is no hemorrhage, mass effect, or evidence of acute territorial ischemia by CT criteria. Castellano-white matter differentiation is preserved. No extra-axial fluid collec tion is seen. Ventricles, sulci, cisterns: Prominent secondary to involutional change. Intracranial vasculature: There is atherosclerotic calcification of the cavernous carotid and vertebr al arteries. Calvarium: Unremarkable. The skeletal structures are osteopenic. No depressed calvarial fracture is s een. Sinuses and mastoids: There is trace mucosal thickening in the left maxillary antrum. The remaining paranasal sinuses are clear. There is a small left mastoid effusion. The right mastoid air cells are well pneumatized. Orbits: The bony orbits are grossly intact. There are bilateral ocular lens implants. IMPRESSION: There is no hemorrhage, mass effect, or evidence of acute territorial ischemia by CT leo livingston. ACT 112: Negative or not required by law. Electronically signed by: Luca Mathews M.D. 03/14/2024 4:58 PM
[2024-03-14 17:12] LABS: Albumin Globulin Ratio 1.1 (0.9-2); Albumin Level 4.1 gm/dl (3.4-5.0); BUN Creatinine Ratio 20.9 (10-20); Bilirubin,Total 1.3 mg/dl (0.2-1.0); Calcium 11.3 mg/dl (8.6-10.3); Creatinine Clr Calc Pharmacy 46.2 ml/min; Est GFR (African American) 44.7 ml/min; Est GFR (Non-African American) 38.6 ml/min; Globulin 3.7 gm/dl (2.5-4.0); Hematocrit (blood only) 50.8 % (37.0-47.0); Mean Corpuscular Hgb Conc 33.5 g/dL (32.0-36.0); Mean Corpuscular Volume 86.5 fL (80.0-100.0); Mean Platelet Volume 9.8 fL (9.4-12.4); Platelet Count 324 K/uL (130-400); Potassium 3.3 mmol/L (3.5-5.1); RDW Coefficient of Variation 14.6 % (11.5-14.5); RDW Standard Deviation 45.8 fL (36.4-46.3); Red Blood Count 5.87 M/uL (4.20-5.40); Total Protein 7.8 gm/dl (6.0-8.3); White Blood Count 35.85 K/ul (4.8-10.8)
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
[2024-03-14 17:27] LABS: Basophils # (auto) 0.19 K/uL (0.00-0.20); Basophils % (auto) 0.5 %; Eosinophils # (auto) 0.02 K/uL (0.00-0.50); Eosinophils % (auto) 0.1 %; Immature Granulocytes # (auto) 0.41 K/uL (0.01-0.20); Immature Granulocytes % (auto) 1.1 %; Lymphocytes # (auto) 2.17 K/uL (1.20-3.40); Lymphocytes % (auto) 6.1 %; Monocytes # (auto) 4.67 K/uL (0.11-0.59); Neutrophils # (auto) 28.39 K/uL (1.40-6.50); Neutrophils % (auto) 79.2 %
[2024-03-14] MEDS: PIPERACILLIN/TAZOBACTAM 4.5 GM/100 ML BAG IV ONE (18:08)
[2024-03-14] MEDS: SODIUM CHLORIDE 0.9% 1,000 ML IV ONE (18:08)
[2024-03-14 18:38] LABS: INR 1.7 (0.9-1.1); Partial Thromboplastin Ratio 1.2; Partial Thromboplastin Time 31 Seconds (21-31); Prothrombin Time 17.2 Seconds (9.0-12.0)
[2024-03-14] MEDS ORDERED: MELATONIN 3 MG TAB PO PRN (19:22)
[2024-03-14] MEDS ORDERED: ENOXAPARIN INJ 40 MG/0.4 ML SYR SQ SCH (19:30)
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
[2024-03-14] MEDS: LACTATED RINGER'S 1,000 ML IV SCH (20:01)
[2024-03-14] MEDS: POTASSIUM CHLORIDE / WTR 10 MEQ/100 ML PLCT IV SCH (20:08)
[2024-03-14] MEDS: HEPARIN SOD 5,000 UNIT/0.5 ML VIAL SQ SCH (21:09)
[2024-03-14] MEDS: WARFARIN SOD 5 MG TAB PO ONE (21:09)
[2024-03-14 21:31] LABS: Adenovirus F 40/41 PCR Not Detected (NotDetected); Astrovirus PCR Not Detected (NotDetected); Campylobacter PCR Not Detected (NotDetected); Cryptosporidium PCR Not Detected (NotDetected); Cyclospora cayetanensis PCR Not Detected (NotDetected); Entamoeba histolytica PCR Not Detected (NotDetected); Enteroaggregative E.coli(EAEC) Not Detected (NotDetected); Enteropathogenic E.coli (EPEC) Not Detected (NotDetected); Enterotoxigenic E.coli (ETEC) Not Detected (NotDetected); Giardia lamblia PCR Not Detected (NotDetected); Norovirus GI/GII PCR Not Detected (NotDetected); Plesiomonas shigelloides PCR Not Detected (NotDetected); Rotavirus A PCR Not Detected (NotDetected); Salmonella PCR Not Detected (NotDetected); Sapovirus PCR Not Detected (NotDetected); Shiga-like Toxin E.coli (STEC) Not Detected (NotDetected); Shigella/Enteroinvasive E.coli Not Detected (NotDetected); Vibrio cholerae PCR Not Detected (NotDetected); Vibrio species PCR Not Detected (NotDetected); Yersinia enterocolitica PCR Not Detected (NotDetected)
[2024-03-14] MEDS ORDERED: ALBUTEROL 0.083% NEBU SOLN 3 ML VIAL INH PRN (21:38)
[2024-03-14] MEDS: dilTIAZem HCl 60 MG TAB PO SCH (22:26)
[2024-03-14] MEDS: FLECAINIDE ACETATE 100 MG TABLET PO SCH (22:27)
[2024-03-14] MEDS: PIPERACILLIN/TAZOBACTAM 4.5 GM in DEXTROSE 5% MINI-B 100 ML IV SCH (23:31)
[2024-03-14] MEDS: METOPROLOL TARTRATE 25 MG TAB PO SCH (23:34)
[2024-03-15 05:08] LABS: Albumin Globulin Ratio 1.1 (0.9-2); Albumin Level 3.1 gm/dl (3.4-5.0); BUN Creatinine Ratio 22.4 (10-20); Bilirubin,Total 1.1 mg/dl (0.2-1.0); Calcium 8.8 mg/dl (8.6-10.3); Creatinine Clr Calc Pharmacy 47.9 ml/min; Est GFR (African American) 46.7 ml/min; Est GFR (Non-African American) 40.3 ml/min; Globulin 2.8 gm/dl (2.5-4.0); Magnesium 1.9 mg/dl (1.7-2.4); Potassium 3.3 mmol/L (3.5-5.1); Total Protein 5.9 gm/dl (6.0-8.3)
[2024-03-15 05:18] LABS: INR 1.5 (0.9-1.1); Prothrombin Time 15.6 Seconds (9.0-12.0)
[2024-03-15 06:37] LABS: Hematocrit (blood only) 39.1 % (37.0-47.0); Hemoglobin 13.1 g/dl (12.0-16.0); Mean Corpuscular Hgb Conc 33.5 g/dL (32.0-36.0); Mean Corpuscular Volume 86.7 fL (80.0-100.0); Mean Platelet Volume 9.5 fL (9.4-12.4); Platelet Count 248 K/uL (130-400); RDW Coefficient of Variation 14.6 % (11.5-14.5); RDW Standard Deviation 45.8 fL (36.4-46.3); Red Blood Count 4.51 M/uL (4.20-5.40); White Blood Count 28.25 K/ul (4.8-10.8)
[2024-03-15 06:42] LABS: Basophils # (auto) 0.09 K/uL (0.00-0.20); Basophils % (auto) 0.3 %; Dohle Bodies 1+; Immature Granulocytes # (auto) 0.23 K/uL (0.01-0.20); Immature Granulocytes % (auto) 0.8 %; Lymphocytes # (auto) 2.47 K/uL (1.20-3.40); Lymphocytes % (auto) 8.7 %; Monocytes # (auto) 4.24 K/uL (0.11-0.59); Neutrophils # (auto) 21.22 K/uL (1.40-6.50); Neutrophils % (auto) 75.2 %
[2024-03-15] MEDS: LEVOTHYROXINE SODIUM 100 MCG TABLET PO SCH (06:42)
--- NOTE | 2024-03-15 07:49 | Electrocardiogram Report ---
Test Reason : Blood Pressure : / mmHG Vent. Rate : 106 BPM Atrial Rate : 106 BPM P-R Int : 258 ms QRS Dur : 108 ms QT Int : 300 ms P-R-T Axes : 037 -35 164 degrees QTc Int : 398 ms Sinus tachycardia with 1st degree A-V block Left axis deviation Left ventricular hypertrophy with QRS widening and repolarization abnormality Possible Old Inferior infarct Possible Old Anterolateral infarct Abnormal ECG When compared with ECG of 03-NOV-2023 09:12, Vent. rate has increased BY 38 BPM Criteria for Inferior infarct is now Present Criteria for Anterolateral infarct now present Confirmed by Godwin Hull ([id number] on 03/15/2024 7:48:51 AM Referred By: REFERRED SELF Confirmed By:Godwin Hull
[2024-03-15] MEDS: FLUTICASONE/VILANTEROL 100/25MCG 14 PUFFS/INHALER INH SCH (08:38)
[2024-03-15] MEDS: FLUTICASONE FUROATE 100MCG 14 PUFFS/INHALER INH SCH (08:38)
[2024-03-15] MEDS: PANTOprazole 40 MG TAB PO SCH (08:39)
[2024-03-15] MEDS ORDERED: DOXEPIN HCL 25 MG CAPSULE PO SCH (09:00)
[2024-03-15] MEDS: ONDANSETRON INJ 2 MG/ML 2 ML VIAL IV PRN (09:42)
[2024-03-15] MEDS: POTASSIUM CHLORIDE CRTAB 20 MEQ TABCR PO STA (12:39)
--- NOTE | 2024-03-15 14:37 | Hospitalist Progress Note ---
Date of Service March 15, 2024 Assessment & Plan (1) Syncope and collapse: (2) Colitis: (3) Severe persistent asthma: (4) Dyslipidemia: (5) Paroxysmal atrial fibrillation: Plan 68 yo female presents with syncopal episode probably secondary to dehydration due to bowel prep for colonoscopy Syncope Most likely due to dehydration No neurological deficit CT head showed no acute findings Continue IV fluids Colitis on CT abdomen/pelvis Elevated white count at 35. Now improved to 28 Started on IV Zosyn in the emergency room Improving clinically Lactate improved GI consulted Ischemic versus infectious Hypokalemia Potassium 3.3 Repleted again today History of PE, paroxysmal atrial fibrillation Was off of Coumadin today for planned colonoscopy Colonoscopy will need to be rescheduled Will resume Coumadin Continue flecainide and metoprolol Cardizem on hold Hypothyroidism Continue Synthroid Asthma No exacerbation Acute kidney injury Most likely prerenal Continue IV fluids Recheck BMP in am Admission and Anticipated Discharge Date Admission Date: March 14, 2024 Subjective Patient feels better overall. Says that her diarrhea is improving with consistency, volume, frequency. She is less achy. Review of Systems Review of Systems: All systems reviewed & are unremarkable except as noted in Subjective Physical Exam Physical Exam: General: Awake, conversant Heart: S1, S2/regular rate and rhythm, no murmur rubs or gallops Lungs: Clear to auscultation bilaterally. Normal effort Abdomen: Soft/nontender/nondistended. No hepatosplenomegaly Extremities: No clubbing/cyanosis. No edema Behavior: Appropriate, cooperative Results & Data Results & Data Vital Signs (Past 12 Hours) Vital Signs Temp Pulse Pulse Resp BP BP Pulse Ox 03/15/24 14:03 37.6 C H 77 16 156/73 H 91 03/15/24 08:52 03/15/24 08:00 79 24 97 03/15/24 08:00 149/65 H 03/15/24 07:29 81 03/15/24 07:00 81 25 H 97 03/15/24 07:00 154/68 H 03/15/24 06:00 73 18 145/82 H 97 03/15/24 05:00 67 20 146/80 H 91 03/15/24 04:00 71 18 134/66 91 03/15/24 03:00 81 23 135/69 92 O2 Del Method 03/15/24 14:03 Room Air 03/15/24 08:52 Room Air 03/15/24 08:00 03/15/24 08:00 03/15/24 07:29 03/15/24 07:00 03/15/24 07:00 03/15/24 06:00 03/15/24 05:00 03/15/24 04:00 03/15/24 03:00 Laboratory Results Abnormal lab results 03/14/24 03/14/24 03/14/24 Range/Units 16:26 17:44 19:47 WBC 35.85 H* (4.8-10.8) K/ul RBC 5.87 H (4.20-5.40) M/uL Hgb 17.0 H (12.0-16.0) g/dl Hct 50.8 H (37.0-47.0) % RDW Coeff of Ken 14.6 H (11.5-14.5) % Neut # (Auto) 28.39 H (1.40-6.50) K/uL [place] # (Auto) 4.67 H (0.11-0.59) K/uL Immature Gran # (Auto) 0.41 H (0.01-0.20) K/uL PT 17.2 H (9.0-12.0) Seconds INR 1.7 H (0.9-1.1) Sodium (136-145) mmol/L Potassium 3.3 L (3.5-5.1) mmol/L Chloride 97 L (98-107) mmol/L Anion Gap 16 H (3-11) BUN 29 H (6-23) mg/dl Creatinine 1.39 H (0.6-1.2) mg/dl BUN/Creatinine Ratio 20.9 H (10-20) Glucose 202 H (70-99(Fasting)) mg/dl Lactate 3.7 H* 2.8 H* (0.4-2.0) mmol/L Calcium 11.3 H (8.6-10.3) mg/dl Total Bilirubin 1.3 H (0.2-1.0) mg/dl AST 48 H (13-39) U/L Alkaline Phosphatase 190 H (34-104) U/L Troponin I High Sens 42.0 H 33.0 H (0-14) pg/ml Total Protein (6.0-8.3) gm/dl Albumin (3.4-5.0) gm/dl Lipase 9 L (11-82) U/L Procalcitonin 14.80 H (0-0.5) ng/ml 03/15/ Range/Units 04:17 WBC 28.25 H (4.8-10.8) K/ul RBC (4.20-5.40) M/uL Hgb (12.0-16.0) g/dl Hct (37.0-47.0) % RDW Coeff of Ken 14.6 H (11.5-14.5) % Neut # (Auto) 21.22 H (1.40-6.50) K/uL [place] # (Auto) 4.24 H (0.11-0.59) K/uL Immature Gran # (Auto) 0.23 H (0.01-0.20) K/uL PT 15.6 H (9.0-12.0) Seconds INR 1.5 H (0.9-1.1) Sodium 134 L (136-145) mmol/L Potassium 3.3 L (3.5-5.1) mmol/L Chloride (98-107) mmol/L Anion Gap (3-11) BUN 30 H (6-23) mg/dl Creatinine 1.34 H (0.6-1.2) mg/dl BUN/Creatinine Ratio 22.4 H (10-20) Glucose 162 H (70-99(Fasting)) mg/dl Lactate (0.4-2.0) mmol/L Calcium (8.6-10.3) mg/dl Total Bilirubin 1.1 H (0.2-1.0) mg/dl AST (13-39) U/L Alkaline Phosphatase 166 H (34-104) U/L Troponin I High Sens (0-14) pg/ml Total Protein 5.9 L D (6.0-8.3) gm/dl Albumin 3.1 L (3.4-5.0) gm/dl Lipase (11-82) U/L Procalcitonin (0-0.5) ng/ml PG Care Time/CCT Total # of Minutes Spent Total Time Spent with Patient: Total time spent is greater than 50% in coordination of care (as documented) at patient's floor/unit and/or counseling patient: Coding Level of Care Code 43793 SUB INP/OBS CARE 235MIN Diagnoses Syncope and collapse R55 Colitis K52.9 Severe persistent asthma J45.50 Dyslipidemia E78.5 Paroxysmal atrial fibrillation I48.0
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
[2024-03-15] MEDS: WARFARIN SOD 5 MG TAB PO SCH (16:07)
[2024-03-16 06:26] LABS: Appearance Urine Clear (Clear); Bacteria Urine Automated None Seen (None Seen); Bilirubin Urine Negative (Negative); Blood Urine 1+ (Negative); Cast Urine Automated 0-2 /lpf (0-2); Color Urine Yellow; Epithelial Cell Urine Auto 0-2 /hpf (0-2); Glucose Urine UA Negative (Negative); Ketones Urine Negative (Negative); Leukocyte Esterase Urine Trace (Negative); Nitrite Urine Negative (Negative); Protein Urine Negative (Negative); RBC Urine Automated 0-2 /hpf (0-2); Specific Gravity Urine 1.013 (1.000-1.030); Urobilinogen Urine Negative (Negative); WBC Urine Automated 0-5 /hpf (0-5); pH Urine 5.5 (4.5-7.5)
[2024-03-16 07:36] LABS: INR 2.1 (0.9-1.1)
[2024-03-16 08:38] LABS: Hematocrit (blood only) 36.4 % (37.0-47.0); Hemoglobin 11.8 g/dl (12.0-16.0); Mean Corpuscular Hemoglobin 28.7 pg (25.0-34.0); Mean Corpuscular Hgb Conc 32.4 g/dL (32.0-36.0); Mean Corpuscular Volume 88.6 fL (80.0-100.0); Mean Platelet Volume 9.9 fL (9.4-12.4); Platelet Count 201 K/uL (130-400); RDW Coefficient of Variation 14.6 % (11.5-14.5); RDW Standard Deviation 47.5 fL (36.4-46.3); Red Blood Count 4.11 M/uL (4.20-5.40); White Blood Count 15.63 K/ul (4.8-10.8)
[2024-03-16 08:44] LABS: BUN Creatinine Ratio 20.2 (10-20); Calcium 8.3 mg/dl (8.6-10.3); Creatinine Clr Calc Pharmacy 68.3 ml/min; Est GFR (African American) 71.7 ml/min; Est GFR (Non-African American) 61.9 ml/min; Potassium 3.3 mmol/L (3.5-5.1)
[2024-03-16] MEDS: POTASSIUM CHLORIDE CRTAB 20 MEQ TABCR PO STA (11:08)
--- NOTE | 2024-03-16 13:00 | Hospitalist Progress Note ---
Date of Service March 16, 2024 Assessment & Plan (1) Syncope and collapse: (2) Colitis: (3) Severe persistent asthma: (4) Dyslipidemia: (5) Paroxysmal atrial fibrillation: Plan 68 yo female presents with syncopal episode probably secondary to dehydration due to bowel prep for colonoscopy Syncope Most likely due to dehydration No neurological deficit CT head showed no acute findings Continue IV fluids at slower rate Colitis on CT abdomen/pelvis Elevated white count at 35. Now improved to 15 Started on IV Zosyn in the emergency room Improving clinically Lactate improved GI on board Colonoscopy will need to be postponed Ischemic versus infectious versus toxic (related to bowel prep) Hypokalemia Potassium 3.3 Repleted again today Secondary to GI losses History of PE, paroxysmal atrial fibrillation Was off of Coumadin today for planned colonoscopy Colonoscopy will need to be rescheduled Resumed Coumadin Continue flecainide, Cardizem and metoprolol Hypothyroidism Continue Synthroid Asthma No exacerbation Acute kidney injury Resolved Most likely prerenal Continue IV fluids at slower rate since still has loose stools Admission and Anticipated Discharge Date Admission Date: March 14, 2024 Subjective Patient feels better overall. Says that the frequency, consistency, volume of her stools have improved significantly. Although she is still having loose stools every time she goes to the bathroom. Review of Systems Review of Systems: All systems reviewed & are unremarkable except as noted in Subjective Physical Exam Physical Exam: General: Awake, conversant Heart: S1, S2/regular rate and rhythm, no murmur rubs or gallops Lungs: Clear to auscultation bilaterally. Normal effort Abdomen: Soft/nontender/nondistended. No hepatosplenomegaly Extremities: No clubbing/cyanosis. No edema Behavior: Appropriate, cooperative Results & Data Results & Data Vital Signs (Past 12 Hours) Vital Signs Temp Pulse Pulse Resp BP Pulse Ox O2 Del Method 03/16/24 10:38 36.4 C L 73 20 156/79 H 94 Room Air 03/16/24 07:30 Room Air 03/16/24 07:27 36.7 C 68 23 152/77 H 98 Nasal Cannula 03/16/24 06:00 68 03/16/24 03:51 36.7 C 70 16 124/70 97 Nasal Cannula O2 Flow Rate 03/16/24 10:38 03/16/24 07:30 03/16/24 07:27 2 03/16/24 06:00 03/16/24 03:51 2 Laboratory Results Abnormal lab results 03/15/24 03/15/24 03/16/24 Range/Units 16:29 20:20 05:30 WBC (4.8-10.8) K/ul RBC (4.20-5.40) M/uL Hgb (12.0-16.0) g/dl Hct (37.0-47.0) % RDW Std Deviation (36.4-46.3) fL RDW Coeff of Ken (11.5-14.5) % PT (9.0-12.0) Seconds INR (0.9-1.1) Potassium (3.5-5.1) mmol/L BUN/Creatinine Ratio (10-20) Glucose (70-99(Fasting)) mg/dl POC Glucose 119 H 116 H (70-99) mg/dl Calcium (8.6-10.3) mg/dl Urine Blood 1+ H (Negative) Ur Leukocyte Esterase Trace H (Negative) 03/16/24 03/16/24 Range/Units 06:36 07:58 WBC 15.63 H (4.8-10.8) K/ul RBC 4.11 L (4.20-5.40) M/uL Hgb 11.8 L (12.0-16.0) g/dl Hct 36.4 L (37.0-47.0) % RDW Std Deviation 47.5 H (36.4-46.3) fL RDW Coeff of Ken 14.6 H (11.5-14.5) % PT 21.0 H (9.0-12.0) Seconds INR 2.1 H (0.9-1.1) Potassium 3.3 L (3.5-5.1) mmol/L BUN/Creatinine Ratio 20.2 H (10-20) Glucose 109 H (70-99(Fasting)) mg/dl POC Glucose (70-99) mg/dl Calcium 8.3 L (8.6-10.3) mg/dl Urine Blood (Negative) Ur Leukocyte Esterase (Negative) PG Care Time/CCT Total # of Minutes Spent Total Time Spent with Patient: Total time spent is greater than 50% in coordination of care (as documented) at patient's floor/unit and/or counseling patient: Coding Level of Care Code 36997 SUB INP/OBS CARE 235MIN Diagnoses Syncope and collapse R55 Colitis K52.9 Severe persistent asthma J45.50 Dyslipidemia E78.5 Paroxysmal atrial fibrillation I48.0
--- NOTE | 2024-03-16 13:36 | Gastroenterology Progress Note ---
Date of Service March 16, 2024 Assessment & Plan (1) Colitis: Plan: I still feel this was an infectious enteritis. She seems to be getting over it. Continue with current treatment Admission and Anticipated Discharge Date Admission Date: March 14, 2024 Subjective Looks much better. WBC down to 15K. Not vomiting but can't eat much yet. Still with diarrhea Physical Exam Physical Exam: She looks well Constitutional: WD/WN, vitals as above Results & Data Vital Signs (Past 12 Hours) Vital Signs Temp Pulse Pulse Resp BP Pulse Ox O2 Del Method 03/16/24 10:38 36.4 C L 73 20 156/79 H 94 Room Air 03/16/24 07:30 Room Air 03/16/24 07:27 36.7 C 68 23 152/77 H 98 Nasal Cannula 03/16/24 06:00 68 03/16/24 03:51 36.7 C 70 16 124/70 97 Nasal Cannula O2 Flow Rate 03/16/24 10:38 03/16/24 07:30 03/16/24 07:27 2 03/16/24 06:00 03/16/24 03:51 2
[2024-03-16] MEDS: LOPERAMIDE HCL 2 MG CAP PO PRN (16:34)
[2024-03-17 06:33] LABS: Hematocrit (blood only) 37.9 % (37.0-47.0); Hemoglobin 12.4 g/dl (12.0-16.0); Mean Corpuscular Hemoglobin 29.2 pg (25.0-34.0); Mean Corpuscular Hgb Conc 32.7 g/dL (32.0-36.0); Mean Corpuscular Volume 89.2 fL (80.0-100.0); Mean Platelet Volume 9.2 fL (9.4-12.4); Platelet Count 194 K/uL (130-400); RDW Coefficient of Variation 14.6 % (11.5-14.5); RDW Standard Deviation 47.4 fL (36.4-46.3); Red Blood Count 4.25 M/uL (4.20-5.40); White Blood Count 9.87 K/ul (4.8-10.8)
[2024-03-17 06:54] LABS: BUN Creatinine Ratio 11.5 (10-20); Calcium 8.2 mg/dl (8.6-10.3); Creatinine Clr Calc Pharmacy 82.3 ml/min; Est GFR (African American) 89.9 ml/min; Est GFR (Non-African American) 77.6 ml/min; Potassium 3.3 mmol/L (3.5-5.1)
[2024-03-17 06:57] LABS: INR 2.8 (0.9-1.1); Prothrombin Time 28.1 Seconds (9.0-12.0)
[2024-03-17] MEDS: POTASSIUM CHLORIDE CRTAB 20 MEQ TABCR PO STA (08:39)
--- NOTE | 2024-03-17 09:19 | Gastroenterology Progress Note ---
Date of Service March 17, 2024 Assessment & Plan (1) Colitis: Plan: Seems to bet getting over what I think was an acute infectious process. Would be cautious with imodium since she had evidence of colitis on CT. Should be good to go home when she feels up to it. Admission and Anticipated Discharge Date Admission Date: March 14, 2024 Subjective Feeling better but not back to normal. WBC is normal now. Still with some diarrhea but getting imodium. Not eating well Physical Exam Physical Exam: She looks well Constitutional: WD/WN, vitals as above Results & Data Vital Signs (Past 12 Hours) Vital Signs Temp Pulse Pulse Resp BP Pulse Ox O2 Del Method 03/17/24 07:25 36.5 C 76 19 192/79 H 93 Room Air 03/17/24 03:43 36.4 C L 67 21 176/74 H 93 Room Air 03/16/24 23:59 36.4 C L 69 17 148/68 H 92 Room Air 03/16/24 23:30 72 03/16/24 21:33 Room Air
[2024-03-17] MEDS: dilTIAZem HCL 180 MG CAPCR PO SCH (09:57)
[2024-03-17] MEDS: hydroCHLOROthiazide 25 MG TAB PO SCH (09:58)
[2024-03-17] MEDS: METOPROLOL TARTRATE 50 MG TAB PO SCH (09:58)
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
[2024-03-17] MEDS ORDERED: WARFARIN SOD 2.5 MG TAB PO SCH (16:00)
== END 2024-03-17 15:17 | disposition home or self-care (01) | DRG 392 ==
LOC: ED 15:53 → SUATTDRO 19:22 → EDINP 19:22 → 2E 21:40

== ENCOUNTER 2025-06-13 09:29 | Inpatient (IN) ==
--- NOTE | 2025-06-13 10:05 | Emergency Department Note ---
Impression & Plan Dyspnea, COVID-19, Acute exacerbation of chronic obstructive pulmonary disease (COPD) ED Provider Note ED Provider Note NAME: JOSR CHAPIN AGE:69 SEX: Female : 1955 ARRIVES VIA: Private vehicle INFORMANT: Patient ED PROVIDER(s): Cheryle Goyal DO CHIEF COMPLAINT: Worsening shortness of breath and cough HPI: This is a 69-year-old female who presents to the emergency department due to concern for worsening shortness of breath and cough. Patient first began feeling ill the length end of last week after returning from vacation to the [facility]. She states over the weekend she developed worsening URI symptoms and cough. She states on Tuesday she was seen in [facility] and was diagnosed with COVID following a nasal swab. She was started on prednisone and also given doxycycline due to history of recurrent pneumonia due to her underlying asthma/COPD. She has been using her MDI/nebs at home without significant improvement and taking the medications as prescribed. She states overnight her breathing became worse with increased cough and shortness of breath. She states she had minimal sleep overnight due to her respiratory distress. She states she did cough up green/yellow sputum, no hemoptysis noted. She denies chest pain, abdominal pain, vomiting or diarrhea. No recent leg swelling. Patient states she has had pneumonia numerous times which is why they gave her doxycycline despite a confirmed viral process. She states she called her PCPs office this morning and was instructed to come here for further evaluation and management. PAST MEDICAL HISTORY:See Below PAST SURGICAL HISTORY:See Below FAMILY HISTORY:See Below SOCIAL HISTORY:See Below HOME MEDICATIONS:See Below ALLERGIES:See Below VITALS:See Below PHYSICAL EXAMINATION: GENERAL: alert, ill appearing, well nourished, no distress, non-toxic EYE EXAM: normal conjunctiva, PERRL and EOM's grossly intact OROPHARYNX: no exudate, no erythema, lips, buccal mucosa, and tongue normal and mucous membranes are moist NECK: supple, no nuchal rigidity, no adenopathy, non-tender LUNGS: Decreased to auscultation. Normal chest wall mechanics, no r/r, scattered faint exp wheeze HEART: no murmurs, S1 normal and S2 normal ABDOMEN: abdomen soft, non-tender, normo-active bowel sounds, no masses, no rebound or guarding. SKIN: no rashes, petechiae, orbruising UPPER EXTREMITIES: upper extremities are grossly normal. FROM, nml pulses b/l. LOWER EXTREMITIES: No pitting edema. FROM, nml pulses b/l. NEURO EXAM: Normal sensorium, cranial nerves II-XII grossly intact, normal speech, no facial droop,nogross weakness of arms, no gross weakness of legs. Gross sensation intact. No ataxia. Vital Signs: reviewed and remarkable Differential Diagnosis: pneumonia, bronchitis, COPD/Asthma exacerbation, pneumothorax, pulmonary embolism, congestive heart failure, acute coronary syndrome, as well as others were considered MEDICAL DECISION MAKING: This is a 69-year-old female who presents to the emergency department due to concern for worsening shortness of breath despite recent initiation of prednisone and doxycycline. Patient was confirmed outpatient swab for COVID-19. Patient ill-appearing on arrival however afebrile and hemodynamically stable. Labs drawn and sent, IV established, EKG and CXR performed and interpreted at bedside, and patient placed on telemetry. Patient's labs reassuring. However he was noted to have an elevated lactic acid. Leukocytosis may be result of infection as well as recent steroid use. Lactic acid was noted to be upgoing. Patient was tolerating p.o. at bedside and did appear euvolemic. Despite reassuring chest x-ray and consideration for prior pulmonary history, patient sent for CT of the chest. All results were reviewed with the patient at bedside. Due to worsening condition despite outpatient treatment and her report that she is unable to take Paxlovid due to her prior history, case was discussed with the hospitalist team for additional evaluation and management. I do not suspect occult PE as patient's INR is therapeutic. Patient's troponin negative, and EKG without acute changes, I do not suspect occult ACS or CHF as the etiology of her shortness of breath. Consultation(s): 1340: Discussed with Joao Gaviria hospitalist team, for additional evaluation and mgmt. ER Treatment Provided: See below Diagnostics Interpreted By Me: -ECG: Normal sinus is 76, normal axis, normal intervals, no acute ST/T wave changes -Cardiac Monitoring: An order was placed for continuous cardiac monitoring. The monitor shows a rate of 78 with normal sinus rhythm. -Laboratory studies: As stated above and show below. -Imaging studies: X-ray Chest: A single view study of the chest was reviewed and was negative for cardiomegaly, focal infiltrate, effusion, pulmonary edema, or wide mediastinum. Triage Nursing Note Reviewed Prior/Outside Records Reviewed Past Med/Surg History Problem List (Updated 06/13/25 @ 17:36 by Cheryle Goyal DO) Acute exacerbation of chronic obstructive pulmonary disease (COPD) (Acute) COVID-19 (Acute) Dyspnea (Acute) Balance problem Impaired gait Bronchiectasis Eosinophilia Fatigue Cough Left-sided epistaxis Headache History of inferior vena caval filter placement still in place, states unable to remove Syncope and collapse Colitis (Acute) Abnormal glucose Cervical spinal stenosis Chronic cerebral ischemia follows w/ Dr Mckeon Urinary incontinence New onset of headaches after age 49 Idiopathic polyneuropathy Gait disturbance RLS (restless legs syndrome) Abnormal CXR Severe persistent asthma Current use of [facility] anticoagulation (Chronic) Abnormal CT of the chest (Acute) Dyslipidemia Paroxysmal atrial fibrillation controlled w/ meds, follows w/ Dr Monten[place]ro Paroxysmal SVT (supraventricular tachycardia) (Chronic) Osteoarthritis (Chronic) Chronic gastroesophageal reflux disease (Chronic) Hypertension (Chronic) Allergic rhinitis (Chronic) Asthma (Chronic) well controlled w/ daily inhaler use Hypothyroidism (Chronic) Osteoarthritis of left knee (Chronic) long-term (current) use of anticoagulants (Chronic) Medical History Osteoarthritis Restless leg syndrome Atrial fibrillation Hypertension Hypothyroid Dyslipidemia GERD (gastroesophageal reflux disease) Asthma Incontinent of urine Diabetes History of skin cancer External hemorrhoids Irritable bowel Hearing disorder Graves disease Nausea and vomiting after administration of anesthetic agent History of kidney stones Hx pulmonary embolism Hx of deep venous thrombosis Hx of breast cancer History of colon polyps Degenerative disc disease Surgical History Hx of eye surgery History of lobectomy of lung History of lumpectomy of left breast History of vascular access device History of hysterectomy History of dilatation and curettage History of bunionectomy of right great toe History of bunionectomy of left great toe History of arthroscopy of right knee History of total right knee replacement (TKR) Hx of lumbar discectomy History of colonoscopy History of esophagogastroduodenoscopy (EGD) History of cholecystectomy History of left breast biopsy History of wisdom tooth extraction History of cardiac cath Family History Sister Family history of diabetes mellitus Mother Family history of diabetes mellitus Heart disease Father Hx of CABG Heart disease Hypertension Brother Myocardial infarction Hypertension Other No family history of adverse response to anesthesia Social History Smoking Status: Never smoker Second Hand Exposure: No; Do You Dip or Chew Tobacco: No; Tobacco Cessation Education Requested by Patient: No Hx Alcohol Use: No Hx Substance Use: No Preferred Language: Latvian Communication Ability: Effective Leadership Program Associate Required: No Beliefs That Will Affect Care: None marital status: Current Living Situation: Spouse Current Living Situation Comment: Lives with current occupational status: disabled current occupation: Disabled age 54 ([employer]) due to cancer Other Information That Helps Us Care for You: No Feels Safe at Home: Yes Safety Concerns: Feels Safe At This Time Assistive Devices: Cane and Walker Allergies Allergies Allergy/AdvReac Type Severity Reaction Status Date / Time tree and shrub pollen Allergy Unknown throat Verified 06/11/25 09:47 tightens ([place]) fenofibrate AdvReac Intermediate HEART Verified 06/11/25 09:47 RACING lisinopril AdvReac Intermediate Cough Verified 06/11/25 09:47 [id number] Reductase AdvReac Intermediate FACE NUMB Verified 06/11/25 09:47 Inhibitor [Ylfykdt-Foi-Bov Reductase Inhibitor] codeine AdvReac Mild gi upset Verified 06/11/25 09:47 ibuprofen AdvReac Mild ULCERS Verified 06/11/25 09:47 nedocromil AdvReac Mild COUGH Verified 06/11/25 09:47 theophylline AdvReac Mild NERVOUSNESS Verified 06/11/25 09:47 anastrozole [From Arimidex] AdvReac Unknown Unknown Verified 06/11/25 09:47 Home Meds Home Medications Medication Instructions Recorded Confirmed cholecalciferol (vitamin D3) 125 5,000 unit PO QAM 06/27/18 06/13/25 mcg (5,000 unit) tablet (Vitamin D3) magnesium chloride 64 mg 64 mg PO Q12 06/27/18 06/13/25 (magnesium chloride) tablet,delayed release multivitamin 1 tab PO QAM 06/27/18 06/13/25 diphenhydramine HCl 25 mg tablet 25 mg PO HS PRN sleep 06/28/18 06/13/25 (Benadryl Allergy) calcium 600 mg (as 1 tab PO BID 07/19/19 06/13/25 carbonate)-vitamin D3 20 mcg (800 unit) tablet (Caltrate with Vitamin D3) levothyroxine 100 mcg tablet 100 mcg PO 4XWK 08/24/21 06/13/25 semaglutide 0.25 mg or 0.5 mg (2 0.5 mg subcut WK 01/06/24 06/13/25 mg/3 mL) subcutaneous pen injector (Ozempic) losartan 25 mg tablet 25 mg PO DAILY 05/15/24 06/13/25 minoxidil 2.5 mg tablet 2.5 mg PO DAILY 04/16/25 06/13/25 albuterol sulfate 90 mcg/actuation 0 puff inhalation Q4H PRN 06/13/25 06/13/25 aerosol inhaler (Ventolin HFA) Shortness Of Breath prednisone 10 mg tablet 10 mg PO UD 06/13/25 06/13/25 Previous Rx's Medication Instructions Recorded metoprolol tartrate 50 mg tablet 50 mg PO BID #180 tabs 02/24/22 hydrochlorothiazide 25 mg tablet 12.5 mg (1/2 x 25 mg) PO QAM #45 04/20/22 tabs fluticasone 500 mcg-salmeterol 50 1 inh inhalation Q12H #3 Inhalers 04/23/24 mcg/dose blistr powdr for inhalation (Advair Diskus) evolocumab 140 mg/mL subcutaneous 140 mg subcut Q14D #6 mL 08/08/24 pen injector (Repeulogioa Anuja) albuterol sulfate 2.5 mg/3 mL 2.5 mg (3 mL) inhalation Q6H PRN 08/20/24 (0.083 %) solution for nebulization Shortness Of Breath #180 mL nebulizers #1 ea 09/20/24 nebulizers #1 ea 09/20/24 pantoprazole 40 mg tablet,delayed 40 mg PO DAILY #90 tabs 10/22/24 release diltiazem HCl 180 mg capsule,24 180 mg PO BID #180 caps 10/29/24 hr,extended release mepolizumab 100 mg/mL subcutaneous 100 mg subcut .Every 28 days #2 mL 11/29/24 syringe (Nucala) mometasone 200 mcg/actuation HFA 2 puff inhalation BID #3 Inhalers 01/30/25 aerosol inhaler (Asmanex HFA) flecainide 50 mg tablet 50 mg PO Q12H #180 tabs 03/08/25 warfarin 5 mg tablet See Rx Instructions PO UD #80 tabs 04/11/25 meclizine 25 mg tablet 25 mg PO TID PRN dizziness #15 tabs 05/22/25 clotrimazole 10 mg farzana 10 mg mucous membrane 5XD 2 weeks 06/11/25 #70 tabs doxycycline hyclate 100 mg tablet 100 mg PO BID 10 days #20 tabs 06/11/25 Results & Data (ED) Vital Signs Vital Signs - 24 hr 06/13/25 09:35 06/13/25 10:19 06/13/25 10:30 Temperature 36.9 C Temperature Source Skin Pulse Rate 74 67 68 Pulse Rate from SpO2 Sensor 68 Respiratory Rate 20 23 Respiratory Effort / Characteristics Non-Labored Spontaneous Respiratory Depth Normal Respiratory Pattern Regular Blood Pressure 128/68 124/61 Blood Pressure Mean 88 82 Pulse Oximetry 94 93 Oxygen Delivery Method Room Air Sepsis Recent Fever Within 48 Hours No Sepsis New/Unexplained Change in Mental Status N/A Sepsis Action Taken by Nursing No Action Required 06/13/25 10:33 06/13/25 11:00 06/13/25 11:24 Temperature Temperature Source Pulse Rate 66 66 Pulse Rate from SpO2 Sensor 66 65 Respiratory Rate 19 19 Respiratory Effort / Characteristics Respiratory Depth Respiratory Pattern Blood Pressure 124/61 Blood Pressure Mean 82 Pulse Oximetry 95 96 Oxygen Delivery Method Room Air Sepsis Recent Fever Within 48 Hours Sepsis New/Unexplained Change in Mental Status Sepsis Action Taken by Nursing 06/13/25 11:30 06/13/25 11:57 06/13/25 12:00 Temperature Temperature Source Pulse Rate 65 Pulse Rate from SpO2 Sensor 66 Respiratory Rate 20 Respiratory Effort / Characteristics Respiratory Depth Respiratory Pattern Blood Pressure 133/63 148/73 H Blood Pressure Mean 80 106 Pulse Oximetry 99 Oxygen Delivery Method Sepsis Recent Fever Within 48 Hours Sepsis New/Unexplained Change in Mental Status Sepsis Action Taken by Nursing 06/13/25 12:30 Temperature Temperature Source Pulse Rate 69 Pulse Rate from SpO2 Sensor 69 Respiratory Rate 19 Respiratory Effort / Characteristics Respiratory Depth Respiratory Pattern Blood Pressure Blood Pressure Mean Pulse Oximetry 96 Oxygen Delivery Method Sepsis Recent Fever Within 48 Hours Sepsis New/Unexplained Change in Mental Status Sepsis Action Taken by Nursing Laboratory Data 06/13/25 10:00 06/13/25 10:00 Lab Results 06/13/25 06/13/25 Range/Units 10:00 11:49 WBC 14.18 H (4.8-10.8) K/ul RBC 4.50 (4.20-5.40) M/uL Hgb 14.0 (12.0-16.0) g/dl Hct 41.2 (37.0-47.0) % MCV 91.6 (80.0-100.0) fL MCH 31.1 (25.0-34.0) pg MCHC 34.0 (32.0-36.0) g/dL RDW Std Deviation 43.5 (36.4-46.3) fL RDW Coeff of Ken 13.1 (11.5-14.5) % Plt Count 269 (130-400) K/uL MPV 8.6 L (9.4-12.4) fL Immature Gran % (Auto) 0.8 % Neut % (Auto) 79.9 % Lymph % (Auto) 10.2 % [place] % (Auto) 8.7 % Eos % (Auto) 0.1 % Baso % (Auto) 0.3 % Neut # (Auto) 11.34 H (1.40-6.50) K/uL Lymph # (Auto) 1.44 (1.20-3.40) K/uL [place] # (Auto) 1.23 H (0.11-0.59) K/uL Eos # (Auto) 0.02 (0.00-0.50) K/uL Baso # (Auto) 0.04 (0.00-0.20) K/uL Immature Gran # (Auto) 0.11 (0.01-0.20) K/uL PT 25.0 H (9.0-12.0) Seconds INR 2.5 H (0.9-1.1) VBG pH 7.40 (7.36-7.41) VBG pCO2 50 (38-50) mmHg VBG pO2 32 mmHg VBG HCO3 31 mmol/L VBG O2 Saturation < 60.0 % VBG Base Excess 5.0 mEq/L Sodium 137 (136-145) mmol/L Potassium 3.7 (3.5-5.1) mmol/L Chloride 99 (98-107) mmol/L Carbon Dioxide 28 (21-32) mmol/L Anion Gap 10 (3-11) BUN 15 (6-23) mg/dl Creatinine 0.96 (0.6-1.2) mg/dl Est Cr Clr Drug Dosing 65.7 ml/min eGFR 63.65 BUN/Creatinine Ratio 15.6 (10-20) Glucose 151 H (70-99(Fasting)) mg/dl Lactate 2.7 H* 3.5 H* (0.4-2.0) mmol/L Calcium 9.9 (8.6-10.3) mg/dl Magnesium 1.9 (1.7-2.4) mg/dl Total Bilirubin 0.4 (0.2-1.0) mg/dl AST 23 (13-39) U/L ALT 19 (7-52) U/L Alkaline Phosphatase 63 (34-104) U/L Troponin I High Sens 10.9 (0-14) pg/ml Total Protein 7.8 (6.0-8.3) gm/dl Albumin 4.0 (3.4-5.0) gm/dl Globulin 3.8 (2.5-4.0) gm/dl Albumin/Globulin Ratio 1.1 (0.9-2) Lipase 39 (11-82) U/L Procalcitonin 0.22 (0-0.5) ng/ml Administered Medications Flecainide Acetate (Flecainide Acetate 100 Mg Tablet) 50 mg PO Q12H [facility] Stop: 07/13/25 15:31 Last Admin: 06/13/25 17:07 Dose: 50 mg Documented By: LESLIE Fluticasone/Vilanterol (Fluticasone/Vilanterol 200/25mcg 14 Puffs/Inhaler) 1 puffs INH DAILY MARY Stop: 07/13/25 15:44 Last Admin: 06/13/25 17:07 Dose: 1 puffs Documented By: LESLIE Ceftriaxone Sodium (Rocephin) 2,000 mg in 50 mls @ 100 mls/hr IV Q24H MARY Stop: 06/18/25 15:29 Last Admin: 06/13/25 17:08 Dose: 100 mls/hr Documented By: LESLIE Warfarin Sodium (Warfarin Sod 5 Mg Tab) 5 mg PO [id number]@1600 MARY Stop: 07/13/25 15:59 Last Admin: 06/13/25 17:16 Dose: Not Given Documented By: LESLIE Discontinued Medications Albuterol (Albut/Ipratrop 3mg/0.5mg Neb 3 Ml Vial) 3 ml NEB NOW STA; Protocol Stop: 06/13/25 11:08 Last Admin: 06/13/25 11:31 Dose: 3 ml Documented By: CEF Dexamethasone Sodium Phosphate (DexamethasonePf 10 Mg/Ml Vial) 6 mg IV NOW ONE Stop: 06/13/25 17:31 Last Admin: 06/13/25 17:21 Dose: 6 mg Documented By: LESLIE Sodium Chloride (Nss) 1,000 mls @ 999 mls/hr IV .Q1H1M ONE Stop: 06/13/25 14:43 Last Admin: 06/13/25 14:03 Dose: 999 mls/hr Documented By: CEF Ioversol (Optiray 320 125ml) 94 ml IV ONCE ONE Stop: 06/13/25 12:22 Last Admin: 06/13/25 12:21 Dose: 94 ml Documented By: JAR Imaging Data Radiologist's Impression: Chest X-Ray 06/13/25 09:50 XR chest 1V portable CLINICAL HISTORY: Shortness of breath, cough, covid. COMPARISON STUDY: Chest radiograph December 06, [address] January 28, 2025. FINDINGS: Postoperative findings within the right hemithorax are again noted. Low lung volumes are unchanged. There is no pneumothorax or pleural effusion. No consolidation is identified. Cardiomediastinal silhouette is stable. The appearance of the chest is unchanged. IMPRESSION: No acute cardiopulmonary findings. Metastatic change in appearance of the chest. ACT 112: Negative or not required by law. Electronically signed by: Devyn Narayan M.D. 06/13/2025 10:[address] 06/13/25 11:43 CT SCAN OF THE CHEST WITH IV CONTRAST CLINICAL HISTORY: Shortness of breath. Covid. Evaluate for pneumonia. COMPARISON STUDY: Chest radiograph performed earlier today. Chest CT January 28, 2025. Chest CT March 01, 2007. TECHNIQUE: Following the IV administration of 94 cc of Optiray 320, CT scan of the thorax was performed from the thoracic inlet to the upper abdomen. Images are reviewed in the axial, sagittal, and coronal planes. IV contrast was administered without complication. A dose lowering technique was utilized adhering to the principles of ALARA. CT DOSE: 759.61 mGy.cm FINDINGS: No enlarged axillary, mediastinal or hilar lymph nodes are present. Mild cardiomegaly is again noted. There is no pericardial effusion. Stable postoperative findings within the left breast are noted. There are stable postoperative findings following right upper lobectomy. Multiple pulmonary nodules are unchanged since CT of January 28, 2025. Left lower lobe nodules have slightly increased in size from earlier exams. Index 1.1 cm left lower lobe pulmonary nodule on image 145 is noted. There is an additional 7 mm left lower lobe nodule on image 141 and an 8 mm subpleural left lower lobe nodule on image 136. A 9 mm right middle lobe nodule is unchanged from earlier exams. A 1.4 cm subpleural irregular opacity within the right lower lobe on image 92 has developed since chest CT of January 28, 2025. Otherwise, the appearance of the chest is unchanged. Left apical subpleural density with associated bronchiectasis represents scarring. Visualized portions of the upper abdomen are unremarkable status post cholecystectomy. IMPRESSION: 1. Interval development of a small 1.4 cm subpleural irregular airspace opacity within the right lower lobe since CT of January 28, 2025. This favors a mild infectious process. A chest CT in 3 months to ensure resolution is recommended. 2. Multiple pulmonary nodules, unchanged since CT of January 28, 2025. However, several left lower lobe pulmonary nodules have slightly increased in size from earlier CTs and are therefore indeterminate. These can be assessed on follow-up studies. 3. Stable findings following right upper lobectomy. ACT 112: Negative or not required by law. Electronically signed by: Devyn Narayan M.D. 06/13/2025 12:36 PM Discharge Plan Visit Data Chief Complaint: Shortness of Breath/Dyspnea Stated Complaint: LUNG PAIN, SOB, COVID LUNG ISSUES ED Provider: Cheryle Goyal Discharge Problem: Dyspnea, COVID-19, Acute exacerbation of chronic obstructive pulmonary disease (COPD) Patient Disposition: Being Evaluated by Hospitalist Condition: Fair
[2025-06-13 10:17] LABS: Base Excess VBG 5.0 mEq/L; HCO3 VBG 31 mmol/L; Oxygen Saturation VBG < 60.0 %; PCO2 VBG 50 mmHg (38-50); PO2 VBG 32 mmHg; pH VBG 7.40 (7.36-7.41)
[2025-06-13 10:25] LABS: Hematocrit (blood only) 41.2 % (37.0-47.0); Hemoglobin 14.0 g/dl (12.0-16.0); Immature Granulocytes # (auto) 0.11 K/uL (0.01-0.20); Immature Granulocytes % (auto) 0.8 %; Mean Corpuscular Hemoglobin 31.1 pg (25.0-34.0); Mean Corpuscular Volume 91.6 fL (80.0-100.0); Platelet Count 269 K/uL (130-400); RDW Standard Deviation 43.5 fL (36.4-46.3); Red Blood Count 4.50 M/uL (4.20-5.40); White Blood Count 14.18 K/ul (4.8-10.8)
--- NOTE | 2025-06-13 10:40 | XRay Report ---
XR chest 1V portable CLINICAL HISTORY: Shortness of breath, cough, covid. COMPARISON STUDY: Chest radiograph December 06, [address] January 28, 2025. FINDINGS: Postoperative findings within the right hemithorax are again noted. Low lung volumes are un changed. There is no pneumothorax or pleural effusion. No consolidation is identified. Cardiomediasti nal silhouette is stable. The appearance of the chest is unchanged. IMPRESSION: No acute cardiopulmonary findings. Metastatic change in appearance of the chest. ACT 112: Negative or not required by law. Electronically signed by: Devyn Narayan M.D. 06/13/2025 10:38 AM
[2025-06-13 10:49] LABS: Alanine Aminotransferase 19.0 U/L (7-52); Albumin Globulin Ratio 1.1 (0.9-2); Alkaline Phosphatase 63.0 U/L (34-104); Anion Gap 10.0 (3-11); Bilirubin,Total 0.4 mg/dl (0.2-1.0); Blood Urea Nitrogen 15.0 mg/dl (6-23); Calcium 9.9 mg/dl (8.6-10.3); Carbon Dioxide 28.0 mmol/L (21-32); Chloride 99.0 mmol/L (98-107); Creatinine Clr Calc Pharmacy 65.7 ml/min; Globulin 3.8 gm/dl (2.5-4.0); Glucose 151.0 mg/dl (70-99(Fasting)); Lipase 39.0 U/L (11-82); Magnesium 1.9 mg/dl (1.7-2.4); Potassium 3.7 mmol/L (3.5-5.1); Sodium 137.0 mmol/L (136-145); Total Protein 7.8 gm/dl (6.0-8.3)
[2025-06-13 10:51] LABS: INR 2.5 (0.9-1.1); Prothrombin Time 25.0 Seconds (9.0-12.0)
[2025-06-13] MEDS: ALBUT/IPRATROP 3MG/0.5MG NEB 3 ML VIAL NEB STA (11:31)
[2025-06-13] MEDS: OPTIRAY 320 125ml IV ONE (12:21)
--- NOTE | 2025-06-13 12:39 | CT Scan Report ---
CT SCAN OF THE CHEST WITH IV CONTRAST CLINICAL HISTORY: Shortness of breath. Covid. Evaluate for pneumonia. COMPARISON STUDY: Chest radiograph performed earlier today. Chest CT January 28, 2025. Chest CT February. TECHNIQUE: Following the IV administration of 94 cc of Optiray 320, CT scan of the thorax was perform ed from the thoracic inlet to the upper abdomen. Images are reviewed in the axial, sagittal, and shira nal planes. IV contrast was administered without complication. A dose lowering technique was utilize d adhering to the principles of ALARA. CT DOSE: 759.61 mGy.cm FINDINGS: No enlarged axillary, mediastinal or hilar lymph nodes are present. Mild cardiomegaly is ag ain noted. There is no pericardial effusion. Stable postoperative findings within the left breast are noted. There are stable postoperative findings following right upper lobectomy. Multiple pulmonary n odules are unchanged since CT of January 28, 2025. Left lower lobe nodules have slightly increased in s ize from earlier exams. Index 1.1 cm left lower lobe pulmonary nodule on image 145 is noted. There is an additional 7 mm left lower lobe nodule on image 141 and an 8 mm subpleural left lower lobe nodule on image 136. A 9 mm right middle lobe nodule is unchanged from earlier exams. A 1.4 cm subpleural i rregular opacity within the right lower lobe on image 92 has developed since chest CT of January 28. Otherwise, the appearance of the chest is unchanged. Left apical subpleural density with associat ed bronchiectasis represents scarring. Visualized portions of the upper abdomen are unremarkable stat us post cholecystectomy. IMPRESSION: 1. Interval development of a small 1.4 cm subpleural irregular airspace opacity within the right lowe r lobe since CT of January 28, 2025. This favors a mild infectious process. A chest CT in 3 months to e nsure resolution is recommended. 2. Multiple pulmonary nodules, unchanged since CT of January 28, 2025. However, several left lower lobe pulmonary nodules have slightly increased in size from earlier CTs and are therefore indeterminate. These can be assessed on follow-up studies. 3. Stable findings following right upper lobectomy. ACT 112: Negative or not required by law. Electronically signed by: Devyn Narayan M.D. 06/13/2025 12:36 PM
--- NOTE | 2025-06-13 13:33 | History & Physical Report ---
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 Test positive for COVID outpatient, CT showing concerns for PNA. #COVID | Pneumonia - Follows with Dr. Silva, hx of right upper lobectomy. Covid positive outpatient. CT chest with 1.4cm subpleural irregular airspace opacity in the right lobe. Multiple pulmonary nodules some with slight increase in size. With elevated lactate on admission, but vitals signs stable. Will give 1L of IVF and recheck Will expand antibiotic coverage to ceftriaxone and doxycycline Give dexamethasone 6mg, hold prednisone Pulm Toilet: IS, FV, Mucinex, prn nebs Will need [address] Consider 2 step prior to d/c AM CBC and BMP #Afib on Coumadin continue diltiazem, flecainide, metoprolol Hold HCTZ. 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 Symptoms started 5 days ago, tested positive for COVID on Tuesday and was given a course of steroids and doxycycline. No fevers at home. Occasional productive cough. Does get very short of breath with activity. No changes to her GI habits. Did take her medications this morning. Would like to be a full code. Allergies Allergy/AdvReac Type Severity Reaction Status Date / Time tree and shrub pollen Allergy Unknown throat Verified 06/11/25 09:47 tightens ([place]) fenofibrate AdvReac Intermediate HEART Verified 06/11/25 09:47 RACING lisinopril AdvReac Intermediate Cough Verified 06/11/25 09:47 Cnbqnry-QAU-TlK Reductase AdvReac Intermediate FACE NUMB Verified 06/11/25 09:47 Inhibitor [Okdsryx-Esa-Pol Reductase Inhibitor] codeine AdvReac Mild gi upset Verified 06/11/25 09:47 ibuprofen AdvReac Mild ULCERS Verified 06/11/25 09:47 nedocromil AdvReac Mild COUGH Verified 06/11/25 09:47 theophylline AdvReac Mild NERVOUSNESS Verified 06/11/25 09:47 anastrozole [From Arimidex] AdvReac Unknown Unknown Verified 06/11/25 09:47 Home Medications Medication Instructions Recorded Confirmed Type cholecalciferol (vitamin D3) 125 5,000 unit PO QAM 06/27/18 06/13/25 History mcg (5,000 unit) tablet (Vitamin D3) magnesium chloride 64 mg 64 mg PO Q12 06/27/18 06/13/25 History (magnesium chloride) tablet,delayed release multivitamin 1 tab PO QAM 06/27/18 06/13/25 History diphenhydramine HCl 25 mg tablet 25 mg PO HS PRN sleep 06/28/18 06/13/25 History (Benadryl Allergy) calcium 600 mg (as 1 tab PO BID 07/19/19 06/13/25 History carbonate)-vitamin D3 20 mcg (800 unit) tablet (Caltrate with Vitamin D3) levothyroxine 100 mcg tablet 100 mcg PO 4XWK 08/24/21 06/13/25 History metoprolol tartrate 50 mg tablet 50 mg PO BID #180 tabs 02/24/22 06/13/25 Rx hydrochlorothiazide 25 mg tablet 12.5 mg (1/2 x 25 mg) PO QAM #45 04/20/22 06/13/25 Rx tabs semaglutide 0.25 mg or 0.5 mg (2 0.5 mg subcut WK 01/06/24 06/13/25 History mg/3 mL) subcutaneous pen injector (Ozempic) fluticasone 500 mcg-salmeterol 50 1 inh inhalation Q12H #3 Inhalers 07/08/24 08/28/25 Rx mcg/dose blistr powdr for inhalation (Advair Diskus) losartan 25 mg tablet 25 mg PO DAILY 05/15/24 06/13/25 History evolocumab 140 mg/mL subcutaneous 140 mg subcut Q14D #6 mL 08/08/24 06/13/25 Rx pen injector (Repeulogioa SureWilliamick) albuterol sulfate 2.5 mg/3 mL 2.5 mg (3 mL) inhalation Q6H PRN 08/20/24 06/13/25 Rx (0.083 %) solution for nebulization Shortness Of Breath #180 mL nebulizers #1 ea 09/20/24 06/11/25 Rx nebulizers #1 ea 09/20/24 06/11/25 Rx pantoprazole 40 mg tablet,delayed 40 mg PO DAILY #90 tabs 10/22/24 06/13/25 Rx release diltiazem HCl 180 mg capsule,24 180 mg PO BID #180 caps 10/29/24 06/13/25 Rx hr,extended release mepolizumab 100 mg/mL subcutaneous 100 mg subcut .Every 28 days #2 mL 11/29/24 06/13/25 Rx syringe (Nucala) mometasone 200 mcg/actuation HFA 2 puff inhalation BID #3 Inhalers 01/30/25 06/13/25 Rx aerosol inhaler (Asmanex HFA) flecainide 50 mg tablet 50 mg PO Q12H #180 tabs 03/08/25 06/13/25 Rx warfarin 5 mg tablet See Rx Instructions PO UD #80 tabs 04/11/25 06/13/25 Rx minoxidil 2.5 mg tablet 2.5 mg PO DAILY 04/16/25 06/13/25 History meclizine 25 mg tablet 25 mg PO TID PRN dizziness #15 tabs 05/22/25 06/13/25 Rx clotrimazole 10 mg farzana 10 mg mucous membrane 5XD 2 weeks 06/11/25 06/13/25 Rx #70 tabs doxycycline hyclate 100 mg tablet 100 mg PO BID 10 days #20 tabs 06/11/25 06/13/25 Rx albuterol sulfate 90 mcg/actuation 0 puff inhalation Q4H PRN 06/13/25 06/13/25 History aerosol inhaler (Ventolin HFA) Shortness Of Breath prednisone 10 mg tablet 10 mg PO UD 06/13/25 06/13/25 History Past Med/Surg History Problem List (Updated 06/13/25 @ 17:36 by Cheryle Goyal DO) Acute exacerbation of chronic obstructive pulmonary disease (COPD) (Acute) COVID-19 (Acute) Dyspnea (Acute) Balance problem Impaired gait Bronchiectasis Eosinophilia Fatigue Cough Left-sided epistaxis Headache History of inferior vena caval filter placement still in place, states unable to remove Syncope and collapse Colitis (Acute) Abnormal glucose Cervical spinal stenosis Chronic cerebral ischemia follows w/ Dr Mckeon Urinary incontinence New onset of headaches after age 49 Idiopathic polyneuropathy Gait disturbance RLS (restless legs syndrome) Abnormal CXR Severe persistent asthma 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) Abnormal CT of the chest (Acute) Dyslipidemia Paroxysmal atrial fibrillation controlled w/ meds, follows w/ Dr Montenegro Paroxysmal SVT (supraventricular tachycardia) (Chronic) Osteoarthritis (Chronic) Chronic gastroesophageal reflux disease (Chronic) Hypertension (Chronic) Allergic rhinitis (Chronic) Asthma (Chronic) well controlled w/ daily inhaler use Hypothyroidism (Chronic) Osteoarthritis of left knee (Chronic) 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) Medical History Osteoarthritis Restless leg syndrome Atrial fibrillation Hypertension Hypothyroid Dyslipidemia GERD (gastroesophageal reflux disease) Asthma Incontinent of urine Diabetes History of skin cancer External hemorrhoids Irritable bowel Hearing disorder Graves disease Nausea and vomiting after administration of anesthetic agent History of kidney stones Hx pulmonary embolism Hx of deep venous thrombosis Hx of breast cancer History of colon polyps Degenerative disc disease Surgical History Hx of eye surgery History of lobectomy of lung History of lumpectomy of left breast History of vascular access device History of hysterectomy History of dilatation and curettage History of bunionectomy of right great toe History of bunionectomy of left great toe History of arthroscopy of right knee History of total right knee replacement (TKR) Hx of lumbar discectomy History of colonoscopy History of esophagogastroduodenoscopy (EGD) History of cholecystectomy History of left breast biopsy History of wisdom tooth extraction History of cardiac cath Family History Sister Family history of diabetes mellitus Mother Family history of diabetes mellitus Heart disease Father Hx of CABG Heart disease Hypertension Brother Myocardial infarction Hypertension Other No family history of adverse response to anesthesia Social History Smoking Status: Never smoker Second Hand Exposure: No; Do You Dip or Chew Tobacco: No; Tobacco Cessation Education Requested by Patient: No Hx Alcohol Use: No Hx Substance Use: No Preferred Language: Fijian Communication Ability: Effective 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 Beliefs That Will Affect Care: None marital status: Current Living Situation: Spouse Current Living Situation Comment: Lives with current occupational status: disabled current occupation: Disabled age 54 ([employer]) due to cancer Other Information That Helps Us Care for You: No Feels Safe at Home: Yes Safety Concerns: Feels Safe At This Time Assistive Devices: None Review of Systems Review of Systems: All systems reviewed & are unremarkable except as noted in Subjective Physical Exam Physical Exam: General: NAD, VS as above Resp: normal respiratory effort, lungs are tight, but not wheezing, decreased in the bases CV: RRR, no murmur, Abd: normal bowel sounds, non tender, no hepatosplenomegaly Extremities: Moves all extremities, no edema Neuro: A&O x3, Skin: intact, no lesions noted Results & Data Results & Data Vital Signs (Past 12 Hours) Vital Signs Temp Pulse Resp BP Pulse Ox O2 Del Method 06/13/25 12:30 69 19 96 06/13/25 12:00 148/73 H 06/13/25 11:57 65 20 99 06/13/25 11:30 133/63 06/13/25 11:24 66 19 96 06/13/25 11:00 66 19 124/61 95 06/13/25 10:33 Room Air 06/13/25 10:30 68 23 124/61 93 06/13/25 10:19 67 06/13/25 09:35 98.4 F 74 20 128/68 94 Room Air Laboratory Results cbc, chemistry, lactate reviewed Diagnostic Findings CXR reviewed Chest CT reviewed Supervising Physician Co-Signing Physician Notes Attending Attestation & Admit Note: Pt seen/examined, chart reviewed, admit care plan d/w PA Khadra Malackowski. I agree w/ the tejada components of her admission documentation. 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 Presents with worsening respiratory symptoms x 5 days ago including cough/whee zing/chest tightness/dyspnea. Tested positive for COVID on Tuesday of this week; prescribed a course of steroids and doxycycline. Despite such her respiratory symptoms worsened. PMH/PSH/allergies/meds/sochx - reviewed VSS, afebrile, O2 sats wnl gen - looks sick but nontoxic, coughing, wheezing mouth - MMM neck - no JVD heart - RRR, s1 s2 lungs - mild fine rales bases, RLL>LLL; mild end-exp wheezes b/l; bronchial cough; no increased work of breathing abd - soft NT ND BS+ ext - pulses 2+ b/l, no edema labs reviewed imaging reviewed - RLL pneumonia A/P: 1. COVID-19 2. RLL pneumonia - either due to #1, +/- bacterial superinfection 3. asthma with exacerbation 2nd to #1 4. h/o recurrent VTE/PAF - on coumadin -dexamethasone IV -patient agreeable to Remdesivir x 3 days -IV rocephin/doxy -nebs, pulm toilet, supportive care -daily INR - some interaction of coumadin with Remdesivir -airborne isolation Shakir Obando MD PG Care Time/CCT Total # of Minutes Spent Total Time Spent with Patient: Total time spent is greater than 50% in coordination of care (as documented) at patient's floor/unit and/or counseling patient: Coding Level of Care Code 35974 INT INP/OBS CARE 3/75MIN Diagnoses COVID-19 U07.1 Pneumonia J18.9 Multiple pulmonary nodules R91.8 Atrial fibrillation I48.91 Hypothyroid E03.9"
[2025-06-13] MEDS: SODIUM CHLORIDE 0.9% 1,000 ML IV ONE (14:03)
[2025-06-13] MEDS ORDERED: dexAMETHasone**PF** 10 MG/ML VIAL IV ONE (14:33)
[2025-06-13] MEDS ORDERED: POLYETHYLENE (MIRALAX) 17 GM PACK PO PRN (15:32)
[2025-06-13] MEDS ORDERED: MELATONIN 3 MG TAB PO PRN (15:32)
[2025-06-13] MEDS ORDERED: MECLIZINE HCL 25 MG TAB PO PRN (15:32)
[2025-06-13] MEDS ORDERED: ALBUT/IPRATROP 3MG/0.5MG NEB 3 ML VIAL NEB PRN (15:32)
[2025-06-13] MEDS: FLECAINIDE ACETATE 100 MG TABLET PO SCH (17:07)
[2025-06-13] MEDS: FLUTICASONE/VILANTEROL 200/25MCG 14 PUFFS/INHALER INH SCH (17:07)
[2025-06-13] MEDS: cefTRIAXone SODIUM 2,000 MG/50 ML BAG IV SCH (17:08)
[2025-06-13] MEDS: WARFARIN SOD 5 MG TAB PO SCH (17:16)
[2025-06-13] MEDS: dexAMETHasone**PF** 10 MG/ML VIAL IV ONE (17:21)
[2025-06-13] MEDS: LEVOTHYROXINE SODIUM 100 MCG TABLET PO SCH (19:21)
[2025-06-13] MEDS: REMDESIVIR 200 MG in SODIUM CHLORIDE 0.9% 210 ML IV STA (19:35)
--- NOTE | 2025-06-13 21:04 | Electrocardiogram Report ---
Test Reason : Blood Pressure : */* mmHG Vent. Rate : 71 BPM Atrial Rate : 71 BPM P-R Int : 204 ms QRS Dur : 114 ms QT Int : 418 ms P-R-T Axes : 3 -11 -10 degrees QTcB Int : 454 ms Normal sinus rhythm Moderate voltage criteria for LVH, may be normal variant ( R in aVL , Raad product ) Poor R wave progression, consider anterior AR vs. lead placement vs. LVH Inferior infarct When compared with ECG of 22-May-2025 09:43, Inferior infarct is now Present Confirmed by Sylvain Montengero ([id number]) on 06/13/2025 9:04:39 PM Referred By: REFERRED SELF Confirmed By: Sylvain Montenegro
[2025-06-13] MEDS: MAGNESIUM CHLORIDE W/CALCIUM 64MG DELAYED REL TAB PO SCH (22:05)
[2025-06-13] MEDS: DOXYCYCLINE HYCLATE 100 MG CAP PO SCH (22:05)
[2025-06-13] MEDS: guaiFENesin 600 MG TABCR PO SCH (22:06)
[2025-06-13] MEDS: METOPROLOL TARTRATE 50 MG TAB PO SCH (22:06)
[2025-06-13] MEDS: FLUTICASONE FUROATE 100MCG 14 PUFFS/INHALER INH SCH (22:08)
[2025-06-14] MEDS: ACETAMINOPHEN 325 MG TAB PO PRN (02:23)
[2025-06-14 06:52] LABS: Hematocrit (blood only) 36.6 % (37.0-47.0); Hemoglobin 12.4 g/dl (12.0-16.0); Immature Granulocytes # (auto) 0.14 K/uL (0.01-0.20); Immature Granulocytes % (auto) 2.0 %; Mean Corpuscular Hemoglobin 30.8 pg (25.0-34.0); Mean Corpuscular Volume 91.0 fL (80.0-100.0); Platelet Count 222 K/uL (130-400); RDW Standard Deviation 42.5 fL (36.4-46.3); Red Blood Count 4.02 M/uL (4.20-5.40); White Blood Count 7.08 K/ul (4.8-10.8)
[2025-06-14 07:11] LABS: Anion Gap 8.0 (3-11); Blood Urea Nitrogen 20.0 mg/dl (6-23); Calcium 9.3 mg/dl (8.6-10.3); Carbon Dioxide 27.0 mmol/L (21-32); Chloride 103.0 mmol/L (98-107); Creatinine Clr Calc Pharmacy 71.6 ml/min; Glucose 161.0 mg/dl (70-99(Fasting)); Potassium 4.1 mmol/L (3.5-5.1); Sodium 138.0 mmol/L (136-145)
[2025-06-14 07:38] LABS: INR 2.5 (0.9-1.1); Prothrombin Time 24.9 Seconds (9.0-12.0)
[2025-06-14 09:08] LABS: Alanine Aminotransferase 15.0 U/L (7-52)
[2025-06-14] MEDS: CHOLECALCIFEROL 125 MCG (5,000 UNITS) TAB PO SCH (09:09)
[2025-06-14] MEDS: LOSARTAN POTASSIUM 25 MG TAB PO SCH (09:11)
[2025-06-14] MEDS: MULTIVITAMIN TAB PO SCH (09:12)
[2025-06-14] MEDS: dexAMETHasone 6 MG in SYRINGE 0 ML IV SCH (09:56)
[2025-06-14] MEDS ORDERED: WARFARIN SOD 5 MG TAB PO SCH (16:00)
--- NOTE | 2025-06-14 20:25 | Hospitalist Progress Note ---
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 Tested + for COVID at home about 4-[address] chest with RLL infiltrates. #COVID-19 infection | RLL Pneumonia - -improved -cont airborne isolation -cont dexamethasone 6mg IV daily, day #2 today -cont Remdesivir x 3 days, day #2 today -cont rocephin/doxyc for possible bacterial superinfection -cont nebs, inhalers, pulm toilet, etc. #h/o paroxysmal Afib on Coumadin - -INR 2.5 today -resume coumadin at 1/2 her typical dose today -daily INR while here -continue diltiazem, flecainide, metoprolol #Hypothyroidism - -TSH 1.8 in Oct 2024 -Continue Synthroid #h/o recurrent VTE - -IVC filter in place -on chronic coumadin; follows with [facility] for such -daily INR while here #asthma w/ exacerbation - -2nd to COVID-19 infection -improved today -cont dexamethasone, cont nebs prn, etc. pt's updated by phone this evening; unfortunately he, too, is now COVID+ PT eval to ensure d/c readiness for home Admission and Anticipated Discharge Date Admission Date: June 13, 2025 Subjective patient feeling better today less chest tightness can take larger breaths cough/wheezing improved with walking to the bathroom no dyspnea today eating better energy improved minimal sputum tele overnight wnl Review of Systems Review of Systems: gen - no fevers or chills cv - no chest pain GI - no nausea/emesis/pain Physical Exam Physical Exam: gen - looks better today, coughing, NAD, no distress neck - no JVD mouth - MMM heart - RRR, s1 s2, no murmur lungs - fine rales b/l bases, wheezes resolved today, better airation, no resp distress abd - soft NT ND BS+ ext - no edema, pulses 2+ b/l feet Results & Data Results & Data Vital Signs (Past 12 Hours) Vital Signs Temp Pulse Pulse Resp BP Pulse Ox O2 Del Method 06/14/25 19:26 36.8 C 66 18 137/71 92 Room Air 06/14/25 16:58 76 06/14/25 15:14 36.7 C 65 18 137/72 95 Room Air 06/14/25 11:15 36.7 C 63 18 145/71 H 94 Room Air 06/14/25 10:25 Room Air Laboratory Results Laboratory Results - last 24 hr 06/14/25 06:30 WBC 7.08 RBC 4.02 L Hgb 12.4 Hct 36.6 L MCV 91.0 MCH 30.8 MCHC 33.9 RDW Std Deviation 42.5 RDW Coeff of Ken 13.0 Plt Count 222 MPV 8.7 L Immature Gran % (Auto) 2.0 Neut % (Auto) 70.4 Lymph % (Auto) 21.8 Gem % (Auto) 5.5 Eos % (Auto) 0.0 Baso % (Auto) 0.3 Neut # (Auto) 4.99 Lymph # (Auto) 1.54 Gem # (Auto) 0.39 Eos # (Auto) 0.00 Baso # (Auto) 0.02 Immature Gran # (Auto) 0.14 PT 24.9 H INR 2.5 H Sodium 138 Potassium 4.1 Chloride 103 Carbon Dioxide 27 Anion Gap 8 BUN 20 Creatinine 0.85 Est Cr Clr Drug Dosing 71.6 eGFR 73.66 BUN/Creatinine Ratio 23.5 H Glucose 161 H Calcium 9.3 AST 16 ALT 15 PG Care Time/CCT Total # of Minutes Spent Total Time Spent with Patient: Total time spent is greater than 50% in coordination of care (as documented) at patient's floor/unit and/or counseling patient: Coding Level of Care Code 18716 SUB INP/OBS CARE 2/35MIN Diagnoses COVID-19 U07.1 Pneumonia J18.9 Multiple pulmonary nodules R91.8 Atrial fibrillation I48.91 Hypothyroid E03.9 Asthma with exacerbation J45.901"
[2025-06-14] MEDS: REMDESIVIR 100 MG in SODIUM CHLORIDE 0.9% 230 ML IV SCH (20:53)
[2025-06-14] MEDS: WARFARIN SOD 2.5 MG TAB PO ONE (20:53)
[2025-06-14] MEDS: diphenhydrAMINE Capsule 25 MG CAP PO PRN (21:07)
[2025-06-15 07:46] LABS: Alanine Aminotransferase 14.0 U/L (7-52); Anion Gap 9.0 (3-11); Blood Urea Nitrogen 25.0 mg/dl (6-23); Calcium 9.3 mg/dl (8.6-10.3); Carbon Dioxide 25.0 mmol/L (21-32); Chloride 104.0 mmol/L (98-107); Creatinine Clr Calc Pharmacy 73.5 ml/min; Glucose 182.0 mg/dl (70-99(Fasting)); INR 1.9 (0.9-1.1); Potassium 3.7 mmol/L (3.5-5.1); Prothrombin Time 19.8 Seconds (9.0-12.0); Sodium 138.0 mmol/L (136-145)
[2025-06-15 07:51] VITALS: RESP 18
[2025-06-15] MEDS: WARFARIN SOD 5 MG TAB PO ONE (14:04)
[2025-06-15 15:28] VITALS: BP 127/66; TEMP 98.1; O2SAT 95
--- NOTE | 2025-06-15 18:12 | Discharge Summary ---
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 Tested + for COVID at home about 4-[address] chest with RLL infiltrates. #COVID-19 infection | RLL Pneumonia - -improved -cont airborne isolation -cont dexamethasone 6mg IV daily, day #2 today -cont Remdesivir x 3 days, day #2 today -cont rocephin/doxyc for possible bacterial superinfection -cont nebs, inhalers, pulm toilet, etc. #h/o paroxysmal Afib on Coumadin - -INR 2.5 today -resume coumadin at 1/2 her typical dose today -daily INR while here -continue diltiazem, flecainide, metoprolol #Hypothyroidism - -TSH 1.8 in Oct 2024 -Continue Synthroid #h/o recurrent VTE - -IVC filter in place -on chronic coumadin; [facility] -daily INR while here #asthma w/ exacerbation - -2nd to COVID-19 infection -improved today -cont dexamethasone, cont nebs prn, etc. 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 Symptoms started 5 days ago, tested positive for COVID on Tuesday and was given a course of steroids and doxycycline. No fevers at home. Occasional productive cough. Does get very short of breath with activity. No changes to her GI habits. Did take her medications this morning. Would like to be a full code. Discharge Exam gen - looks better today, coughing, NAD, no distress neck - no JVD mouth - MMM heart - RRR, s1 s2, no murmur lungs - fine rales b/l bases, wheezes resolved today, better airation, no resp distress abd - soft NT ND BS+ ext - no edema, pulses 2+ b/l feet Discharge Plan Discharge Items Patient Disposition: Home - Self-Care Reason For Visit: COVID-19 infection Discharge Diagnosis: 1. COVID-19 infection 2. right-sided pneumonia 3. mulitiple pulmonary nodules on CT scan - repeat CT needed in 3 months 4. asthma with exacerbation 5. history of blood clots on coumadin - INR 1.9 on 06/15/25 6. history of atrial fibrillation 7. very mild pre-diabetes (hemoglobin a1c 5.9%) - continue dietary efforts Activity: As commented below Activity Comment: gradually increase activities over the next 5-7 days as tolerated Exercise/Sports: Wait until after follow-up appointment Non-emergency contact: Primary Care Provider and Specialist Call non-emergency contact if: you have any medication questions, your symptoms worsen and you have a fever Follow-up/Referrals: Sylvain Montenegro MD [Physician] - 06/20/25 (keep previously scheduled cardiology visit ) Lakisha Chicas PA-C [Primary Care Provider] - (see Ms Chicas within 5-7 days ) Diet: Carb Consistent or DM2 Addtl Attending Provider Instructions: Mrs Dickey, Juan R were hospitalized due to COVID-19 infection, right lower lobe pneumonia, and asthma exacerbation. You were treated with IV steroids, IV antibiotics, and antiviral medicine called Remdesivir for the COVID infection. Your symptoms improved during the stay. Oxygen levels remained stable and you did not require any supplemental oxygen. Laboratories were largely acceptable (your glucose levels were mildly high due to the steroids and your underlying pre-diabetes). On day of discharge we walked you around in the room and your oxygen levels stayed in a normal range. Recommendations - 1. antibiotics - -cefdinir 300mg twice daily x 4 days; start tomorrow morning, 06/16/25; [facility] -doxycycline 100mg twice daily x 5 additional days; you should already have this at your home (it was prescribed for you earlier this week) -start taking this again TONIGHT -both antibiotics can cause diarrhea -the doxycycline can sometimes cause heartburn/stomach upset -rarely can doxycycline cause a rash if you are out in the sun; thus, if you spend time outside over the next week simply cover up and use sunscreen 2. steroids - -stop the prednisone that was prescribed last week -in its place start dexamethasone steroid taper on 06/16/25; take with food -this is for your asthma 3. please use your albuterol nebulizer treatments 3-4 times each day for the next several days for cough/congestion/wheezing 4. continue using your flutter valve & incentive spirometer devices at home for the next several days 5. hold your hydrochlorothiazide blood pressure medicine for now; this medicine was on hold during your stay and your blood pressures were normal without it 6. you received your coumadin already today before going home. Thus, start your coumadin back tomorrow, 06/16/25, per your normal schedule -please contact the coumadin clinic on Tuesday to see if they want to move up your June 24 appointment -the antibiotics can interact with your coumadin making your blood too thin -again your INR today, 06/15, is 1.9 7. you are likely still contagious to others; thus, plan to spend the next 2-3 days at home recovering and resting from your COVID illness -on Tuesday, 06/17 you can end your "isolation" period at your home and venture out into the community as needed -you may want to wear a mask next week as you go back out into the community 8. you may have another 1-2 weeks of recovery ahead as the COVID illness fully resolves. Fatigue and cough are typically some of the last symptoms that linger. Be sure to listen to your body during the recovery phase and take extra care, focus on good nutrition & hydration, etc. 9. please talk to Dr Silva about having another CT scan of your chest in 3 months due to pulmonary nodules seen on the CT scan this admission Return to [facility] if - -you have fevers over 100 degrees -you have worsening shortness of breath, worsening chest tightness, worsening wheezing, etc despite taking all of your steroids/antibiotics/neb treatments/etc -you develop severe diarrhea (3 or more liquid stools in 24 hours) -any other concerns It was our pleasure to care for you! Please continue to feel better, -Shakir Obando, [facility] medicine Pending Studies at Discharge: No Stand-Alone Forms: My [facility], Smoking Cessation Medications and DC Order Prescriptions: New dexamethasone 2 mg tablet 2 mg PO DIRECTED Qty: 14 0RF Rx Instructions: start 06/16, take w/ food. 3 tabs PO QD x 2 days; 2 tabs PO QD x 3 days; 1 tab po QD x 2 days. cefdinir 300 mg capsule 300 mg PO BID 4 Days Qty: 8 0RF Rx Instructions: start AM of 06/16/25. Continued multivitamin Tablet 1 tab PO QAM Patient Comments: 06/13- otc unable to verify magnesium chloride 64 mg Tablet,Delayed Release (Dr/Ec) 64 mg PO Q12 Patient Comments: 06/13- otc unable to verify cholecalciferol (vitamin D3) [Vitamin D3] 5,000 unit Tablet 5,000 unit PO QAM Patient Comments: 06/13- otc unable to verify diphenhydramine HCl [Benadryl Allergy] 25 mg tablet 25 mg PO HS PRN (Reason: sleep) Patient Comments: 06/13- otc unable to verify calcium carbonate-vitamin D3 [Caltrate with Vitamin D3] 600 mg(1,500mg) -800 unit tablet 1 tab PO BID Patient Comments: 06/13- otc unable to verify minoxidil 2.5 mg tablet 2.5 mg PO DAILY levothyroxine 100 mcg tablet 100 mcg PO 4XWK Rx Instructions: Take once daily on ,,, ONLY. Ozempic 0.25 mg or 0.5 mg (2 mg/3 mL) pen injector 0.5 mg subcut WK Rx Instructions: losartan 25 mg tablet 25 mg PO DAILY metoprolol tartrate 50 mg tablet 50 mg PO BID Qty: 180 3RF Repatha SureClick 140 mg/mL pen injector 140 mg subcut Q14D Qty: 6 3RF (DME) nebulizers Misc See Rx Instructions .Route Qty: 1 0RF Rx Instructions: Nebulizer with tubing and supplies. SILAS: 99+ years. diltiazem HCl 180 mg capsule,extended release 24hr 180 mg PO BID Qty: 180 3RF Nucala 100 mg/mL syringe 100 mg subcut .Every 28 days Qty: 2 5RF Rx Instructions: Nucala 100mg/1ml SQ every 28 days Reference # [id number] Approved 09/15/24-11/15/25 flecainide 50 mg tablet 50 mg PO Q12H Qty: 180 3RF warfarin 5 mg tablet See Rx Instructions PO UD Qty: 80 2RF Rx Instructions: 2.5mg q Sun and Thurs, 5mg x 5 days per [facility] orally use as directed; fluticasone propion-salmeterol [Advair Diskus] 500-50 mcg/dose blister with device 1 inh INHALATION Q12H Qty: 3 3RF clotrimazole 10 mg farzana 10 mg mucous membrane 5XD 14 Days Qty: 70 0RF (DME) nebulizers [facility] See Rx Instructions .Route Qty: 1 0RF Rx Instructions: Nebulizer with tubing and supplies. SILAS: 99+ years. albuterol sulfate 2.5 mg /3 mL (0.083 %) solution for nebulization 2.5 mg INHALATION Q6H PRN (Reason: Shortness Of Breath) Qty: 180 4RF Patient Comments: 06/13- Last filled 11/13/24 30 day supply pantoprazole 40 mg tablet,delayed release (DR/EC) 40 mg PO DAILY Qty: 90 3RF Asmanex HFA 200 mcg/actuation HFA aerosol inhaler 2 puff inhalation BID Qty: 3 3RF meclizine 25 mg tablet 25 mg PO TID PRN (Reason: dizziness) Qty: 15 0RF doxycycline hyclate 100 mg tablet 100 mg PO BID 10 Days Qty: 20 0RF Rx Instructions: take for 5 more days then stop albuterol sulfate [Ventolin HFA] 90 mcg/actuation HFA aerosol inhaler 2 puff inhalation Q4H PRN (Reason: Shortness Of Breath) Qty: 0 0RF Patient Comments: 06/13- no fill history unable to verify. Original: 2 puff q4h prn Held hydrochlorothiazide 25 mg tablet 12.5 mg PO QAM Qty: 45 3RF Hold Instructions: hold for now Discontinued prednisone 10 mg tablet 10 mg PO UD Rx Instructions: take 40mg daily for 3 days; then 30mg daily for 3 days; then 20mg daily for 3 days; 10mg daily for 3 days orally daily Discharge Orders: Discharge Order (Routine); Ordered 06/15/25 Ordered By: Shakir Strong/Other Patient Handouts: A1C, Prediabetes Admission Data Admit Date/Time: 06/13/25 14:09 Attending Provider: Shakir Obando Admit Provider: Shakir Obando Primary Care Provider: Lakisha Chicas Providers: Shakir Obando Hospital Stay Data Consultations 06/13/25 14:29 ED Decision to Admit Stat Diagnostic Imagining Performed 06/13/25 11:43 CT chest diagnostic w con Stat Pending Results Patient Have Any Pending Studies at Discharge: No Discharge Instructions Given to Patient (Per Discharging Provider) Mrs Dickey, Juan R were hospitalized due to COVID-19 infection, right lower lobe pneumonia, and asthma exacerbation. You were treated with IV steroids, IV antibiotics, and antiviral medicine called Remdesivir for the COVID infection. Your symptoms improved during the stay. Oxygen levels remained stable and you did not require any supplemental oxygen. Laboratories were largely acceptable (your glucose levels were mildly high due to the steroids and your underlying pre-diabetes). On day of discharge we walked you around in the room and your oxygen levels stayed in a normal range. Recommendations - 1. antibiotics - -cefdinir 300mg twice daily x 4 days; start tomorrow morning, 06/16/25; prescription sent to [facility] for you -doxycycline 100mg twice daily x 5 additional days; you should already have this at your home (it was prescribed for you earlier this week) -start taking this again TONIGHT -both antibiotics can cause diarrhea -the doxycycline can sometimes cause heartburn/stomach upset -rarely can doxycycline cause a rash if you are out in the sun; thus, if you spend time outside over the next week simply cover up and use sunscreen 2. steroids - -stop the prednisone that was prescribed last week -in its place start dexamethasone steroid taper on 06/16/25; take with food -this is for your asthma 3. please use your albuterol nebulizer treatments 3-4 times each day for the next several days for cough/congestion/wheezing 4. continue using your flutter valve & incentive spirometer devices at home for the next several days 5. hold your hydrochlorothiazide blood pressure medicine for now; this medicine was on hold during your stay and your blood pressures were normal without it 6. you received your coumadin already today before going home. Thus, start your coumadin back tomorrow, 06/16/25, per your normal schedule -please contact the coumadin clinic on Tuesday to see if they want to move up your June 24 appointment -the antibiotics can interact with your coumadin making your blood too thin -again your INR today, 06/15, is 1.9 7. you are likely still contagious to others; thus, plan to spend the next 2-3 days at home recovering and resting from your COVID illness -on Tuesday, 06/17 you can end your "isolation" period at your home and venture out into the community as needed -you may want to wear a mask next week as you go back out into the community 8. you may have another 1-2 weeks of recovery ahead as the COVID illness fully resolves. Fatigue and cough are typically some of the last symptoms that linger. Be sure to listen to your body during the recovery phase and take extra care, focus on good nutrition & hydration, etc. 9. please talk to Dr Silva about having another CT scan of your chest in 3 months due to pulmonary nodules seen on the CT scan this admission Return to [facility] if - -you have fevers over 100 degrees -you have worsening shortness of breath, worsening chest tightness, worsening wheezing, etc despite taking all of your steroids/antibiotics/neb treatments/etc -you develop severe diarrhea (3 or more liquid stools in 24 hours) -any other concerns It was our pleasure to care for you! Please continue to feel better, -Shakir Obando, hospital medicine Coding Diagnoses COVID-19 U07.1 Pneumonia J18.9 Multiple pulmonary nodules R91.8 Atrial fibrillation I48.91 Hypothyroid E03.9 Asthma with exacerbation J45.901
[2025-06-15 19:14] VITALS: PULSE 61
[2025-06-16] MEDS ORDERED: WARFARIN SOD 2.5 MG TAB PO SCH (16:00)
[2025-06-17] MEDS ORDERED: LEVOTHYROXINE SODIUM 100 MCG TABLET PO SCH (06:30)
== END 2025-06-15 20:09 | disposition home or self-care (01) | DRG 177 ==
LOC: ED 09:29 → EDINP 14:09 → 2N 15:33